=== PATIENT | female | born 1965 | race Caucasian/White ===

== ENCOUNTER 2021-05-13 23:07 | Emergency (ER) | payer OTHER, SELFPAY ==
--- NOTE | ~2021-05-13 | XR_ITS ---
XR tibia fibula LT 2V DATE: 05/13/2021 23:59 INDICATION: Fall. Left ankle injury, pain TECHNIQUE: AP and lateral views COMPARISON: None FINDINGS: There is a minimally displaced transverse fracture of the proximal neck of the fibula. There is a linear oblique fracture of the distal tibial shaft with 6.5 mm lateral and 1.6 mm posterio r displacement, no significant angulation. Normal alignment at the knee and ankle joints. Posterior prominent calcaneal enthesopathy. IMPRESSION: Proximal fibular neck and distal tibial shaft fractures Reviewed, dictated and finalized at location A.
--- NOTE | ~2021-05-13 | XR_ITS ---
XR ankle LT min 3V DATE: 05/13/2021 23:59 INDICATION: Fall. Left ankle injury TECHNIQUE: 3 views COMPARISON: None FINDINGS: There is up to 9 mm lateral displacement at a linear oblique fracture of the distal tibial shaft. Otherwise no fracture or dislocation of ankle or disruption of the ankle mortise. Prominent posterior and plantar calcaneal enthesopathy. Diffuse osteopenia. IMPRESSION: Distal tibial shaft fracture Reviewed, dictated and finalized at location A.
[2021-05-13 23:07] VITALS: BP 123/50; PULSE 77; RESP 12; TEMP 36.4; O2SAT 97
[2021-05-13 23:31] VITALS: BP 109/91; PULSE 76; RESP 13; O2SAT 97
--- NOTE | 2021-05-13 23:35 | ED.FALL ---
HPI - Fall General Chief Complaint: Fall Stated Complaint: fall Time Seen by Provider: 05/13/21 23:31 Source: RN notes reviewed History of Present Illness HPI Narrative: Patient presents emergency department from home via EMS for fall. Patient states she just waxed her floors today and was walking with socks on when she slipped and fell she states that when she fell she injured her left ankle and has been able to fully straighten it since that time she has been able to place any weight on the ankle patient states she was given pain medication by EMS she denies striking her head or any other injuries states she does have MS but does not walk with any assistance denies any pain of the knee or hip Related Data Home Medications Medication Instructions Recorded Confirmed Dialyvite Vitamin D 05/13/21 Novolog U-100 Insulin aspart 05/13/21 clonazepam 05/13/21 levothyroxine [Synthroid] 05/13/21 rosuvastatin mg 05/13/21 sertraline mg 05/13/21 tramadol 05/13/21 05/13/21 Allergies Allergy/AdvReac Type Severity Reaction Status Date / Time latex Allergy Unknown Unknown Verified 05/13/21 23:22 morphine Allergy Unknown Unknown Verified 05/13/21 23:22 Review of Systems Review of Systems: Gen.: Denies fevers or chills Eyes: Denies eye pain or visual change ENT: Denies facial pain Respiratory: Denies shortness of breath CV: Denies chest pain GI: Denies abdominal pain nausea, emesis Musculoskeletal see HPI Neuro: Denies numbness, tingling, weakness or focal weakness Skin: Denies rash Except as documented, all other systems reviewed and negative FOR[facility] Past Medical History Medical History (Updated 05/14/21 @ 03:25 by Nicholas Joyner DO) Diabetes mellitus Multiple sclerosis ROSENBERG (nonalcoholic steatohepatitis) Family History Family History (Updated 06/14/17 @ 10:14 by DOCTOR UNKNOWN) Other Cerebrovascular accident Depression Diabetes mellitus Family history of arthritis Family history of attention deficit hyperactivity disorder (ADHD) Family history of cardiovascular disease Family history of coronary artery disease Hypertension Social History Social History Smoking status: Never smoker Alcohol intake: never Exam Narrative: APPEARANCE: No acute distress, nontoxic, resting in bed EYES: EOMI HEENT: Normocephalic, atraumatic RESPIRATORY: No respiratory distress Clear to auscultation bilaterally with no rhonchi wheezing or rales. CARDIOVASCULAR: Regular rate and rhythm without murmurs rubs or gallops. ABDOMINAL: Soft, nontender, nondistended, MUSCULOSKELETAl: Moves all extremities. No clubbing, cyanosis or edema. 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 Following commands, speech normal, no focal deficits SKIN:: Warm, dry. No rashes lesions or abrasions PSYCHIATRIC: Normal affect/mood, Course Course Emergency Course: Called discussed with orthopedics Dr. Mccullough who reviewed imaging and request patient transferred to tertiary center for higher level of care Discussed with patient need for transfer request [facility] at this time We will discuss with Dr. Mulligan for orthopedics at [facility] at this time request patient be transferred to the ED Patient excepted to the ED by Dr. Murcia Vital Signs Vital signs: Vital Signs Temperature 97.6 F 05/13/21 23:07 Pulse Rate 77 05/13/21 23:07 Respiratory Rate 12 05/13/21 23:07 Blood Pressure 123/50 L 05/13/21 23:07 Pulse Oximetry 97 05/13/21 23:07 Temperature 97.6 F 05/13/21 23:07 Pulse Rate 73 05/14/21 03:04 Respiratory Rate 15 05/14/21 03:04 Bloo
[2021-05-14 00:54] VITALS: BP 120/50; PULSE 67; RESP 12; O2SAT 99
[2021-05-14] MEDS: fentaNYL CITRATE INJ (*CRX) 100 MCG/2 ML VIAL 50 MCG IV PUSH (01:35)
[2021-05-14 01:58] VITALS: BP 121/61; PULSE 65; RESP 11; O2SAT 96
[2021-05-14 03:04] VITALS: BP 94/43; PULSE 73; RESP 15; O2SAT 97
[2021-05-14 03:59] VITALS: BP 116/52; PULSE 82; RESP 15; O2SAT 97
== END 2021-05-14 04:00 | disposition short-term general hospital (02) ==
PROVIDERS: Emergency Provider Emergency Medicine; PCP Internal Medicine
DX: S82.832A Other fracture of upper and lower end of left fibula, initial encounter for closed fracture (principal); S82.232A Displaced oblique fracture of shaft of left tibia, initial encounter for closed fracture; E11.9 Type 2 diabetes mellitus without complications; G35 Multiple sclerosis; K75.81 Nonalcoholic steatohepatitis (NASH); Z79.4 Long term (current) use of insulin; W01.0XXA Fall on same level from slipping, tripping and stumbling without subsequent striking against object, initial encounter
CPT/HCPCS: 29515; 73590; 73610; 96374; 99285; J3010

== ENCOUNTER 2025-01-26 00:54 | Day surgery (SDC) | payer BC, MEDICARE, SELFPAY ==
[2025-01-19 15:05] VITALS: BMI 26.6
--- OUTSIDE RECORDS SUMMARY | 2025-01-26 00:57 | XMS_ITS | Encounter Summary ---
Author Organization [facility] Address [address] [place] [address] Care Team Providers Care Avionics Technician Name Role Phone Michael Rivas MD Primary Care Provider [phone] Encounter Details Date Type Department Care Team (Late Contact Info) Description 01/11/2005 Outpatient Historical Division of Neurology [address] 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 Gender Identity Not on file Sexual Orientation Not on file documented as of this encounter Plan of Treatment Upcoming Encounters Date Type Department Care Team (Late st Contact Info) Description 03/24/2025 1:30 PM CDT Office [facility] Oncology and Hematology - [place] [address] [facility] [address] [place] [address] Vinny Preciado MD [address] [facility] [address] [place] [address] documented as of this encounter Visit Diagnoses Not on filedocumented in this encounter Care Teams Avionics Technician Relationship Specialty Start Date End Date Michael Rivas MD PCP - General 09/03/15 documented as of this encounter
--- OUTSIDE RECORDS SUMMARY | 2025-01-26 00:58 | XMS_ITS | Encounter Summary ---
Author Organization [facility] Address [address] [place] [address] Care Team Providers Care Grocery Associate Name Role Phone Michael Rivas MD Primary Care Provider [phone] Encounter Details Date Type Department Care Team (Latest Contact Info) Description 04/12/2005 Outpatient Historical HIS [facility] Annel Michael MD [address] [facility] [address] [place] [address] MULTIPLE SCLEROSIS (CMS/HCC) (Primary Dx) Social History Tobacco Use Types Packs/Day Years Used Date Smoking Tobacco: Never Assessed Comments Unknown Sex and Gender Information Value Date Recorded Sex Assigned at Not on file 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 Gender Identity Not on file Sexual Orientation Not on file documented as of this encounter Plan of Treatment Upcoming Encounters Date Type Department Care Team (Late st Contact Info) Description 03/24/2025 1:30 PM CDT Office Visit [facility] Oncology and Hematology - [place] [address] [facility] [address] [place] [address] Vinny Preciado MD [address] [facility] [address] [place] [address] documented as of this encounter Procedures Procedure Name Priority Date/Time Associated Diagnosis Comments ANGIOTENSIN CONVERTING ENZYME Routine 04/12/2005 1:57 PM CDT BRANDT SCREEN W/REFLEX Routine 04/12/2005 1 :57 PM CDT PROTEIN ELECTROPHORESIS W/REFLEX,SERUM Routine 04/12/2005 1:57 PM CDT SPINAL FLUID CELL COUNT W/REFLEXIVE DIFF Routine 04/12/2005 1:44 PM CDT SPINAL FLUID CELL COUNT W/REFLEXIVE DIFF Routine 04/12/2005 1:44 PM CDT PROTEIN ELECTROPHORESIS, CSF Routine 04/12/2005 1:44 PM CDT TOTAL PROTEIN, CSF Routine 04/12/2005 1: 44 PM CDT GLUCOSE, CSF Routine 04/12/2005 1:44 PM CDT documented in this encounter Results * ANGIOTENSIN CONVERTING ENZYME (04/12/2005 1:57 PM CDT) ANGIOTENSIN CONVERTING ENZYME 28 9 - 67 U/L INTERFACE SYSTEM Comment: Lab test performed by: [facility] [address] ÁLVARO MCCRAY MD 04/12/2005 1:57 PM CDT Annel Butler MD CHEMISTRY ORDERABLES Final Result INTERFACE SYSTEM Refer to clinic/hospital department * (ABNORMAL) PROTEIN ELECTROPHORESIS, SERUM (04/12/2005 1:57 PM CDT) PROTEIN TOTAL, SPE 7.6 6.0 - 8.3 g/dL INTERFACE SYSTEM ALBUMIN SPE 4.67 3.60 - 5.00 g/dL INTERFACE SYSTEM ALPHA 1 GLOBULIN SPE 0.21 0.12 - 0.30 g/dL INTERFACE SYSTEM ALPHA 2 GLOBULIN SPE 1.06(H) 0.50 - 1.01 g/dL INTERFACE SYSTEM BETA GLOBULIN 0.75 0.60 - 1.05 g/dL INTERFACE SYSTEM GAMMA GLOBULIN 0.90 0.60 - 1.33 g/dL INTERFACE SYSTEM SPE INTERP INTERFACE SYSTEM Comment: One value is slightly outside the normal range; otherwise pattern is within normal limits. ELECTROPHORESIS INTERP BY: Frank Galvan MD INTERFACE SYSTEM 04/12/2005 1:57 PM CDT Annel Butler MD CHEMISTRY ORDERABLES Final Result Performing Organization Address [facility] Phone Number INTERFACE SYSTEM Refer to clinic/hospital department * BRANDT (04/12/2005 1:57 PM CDT) BRANDT SCREEN NEGATIVE NEGATIVE INTERFACE SYSTEM Comment: Lab test performed by: [facility] [address] ÁLVARO MCCRAY MD 04/12/2005 1:57 PM CDT Annel Butler MD CHEMISTRY ORDERABLES Final Result Performing Organization Address [facility] Phone [facility] INTERFACE SYSTEM Refer to clinic/hospital department * SPINAL FLUID CELL COUNT W/REFLEXIVE DIFF (04/12/2005 1:44 PM CDT) LYMPHOCYTES, CSF 67 40 - 80 % INTERFACE SYSTEM MONOCYTES/ HISTIOCYTES, CSF 33 15 - 45 % INTERFACE SYSTEM # CELLS COUNTED FOR DIFF, CSF <10 WBC Counted INTERFACE SYSTEM 04/12/2005 1:44 PM CDT Annel Butler MD BODY FLUIDS AND STOOLS Philomena l Result Performing Organization Address [facility] Phone Number INTERFACE SYSTEM Refer to clinic/hospital department * (ABNORMAL) TOTAL PROTEIN, CSF (04/12/2005 1:44 PM CDT) PROTEIN, CSF 78(H) 15 - 60 mg/dL INTERFACE SYSTEM 04/12/2005 1:44 PM CDT Annel Butler MD BODY FLUIDS AND STOOLS Phil[facility] l Result Performing Organization Address [facility] Phone Number INTERFACE SYSTEM Refer to clinic/hospital department * (ABNORMAL) GLUCOSE, CSF (04/12/2005 1:44 PM CDT) GLUCOSE, CSF 83(H) 41 - 75 mg/dL INTERFACE SYSTEM 04/12/2005 1:44 PM CDT Annel Butler MD BODY FLUIDS AND STOOLS [place] l Result Performing Organization Address [facility] Phone Number INTERFACE SYSTEM Refer to clinic/hospital department * (ABNORMAL) PROTEIN ELECTROPHORESIS, CSF (04/12/2005 1:44 PM CDT) PROTEIN, CSFE 78(H) 15 - 60 mg/dL INTERFACE SYSTEM IGG-ALBUMIN INDEX 0.67 <=0.70 Index INTERFACE SYSTEM ALBUMIN 4,384 3,500 - 5,200 mg/dL INTERFACE SYSTEM IGG SERUM CSFE 1030 674 - 1554 mg/dL INTERFACE SYSTEM ALBUMIN, CSF 37.3(H) 10.0 - 30.0 mg/dL INTERFACE SYSTEM IGG, CSF 5.87(H) 0.63 - 5.00 mg/dL INTERFACE SYSTEM CSF ELECT INTERP INTERFACE SYSTEM Comment: Negative for oligoclonal bands. The CSF IgG index is normal. CSF ELEC INTERP BY: Frank Galvan MD INTERFACE SYSTEM 04/12/2005 1:44 PM CDT Annel Butler MD BODY FLUIDS AND STOOLS Philomena l Result Performing Organization Address [facility] Phone Number INTERFACE SYSTEM Refer to clinic/hospital department * (ABNORMAL) SPINAL FLUID CELL COUNT W/REFLEXIVE DIFF (04/12/2005 1:44 PM CDT) APPEARANCE, CSF Clear Clear INTERFACE SYSTEM COLOR, CSF Colorless Colorless INTERFACE SYSTEM TUBE #, CSF 4 INTERFAC E SYSTEM VOLUME, CSF 6.5 mL INTERFAC E SYSTEM WBC, CSF 2 0 - 10 /uL INTERFACE SYSTEM RBC, CSF 1(H) <=0 /uL INTERFACE SYSTEM 04/12/2005 1:44 PM CDT Annel Butler MD BODY FLUIDS AND STOOLS Phil[place]a l Result Performing Organization Address [facility] Co de Phone Number INTERFACE SYSTEM Refer to clinic/hospital department documented in this encounter Visit Diagnoses Diagnosis Multiple sclerosis (CMS/HCC)- Primary Multiple sclerosis documented in this encounter Care Teams Grocery Associate Relationship Specialty Start Date End Date Michael Rivas MD PCP - General 09/03/15 documented as of this encounter
--- OUTSIDE RECORDS SUMMARY | 2025-01-26 00:58 | XMS_ITS | Encounter Summary ---
Author Organization [facility] Address [address] [place] [address] Phone Care Team Providers Care Base Remover Name Role Phone Mahad Corado MD Unavailable [phone] Xiomy Kiran MD Primary Care Provider Reason for Visit * Reason Comments Medication Refill Encounter Details Date Type Department Care Team (Late st Contact Info) Description [facility] [address] [place] [phone] Mahad Corado MD [address] [place] [address] Medication Refill Social History Tobacco Use Types Packs/Day Years Used Date Smoking Tobacco: Never Smokeless Tobacco: Never Alcohol Use Standard Drinks/Week Comments No 0 (1 standard drink = 0.6 oz pur e alcohol) Sexually Active Control Partners Comments Yes Post-menopausal Male Comments No Sex and Gender Information Value Date Recorded Sex Assigned at Not on file Legal Sex Female 12:03 AM CDT Gender Identity Not on file Sexual Orientation Not on file documented as of this encounter Plan of Treatment Upcoming Encounters Date Type Department Care Team (Late st Contact Info) Description 06/25/2025 11:00 AM CDT Office Visit [facility] - Neurology [facility] [address] [place] [address] Mahad Corado MD [address] [facility] [place] [address] documented as of this encounter Visit Diagnoses Diagnosis Anxiety Anxiety state, unspecified documented in this encounter Care Teams Base Remover Relationship Specialty Start Date End Date Xiomy Kiran MD [address] [place] [address] [facility] [place] [address] PCP - General Internal Medicine 12/05/17 Mahad Corado MD [address] [place] [address] Consulting Physician Neurology 08/02/15 documented as of this encounter
--- OUTSIDE RECORDS SUMMARY | 2025-01-26 00:58 | XMS_ITS | Encounter Summary ---
Author Organization [facility] Address 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 Gender Identity Not on file Sexual Orientation Not on file documented as of this encounter Plan of Treatment Upcoming Encounters Date Type Department Care Team (Late st Contact Info) Description 03/24/2025 1:30 PM CDT Office Visit [facility] Oncology and Hematology - [place] [address] [facility] [address] [place] [address] Vinny Preciado MD [address] [facility] [address] [place] [address] documented as of this encounter Visit Diagnoses Diagnosis Carpal tunnel syndrome- Primary documented in this encounter Care Teams Hydraulic Press Servicer Relationship Specialty Start Date End Date Michael Rivas MD PCP - General 09/03/15 documented as of this encounter
--- OUTSIDE RECORDS SUMMARY | 2025-01-26 00:58 | XMS_ITS | Encounter Summary ---
Author Organization [facility] Address [address] [place] [address] Care Team Providers Care Fire Alarm Dispatcher Name Role Phone Michael Rivas MD Primary Care Provider [phone] Encounter Details Date Type Department Care Team (Latest Contact Info) Description 08/05/2004 Outpatient Historical HIS [facility] Jean Dugan MD [address] [facility] [address] [place] [address] SCREENING MAMM-MAILG NEOPL-OTHER (Primary Dx) Social History Tobacco Use Types Packs/Day Years Used Date Smoking Tobacco: Never Assessed Comments Unknown Sex and Gender Information Value Date Recorded Sex Assigned at Not on file Legal Sex Female 2:39 AM [employer] Gender Identity Not on file Sexual Orientation Not on file documented as of this encounter Plan of Treatment Upcoming Encounters Date Type Department Care Team (Late st Contact Info) Description 03/24/2025 1:30 PM CDT Office Visit [facility] Oncology and Hematology - [place] [address] [facility] [address] [place] [address] Vinny Preciado MD [address] [facility] [address] [place] [address] documented as of this encounter Visit Diagnoses Diagnosis Other screening mammogram- Primary documented in this encounter Care Teams Fire Alarm Dispatcher Relationship Specialty Start Date End Date Michael Rivas MD PCP - General 09/03/15 documented as of this encounter
--- OUTSIDE RECORDS SUMMARY | 2025-01-26 00:58 | XMS_ITS | Encounter Summary ---
Author Organization [facility] Address [address] [place] [address] Care Team Providers Care Director Validation Name Role Phone Michael Rivas MD Primary Care Provider [phone] Encounter Details Date Type Department Care Team (Late st Contact Info) Description 03/13/2005 Outpatient Historical [facility] Support Serv. (Adt Cardiology-[facility]) [address] 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 Gender Identity Not on file Sexual Orientation Not on file documented as of this encounter Plan of Treatment Upcoming Encounters Date Type Department Care Team (Late st Contact Info) Description 03/24/2025 1:30 PM CDT Office Visit [facility] Oncology and Hematology - [place] [address] [facility] [address] [place] [address] Vinny Preciado MD [address] [facility] [address] [place] [address] documented as of this encounter Visit Diagnoses Not on filedocumented in this encounter Care Teams Director Validation Relationship Specialty Start Date End Date Michael Rivas MD PCP - General 09/03/15 documented as of this encounter
--- OUTSIDE RECORDS SUMMARY | 2025-01-26 00:58 | XMS_ITS | Encounter Summary ---
Author Organization [facility] Address [address] [place] [address] Care Team Providers Care Electron Gun Assembler Name Role Phone Michael Rivas MD Primary Care Provider [phone] Encounter Details Date Type Department Care Team (Late st Contact Info) Description 03/12/2005 Outpatient Historical [facility] Internal Medicine Medical [facility] [address] [facility] [address] [address] Ada Mojica MD Social History Tobacco Use Types Packs/Day Years Used Date Smoking Tobacco: Never Assessed Comments Unknown Sex and Gender Information Value Date Recorded Sex Assigned at Not on file 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 Gender Identity Not on file Sexual Orientation Not on file documented as of this encounter Plan of Treatment Upcoming Encounters Date Type Department Care Team (Late st Contact Info) Description 03/24/2025 1:30 PM CDT Office Visit [facility] Oncology and Hematology - [place] [address] [facility] [address] [place] [phone] Vinny Preciado MD [address] [facility] [address] [place] [address] documented as of this encounter Visit Diagnoses Not on filedocumented in this encounter Care Teams Electron Gun Assembler Relationship Specialty Start Date End Date Michael Rivas MD PCP - General 09/03/15 documented as of this encounter
--- OUTSIDE RECORDS SUMMARY | 2025-01-26 00:58 | XMS_ITS | Encounter Summary ---
Author Organization [facility] Address 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 Gender Identity Not on file Sexual Orientation Not on file documented as of this encounter Plan of Treatment Upcoming Encounters Date Type Department Care Team (Late st Contact Info) Description 03/24/2025 1:30 PM CDT Office Visit [facility] Oncology and Hematology - Raym[place] [address] [facility] [address] [place] [address] Vinny Preciado MD [address] [facility] [address] [place] [address] documented as of this encounter Visit Diagnoses Diagnosis Displacement of cervical intervertebral disc without myelopathy- Primary documented in this encounter Care Teams End User Support Specialist Relationship Specialty Start Date End Date Michael Rivas MD PCP - General 09/03/15 documented as of this encounter
--- OUTSIDE RECORDS SUMMARY | 2025-01-26 00:58 | XMS_ITS | Clinical Summary ---
Author Organization [facility] Facility Address [address] [place] [address] Care Team Providers Care Production Tool Engineer Name Role Phone Xiomy Kiarn MD Primary Care Provider [phone] Social History Tobacco Use Types Packs/Day Years Used Date Smoking Tobacco: Never Assessed Comments Unknown Sex and Gender Information Value Date Recorded Sex Assigned at Not on file Legal Sex Female 3:05 PM EST Gender Identity Not on file Sexual Orientation Not on file Plan of Treatment Upcoming Encounters Date Type Department Care Team (Late st Contact Info) Description 03/31/2025 1:30 PM CDT Office Visit [facility], [facility] [address] [facility] [address] [place] [address] Barney Capps DO [address] [facility] [address] [place] [address] Health Maintenance Due Date Last Done Comments Breast Cancer Screening 1965 Colorectal Cancer Screening: Annual FOBT 2012 Colorectal Cancer Screening: Colonoscopy 2012 Colorectal Cancer Screening: Sigmoidoscopy 2012 Pneumococcal Vaccine: 50+ Ye ars (2 of 2 - PCV) 03/22/2021 03/22/2020 Hepatitis B Vaccine (1 of 3 - Risk 3-dose series) 2023 Diabetes: Ophthalmology Exam 08/06/2024 Diabetes: Pedal Pulse Checked 08/06/2024 Diabetes: Sensory Foot Exam 08/06/2024 Diabetes: Visual Foot Exam 08/06/2024 Diabetes: Hemoglobin A1C 11/11/202408/11/2 024, 11/28/2023, 05/14/2021, Additional history exists Influenza Vaccine (Season Ended) 2025 06/18/2023, 06/28/2022, 06/21/2020, Additional history exists Pneumococcal Vaccine: Peds ( 0 to 5 Years) and At-Risk Patients (6 to 49 Years) Discontinued 03/22/2020 [place] [address] [facility] Medicare Care Teams Production Tool Engineer Relationship Specialty Start Date End Date Xiomy Kiran MD [address] [place] [address] PCP - General Internal Medicine 11/13/23
--- OUTSIDE RECORDS SUMMARY | 2025-01-26 00:58 | XMS_ITS | Encounter Summary ---
Author Organization [facility] Address [address] [place] [address] Care Team Providers Care Aviation Operations Specialist Name Role Phone Michael Rivas MD Primary Care Provider [phone] Encounter Details Date Type Department Care Team (Late Contact Info) Description 06/14/2005 Outpatient Historical Division of Neurology [address] , [address] [place] [address] Annel Butler MD [address] [facility] [address] [place] [address] Social History Tobacco Use Types Packs/Day Years Used Date Smoking Tobacco: Never Assessed Comments Unknown Sex and Gender Information Value Date Recorded Sex Assigned at Not on file 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 Gender Identity Not on file Sexual Orientation Not on file documented as of this encounter Plan of Treatment Upcoming Encounters Date Type Department Care Team (Late st Contact Info) Description 03/24/2025 1:30 PM CDT Office Visit [facility] Oncology and Hematology - Ray[place] [address] [facility] [address] [place] [address] Vinny Preciado MD [address] [facility] [address] [place] [address] documented as of this encounter Visit Diagnoses Not on filedocumented in this encounter Care Teams Aviation Operations Specialist Relationship Specialty Start Date End Date Michael Rivas MD PCP - General 09/03/15 documented as of this encounter
--- OUTSIDE RECORDS SUMMARY | 2025-01-26 00:58 | XMS_ITS | Encounter Summary ---
Author Organization [facility] Address 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 Gender Identity Not on file Sexual Orientation Not on file documented as of this encounter Plan of Treatment Upcoming Encounters Date Type Department Care Team (Late st Contact Info) Description 03/24/2025 1:30 PM CDT Office Visit [facility] Oncology and Hematology - Raymundo [address] [facility] 200 [place] [address] Vinny Preciado MD [address] [facility] [address] [place] [address] documented as of this encounter Visit Diagnoses Diagnosis Other follow-up examination(V67.59)- Primary Other follow-up examination documented in this encounter Care Teams Biology Department Chair Relationship Specialty Start Date End Date Michael Rivas MD PCP - General 09/03/15 documented as of this encounter
--- OUTSIDE RECORDS SUMMARY | 2025-01-26 00:58 | XMS_ITS | Encounter Summary ---
Author Organization [facility] Address 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) (Primary Dx) Social History Tobacco Use Types Packs/Day Years Used Date Smoking Tobacco: Never Assessed Comments Unknown Sex and Gender Information Value Date Recorded Sex Assigned at Not on file 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 Gender Identity Not on file Sexual Orientation Not on file documented as of this encounter Plan of Treatment Upcoming Encounters Date Type Department Care Team (Late st Contact Info) Description 03/24/2025 1:30 PM CDT Office Visit [facility] Oncology and Hematology - Raymundo [address] [facility] [address] [place] [address] Vinny Preciado MD [address] [facility] [address] [place] [address] documented as of this encounter Procedures Procedure Name Priority Date/Time Associated Diagnosis Comments HEMOGLOBIN A1C Routine 01/11/2005 2:10 PM CDT documented in this encounter Results * (ABNORMAL) HEMOGLOBIN A1C (01/11/2005 2:10 PM CDT) HEMOGLOBIN A1C 7.3(H) 3.9 - 6.1 % of Hgb INTERFACE SYSTEM Comment: Note: Analyzer upgraded from [employer] One Variant to Variant II. No change in methodology. GLUCOSE, MEAN BLOOD 157 mg/dL INTERFACE SYSTEM 01/11/2005 2:10 PM CDT us Annel Butler MD CHEMISTRY ORDERABLES Final Result INTERFACE SYSTEM Refer to clinic/hospital department documented in this encounter Visit Diagnoses Diagnosis Type II or unspecified type diabetes mellitus with neurological manifestations, not stated as uncontrolled(250.60) (CMS/HCC)- Primary Type II or unspecified type diabetes mellitus with neurological manifestations, not stated as uncontrolled documented in this encounter Care Teams Elementary Substitute Teacher Relationship Specialty Start Date End Date Michael Rivas MD PCP - General 09/03/15 documented as of this encounter
--- OUTSIDE RECORDS SUMMARY | 2025-01-26 00:58 | XMS_ITS | CONTINUITY OF CARE DOCUMENT ---
Author Name sofia black Address Unknown Organization [facility] Address [address] [facility] [address] [place] [address] Phone [phone] Care Team Providers Care Document Design Specialist Name Role Phone Philip TOLEDO, Silvana Unavailable [phone] [place] MD Unavailable [phone] [place] MD Unavailable [phone] PROBLEMS Condition Status Date Provider Notes Diabetes mellitus AIC 11.2 active Silvana hurtado MD FAMILY HISTORY OF HEART DISEASE active Kaley Farrar MD dad with cabg Obesity active Jarod Farrar MD Hypothyroidism active Jarod Farrar MD Osteomyelitis active Jarod Farrar MD Multiple sclerosis active Jarod Farrar MD Carpal tunnel syndrome active Jarod Farrar MD Hyperlipidemia active Jarod Farrar MD Chest pain stress nuc nl, Ca score 66 4 L main 61 LAD 03/2021 active Silvana Palacios MD SOB echo - nl lv function , diastolic dysfunctiom 03/2021 active Silvana Palacios MD PVD Mild atherosclerosis on MAT 03/2021 active Silvana Palacios MD ENCOUNTERS Date Type Provider Location Encounter Diag nosis 04/18 - 04/18 In-person encounter Office Visit Silvana Palacios MD [facility] Diabetes mellitus AIC 11.2SOB echo - nl lv function , diastolic dysfunctiom VD Mild atherosclerosis on MAT 03/2021 - 03/14 In-person encounter Office Visit Silvana Palacios MD [facility] Chest pain stress nuc nl, Ca score 66 4 L main 61 LAD OB echo - nl lv function , diastolic dysfunctiom 03/2021 - 05/20 In-person encounter Office Visit Jarod Farrar MD [facility] Diabetes mellitus AIC 11.2FAMILY HISTORY OF HEART DISEASEObesityHypothyroidismOsteomyelitisMultiple sclerosisCarpal tunnel syndromeHyperlipidemia VITAL SIGNS Date Observation Value Provider Body Mass Index (Ratio) 31.70 kg/m2 Jovon Palacios MD blood pressure, diastolic 75 mm[Hg] Fe Lima blood pressure, systolic 143 mm[Hg] Marly Moraes blood pressure, diastolic 75 mm[Hg] Rh onned Morales blood pressure, systolic 143 mm[Hg] Rho ndrocio Morales oxygen saturation, oximetry 98 % Xuan Morales respiratory rate E&M 18 /min Xuanrocio Morales pulse rate 77 /min Xuan Morales blood pressure, resting No Rhon ned Morales blood pressure, cuff size regular onned Morales weight E&M 179 [lb_av] Xuan Morales height E&M 63 [in_i] Xuan Morales Body Mass Index (Ratio) 31.70 kg/m2 Jovon Palacios MD blood pressure, diastolic 74 mm[Hg] [facility] Hospital[facility] blood pressure, systolic 158 mm[Hg] Marly Ospinaedwar blood pressure, diastolic 74 mm[Hg] Rh onda Carmen blood pressure, systolic 158 mm[Hg] Rho nda Carmen weight E&M 179 [lb_av] Xuan Morales pulse rate 84 /min Xuan Morales oxygen saturation, oximetry 98 % Xuan Morales respiratory rate E&M 18 /min Xuan Carmen blood pressure, resting No Rhon ned Morales blood pressure, cuff size regular Rh onned Morales height E&M 63 [in_i] Xuan Carmen Body Mass Index (Ratio) 30.82 kg/m2 Kaley Farrar MD blood pressure, cuff size regular Cr brunilda Wong blood pressure, diastolic 70 mm[Hg] Cr brunilda Wong blood pressure, systolic 120 mm[Hg] Cry stal Marvin oxygen saturation, oximetry 97 % Ernestina Wong respiratory rate E&M 17 /min Ernestina Wong pulse rate 79 /min Ernestina terry blood pressure, resting No Meghna jorge Wong weight E&M 174 [lb_av] Ernestina terry height E&M 63 [in_i] Ernestina terry ALLERGIES Allergy Name Onset Date Reaction Criticality Status LATEX High Criticality active MORPHINE High Criticality active HISTORY OF MEDICATION USE Medication Status Instructions Dates Provider Indications Com ments losartan 25 mg tablet active Take 1 tablet by mouth once a day 2 Sebastian Ahmedzaedel Crestor 40 mg tablet active 1 tablet by mouth once a day 8 Xuan Morales ZETIA 10 MG ORAL TABLET completed ONE TAB. DAILY with lovastain 0 - 8 Xuan Morales ADIPEX-P 37.5 MG ORAL TABLET completed one tab by mouth daily 3 - 8 Xuan Morales ALTACE 1.25 MG ORAL CAPSULE completed ONE TAB. DAILY 3 - 8 Xuan Morales LOVASTATIN TABLET completed - 8 Xuan Morales Zoloft 100 mg tablet active Take 1 tablet by mouth once a day Silvana Palacios MD levothyroxine 50 mcg tablet active Take 1 tablet by mouth once a day Silvana Palacios MD TRESIBA FLEXTOUCH 100 UNIT/ML SUBCUTANEOUS SOLUTION PEN-INJECTOR completed inject 15 units twice daily - 8 Xuan Morales GLIMEPIRIDE 2 MG ORAL TABLET completed take two tablet by mouth twice daily - 8 Xuan Morales clonazepam 0.5 mg tablet active Take 1 tablet by mouth once a week Silvana Palacios MD tramadol 50 mg tablet active Take 1 tablet by mouth as needed Silvana Palacios MD SOCIAL HISTORY Date Observation Value Provider social history E&M S moking History: Elda gregg has never smoked. Sebastian Kennedy smoking status Never smoker Xuan Morales social history reviewed E&M revi ewed - no changes required Silvana Palacios MD social history reviewed E&M revi ewed - no changes required Sebastian Kennedy social history E&M S moking History: Elda gregg has never smoked. Sebastian Kennedy smoking status Never smoker Xuan Morales social history E&M S moking History: Elda gregg has never smoked. Jarod Farrar MD social history reviewed E&M revi ewed - no changes required Jarod Farrar MD smoking status Never smoker Ernestina Lewis kareem FAMILY HISTORY Family Member Condition Father Family History of Hy perlipidemia: Father Family History of Di abetes: Mother Family History of Hy pertension: Mother Family History of Hy perlipidemia: INSURANCE PROVIDERS Payer name Policy type / Coverage type [place] red democrat ID [facility] [id number] MEDICARE SECONDARY [place] Medicare [id number] ADVANCE DIRECTIVES Name Date DISCUSSED - NO DECISION MADE TREATMENT PLAN Date Name Performer [id number],Silvana Terry MD [id number],WSilvana MD [id number],SSilvana MD [id number],BSilvana MD [id number],S, Silvana Palacios MD [id number],S, Sebastian Ahmedza i [id number],S, Sebastian Ahmedza i [id number],S, Sebastian Ahmedza i [id number],S, Sebastian Ahmedza i [id number],S, Sebastian Ahmedza i Cardiology Silvana Palacios MD Cardiology Silvana Palacios MD Cardiology Silvana Palacios MD Cardiology Silvana Palacios MD Cardiology Silvana Palacios MD Cardiology Sebastian Ahmedzai Cardiology Sebastian Ahmedzai Cardiology Sebastian Ahmedzai Cardiology Sebastian Ahmedzai Cardiology Sebastian Ahmedzai Cardiology Jarod Farrar MD Cardiology Jarod Farrar MD Cardiology Jarod Farrar MD Cardiology:9.1 Jarod Farrar MD Date Name Stress Regadenoson Arterial Duplex Bi-L ower EX CT, Coronary Calcium Score Complete Echo CT, Coronary Calcium Score HISTORY OF PROCEDURES Procedure Date Procedure Name Provider Procedure Notes S tatus EKG Silvana Palacios MD completed CT- Coronary CA score Silvana Palacios MD completed EKG Silvana Palacios MD completed EKG Jarod Farrar MD complete d
--- OUTSIDE RECORDS SUMMARY | 2025-01-26 00:58 | XMS_ITS | Encounter Summary ---
Author Organization [facility] Address 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 Gender Identity Not on file Sexual Orientation Not on file documented as of this encounter Plan of Treatment Upcoming Encounters Date Type Department Care Team (Late st Contact Info) Description 03/24/2025 1:30 PM CDT Office Visit [facility] Oncology and Hematology - Raymundo [address] [facility] [address] [place] [address] Vinny Preciado MD [address] [facility] [address] [place] [address] documented as of this encounter Procedures Procedure Name Priority Date/Time Associated Diagnosis Comments CBC WITH DIFFERENTIAL Routine 10/04/2005 1:43 PM HIGH SCHOOL PHYSICAL EDUCATION TEACHER CBC WITH DIFFERENTIAL Routine 10/04/2005 1:43 PM HIGH SCHOOL PHYSICAL EDUCATION TEACHER COMPREHENSIVE METABOLIC PANEL Routine 10/04/2005 1:43 PM HIGH SCHOOL PHYSICAL EDUCATION TEACHER documented in this encounter Results * (ABNORMAL) CBC WITH DIFFERENTIAL (10/04/2005 1:43 PM HIGH SCHOOL PHYSICAL EDUCATION TEACHER) NEUTROPHILS 69 45 - 70 % INTERFAC E SYSTEM LYMPHOCYTES 24 16 - 45 % INTERFAC E SYSTEM MONOCYTES 4 3 - 13 % INTERFACE SYSTEM EOSINOPHILS 2 0 - 7 % INTERFAC E SYSTEM BASOPHILS 1 0 - 2 % INTERFACE SYSTEM NEUTROPHIL ABSOLUTE 7.07(H) 1.90 - 7.00 K/uL INTERFACE SYSTEM LYMPHOCYTE ABSOLUTE 2.42 0.70 - 4.50 K/uL INTERFACE SYSTEM MONOCYTE ABSOLUTE 0.44 0.10 - 1.30 K/uL INTERFACE SYSTEM EOSINOPHIL ABSOLUTE 0.20 0.00 - 0.70 K/uL INTERFACE SYSTEM BASOPHILS ABSOLUTE 0.05 0.00 - 0.20 K/uL INTERFACE SYSTEM 10/04/2005 1:43 PM HIGH SCHOOL PHYSICAL EDUCATION TEACHER Annel Butler MD HEMATOLOGY ORDERABLES Final Result Performing Organization Address City/State/[facility] Co de Phone Number INTERFACE SYSTEM Refer to clinic/hospital department * (ABNORMAL) CBC WITH DIFFERENTIAL (10/04/2005 1:43 PM HIGH SCHOOL PHYSICAL EDUCATION TEACHER) Pathologist [facility] WBC 10.2(H) 4.0 - 9.8 K/uL INTERFACE SYSTEM RBC 4.33 3.90 - 4.90 M/uL INTERFACE SYSTEM HEMOGLOBIN 12.2 11.8 - 14.8 g/dL INTERFACE SYSTEM HEMATOCRIT 36.8 35.5 - 44.0 % INTERFACE SYSTEM MCV 85.0 82.0 - 99.0 fL INTERFACE SYSTEM MCH 28.2 27.2 - 32.6 pg INTERFACE SYSTEM MCHC 33.2 31.5 - 35.5 % INTERFACE SYSTEM RDW 12.8 11.5 - 14.5 % INTERFACE SYSTEM RDW-STDEV 39.6 37.1 - 48.7 fL INTERFACE SYSTEM PLATELETS 193 140 - 350 K/uL INTERFACE SYSTEM MPV 11.3 9.3 - 12.4 fL INTERFACE SYSTEM 10/04/2005 1:43 PM HIGH SCHOOL PHYSICAL EDUCATION TEACHER Annel Butler MD HEMATOLOGY ORDERABLES Final Result INTERFACE SYSTEM Refer to clinic/hospital department * (ABNORMAL) COMPREHENSIVE METABOLIC PANEL (10/04/2005 1:43 PM HIGH SCHOOL PHYSICAL EDUCATION TEACHER) GLUCOSE 183(H) 65 - 109 mg/dL INTERFACE SYSTEM CREATININE 0.8 0.4 - 1.2 mg/dL INTERFACE SYSTEM CALCIUM 9.5 8.6 - 10.2 mg/dL INTERFACE SYSTEM AST 18 12 - 32 U/L INTERFACE SYSTEM ALKALINE PHOSPHATASE 112(H) 35 - 104 U/L INTERFACE SYSTEM BILIRUBIN TOTAL 0.2 0.2 - 1.0 mg/dL INTERFACE SYSTEM ALBUMIN 4.1 3.4 - 4.8 g/dL INTERFACE SYSTEM TOTAL PROTEIN 7.3 6.3 - 8.6 g/dL INTERFACE SYSTEM ALT 20 0 - 31 U/L INTERFACE SYSTEM BUN 7 6 - 20 mg/dL INTERFACE SYSTEM SODIUM 140 135 - 145 mmol/L INTERFACE SYSTEM POTASSIUM 4.2 3.5 - 4.9 mmol/L INTERFACE SYSTEM CHLORIDE 102 96 - 108 mmol/L INTERFACE SYSTEM CO2 29 22 - 30 mmol/L INTERFACE SYSTEM 10/04/2005 1:4 3 PM HIGH SCHOOL PHYSICAL EDUCATION TEACHER us Annel Butler MD CHEMISTRY ORDERABLES Final Result Performing Organization Address City/State/[facility] Co de Phone Number INTERFACE SYSTEM Refer to clinic/hospital department documented in this encounter Visit Diagnoses Diagnosis Multiple sclerosis (CMS/HCC)- Primary Multiple sclerosis documented in this encounter Care Teams Operator Supply Relationship Specialty Start Date End Date Michael Rivas MD PCP - General 09/03/15 documented as of this encounter
--- OUTSIDE RECORDS SUMMARY | 2025-01-26 00:58 | XMS_ITS | Encounter Summary ---
Author Organization [facility] Address [address] [place] [address] Care Team Providers Care Donor Recruiter Name Role Phone Michael Rivas MD Primary Care Provider [phone] Encounter Details Date Type Department Care Team (Late Contact Info) Description 01/25/[address] 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 Gender Identity Not on file Sexual Orientation Not on file documented as of this encounter Plan of Treatment Upcoming Encounters Date Type Department Care Team (Late Contact Info) Description 03/24/2025 1:30 PM CDT Office Visit [facility] Oncology and Hematology - Raymundo [address] [facility] [address] [place] [address] Vinny Preciado MD [address] [facility] [address] [place] [address] documented as of this encounter Visit Diagnoses Not on filedocumented in this encounter Care Teams Donor Recruiter Relationship Specialty Start Date End Date Michael Rivas MD PCP - General 09/03/15 documented as of this encounter
--- OUTSIDE RECORDS SUMMARY | 2025-01-26 00:58 | XMS_ITS | Encounter Summary ---
Author Organization [facility] Address 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 Gender Identity Not on file Sexual Orientation Not on file documented as of this encounter Plan of Treatment Upcoming Encounters Date Type Department Care Team (Late st Contact Info) Description 03/24/2025 1:30 PM CDT Office Visit [facility] Oncology and Hematology - [place] [address] [facility] [address] [place] [address] Vinny Preciado MD [address] [facility] [address] [place] [address] documented as of this encounter Procedures Procedure Name Priority Date/Time Associated Diagnosis Comments CBC WITH DIFFERENTIAL Routine 03/13/2005 5:00 AM CDT CBC WITH DIFFERENTIAL Routine 03/13/2005 5:00 AM CDT PHOSPHORUS Routine 03/13/2005 5:00 AM CDT MAGNESIUM LEVEL Routine 03/13/2005 5:00 AM CDT COMPREHENSIVE METABOLIC PANEL Routine 03/13/2005 5:00 AM CDT TROPONIN (W/REFLEX CKMB/CK) Routine 03/12/2005 9:30 PM CDT TROPONIN (W/REFLEX CKMB/CK) Routine 03/12/2005 1:20 PM CDT D-DIMER Routine 03/12/2005 1:20 PM CDT TROPONIN (W/REFLEX CKMB/CK) Routine 03/12/2005 5:14 AM CDT CBC WITH DIFFERENTIAL Routine 03/12/2005 5:14 AM CDT CBC WITH DIFFERENTIAL Routine 03/12/2005 5:14 AM CDT documented in this encounter Results * (ABNORMAL) CBC WITH DIFFERENTIAL (03/13/2005 5:00 AM CDT) NEUTROPHILS 65 45 - 70 % INTERFAC E SYSTEM LYMPHOCYTES 29 16 - 45 % INTERFAC E SYSTEM MONOCYTES 5 3 - 13 % INTERFACE SYSTEM EOSINOPHILS 2 0 - 7 % INTERFAC E SYSTEM BASOPHILS 0 0 - 2 % INTERFACE SYSTEM NEUTROPHIL ABSOLUTE 7.49(H) 1.90 - 7.00 K/uL INTERFACE SYSTEM LYMPHOCYTE ABSOLUTE 3.32 0.70 - 4.50 K/uL INTERFACE SYSTEM MONOCYTE ABSOLUTE 0.52 0.10 - 1.30 K/uL INTERFACE SYSTEM EOSINOPHIL ABSOLUTE 0.20 0.00 - 0.70 K/uL INTERFACE SYSTEM BASOPHILS ABSOLUTE 0.05 0.00 - 0.20 K/uL INTERFACE SYSTEM 03/13/2005 5:00 AM CDT Harman Bone MD HEMATOLOGY ORDERABLES Final Result INTERFACE SYSTEM Refer to clinic/hospital department * (ABNORMAL) CBC WITH DIFFERENTIAL (03/13/2005 5:00 AM CDT) WBC 11.6(H) 4.0 - 9.8 K/uL INTERFACE SYSTEM RBC 4.22 3.90 - 4.90 M/uL INTERFACE SYSTEM HEMOGLOBIN 11.8 11.8 - 14.8 g/dL INTERFACE SYSTEM HEMATOCRIT 37.2 35.5 - 44.0 % INTERFACE SYSTEM MCV 88.2 82.0 - 99.0 fL INTERFACE SYSTEM MCH 28.0 27.2 - 32.6 pg INTERFACE SYSTEM MCHC 31.7 31.5 - 35.5 % INTERFACE SYSTEM RDW 13.7 11.5 - 14.5 % INTERFACE SYSTEM RDW-STDEV 44.2 37.1 - 48.7 fL INTERFACE SYSTEM PLATELETS 223 140 - 350 K/uL INTERFACE SYSTEM MPV 12.0 9.3 - 12.4 fL INTERFACE SYSTEM 03/13/2005 5:00 AM CDT Harman Bone MD HEMATOLOGY ORDERABLES Final Result Performing Organization Address [facility] Phone Number INTERFACE SYSTEM Refer to clinic/hospital department * PHOSPHORUS (03/13/2005 5:00 AM CDT) PHOSPHORUS 4.0 2.5 - 4.5 mg/dL INTERFACE SYSTEM 03/13/2005 5:00 AM CDT Harman Bone MD CHEMISTRY ORDERABLES Final R esult Performing Organization Address [facility] Phone Number INTERFACE SYSTEM Refer to clinic/hospital department * MAGNESIUM LEVEL (03/13/2005 5:00 AM CDT) MAGNESIUM 2.0 1.5 - 2.5 mg/dL INTERFACE SYSTEM 03/13/2005 5:00 AM CDT Harman Bone MD CHEMISTRY ORDERABLES Final R esult Performing Organization Address [facility] de Phone Number INTERFACE SYSTEM Refer to clinic/hospital department * (ABNORMAL) COMPREHENSIVE METABOLIC PANEL (03/13/2005 5:00 AM CDT) GLUCOSE 121(H) 65 - 109 mg/dL INTERFACE SYSTEM CREATININE 0.7 0.4 - 1.2 mg/dL INTERFACE SYSTEM CALCIUM 9.1 8.6 - 10.2 mg/dL INTERFACE SYSTEM AST 15 12 - 32 U/L INTERFACE SYSTEM ALKALINE PHOSPHATASE 93 35 - 104 U/L INTERFACE SYSTEM BUN 10 6 - 20 mg/dL INTERFACE SYSTEM BILIRUBIN TOTAL 0.3 0.2 - 1.0 mg/dL INTERFACE SYSTEM ALBUMIN 4.0 3.4 - 4.8 g/dL INTERFACE SYSTEM TOTAL PROTEIN 7.1 6.3 - 8.6 g/dL INTERFACE SYSTEM ALT 18 0 - 31 U/L INTERFACE SYSTEM SODIUM 141 135 - 145 mmol/L INTERFACE SYSTEM POTASSIUM 4.0 3.5 - 4.9 mmol/L INTERFACE SYSTEM CHLORIDE 106 96 - 108 mmol/L INTERFACE SYSTEM CO2 27 22 - 30 mmol/L INTERFACE SYSTEM 03/13/2005 5:00 AM CDT Harman Bone MD CHEMISTRY ORDERABLES Final R esult Performing Organization Address [facility] Co de Phone Number INTERFACE SYSTEM Refer to clinic/hospital department * TROPONIN (W/REFLEX CKMB/CK) (03/12/2005 9:30 PM CDT) TROPONIN T <0.01 <=0.03 ng/mL INTERFACE SYSTEM TROPONIN T INTERP Negative INTERFACE SYSTEM 03/12/2005 9:30 PM CDT Harman Bone MD CHEMISTRY ORDERABLES Final R esult Performing Organization Address [facility] Co de Phone Number INTERFACE SYSTEM Refer to clinic/hospital department * D-DIMER (03/12/2005 1:20 PM CDT) D-DIMER QUANT <0.22 <=0.42 ug/mL FEU INTERFACE SYSTEM Comment: DVT Screen reference range <0.45 ug/mL FEU D. Dimer Interpretation: The reference range is not clearly established in uncomplicated pregnanc ies. Values above the upper limit of the reference range are common from the 31st to 40th week of . High negative predictive values for DVT have been reported with the current methodology, as part of a comprehensive medical examination, including risk stratification. 03/12/2005 1:20 PM CDT Harman Bone MD HEMATOLOGY ORDERABLES Final Result Performing Organization Address [facility] Phone Number INTERFACE SYSTEM Refer to clinic/hospital department * TROPONIN (W/REFLEX CKMB/CK) (03/12/2005 1:20 PM CDT) TROPONIN T <0.01 <=0.03 ng/mL INTERFACE SYSTEM TROPONIN T INTERP Negative INTERFACE SYSTEM 03/12/2005 1:20 PM CDT Harman Bone MD CHEMISTRY ORDERABLES Final R esult Performing Organization Address [facility] Phone Number INTERFACE SYSTEM Refer to clinic/hospital department * CBC WITH DIFFERENTIAL (03/12/2005 5:14 AM CDT) NEUTROPHILS 59 45 - 70 % INTERFAC E SYSTEM LYMPHOCYTES 34 16 - 45 % INTERFAC E SYSTEM MONOCYTES 4 3 - 13 % INTERFACE SYSTEM EOSINOPHILS 2 0 - 7 % INTERFAC E SYSTEM BASOPHILS 1 0 - 2 % INTERFACE SYSTEM NEUTROPHIL ABSOLUTE 4.80 1.90 - 7.00 K/uL INTERFACE SYSTEM LYMPHOCYTE ABSOLUTE 2.80 0.70 - 4.50 K/uL INTERFACE SYSTEM MONOCYTE ABSOLUTE 0.31 0.10 - 1.30 K/uL INTERFACE SYSTEM EOSINOPHIL ABSOLUTE 0.20 0.00 - 0.70 K/uL INTERFACE SYSTEM BASOPHILS ABSOLUTE 0.06 0.00 - 0.20 K/uL INTERFACE SYSTEM 03/12/2005 5:14 AM CDT us Giulia Bernardo MD HEMATOLOGY ORDERABLES Final Result Performing Organization Address [facility] Phone Number INTERFACE SYSTEM Refer to clinic/hospital department * CBC WITH DIFFERENTIAL (03/12/2005 5:14 AM CDT) WBC 8.2 4.0 - 9.8 K/uL INTERFACE SYSTEM RBC 4.21 3.90 - 4.90 M/uL INTERFACE SYSTEM HEMOGLOBIN 11.9 11.8 - 14.8 g/dL INTERFACE SYSTEM HEMATOCRIT 36.9 35.5 - 44.0 % INTERFACE SYSTEM MCV 87.6 82.0 - 99.0 fL INTERFACE SYSTEM MCH 28.3 27.2 - 32.6 pg INTERFACE SYSTEM MCHC 32.2 31.5 - 35.5 % INTERFACE SYSTEM RDW 13.6 11.5 - 14.5 % INTERFACE SYSTEM RDW-STDEV 43.9 37.1 - 48.7 fL INTERFACE SYSTEM PLATELETS 199 140 - 350 K/uL INTERFACE SYSTEM MPV 11.7 9.3 - 12.4 fL INTERFACE SYSTEM 03/12/2005 5:14 AM CDT us Giulia Bernardo MD HEMATOLOGY ORDERABLES Final Result INTERFACE SYSTEM Refer to clinic/hospital department * TROPONIN (W/REFLEX CKMB/CK) (03/12/2005 5:14 AM CDT) TROPONIN T <0.01 <=0.03 ng/mL INTERFACE SYSTEM TROPONIN T INTERP Negative INTERFACE SYSTEM 03/12/2005 5:14 AM CDT us Giulia Bernardo MD CHEMISTRY ORDERABLES Final R esult INTERFACE SYSTEM Refer to clinic/hospital department documented in this encounter Visit Diagnoses Diagnosis Other chest pain- Primary documented in this encounter Care Teams Rn Integrity Relationship Specialty Start Date End Date Michael Rivas MD PCP - General 09/03/15 documented as of this encounter
--- OUTSIDE RECORDS SUMMARY | 2025-01-26 00:58 | XMS_ITS | Encounter Summary ---
Author Organization [facility] Address 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 Gender Identity Not on file Sexual Orientation Not on file documented as of this encounter Plan of Treatment Upcoming Encounters Date Type Department Care Team (Late st Contact Info) Description 03/24/2025 1:30 PM CDT Office Visit [facility] Oncology and Hematology - [place] [address] [facility] 200 [place] [address] Vinny Preciado MD [address] [facility] [address] [place] [address] documented as of this encounter Visit Diagnoses Diagnosis Neuralgia, neuritis, and radiculitis, unspecified- Primary documented in this encounter Care Teams Anvil Worker Relationship Specialty Start Date End Date Michael Rivas MD PCP - General 09/03/15 documented as of this encounter
--- OUTSIDE RECORDS SUMMARY | 2025-01-26 00:58 | XMS_ITS | Encounter Summary ---
Author Organization [facility] Address 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 Gender Identity Not on file Sexual Orientation Not on file documented as of this encounter Plan of Treatment Upcoming Encounters Date Type Department Care Team (Late st Contact Info) Description 03/24/2025 1:30 PM CDT Office Visit [facility] Oncology and Hematology - Raymundo [address] [facility] 200 [place] [address] Vinny Preciado MD [address] [facility] [address] [place] [address] documented as of this encounter Visit Diagnoses Diagnosis Displacement of thoracic intervertebral disc without myelopathy- Primary documented in this encounter Care Teams Legal Practice Manager Relationship Specialty Start Date End Date Michael Rivas MD PCP - General 09/03/15 documented as of this encounter
--- OUTSIDE RECORDS SUMMARY | 2025-01-26 00:58 | XMS_ITS | Encounter Summary ---
Author Organization [facility] Address 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 Gender Identity Not on file Sexual Orientation Not on file documented as of this encounter Plan of Treatment Upcoming Encounters Date Type Department Care Team (Late st Contact Info) Description 03/24/2025 1:30 PM CDT Office Visit [facility] Oncology and Hematology - Raym[place] 2[address] [facility] 200 [place] [address] Vinny Preciado MD [address] [facility] [address] [place] [address] documented as of this encounter Visit Diagnoses Diagnosis Disturbance of skin sensation- Primary documented in this encounter Care Teams President + Publisher Relationship Specialty Start Date End Date Michael Rivas MD PCP - General 09/03/15 documented as of this encounter
--- OUTSIDE RECORDS SUMMARY | 2025-01-26 00:58 | XMS_ITS | Encounter Summary ---
Author Organization [facility] Address 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 Gender Identity Not on file Sexual Orientation Not on file documented as of this encounter Plan of Treatment Upcoming Encounters Date Type Department Care Team (Late st Contact Info) Description 03/24/2025 1:30 PM CDT Office Visit [facility] Oncology and Hematology - Raymundo [address] [facility] 200 [place] [address] Vinny Preciado MD [address] [facility] [address] [place] [address] documented as of this encounter Visit Diagnoses Diagnosis Cervicalgia- Primary documented in this encounter Care Teams Dive Supervisor Relationship Specialty Start Date End Date Michael Rivas MD PCP - General 09/03/15 documented as of this encounter
--- OUTSIDE RECORDS SUMMARY | 2025-01-26 00:58 | XMS_ITS | Encounter Summary ---
Author Organization [facility] Address [address] [place] [address] Phone Care Team Providers Care Boat Master Name Role Phone Mahad Corado MD Unavailable [phone] Xiomy Kiran MD Primary Care Provider Reason for Visit * Reason Comments Medication Refill Encounter Details Date Type Department Care Team (Late st Contact Info) Description [facility]20[facility] [address] [place] [address] Mahad Corado MD [address] [place] [address] Medication Refill Social History Tobacco [...] Description 06/25/2025 11:00 AM CDT Office Visit [facility] - Neurology [facility] [place] [address] [place] [address] Mahad Corado MD [address] [facility] [place] [place] [address] documented as of this encounter Visit Diagnoses Diagnosis Anxiety Anxiety state, unspecified documented in this encounter Care Teams Boat Master Relationship Specialty Start Date End Date Xiomy Kiran MD [address] [place] [address] [facility] [place] [address] PCP - General Internal Medicine 12/05/17 Mahad Corado MD [address] [place] [address] Consulting Physician Neurology 08/02/15 documented as of this encounter
--- OUTSIDE RECORDS SUMMARY | 2025-01-26 00:58 | XMS_ITS | Encounter Summary ---
Author Organization [facility] Address [address] [place] [address] Care Team Providers Care Clinical Quality Rn Name Role Phone Michael Rivas MD Primary Care Provider [phone] Encounter Details Date Type Department Care Team (Late st Contact Info) Description 02/09/2005 Outpatient Historical [facility] Internal Medicine Medical [place] [facility] [address] [facility] [address] [address] Ada Mojica MD Social History Tobacco Use Types Packs/Day Years Used Date Smoking Tobacco: Never Assessed Comments Unknown Sex and Gender Information Value Date Recorded Sex Assigned at Not on file 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 Gender Identity Not on file Sexual Orientation Not on file documented as of this encounter Last Filed Vital Signs Vital Sign Reading Time Taken Comments Blood Pressure 130/86 02/09/2005 9:45 AM CDT Pulse 72 02/09/2005 9:45 AM CDT Temperature 36.5 C (97.7 F) 02/09/2005 9:45 AM CDT Respiratory Rate 16 02/09/2005 9:45 AM CDT Oxygen Saturation - - Inhaled Oxygen Concentration - - Weight 84.4 kg (186 lb) 02/09/2005 9:45 AM CDT Height 160.7 cm (5' 3.25 ) 02/09/2005 9:45 AM CD T Body Mass Index 32.69 02/09/2005 9:45 AM CDT documented in this encounter Plan of Treatment Upcoming Encounters Date Type Department Care Team (Late st Contact Info) Description 03/24/2025 1:30 PM CDT Office Visit [facility] Oncology and Hematology - [place] [facility] [address] [place] [address] Vinny Preciado MD [facility] 100 [place] [address] documented as of this encounter Visit Diagnoses Not on filedocumented in this encounter Care Teams Clinical Quality Rn Relationship Specialty Start Date End Date Michael Rivas MD PCP - General 09/03/15 documented as of this encounter
--- OUTSIDE RECORDS SUMMARY | 2025-01-26 00:58 | XMS_ITS | Encounter Summary ---
Author Organization [facility] Address [address] [place] [address] Care Team Providers Care Alarm Signaler Name Role Phone Michael Rivas MD Primary Care Provider [phone] Encounter Details Date Type Department Care Team (Late st Contact Info) Description 03/12/2005 Outpatient Historical [facility] [place] ([facility] Cardiology[facility]) [address] 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 Gender Identity Not on file Sexual Orientation Not on file documented as of this encounter Plan of Treatment Upcoming Encounters Date Type Department Care Team (Late st Contact Info) Description 03/24/2025 1:30 PM CDT Office Visit [facility] Oncology and Hematology - Raym[place] [address] [facility] 200 [place] [address] Vinny Preciado MD [address] [facility] [address] [place] [address] documented as of this encounter Visit Diagnoses Not on filedocumented in this encounter Care Teams Alarm Signaler Relationship Specialty Start Date End Date Michael Rivas MD PCP - General 09/03/15 documented as of this encounter
--- OUTSIDE RECORDS SUMMARY | 2025-01-26 00:58 | XMS_ITS | Encounter Summary ---
Author Organization [facility] Address [address] [place] [address] Care Team Providers Care Balance Recesser Name Role Phone Michael Rivas MD Primary Care Provider [phone] Encounter Details Date Type Department Care Team (Late st Contact Info) Description 05/29/2005 Outpatient Historical [facility] Internal Medicine Medical [facility] [address] [place] [address] Ivan Reed MD [address] [place] [address] [address] [place], [place] [id number] Social History Tobacco Use Types Packs/Day Years Used Date Smoking Tobacco: Never Assessed Comments Unknown Sex and Gender Information Value Date Recorded Sex Assigned at Not on file 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 Gender Identity Not on file Sexual Orientation Not on file documented as of this encounter Last Filed Vital Signs Vital Sign Reading Time Taken Comments Blood Pressure 114/80 05/29/2005 2:30 PM CDT Pulse 70 05/29/2005 2:30 PM CDT Temperature 36.8 C (98.3 F) 05/29/2005 2:30 PM CDT Respiratory Rate - - Oxygen Saturation - - Inhaled Oxygen Concentration - - Weight 83.5 kg (184 lb) 05/29/2005 2:30 PM CDT Height - - Body Mass Index 32.34 02/09/2005 9:45 AM CDT documented in this encounter Plan of Treatment Upcoming Encounters Date Type Department Care Team (Late st Contact Info) Description 03/24/2025 1:30 PM CDT Office Visit [facility] Oncology and Hematology - Raymundo [address] [place] [address] Vinny Preciado MD [address] [facility] [address] [place] [address] documented as of this encounter Visit Diagnoses Not on filedocumented in this encounter Care Teams Balance Recesser Relationship Specialty Start Date End Date Michael Rivas MD PCP - General 09/03/15 documented as of this encounter
--- OUTSIDE RECORDS SUMMARY | 2025-01-26 00:58 | XMS_ITS | Encounter Summary ---
Author Organization [facility] Address [address] [place] [address] Care Team Providers Care Balance Wheel Screw Hole Driller Name Role Phone Michael Rivas MD Primary Care Provider [phone] Encounter Details Date Type Department Care Team (Late Contact Info) Description 02/22/2005 Outpatient Historical Division of Neurology 1 [facility], [address] [place] [address] Annel Butler MD [address] [facility] [address] [place] [address] Social History Tobacco Use Types Packs/Day Years Used Date Smoking Tobacco: Never Assessed Comments Unknown Sex and Gender Information Value Date Recorded Sex Assigned at Not on file 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 Gender Identity Not on file Sexual Orientation Not on file documented as of this encounter Plan of Treatment Upcoming Encounters Date Type Department Care Team (Late st Contact Info) Description 03/24/2025 1:30 PM CDT Office Visit [facility] Oncology and Hematology - Raymundo [address] [facility] 200 [place] [address] Vinny Preciado MD [address] [facility] [address] [place] [address] documented as of this encounter Visit Diagnoses Not on filedocumented in this encounter Care Teams Balance Wheel Screw Hole Driller Relationship Specialty Start Date End Date Michael Rivas MD PCP - General 09/03/15 documented as of this encounter
--- OUTSIDE RECORDS SUMMARY | 2025-01-26 00:58 | XMS_ITS | Encounter Summary ---
Author Organization [facility] Address [address] [place] [address] Care Team Providers Care Racecar Driver Name Role Phone Michael Rivas MD Primary Care Provider [phone] Encounter Details Date Type Department Care Team (Late Contact Info) Description 10/13/2005 Outpatient Historical Division of Neurology 1 [facility], [address] [place] [address] Annel Butler MD [address] [facility] [address] [place] [id number] Social History Tobacco Use Types Packs/Day Years Used Date Smoking Tobacco: Never Assessed Comments Unknown Sex and Gender Information Value Date Recorded Sex Assigned at Not on file 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 Gender Identity Not on file Sexual Orientation Not on file documented as of this encounter Plan of Treatment Upcoming Encounters Date Type Department Care Team (Late st Contact Info) Description 03/24/2025 1:30 PM CDT Office Visit [facility] Oncology and Hematology - [place] 2[address] [facility] 200 [place] [address] Vinny Preciado MD 2227 [facility] [address] [place] [address] documented as of this encounter Visit Diagnoses Not on filedocumented in this encounter Care Teams Racecar Driver Relationship Specialty Start Date End Date Michael Rivas MD PCP - General 09/03/15 documented as of this encounter
--- OUTSIDE RECORDS SUMMARY | 2025-01-26 00:58 | XMS_ITS | Encounter Summary ---
Author Organization [facility] Address [address] [place] [address] Care Team Providers Care Necktie Centralizing Machine Operator Name Role Phone Michael Rivas MD Primary Care Provider [phone] Encounter Details Date Type Department Care Team (Late Contact Info) Description 04/12/2005 Outpatient Historical Division of Neurology 1 [facility], [address] [place] [address] Annel Butler MD 621 [facility] [address] [place] [id number] Social History Tobacco Use Types Packs/Day Years Used Date Smoking Tobacco: Never Assessed Comments Unknown Sex and Gender Information Value Date Recorded Sex Assigned at Not on file 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 Gender Identity Not on file Sexual Orientation Not on file documented as of this encounter Plan of Treatment Upcoming Encounters Date Type Department Care Team (Late st Contact Info) Description 03/24/2025 1:30 PM CDT Office Visit [facility] Oncology and Hematology - [place] 2227 [facility] 200 [place] [address] Vinny Preciado MD 2227 [facility] [address] [place] [address] documented as of this encounter Visit Diagnoses Not on filedocumented in this encounter Care Teams Necktie Centralizing Machine Operator Relationship Specialty Start Date End Date Michael Rivas MD PCP - General 09/03/15 documented as of this encounter
--- OUTSIDE RECORDS SUMMARY | 2025-01-26 00:58 | XMS_ITS | Encounter Summary ---
Author Organization [facility] Address [address] [place] [address] Care Team Providers Care Wardrobe Stylist Name Role Phone Michael Rivas MD Primary Care Provider [phone] Encounter Details Date Type Department Care Team (Late st Contact Info) Description 06/14/2005 Outpatient Historical [facility] Internal Medicine Medical [facility] [address] [facility] [address] [place] [address] Ivan Reed MD [address] [facility] [address] [place] [address] Social History Tobacco Use Types Packs/Day Years Used Date Smoking Tobacco: Never Assessed Comments Unknown Sex and Gender Information Value Date Recorded Sex Assigned at Not on file 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 Female 2:39 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 RN Gender Identity Not on file Sexual Orientation Not on file documented as of this encounter Plan of Treatment Upcoming Encounters Date Type Department Care Team (Late st Contact Info) Description 03/24/2025 1:30 PM CDT Office Visit [facility] Oncology and Hematology - [place] 2227 [facility] 200 [place] [address] Vinny Preciado MD 2227 [facility] [address] [place] [address] documented as of this encounter Visit Diagnoses Not on filedocumented in this encounter Care Teams Wardrobe Stylist Relationship Specialty Start Date End Date Michael Rivas MD PCP - General 09/03/15 documented as of this encounter
--- OUTSIDE RECORDS SUMMARY | 2025-01-26 00:58 | XMS_ITS | Encounter Summary ---
Author Organization [facility] Address 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 Gender Identity Not on file Sexual Orientation Not on file documented as of this encounter Plan of Treatment Upcoming Encounters Date Type Department Care Team (Late st Contact Info) Description 03/24/2025 1:30 PM CDT Office Visit [facility] Oncology and Hematology - [place] 2227 [facility] 200 [place] [address] Vinny Preciado MD [address] [facility] [address] [place] [address] documented as of this encounter Visit Diagnoses Diagnosis Chest pain, unspecified- Primary documented in this encounter Care Teams Air Defence Officer Relationship Specialty Start Date End Date Michael Rivas MD PCP - General 09/03/15 documented as of this encounter
--- OUTSIDE RECORDS SUMMARY | 2025-01-26 00:58 | XMS_ITS | Encounter Summary ---
Author Organization [facility] Address [address] [place] [address] Phone Care Team Providers Care Traffic Signal Supervisor Maintenance Name Role Phone Mahad Corado MD Unavailable [phone] Xiomy Kiran MD Primary Care Provider Reason for Visit * Reason Comments Medication Refill Encounter Details Date Type Department Care Team (Late st Contact Info) Description 05/23/2022 Refill [facility] - [facility] [address] [place] [id number] Mahad Corado MD [address] [place] [address] Medication Refill Social History Tobacco [...] on file Sexual Orientation Not on file COVID-19 Exposure Response Date Recorded In the last 10 days, have yo u been in contact with someone who was confirmed or suspected to have Coronavirus/COVID-19? No / Unsure 05/17/2022 9:27 PM CDT documented as of this encounter Miscellaneous Notes * Telephone Encounter - Shilpa Mckay RN - 05/23/2022 10:59 AM CDT . documented in this encounter Plan of Treatment Upcoming Encounters Date Type Department Care Team (Late st Contact Info) Description 06/25/2025 11:00 AM CDT Office Visit [facility] - Neurology - [place] [address] [place] [address] Mahad Corado MD [address] [place] [address] documented as of this encounter Visit Diagnoses Diagnosis Anxiety Anxiety state, unspecified documented in this encounter Care Teams Traffic Signal Supervisor Maintenance Relationship Specialty Start Date End Date Xiomy Kiran MD [address] [place] [address] PCP - General Internal Medicine 12/05/17 Mahad Corado MD [address] [place] [address] Consulting Physician Neurology 08/02/15 documented as of this encounter
--- OUTSIDE RECORDS SUMMARY | 2025-01-26 00:58 | XMS_ITS | Encounter Summary ---
Author Organization [facility] Address 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 Gender Identity Not on file Sexual Orientation Not on file documented as of this encounter Plan of Treatment Upcoming Encounters Date Type Department Care Team (Late st Contact Info) Description 03/24/2025 1:30 PM CDT Office Visit [facility] Oncology and Hematology - [place] 2[address] [facility] 200 [place] [address] Vinny Preciado MD [address] [facility] [address] [place] [address] documented as of this encounter Visit Diagnoses Not on filedocumented in this encounter Care Teams Pnp Relationship Specialty Start Date End Date Michael Rivas MD PCP - General 09/03/15 documented as of this encounter
--- OUTSIDE RECORDS SUMMARY | 2025-01-26 00:58 | XMS_ITS | Encounter Summary ---
Author Organization [facility] Address [address] [place] [address] Care Team Providers Care Photo Mask Processor Name Role Phone Michael Rivas MD Primary Care Provider [phone] Encounter Details Date Type Department Care Team (Latest Contact Info) Description 01/07/2004 Outpatient Historical [facility] [place] [address] [place] [address] CARPAL TUNNEL SYNDROME (Primary Dx) Social History Tobacco Use Types Packs/Day Years Used Date Smoking Tobacco: Never Assessed Comments Unknown Sex and Gender Information Value Date Recorded Sex Assigned at Not on file Legal Sex Female 2:39 AM BUSINESS DATABASE ANALYST Gender Identity Not on file Sexual Orientation Not on file documented as of this encounter Plan of Treatment Upcoming Encounters Date Type Department Care Team (Late st Contact Info) Description 03/24/2025 1:30 PM CDT Office Visit [facility] Oncology and Hematology - [place] 2227 [facility] 200 [place] [address] Vinny Preciado MD 2[address] [facility] [address] [place] [address] documented as of this encounter Visit Diagnoses Diagnosis Carpal tunnel syndrome- Primary documented in this encounter Care Teams Photo Mask Processor Relationship Specialty Start Date End Date Michael Rivas MD PCP - General 09/03/15 documented as of this encounter
--- OUTSIDE RECORDS SUMMARY | 2025-01-26 00:59 | XMS_ITS | Encounter Summary ---
Author Organization [facility] Address 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 Sex Female 2:39 AM ACCOUNTANT BUDGET Gender Identity Not on file Sexual Orientation Not on file documented as of this encounter Plan of Treatment Upcoming Encounters Date Type Department Care Team (Late st Contact Info) Description 03/24/2025 1:30 PM CDT Office Visit [facility] Oncology and Hematology - [place] 2227 [facility] 200 [place] [address] Vinny Preciado MD [address] [facility] [address] [place] [address] documented as of this encounter Visit Diagnoses Diagnosis Pain in joint, upper arm- Primary documented in this encounter Care Teams Manager Software Development Relationship Specialty Start Date End Date Michael Rivas MD PCP - General 09/03/15 documented as of this encounter
--- OUTSIDE RECORDS SUMMARY | 2025-01-26 00:59 | XMS_ITS | Continuity of Care Document ---
Author Organization [facility] Address [address] [place] [address] [address]ive [address] [place] [address] Phone Care Team Providers Care Accounting Technician Name Role Phone Davis OD, Thee Unavailable Unavailable Advance Directives Directive Yes / No Effective Date File Name No Information Encounters Encounter Description Practice Location Reason(s) For Visit Diagnoses Date Provider Providers Copied on Encounter [facility], [address], [place], [place], [id number], [place] tel:[phone] SEC [facility] [address] No Information 0-200 6 Davis OD Thee. [address] [facility] [address] , [address], [place], [address], [place]. tel:[phone] Family History Family Member Type Diagnosis Age At Onset No Information Payers Payer name Insurance type Covered alliance party ID Authoriza tion(s) No Information Social History [...]
--- OUTSIDE RECORDS SUMMARY | 2025-01-26 00:59 | XMS_ITS | Encounter Summary ---
Author Organization [facility] Address [address] [place] [address] Care Team Providers Care Trauma Nurse Name Role Phone Michael Rivas MD Primary Care Provider [phone] Encounter Details Date Type Department Care Team (Late Contact Info) Description 12/20/2005 Outpatient Historical [facility] Internal Medicine Medical [place] [facility] [address] [facility] [address] [address] Ada Mojica MD Social History Tobacco Use Types Packs/Day Years Used Date Smoking Tobacco: Never Assessed Comments Unknown Sex and Gender Information Value Date Recorded Sex Assigned at Not on file 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 Gender Identity Not on file Sexual Orientation Not on file documented as of this encounter Last Filed Vital Signs Vital Sign Reading Time Taken Comments Blood Pressure 116/80 12/20/2005 10:00 AM CDT Pulse 84 12/20/2005 10:00 AM CDT Temperature 36.6 C (97.8 F) 12/20/2005 10:00 AM CDT Respiratory Rate 16 12/20/2005 10:00 AM CDT Oxygen Saturation - - Inhaled Oxygen Concentration - - Weight 83 kg (183 lb) 12/20/2005 10:00 AM CDT Height - - Body Mass Index 32.16 02/09/2005 9:45 AM CDT documented in this encounter Plan of Treatment Upcoming Encounters Date Type Department Care Team (Late st Contact Info) Description 03/24/2025 1:30 PM CDT Office Visit [facility] Oncology and Hematology - [place] [address] [place] [address] Vinny Preciado MD [address] [address] documented as of this encounter Visit Diagnoses Not on filedocumented in this encounter Care Teams Trauma Nurse Relationship Specialty Start Date End Date Michael Rivas MD PCP - General 09/03/15 documented as of this encounter
--- OUTSIDE RECORDS SUMMARY | 2025-01-26 00:59 | XMS_ITS | Encounter Summary ---
Author Organization [facility] Address [address] [facility] Attn: Epic Prelude ADT ASHA KAM [address] Care Team Providers Care Lower School Music Teacher Name Role Phone Michale Rivas MD Primary Care Provider [phone] Encounter Details Date Type Department Care Team (Latest Contact Info) Description 06/04/2006 Orders Only Ada Mojica MD Social History Tobacco Use Types Packs/Day Years Used Date Smoking Tobacco: Never Assessed Comments Unknown Sex and Gender Information Value Date Recorded Sex Assigned at Not on file Legal Sex Female 2:39 AM BUSINESS TEACHER Gender Identity Not on file Sexual Orientation Not on file documented as of this encounter Plan of Treatment Upcoming Encounters Date Type Department Care Team (Late st Contact Info) Description 03/24/2025 1:30 PM CDT Office Visit [facility] Oncology and Hematology - [place] 2227 [facility] 200 [place] [address] Vinny Preciado MD 2[address] [facility] [address] [place] [address] documented as of this encounter Visit Diagnoses Not on filedocumented in this encounter Care Teams Lower School Music Teacher Relationship Specialty Start Date End Date Michael Rivas MD PCP - General 09/03/15 documented as of this encounter
--- OUTSIDE RECORDS SUMMARY | 2025-01-26 00:59 | XMS_ITS | Encounter Summary ---
Author Organization [facility] Address [address] [place] [address] Care Team Providers Care Gas Station Cashier Name Role Phone Michael Rivas MD Primary Care Provider [phone] Encounter Details Date Type Department Care Team (Late Contact Info) Description 04/27/2006 Outpatient Historical Division of Neurology 1 [facility], [address] [place] [address] Annel Butler MD 6[address] [facility] [address] [place] [address] Social History Tobacco Use Types Packs/Day Years Used Date Smoking Tobacco: Never Assessed Comments Unknown Sex and Gender Information Value Date Recorded Sex Assigned at Not on file Legal Sex Female 2:39 AM WEIGHER PACKING Gender Identity Not on file Sexual Orientation Not on file documented as of this encounter Plan of Treatment Upcoming Encounters Date Type Department Care Team (Late st Contact Info) Description 03/24/2025 1:30 PM CDT Office Visit [facility] Oncology and Hematology - [place] 2227 [facility] 200 [place] [address] Vinny Preciado MD 2227 [facility] [address] [place] [address] documented as of this encounter Visit Diagnoses Not on filedocumented in this encounter Care Teams Gas Station Cashier Relationship Specialty Start Date End Date Michael Rivas MD PCP - General 09/03/15 documented as of this encounter
--- OUTSIDE RECORDS SUMMARY | 2025-01-26 00:59 | XMS_ITS | Clinical Summary ---
Author Organization [facility] Address [address] [address] Care Team Providers Care Six Sigma Black Trainer Name Role Phone Mahad Corado MD Unavailable [phone] Shell Paulino RN Unavailable Unavailable Sherry Tejada MD Unavailable [phone] Xiomy Kiran MD Primary Care Provider Source Comments [facility],non-owned Affiliates and Associated Physician Practices is amultiple site organization consisting of ambulatory clinics and hospital sitesin [place], [place], [place] and [place]. This disclosure is being madepursuant to the Care Everywhere program and may not contain all information available regarding this patient. 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 Medications * Be aware that medications may not be up to date on this document. Alwaysverify current medications with the patient. aspirin 81 MG tablet Take 1 (one) tablet by mouth once daily Active clonazePAM (KLONOPIN) 0.5 MG tabletIndicati ons:MS (multiple sclerosis) (HCC) Take 0.5 Tabs by mouth at bedtime. Per Neuro 0 Active Additional Information Patient taking differently:0.25 mg OralAT BEDTIME PRN, Anxiety, MS tremors, Reported on 11/25/2024 levothyroxine (Synthroid) 75 MCG tablet Take 1 (one) tablet by mouth daily before breakfast Active Rosuvastatin Calcium 40 MG CPSP Take 1 (one) capsule by mouth at bedtime Active Insulin Aspart (NOVOLOG SC) Insulin pump, omnipod DASH Active Continuous Blood Gluc Transmit (Dexcom G6 Transmitter) MIS 2 Active tirzepatide (Mounjaro) 5 MG/0.5ML injection Inject 10 (ten) mg subcutaneously every 7 days 2 mL 5 3 Active Cholecalcifero l (vitamin D3) 1.25 MG (40417 UT) capsule Take 1 (one) capsule by mouth every 7 days Active sertraline (Zoloft) 25 MG tablet Take 1 (one) tablet by mouth once daily Active Potassium 99 MG tablet Take 1 (one) tablet by mouth at bedtime OTC Active glatiramer (Copaxone) 20 MG/ML prefilled syringe Inject 1 mL subcutaneously as directed 3x per week Active Active Problems Problem Noted Date Diagnosed Date Metabolic syndrome 12/03/2024 Jaw pain 10/19/2024 Candidiasis of vagina 07/29/2024 Proteinuria 06/16/2024 Insulin pump status 11/30/2023 Class 1 obesity due to exces s calories with serious comorbidity and body mass index (BMI) of 32.0 to 32.9 in adult 08/26/2023 Closed displaced spiral fracture of shaft of lef t tibia 05/14/2021 NAFLD (nonalcoholic fatty liver disease) 020 Overview (11/27/2024): 12/01/22 Fibroscan CAP 299, LSM 6.1 kPa 11/27/24 Fibroscan CAP 248, LSM 6.3 kPa Type 2 diabetes mellitus with hyperglycemia 01/16 Elevated liver enzymes 10/31/2019 Vitamin D deficiency 11/22/2010 Hypertriglyceridemia 11/22/2010 Herniated disc 02/07/2010 Overview (02/07/2010): Controlled with Lidoderm patch and Tramadol. 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; LV 03/09/2009 Screening for breast cancer 02/07/2010 Overview (06/17/2017): 07/12/09 mammo IMO Update 06/17/2017 Screening for cervical cancer 02/07/2010 Routine general medical exam ination at a health care facility 02/07/2010 Type II or unspecified type diabetes mellitus without mention of complication, not stated as uncontrolled Overview (02/07/2010): Controlled by Actoplus Hyperlipidemia with target LDL less than 100 Overview (07/25/2015): Conrolled with Simvastatin Depression Overview (02/07/2010): Controlled with Zoloft MS (multiple sclerosis) Overview (02/07/2010): Controlled with Copaxone 20 ml injections Followed by Emilee Chen/Neurology; LV 05/10/2009 Resolved Problems Problem Noted Date Diagnosed Date Resolved Date Acute urinary tract infection 06/16/2024 12/09/2024 Fever 03/13/2024 12/09/2024 Fall 05/14/2021 05/17/2021 Closed fracture of neck of left fibula 05/14/2021 05/17/2021 Encounters Date Type Department Care Team Description 11/25/2024 3:30 PM CDT Office Visit [facility] - [address], [place] [id number] None, Physician Maximliian Lorenzo MD NAFLD (nonalcoholic fatty liver disease) (Primary Dx); Metabolic syndrome 11/25/2024 3:00 PM CDT Procedure visit [facility] - [address], [place] [id number] None, Physician Metabolic dysfunction-associa rubina steatotic liver disease (MASLD) 11/25/2024 Travel from Last 3 Months Immunizations Immunization Administration Dates Next Due DTaP VACCINE IM (6wk-6yrs) 01/15/2010 INFLUENZA VACCINE 07/31/2019 Family History Medical History Relation Name Comments Diabetes Brother 3 juvenile Arthritis - Rheumatoid Brother 4 Asthma Brother 5 CAD (Coronary Artery Disease) Father CABG Diabetes Father type 2 Heart Failure Father Stroke Father during CABG Arthritis - Osteo Mother Arthritis - Rheumatoid Mother Hypertension Mother Migraine Mother Coronary Artery Disease,premature <65 female Paternal Aunt 1 Coronary Artery Disease,premature <65 female Paternal Aunt 2 CAD (Coronary Artery Disease) Paternal Aunt 3 Stroke Paternal Grandfather Coronary Artery Disease,premature <65 female Paternal Grandmother Arthritis - Osteo Sister Relation Name Status Comments Brother 1 Alive Brother 2 Alive Brother 3 Brother 4 Brother 5 Father Mother Alive Paternal Aunt 1 Paternal Aunt 2 Paternal Aunt 3 Paternal Grandfather Paternal Grandmother Sister Alive Social History Tobacco Use Types Packs/Day Years Used Date Smoking Tobacco: Never Smokeless Tobacco: Never Tobacco Cessation:Counseling Given: Not Answered Comments:Smokes when nervous Alcohol Use Standard Drinks/Week Comments No 0 (1 standard drink = 0.6 oz pur e alcohol) Comments No Sex and Gender Information Value Date Recorded Sex Assigned at Not on file Legal Sex 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 Gender Identity Not on file Sexual Orientation Not on file Occupation Industry Job Start Date Job End Date RETIRED Not on file Not on file Not on file Last Filed Vital Signs Vital Sign Reading Time Taken Comments Blood Pressure 110/50 11/25/2024 3:06 PM CDT Pulse 67 11/25/2024 3:06 PM CDT Temperature 36.7 C (98 F) 11/25/2024 3:06 PM CDT Respiratory Rate 18 12/06/2023 10:1 8 AM CDT Oxygen Saturation 100% 11/25/2024 3:06 PM CDT Inhaled Oxygen Concentration - - Weight 75.2 kg (165 lb 12.8 oz) 11/25/2024 3:06 PM CDT Height 160 cm (5' 3 ) 11/25/2024 3:06 PM CDT Body Mass Index 29.37 11/25/2024 3:06 PM CDT Plan of Treatment Health Maintenance Due Date Last Done Comments COLOGUARD (AGES 45-75) - COLON CA SCREENING 1963 COLON MONITORING 1963 COLONOSCOPY - COLON CA SCREENING 1963 CT COLONOGRAPHY - COLON CA SCREENING 1963 Colorectal Cancer Screening 1963 FIT - COLON CA SCREENING 1963 FLEX SIG - COLON CA SCREENING 1963 MEDICARE AWV 12 MONTHS 1963 HIV SCREENING 1978 PNEUMOCOCCAL VACCINE 50+ (1 of 2 - PCV) 1982 MAMMOGRAM 07/12/2011 07/12/2009 ZOSTER VACCINE (1 of 2) 2013 DIABETES RETINOPATHY SCREENING 10/31/2019 DIABETES-FOOT EXAM WITH MONOFILAMENT 10/31/2019 DTAP/TDAP/TD VACCINES (2 - Tdap) 01/16/2020 01/15/2010 Respiratory Syncytial Virus (RSV) Vaccine Pt: or over 60 yrs (1 - Risk 60-74 years 1-dose series) 2023 COVID-19 VACCINE ( - season) 2024 06/21/2022, 08/23/2021, 12/12/2020, Additional history exists DEPRESSION SCREENING 09/17/2024 DIABETES - URINE PROTEIN SCREENING 09/17/2024 11/16/2010 DIABETES-HGB A1C 11/11/2024 08/11/2024, , 08/21/2023, Additional history exists DIABETES-SERUM CREATININE 12/05/20242023, 08/22/2021, 05/17/2021, Additional history exists INFLUENZA VACCINE (Season Ended) 2025 06/18/2023, 06/28/2022, 06/21/2020, Additional history exists HEPATITIS C SCREENING Completed 02/20/2022 HEPATITIS B VACCINE Aged Out No longe r eligible based on patient's age to complete this topic HIB VACCINE Aged Out No longer eligi ble based on patient's age to complete this topic HPV VACCINE Aged Out No longer eligi ble based on patient's age to complete this topic MENINGOCOCCAL (Group B) VACCINE SHARED DECISION-MAKING Aged Out No longer eligible based on patient's age to complete this topic MENINGOCOCCAL GROUPS A/C/Y/W VACCINE Aged Out No longer eligible based on patient's age to complete this topic Goals Goal Patient Goal Type Associated Problems Recent Progress Patient-Stated? Author Medication Management General On track( 025 3:20 PM CDT) Shell George, RN Note: Expected end date: ongoing Interventions: Take all medications as prescribed Let your doctor know right away about any changes in your medications Make sure to request a refill of your medication at least one week prior to your last dose Medical Devices Implanted Type Area Research Development Director Device Identifier Shelf Expiration Date Model / Serial / Lot Nail Im 10mm 30cm Versanail Tib Tmx Strl Implanted:Qty: 1 on 05/15/2021 by Selwyn Galicia MD at [facility] Nail Left: Leg [employer] 04/17/2023 [id number] / / [id number] Cap End Unv Tib Im Nail Ti Strl Implanted:Qty: 1 on 05/15/2021 by Selwyn Galicia MD at [facility] Other (Type not listed) Left: Leg [employer] 05/26/2030 [id number] / / [id number] D Screw 4.5mm 34mm Oblq Ft Slf-Tap Sld 2 Implanted:Qty: 1 on 05/15/2021 by Selwyn Galicia MD at [facility] Screw Left: Leg [employer] [id number] / / Procedures Procedure Name Priority Date/Time Associated Diagnosis Comments NC LIVER ELASTOGRAPHY Routine 11/25/2024 3:47 PM CDT Metabolic dysfunction-associat ed steatotic liver disease (MASLD) COMPREHENSIVE METABOLIC PANEL STAT 12/06/2023 11:15 AM CDT HEMOGLOBIN A1C ROLANDO 05/14/2021 5:18 PM CDT MICROALB/CREAT RATIO URINE RANDOM PANEL Routine 11/16/2010 9:47 AM WOMEN'S STUDIES LECTURER DM w/o complication type II Hyperlipidemia LDL goal < 100 MAMMO BILAT DIAGNOSTIC Routine 07/12/2009 11:10 AM CDT Lump or Mass in Breast from Last 3 Months or Most Recently Relevant to Health Maintenance Results * NC LIVER ELASTOGRAPHY (11/25/2024 3:47 PM CDT) Narrative Shaw Orellana MD - 11/25/2024 3:47 PM CDT Shaw Orellana MD 11/27/2024 10:51 PM Diagnosis: Metabolic dysfunction-associated steatotic liver disease (MASLD) RN verified patient NPO for prior 3 hours. Procedure explained. Date of Exam: 11/25/2024 Liver Stiffness: (LSM, kPa) median: 6.3 IQR/Median% (ideally < 30%): 10% CAP (controlled attenuation parameter): 248 Technical Difficulty: None Ordering Provider: Maximilian Lorenzo MD Phone Fax Fibroscan interpretation: I have personally reviewed the Fibroscan report and associated tracings. The calculated Liver Stiffness Measurement (LSM, kPa) indicates that: The probability of advanced liver fibrosis is: low. The loss of ultrasound signal, (controlled attenuation parameter, CAP [dB/m]), indicates that the probability of hepatic steatosis is: low. Shaw Vega MD The following criteria are used to indicate the probability of advanced (stage 3-4) fibrosis: < 7.0 kPa: low 7.0-8.9 kPa: low to moderate 9.0-14.9 kPa: moderate 15-20 kPa: high > 20 kPa: very high Liver stiffness > 12 kPa is associated with an increased risk of cirrhosis-related complications over the next 3-5 years (Boadrielier, 2022). Liver stiffness > 20 kPa is also associated with a high probability of complications of portal hypertension including varices and ascites. Liver stiffness > 50 kPa is associated with a high risk of variceal bleeding. These interpretations are based on the following published data: Joan J, Hagstr m H, Ekstedt M, Iveth C, Bonacci M, Cure S, Ampuero J, Nasr P, Tallab L, Canivet CM, Kechagias S, S nchez Y, Dincuff E, Sunny A, Cindy M, Cordell J, Jenniffer A and Bar-Nava M. Non-invasive tests accurately stratify patients with NAFLD based on their risk of liver-related events. J Hepatol (2021) 76: 0156-2902. Raul RICH, Olinda M, Jen M, et al. Accuracy of FibroScan controlled attenuation parameter and liver stiffness measurement in assessing steatosis and fibrosis in patients with nonalcoholic fatty liver disease. Gastroenterology 2019;156:1737-4493. Johny MS, Ben R, Van Jj ML, et al. Vibration-controlled transient elastography to assess fibrosis and steatosis in patients with nonalcoholic fatty liver disease. Clin Gastroenterol Hepatol 2019;17:156-163. Note that scores have been developed that incorporate the Fibroscan liver stiffness measurement from large cohorts of patients with liver biopsies to further refine the ability of Fibroscan to identify patients with MASH and advanced fibrosis. These include the FAST (Fibroscan-AST) score (Christine, 2021) and the Agile3+ and Agile4 scores (Cornelius, 202; Marly, 202). Christine TA, Leo Gardner ML, Javier M, Jose A, et al. Validation of the accuracy of the FAST score for detecting patients with at-risk nonalcoholic steatohepatitis (ROSENBERG) in a [place] cohort and comparison to other non-invasive algorithms. PLoS ONE (2021) 17: a2626427. Cornelius SALAZAR, Chad J, Karie ZM, et al. Enhanced diagnosis of advanced fibrosis and cirrhosis in individuals with NAFLD using FibroScan-based Agile scores. J Hepatol (2022) 78: 247-259. Marly et al. Vibration-controlled transient elastography scores to predict liver-related events in steatotic liver disease. SAMUEL (2023) 331: 6480-7296 Fibroscan LSM can also be used with laboratory parameters without formulas to assess prognosis. According to the Baveno-VII criteria (Flood, 2021), Fibroscan LSM <=15 kPa plus a platelet count of >=281m305/L rules out clinically significant portal hypertension (sensitivity and negative predictive value >90%) in patients with compensated advanced chronic liver disease. Flood R, Angeles J, Ricardo-Elijah G, Ed T, Kervin Marie on behalf of the Baveno VII Faculty. Baveno VII--Renewing consensus in portal hypertension. J Hepatol (2021) 76: 959-974 Assessing the likelihood of advanced fibrosis in patients with intermediate liver stiffness measurement (LSM) by Fibroscan (e.g., 8-15 kPa) can be improved by also calculating the FIB-4 score (Kyara et al. Hepatology Communications 2019;3:3176-8978) or NAFLD Fibrosis score (Booker et al. Clinical Gastroenterology and Hepatology 2019;17:4214-3032 using routine clinical data. Notes: 1. Fibroscan cannot reliably identify earlier stages of fibrosis (ie distinguish F0 from F1 and F2) and thus a histologic stage cannot be predicted from the Fibroscan reading. 2. Liver stiffness can be increased by factors other than fibrosis including passive congestion, infiltrative processes, active alcoholism, recent moderate alcohol consumption in the 2 weeks before the exam, biliary obstruction and marked inflammation. The interpretation of the Fibroscan result provided above may not have taken such clinical factors into account. 3. Identifying steatosis by an elevated CAP score (> 250 db/m) is useful for establishing a diagnosis of steatotic liver disease. However the severity of steatosis does not correlate with liver related outcomes. Disease etiology also influences Fibroscan cutoff values for fibrosis stages and the following cutoffs have been proposed (Jayesh et al, Clin Gastro Hepatol 2015; 13:27-36): Cutoffs for Stage 3 and Stage 4 fibrosis respectively: Hepatitis B: >9 and >11.7 kPa Hepatitis C: >9.5 and >12.5 kPa HCV-HIV: >11 and >14 kPa Cholestatic liver diseases: >10 and >17.9 kPa MASLD/MASH: >10 and >14 kPa CAP estimates of steatosis: normal <200 dB/m mild 200 to 250 dB/m moderate 250-290 dB/m substantial > 290 dB/m (Note that Fibroscan is not a quantitative measure of liver fat.) These criteria are estimates and may change as additional supporting data becomes available. (This additional interpretive data was last updated 09/19/24.) [email or web address] Physician None PROCEDURE/MINOR SURGICAL ORDERAB LES Final Result * (ABNORMAL) COMPREHENSIVE METABOLIC PANEL (12/06/2023 11:15 AM CDT) BUN 17 7 - 26 mg/dL 12/06/2023 11:51 AM CDT [facility] Creatinine 0.77 0.56 - 0.96 mg/dL 12/06/2023 11:51 AM CDT [facility] Sodium 141 136 - 145 mmol/L 12/06/2023 11:51 AM CDT [facility] Potassium 4.0 3.5 - 4.5 mmol/L 12/06/2023 11:51 AM [facility] Chloride 105 98 - 107 mmol/L 12/06/2023 11:51 AM [facility] CO2 25 22 - 29 mmol/L 12/06/2023 11:51 AM [facility] Glucose 156(H) 70 - 115 mg/dL 12/06/2023 11:51 AM [facility] Calcium 9.6 8.4 - 10.2 mg/dL 12/06/2023 11:51 AM [facility] Protein Total 7.4 6.0 - 8.3 g/dL 12/06/2023 11:51 AM [facility] Albumin 3.6 3.4 - 5.0 g/dL 12/06/2023 11:51 AM [facility] Bilirubin Total 0.3 0.2 - 1.2 mg/dL 12/06/2023 11:51 AM [facility] Alkaline Phosphatase 136 40 - 150 U/L 12/06/2023 11:51 AM [facility] ALT 9 5 - 55 U/L 12/06/2023 11:51 AM [facility] AST 14 5 - 34 U/L 12/06/2023 11:51 AM [facility] Anion Gap 11 6 - 16 12/06/2023 11:51 AM [facility] BUN/Creatinine Ratio 22 7 - 23 12/06/2023 11:51 AM [facility] Osmolality Calculated 297(H) 275 - 295 mOsm/kg 12/06/2023 11:51 AM [facility] Albumin/Globulin Ratio 0.9(L) 1.1 - 2.3 12/06/2023 11:51 AM [facility] eGFR by CKD-EPI 88(L) >=90 mL/min/1.7 3 m2 12/06/2023 11:51 AM [facility] Blood BLOOD SPECIMEN / Unknown Venipuncture / Unknown 12/06/2023 11:15 AM CDT 12/06/2023 11:23 AM T us Kirill Brady MD LAB - CHEMISTRY ORDERABLES Fi nal Result [facility] [address] [place] [address], [facility] [phone] * (ABNORMAL) HEMOGLOBIN A1C (05/14/2021 5:18 PM CDT) Hemoglobin A1c 10.8(H) 4.4 - 6.3 % 05/15/2021 11:09 AM CDT [facility] Estimated Average Glucose 263 mg/dL 05/15/2021 11:09 AM CDT [facility] Comment: HbA1c Interpretation: Treatment target values recommended by ADA and other clinical organizations should be used to evaluate metabolic control in patients. Treatment Target Values: Normal : < 5.7% Pre-diabetes: 5.7-6.4% Diabetes: Equal to or greater than 6.5% Reference: [place] Diabetes Association Standards of Care in Diabetes -2014 In patients 70 years and older consider HbA1c target range of 7.0-7.5% Reference: Diabetes Mellitus in Older People: Position Statement on behalf of the International Association of Gerontology and Geriatrics (IAGG), the Diabetes Working Alliance Party for Older People (EDWPOP), and the International Task Force of Experts in Diabetes. Harsha Nam, et al. J [place] Medical Directors Association. 2012 Test results diagnostic of diabetes should be repeated for confirmation. The Sebia Capillary 2 assay for the measurement of HbA1c is a National Glycohemoglobin Standardization Program (NGSP)certified method. Blood BLOOD SPECIMEN / Unknown Venipuncture / Unknown 05/14/2021 5:18 PM CDT 05/14/2021 5:24 PM CDT Jameel Capps DO LAB - CHEMISTRY ORDERABLES Fin al Result [facility] [address] [place] [address], [facility] [phone] * (ABNORMAL) MICROALB/CREAT RATIO URINE RANDOM PANEL (11/16/2010 9:47 AM WOMEN'S STUDIES LECTURER) Creatinine 24 Hour Urine 211.4 15.0 - 278.0 mg/dL [facility] ACCOUNT BILL Microalbumin Urine 26.4(H) 0.0 - 17.0 ug/mL [facility] ACCOUNT BILL Microalbumin/Crea tinine Ratio 12.5 0.0 - 30.0 mg/g creat [facility] ACCOUNT BILL URINE / Unknown 11/16/2010 9 :47 AM WOMEN'S STUDIES LECTURER 11/16/2010 6:24 PM WOMEN'S STUDIES LECTURER Narrative Resulting Agency Comment [facility] [address] [facility] [id number] Ligia Hawkins DO LAB - URINE TIRE SHOP MANAGER RY ORDERABLES Final Result [facility] ACCOUNT BILL [address] [place] [address] * MAMMO DIAG DIRECT DIGITAL IMAGE BILA (07/12/2009 11:10 AM CDT) Anatomical Region Laterality Modality Bilateral Mammography 07/12/2009 11:4 4 AM CDT Narrative 07/15/2009 4:50 PM CDT EXAM: MAMMOGRAPHY BILATERAL DIAGNOSTIC WITH CAD CORRELATION INDICATION: Palpable lump in the left breast. TECHNIQUE: CC and MLO films of the breasts were performed. The films were viewed with the aid of CAD. TECHNOLOGIST: Sandrine Boyce RT (R)(M). FINDINGS: A small marker was placed on the skin surface at the site of the patient's palpable lump. This is located just anterior to a densely calcified structure which was present on prior films of 01/15/08 and was thought to be a fibroadenoma. No new mass or nodule can be identified at this specific location. The overall parenchymal pattern of the right breast is stable. ASSESSMENT: Incomplete. CATEGORY: BI-RADS (0) Incomplete: Needs additional imaging evaluation. RECOMMENDATIONS: Ultrasound of the palpable nodule in the left breast. Please refer to the separate ultrasound report. The above findings should be correlated with physical examination. A relatively nonspecific study should not preclude additional evaluation if suspicious findings are present clinically. Procedure Note Chiki Acevedo MD / Debbie Ghotra (Clerical Edt), RT(R)(M) - 07/12/2009 EXAM: MAMMOGRAPHY BILATERAL DIAGNOSTIC WITH CAD CORRELATION INDICATION: Palpable lump in the left breast. TECHNIQUE: CC and MLO films of the breasts were performed. The films were viewed with the aid of CAD. TECHNOLOGIST: RT Eleuterio (R)(M). FINDINGS: A small marker was placed on the skin surface at the site of the patient's palpable lump. This is located just anterior to a densely calcified structure which was present on prior films of 01/15/08 and was thought to be a fibroadenoma. No new mass or nodule can be identified at this specific location. The overall parenchymal pattern of the right breast is stable. ASSESSMENT: Incomplete. CATEGORY: BI-RADS (0) Incomplete: Needs additional imaging evaluation. RECOMMENDATIONS: Ultrasound of the palpable nodule in the left breast. Please refer to the separate ultrasound report. The above findings should be correlated with physical examination. A relatively nonspecific study should not preclude additional evaluation if suspicious findings are present clinically. Alfredito Rodriguez DO MAMMO ORDERABLES Edited Result - Final from Last 3 Months or Most Recently Relevant [place] [address] MEDICARE [facility] MEDICARE Member Subscriber Plan / Payer (Ef fective 2015-Present) Name:Horacio Cortez Member ID:[id number] Relation to Subscriber:Self Name:HORACIO CORTEZ Subscriber ID:[id number] Payer ID:Not on file Group ID:Not on file Type:Medicare Address: [address] [place] [phone] [facility] Advance Directives * Full Code (Latest Code Status on File) Date Activated Date Inactivated Comments 05/14/2021 11:28 AM 05/17/2021 2:59 PM Care Teams Six Sigma Black Trainer Relationship Specialty Start Date End Date Xiomy Kiran MD [address] [address] PCP - General Internal Medicine 05/14/21 Mahad Corado MD Neurology 10/31/19 Shell Paulino, LOU Registered Nurse 10/31/19 Sherry Tejada MD [address] [place] [address] Endocrinology 10/31/19
--- OUTSIDE RECORDS SUMMARY | 2025-01-26 00:59 | XMS_ITS | Encounter Summary ---
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 [address] [place] [address] Vinny Preciado MD [address] [facility] [address] [place] [address] documented as of this encounter Visit Diagnoses Not on filedocumented in this encounter Care Teams Product Delivery Specialist Relationship Specialty Start Date End Date Michael Rivas MD PCP - General 09/03/15 documented as of this encounter
--- OUTSIDE RECORDS SUMMARY | 2025-01-26 00:59 | XMS_ITS | Encounter Summary ---
Author Organization [facility] Address [address] [place] [address] Care Team Providers Care Rigger Third Name Role Phone Michael Rivas MD Primary Care Provider [phone] Encounter Details Date Type Department Care Team (Late Contact Info) Description 03/23/2006 Outpatient Historical [facility] Internal Medicine Medical [facility] [address] [facility] [address] [address] Jia Fuentes MD [address] [place] [address] [address] [place] [id number] Social History Tobacco Use Types Packs/Day Years Used Date Smoking Tobacco: Never Assessed Comments Unknown Sex and Gender Information Value Date Recorded Sex Assigned at Not on file 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 Gender Identity Not on file Sexual Orientation Not on file documented as of this encounter Last Filed Vital Signs Vital Sign Reading Time Taken Comments Blood Pressure 120/80 03/23/2006 10:15 AM CDT Pulse 74 03/23/2006 10:15 AM CDT Temperature 36.4 C (97.5 F) 03/23/2006 10:15 AM CDT Respiratory Rate - - Oxygen Saturation - - Inhaled Oxygen Concentration - - Weight 81.2 kg (179 lb) 03/23/2006 10:15 AM CDT Height - - Body Mass Index 31.46 02/09/2005 9:45 AM CDT documented in this encounter Plan of Treatment Upcoming Encounters Date Type Department Care Team (Late st Contact Info) Description 03/24/2025 1:30 PM CDT Office Visit [facility] Oncology and Hematology - [place] [address] [place] [address] Vinny Preciado MD [address] [facility] [address] [place] [address] documented as of this encounter Visit Diagnoses Not on filedocumented in this encounter Care Teams Rigger Third Relationship Specialty Start Date End Date Michael Rivas MD PCP - General 09/03/15 documented as of this encounter
--- OUTSIDE RECORDS SUMMARY | 2025-01-26 00:59 | XMS_ITS | Encounter Summary ---
Author Organization [facility] Address 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 [address] [place] [address] Vinny Preciado MD [address] [facility] [address] [place] [address] documented as of this encounter Visit Diagnoses Diagnosis Multiple sclerosis (CMS/HCC)- Primary Multiple sclerosis documented in this encounter Care Teams Education Adviser Relationship Specialty Start Date End Date Michael Rivas MD PCP - General 09/03/15 documented as of this encounter
--- OUTSIDE RECORDS SUMMARY | 2025-01-26 00:59 | XMS_ITS | Encounter Summary ---
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 Gender Identity Not on file Sexual Orientation Not on file documented as of this encounter Plan of Treatment Upcoming Encounters Date Type Department Care Team (Late st Contact Info) Description 03/24/2025 1:30 PM CDT Office Visit [facility] Oncology and Hematology - [place] [address] [facility] [address] [place] [address] Vinny Preciado MD [address] [facility] [address] [place] [address] documented as of this encounter Visit Diagnoses Not on filedocumented in this encounter Care Teams Picking Machine Operator Relationship Specialty Start Date End Date Michael Rivas MD PCP - General 09/03/15 documented as of this encounter
--- OUTSIDE RECORDS SUMMARY | 2025-01-26 00:59 | XMS_ITS | Encounter Summary ---
Author Organization [facility] Address [address] [place] [address] Care Team Providers Care Mobile Phone Salesperson Name Role Phone Michael Rivas MD Primary Care Provider [phone] Encounter Details Date Type Department Care Team (Latest Contact Info) Description 12/20/2005 Outpatient Historical [facility] Internal Medicine Medical [place] [facility] [address] [facility] [address] [place] [address] Ivan Reed MD [address] [facility] [address] [place], [place] [id number] DM w/o Complication Type II, Uncontrolled (Primary Dx) Social History Tobacco Use Types Packs/Day Years Used Date Smoking Tobacco: Never Assessed Comments Unknown Sex and Gender Information Value Date Recorded Sex Assigned at Not on file 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 [address] [place] [address] documented as of this encounter Procedures Procedure Name Priority Date/Time Associated Diagnosis Comments ALT Routine 12/20/2005 9:42 AM CDT HEMOGLOBIN A1C Routine 12/20/2005 9:42 AM CDT LIPID PANEL Routine 12/20/2005 9:42 AM CDT documented in this encounter Results * ALT (12/20/2005 9:42 AM CDT) ALT 26 0 - 31 U/L INTERFACE SYSTEM 12/20/2005 9:42 AM CDT us Ivan Reed MD CHEMISTRY ORDERABLES Final Result INTERFACE SYSTEM Refer to clinic/hospital department * (ABNORMAL) LIPID PANEL (12/20/2005 9:42 AM CDT) LIPID PANEL COMMENT See below INTERFACE SYSTEM Comment: Adult ATP III Classifications: Cholesterol (mg/dL) Triglyceride (mg/dL) Desirable <200 Normal <150 Borderline 200 - 239 Borderline High 150 - 199 High >=240 High 200 - 499 Very High >=500 HDL Cholesterol (mg/dL) LDL (mg/dL) Low (increased risk) <40 Optimal <100 High (reduced risk) >=60 Near or above optimal 100 - 129 Borderline 130 - 159 High 160 - 189 Very High >=190 LDL calculation is not accurate if Triglycerides are greater than 400 mg /dL Pediatric NCEP Classifications: Cholesterol(<20 years),(mg/dL) Triglyceride Desirable <170 Pediatric classification Borderline 170 - 199 not defined. High >=200 HDL (<5 years) LDL (mg/dL) No Reference Range Established Desirable <110 Borderline 110 - 129 High >=130 CHOLESTEROL 265(H) 100 - 199 mg/dL INTERFACE SYSTEM TRIGLYCERIDE 180(H) 10 - 149 mg/dL INTERFACE SYSTEM HDL 46 40 - 59 mg/dL INTERFACE SYSTEM LDL CALCULATED 183(H) <=99 mg/dL INTERFACE SYSTEM CHOL/HDL RATIO 5.8(H) 2.0 - 5.0 INTER FACE SYSTEM Comment:See interpretive tiera a section for risk classifications. 12/20/2005 9:42 AM CDT us Ivan Reed MD CHEMISTRY ORDERABLES Final Result Performing Organization Address [facility] Phone Number INTERFACE SYSTEM Refer to clinic/hospital department * (ABNORMAL) HEMOGLOBIN A1C (12/20/2005 9:42 AM CDT) HEMOGLOBIN A1C 8.3(H) 3.9 - 6.1 % of Hgb INTERFACE SYSTEM GLUCOSE, MEAN BLOOD 190 mg/dL INTERFACE SYSTEM 12/20/2005 9:42 AM CDT Ivan Reed MD CHEMISTRY ORDERABLES Final Result Performing Organization Address [facility] Phone Number INTERFACE SYSTEM Refer to clinic/hospital department documented in this encounter Visit Diagnoses Diagnosis Type II or unspecified type diabetes mellitus without mention of complication, uncontrolled- Primary documented in this encounter Care Teams Mobile Phone Salesperson Relationship Specialty Start Date End Date Michael Rivas MD PCP - General 09/03/15 documented as of this encounter
--- OUTSIDE RECORDS SUMMARY | 2025-01-26 00:59 | XMS_ITS | Encounter Summary ---
Author Organization [facility] Address 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 Gender Identity Not on file Sexual Orientation Not on file documented as of this encounter Plan of Treatment Upcoming Encounters Date Type Department Care Team (Late st Contact Info) Description 03/24/2025 1:30 PM CDT Office Visit [facility] Oncology and Hematology - [place] [address] [facility] [address] [place] [address] Vinny Preciado MD [address] [facility] [address] [place] [address] documented as of this encounter Visit Diagnoses Diagnosis Multiple sclerosis (CMS/HCC)- Primary Multiple sclerosis documented in this encounter Care Teams Wastewater Treatment Engineer Relationship Specialty Start Date End Date Michael Rivas MD PCP - General 09/03/15 documented as of this encounter
--- OUTSIDE RECORDS SUMMARY | 2025-01-26 00:59 | XMS_ITS | Encounter Summary ---
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 Gender Identity Not on file Sexual Orientation Not on file documented as of this encounter Plan of Treatment Upcoming Encounters Date Type Department Care Team (Late st Contact Info) Description 03/24/2025 1:30 PM CDT Office Visit [facility] Oncology and Hematology - [place] [address] [facility] [address] [place] [address] Vinny Preciado MD [address] [facility] [address] [place] [address] documented as of this encounter Visit Diagnoses Not on filedocumented in this encounter Care Teams Fuel System Maintenance Supervisor Relationship Specialty Start Date End Date Michael Rivas MD PCP - General 09/03/15 documented as of this encounter
--- OUTSIDE RECORDS SUMMARY | 2025-01-26 01:00 | XMS_ITS | Encounter Summary ---
Author Organization [facility] Address [address] [facility] Attn: Epic Prelude ADT ASHA KAM [address] Care Team Providers Care Merchandise Planning Manager Name Role Phone Michael Rivas MD Primary Care Provider [phone] Encounter Details Date Type Department Care Team (Latest Contact Info) Description 06/19/2006 Orders Only Ada Mojica MD Social History Tobacco Use Types Packs/Day Years Used Date Smoking Tobacco: Never Assessed Comments Unknown Sex and Gender Information Value Date Recorded Sex Assigned at Not on file Legal Sex Female 2:39 AM SCALEMAKER Gender Identity Not on file Sexual Orientation Not on file documented as of this encounter Plan of Treatment Upcoming Encounters Date Type Department Care Team (Late st Contact Info) Description 03/24/2025 1:30 PM CDT Office Visit [facility] Oncology and Hematology - [place] [address] [facility] [address] [place] [address] Vinny Preciado MD [address] [facility] [address] [place] [address] documented as of this encounter Visit Diagnoses Not on filedocumented in this encounter Care Teams Merchandise Planning Manager Relationship Specialty Start Date End Date Michael Rivas MD PCP - General 09/03/15 documented as of this encounter
--- OUTSIDE RECORDS SUMMARY | 2025-01-26 01:00 | XMS_ITS | Clinical Summary ---
Author Organization [facility] Address [address] [place] [address] Phone Care Team Providers Care Manager Psychology Name Role Phone Michael Rivas MD Primary Care Provider [phone] Allergies Active Allergy Reactions Criticality Noted Date Comments Latex Itching,Swelling Low 01/06/2015 Morphine 02/09/2005 Medications ZITHROMAX Z-JAMAL 250 MG TAB TAKE ONE DIRECTED 1.00 0 6 Active KEFLEX 500 MG CAP 1 Four Times A Day 40.00 0 6 Active COPAXONE 20 MG SUB-Q KIT 1 inj. a day 90.00 3 6 Active SYNTHROID 50 MCG TAB 1 Every Day 90.00 3 6 Active LIPITOR 20 MG TAB 1 Every Day 90.00 3 6 Active GLUCOPHAGE XR 500 MG 24 HR TAB 3 Every Day At Bedtime 270.00 3 6 Active clonazePAM (KLONOPIN) 0.5 mg Tablet Take 0.5 mg by mouth 2 times daily as needed for Anxiety. Active insulin detemir (LEVEMIR) 100 unit/mL Insulin Pen Inject by subcutaneous injection 2 times daily. Active oxyCODONE-aceta minophen (PERCOCET) 5-325 mg tablet Take 1-2 Tabs by mouth every 6 hours as needed for Pain, Moderate (For Pain Scale 4 - 6). Max Daily Amount: 8 Tabs 60 Tab 0 5 Active diazepam (VALIUM) 5 mg tablet Take 1 Tab (5 mg) by mouth every 6 hours as needed for Spasm (not relieved by flexeril). 60 Tab 2 5 Active Active Problems Problem Noted Date Diagnosed Date Spondylolisthesis of lumbar region 01/26/2015 Pain in joint, upper arm 03/23/2006 Breast screening, unspecified 12/20/2005 Multiple sclerosis 06/14/2005 Acute bronchitis 06/14/2005 Cellulitis and abscess of trunk 05/29/2005 Encounter for long-term (current) use of other m edications 02/15/2005 Pure hypercholesterolemia 02/15/2005 Type II or unspecified type diabetes mellitus without mention of complication, not stated as uncontrolled 02/09/2005 Unspecified hypothyroidism 02/09/2005 Type II or unspecified type diabetes mellitus without mention of complication, uncontrolled 02/09/2005 Social History Tobacco Use Types Packs/Day Years Used Date Smoking Tobacco: Never Alcohol Use Standard Drinks/Week Comments No 0 (1 standard drink = 0.6 oz pur e alcohol) Comments No Sex and Gender Information Value Date Recorded Sex Assigned at Not on file 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 Gender Identity Not on file Sexual Orientation Not on file Last Filed Vital Signs Vital Sign Reading Time Taken Comments Blood Pressure 107/40 01/29/2015 5:16 AM CDT Pulse 92 01/29/2015 5:16 AM CDT Temperature 37.2 C (98.9 F) 01/29/2015 5:16 AM CDT Respiratory Rate 16 01/29/2015 5:16 AM CDT Oxygen Saturation 95% 01/29/2015 5:16 AM CDT Inhaled Oxygen Concentration - - Weight 66.9 kg (147 lb 6.4 oz) 01/26/2015 10:05 AM CDT Height 160 cm (5' 3 ) 01/06/2015 9:47 AM CDT Body Mass Index 26.11 01/06/2015 9:47 AM CDT Plan of Treatment Upcoming Encounters Date Type Department Care Team (Late st Contact Info) Description 03/24/2025 1:30 PM CDT Office Visit [facility] Oncology and Hematology - [place] [address] [place] [address] Vinny Preciado MD [address] [facility] [address] [place] [address] Health Maintenance Due Date Last Done Comments DIABETES ANNUAL FOOT EXAM 1981 DIABETES ANNUAL RETINAL EXAM 1981 DIABETES MICROALBUMIN ANNUAL SCREEN 1981 BREAST CANCER SCREENING 2003 LDL CHOLESTEROL ANNUAL 12/20/2006 12/20/2005 COLORECTAL SCREENING 2008 Colorectal Cancer Screening 2008 FIT-DNA Q 3 years 2008 FIT/FOBT Q 1 year 2008 Flex Sig/CT Colonography Q 5 years 2008 ZOSTER VACCINE (1 of 2) 2013 DTAP/TDAP/TD VACCINES (2 - Tdap) 01/16/2020 01/16/20 10 DIABETES HBA1C Q 6 MONTHS 11/14/20212020, 12/20/2005, 01/11/2005 RSV VACCINE (60+ or ) (1 - Risk 60-74 years 1-dose series) 2023 INFLUENZA VACCINE (#1) 2024 Medical Devices Implanted Type Area Data Processing Manager Device Identifier Shelf Expiration Date Model / Serial / Lot Paste Bone Dbm Plus 5ml [id number] - [id number] Implanted:Qty: 1 on 01/26/2015 by Angel Luis Carrillo MD at [facility] Putty N/A: Spine Lumbar [employer] 07/20/2016 [id number] / [id number] / Ramos Solera Ccm Crv [id number] - Ssterilized Implanted:Qty: 2 on 01/26/2015 by Angel Luis Carrillo MD at [facility] Ramos N/A: Spine Lumbar [employer]- SOFAMOR DANEK 01/22/2015 [id number] / STERILIZED / [id number] Screw Solera Ma 6.5x45mm [id number] - Ssterilized Implanted:Qty: 4 on 01/26/2015 by Angel Luis Carrillo MD at [facility] Screw N/A: Spine Lumbar [employer]- SOFAMOR DANEK [id number] / STERILIZED / [id number] Set Screw Solera Breakoff [id number] - Ssterilized Implanted:Qty: 4 on 01/26/2015 by Angel Luis Carrillo MD at [facility] Screw N/A: Spine Lumbar [employer]- SOFAMOR DANEK [id number] / STERILIZED / [id number] Sealant Floseal W/ Adptr 10ml [id number] - [id number] Implanted:Qty: 1 on 01/26/2015 by Angel Luis Carrillo MD at [facility] Sealant N/A: Spine Lumbar [employer]- [employer] 04/16/2016 [id number] / / [id number] Spacer Capstn Peek [id number] - [id number] Implanted:Qty: 1 on 01/26/2015 by Angel Luis Carrillo MD at [facility] Spacer N/A: Spine Lumbar [employer]- SOFAMOR DANEK 03/31/2022 [id number] / / [id number] Procedures Procedure Name Priority Date/Time Associated Diagnosis Comments LIPID PANEL Routine 12/20/2005 9:42 AM CDT HEMOGLOBIN A1C Routine 12/20/2005 9:42 AM CDT from Last 3 Months or Most Recently Relevant to Health Maintenance Results * (ABNORMAL) HEMOGLOBIN A1C (12/20/2005 9:42 AM CDT) Pathologist [facility] HEMOGLOBIN A1C 8.3(H) 3.9 - 6.1 % of Hgb INTERFACE SYSTEM GLUCOSE, MEAN BLOOD 190 mg/dL INTERFACE SYSTEM 12/20/2005 9:42 AM CDT Ivan Reed MD CHEMISTRY ORDERABLES Final Result INTERFACE SYSTEM Refer to clinic/hospital department * (ABNORMAL) LIPID PANEL (12/20/2005 9:42 AM CDT) Pathologist [facility] LIPID PANEL COMMENT See below INTERFACE SYSTEM [...] CHEMISTRY ORDERABLES Final Result Performing Organization Address City/State/[facility] Co de Phone Number INTERFACE SYSTEM Refer to clinic/hospital department from Last 3 Months or Most Recently Relevant to Health Maintenance Insurance BLUE ACCESS/TRUE BLUE PPO BS BLUE ACCESS/TRUE BLUE PPO Advance Directives For more information, please contact: [phone] * Full Code (Latest Code Status on File) Date Activated Date Inactivated Comments 01/26/2015 3:50 PM 01/29/2015 4:24 PM * Full Code Date Activated Date Inactivated Comments 01/26/2015 3:50 PM 01/26/2015 3:50 PM * Full Code Date Activated Date Inactivated Comments 01/26/2015 10:36 AM 01/26/2015 3:50 PM Care Teams Manager Psychology Relationship Specialty Start Date End Date Michael Rivas MD PCP - General 09/03/15
--- OUTSIDE RECORDS SUMMARY | 2025-01-26 01:00 | XMS_ITS | Clinical Summary ---
Author Organization [facility] Address [address] [facility], [place] [address] Phone Care Team Providers Care Donkey Doctor Name Role Phone Mahad Corado MD Unavailable [phone] Xiomy Kiran MD Primary Care Provider Allergies Active Allergy Reactions Criticality Noted Date Comments Latex Swelling 08/02/2015 Morphine Sulfate Unknown High BOTTOMS OUT B/P Medications Blood Glucose Monitoring Suppl (ACCU-CHEK NINA PLUS) w/Device Kit 7 Active NOVOLOG FLEXPEN 100 UNIT/ML Solution Pen-injector 7 Active levothyroxine (SYNTHROID) 50 MCG Tablet Take 50 mcg by mouth daily. 7 Active atorvastatin (LIPITOR) 20 MG Tablet Take 20 mg by mouth daily. Active Insulin Infusion Pump Device by Does not apply route. Settings as per order in the patient record Active aspirin EC 81 MG Tablet Delayed Response Take 81 mg by mouth daily. Active Vitamin D, Ergocalciferol , 51135 units Capsule Take by mouth. Activ e rosuvastatin (CRESTOR) 20 MG Tablet Take 20 mg by mouth daily. Active sertraline (ZOLOFT) 50 MG Tablet Take 1 Tablet by mouth daily. 90 Tablet 1 3 Active Additional Information Patient taking differently: 25 mgOral DAILY, Reported on 01/15/2025 glatiramer (COPAXONE) 40 MG/ML Solution Prefilled SyringeIndicat ions:Multiple sclerosis (HCC) INJECT 1 SYRINGE (40MG) UNDER THE SKIN 3 TIMES A WEEK 12 mL 3 4 Active clonazePAM (KlonoPIN) 0.5 MG TabletIndicati ons:Anxiety TAKE 1 TABLET BY MOUTH ONCE DAILY AT NIGHT AT BEDTIME NEEDED FOR ANXIETY 30 Tablet 5 Active rosuvastatin (CRESTOR) 40 MG Tablet Take 40 mg by mouth daily. 025 Discontin ued(Med List Clean Up) Exenatide (BYDUREON SC) by Subcutaneous route. 025 Discontin ued(Med List Clean Up) traMADol (ULTRAM) 50 MG TabletIndicati ons:Multiple sclerosis (HCC) Take 1 Tablet by mouth every 6 hours as needed for Severe pain. 20 Tablet 3 025 Discontin ued(Med List Clean Up) ALPRAZolam (XANAX) 0.25 MG TabletIndicati ons:Multiple sclerosis (HCC) Take 1 Tablet by mouth once as needed (prior to mri) for up to 2 doses. May repeat in one hour if anxiety persists 2 Tablet 4 025 Discontin ued(Med List Clean Up) Active Problems Problem Noted Date Diagnosed Date Carpal tunnel syndrome, left 10/14/2020 Carpal tunnel syndrome, right 07/09/2019 Seizure 03/01/2017 Spinal arachnoid cyst 11/30/2015 Lumbago Relapsing remitting multiple sclerosis Lumbar radiculopathy Encounters Date Type Department Care Team Description 01/22/2025 Refill [facility] [address] [place] [address] Jayde Corona APRN, BLACK ASH WORKER Medication Refill 01/15/2025 11:00 AM CDT Office Visit [facility] [address] [place] [address] Mahad Corado MD Multiple sclerosis (HCC) (Primary Dx); Muscle spasms of both lower extremities; Type 2 diabetes mellitus without complication, without long-term current use of insulin Discharge Disposition: Discharged to home or Selfcare 01/15/2025 Travel 12/04/[facility] [address] [place] [address] Mahad Corado MD Medication Refill from Last 3 Months Immunizations Immunization Administration Dates Next Due Covid-19, Mrna, Lnp-s, PF, 1 00 mcg/0.5 mL Dose (Moderna) 11/18/2020 Family History Medical History Relation Name Comments Diabetes Father Heart Disease Father No Known Problems Mother Relation Name Status Comments Father Mother Alive Social History Tobacco Use Types Packs/Day Years Used Date Smoking Tobacco: Never Smokeless Tobacco: Never Tobacco Cessation:Counseling Given: Not Answered Alcohol Use Standard Drinks/Week Comments No 0 [...] Sign Reading Time Taken Comments Blood Pressure 130/64 01/15/2025 10:59 AM CDT Pulse 80 01/15/2025 10:59 AM CDT Temperature 36.3 C (97.3 F) 01/15/2025 10:59 AM CDT Respiratory Rate 17 01/15/2025 10:5 9 AM CDT Oxygen Saturation 100% 01/15/2025 10: 59 AM CDT Inhaled Oxygen Concentration - - Weight 71.6 kg (157 lb 12.8 oz) 025 10:59 AM CDT Height 160 cm (5' 3 ) 01/15/2025 10:59 AM CDT Body Mass Index 27.95 01/15/2025 10:59 AM CDT Plan of Treatment Upcoming Encounters Date Type Department Care Team (Late st Contact Info) Description 06/25/2025 11:00 AM CDT Office Visit [facility] [address] [place] [address] Mahad Corado MD [address] [place] [phone] Health Maintenance Due Date Last Done Comments Mammogram 1963 TdaP Immunization 1963 Cologuard 2013 Immunochemical Fecal Occult Blood 2013 Zoster Immunization (1 of 2) 2013 Pneumococcal Immunization (50+ years) (2 of 2 - PCV) 03/22/2021 03/22/2020 Hepatitis B Immunization (1 of 3 - Risk 3-dose series) 2023 SARS-COV-2 Immunization ( season) 2024 06/21/2022, 08/23/2021, 12/12/2020, Additional history exists Colonoscopy 08/17/2025 08/17/2015 Colorectal Cancer Screening 08/17/2025 Respiratory Syncytial Virus (RSV) Immunization (Adult) (1 - 1-dose 75+ series) 2038 08/17/2015 DTaP/Tdap/Td Immunization Discontinued 01/15/2010 Pneumococcal Immunization Combined Discontinued 03/22/2020 Hepatitis C Virus (HCV) Screening Completed 02/20/2022 Influenza Immunization Completed 4, 06/18/2023, 06/28/2022, Additional history exists Human Papillomavirus (HPV) Immunization Aged Out No longer eligible based on patient's age to complete this topic Meningococcal Immunization (ACWY) Aged Out No longer eligible based on patient's age to complete this topic Rotavirus Immunization Aged Out No lo nger eligible based on patient's age to complete this topic Procedures Procedure Name Priority Date/Time Associated Diagnosis Comments HEPATITIS C ANTIBODY Routine 02/20/2022 8:21 AM CDT Relapsing remitting multiple sclerosis (HCC) from Last 3 Months or Most Recently Relevant to Health Maintenance Results * HEPATITIS C ANTIBODY (02/20/2022 8:21 AM CDT) hepatitis C antibody 0.18 <1 S/CO [facility] ARCH [id number] B 02/20/2022 2:39 PM CDT [facility] Comment: Signal/Cutoff ratio < 0.79 is Nondetected Signal/Cutoff ratio 0.80-0.99 is Grayzone Signal/Cutoff ratio > 0.99 is Detected Supplemental assays are recommended if signal/cutoff ratio is >/=1.00. Signal/cutoff ratio result >/= 5.00 is 97% predictive of positivity for recombinant immunoblot assay (RIBA) and will be reported to the [place] Department of Public Health as required. Blood Venipuncture / Unknown 02/20/2022 8:21 AM CDT 02/20/2022 9:13 AM CDT us Mahad Corado MD CHEMISTRY ORDERABLES Final R esult [facility] [address] [place] [address], from Last 3 Months or Most Recently Relevant to Health Maintenance [place] [address] MEDICARE [facility] [employer] Care Teams Donkey Doctor Relationship Specialty Start Date End Date Xiomy Kiran MD [address] [place] [address] PCP - General Internal Medicine 12/05/17 Mahad Corado MD [address] [place] [address] Consulting Physician Neurology 08/02/15
--- OUTSIDE RECORDS SUMMARY | 2025-01-26 01:00 | XMS_ITS | Encounter Summary ---
Author Organization [facility] Address [address] [place] [address] Phone Care Team Providers Care Oyster Picker Name Role Phone Mahad Corado MD Unavailable [phone] Xiomy Kiran MD Primary Care Provider Reason for Visit * Reason Comments Medication Refill Encounter Details Date Type Department Care Team (Late st Contact Info) Description 01/22/2025 Refill [facility] [address] [place] [phone] Jayde Corona, TELEPHONE MAINTENANCE MECHANIC, OPERATIONS OFFICER [facility] [address] [place] [address] Medication Refill Social History Tobacco Use Types [...] on file documented as of this encounter Miscellaneous Notes * Telephone Encounter - Anabel Julien RN - 01/23/2025 9:11 AM CDT Medication failed the protocol, provider to review and approve the medication order if appropriate. Requested Prescriptions Pending Prescriptions Disp Refills clonazePAM (KlonoPIN) 0.5 MG Tablet [Pharmacy Med Name: clonazePAM 0.5 MG Oral Tablet] 30 Tablet 0 Sig: TAKE 1 TABLET BY MOUTH ONCE DAILY AT NIGHT AT BEDTIME NEEDED FOR ANXIETY Not Delegated - Benzodiazepines Protocol Failed - 01/23/2025 9:11 AM Failed - This refill cannot be delegated Passed - Visit with relevant provider in past 12 months or upcoming 90 days Recent Visits Date Type Provider Dept 01/15/25 Office Visit Mahad Corado MD [facility]24 Office Visit Mahad Corado MD [facility]rology [facility] [place] Showing recent visits within past 365 days and meeting all other requirements Future Appointments No visits were found meeting these conditions. Showing future appointments within next 90 days and meeting all other requirements Not Delegated - Clonazepam Protocol Failed - 01/23/2025 9:11 AM Failed - This refill cannot be delegated Passed - Visit with relevant provider in past 12 months or upcoming 90 days Recent Visits Date Type Provider Dept 01/15/25 Office Visit Mahad Corado MD [facility] [place] 07/17/24 Office Visit Mahad Corado MD [facility] Neurology [facility] [place] Showing recent visits within past 365 days and meeting all other requirements Future Appointments No visits were found meeting these conditions. Showing future appointments within next 90 days and meeting all other requirements documented in this encounter Plan of Treatment Upcoming Encounters Date Type Department Care Team (Late st Contact Info) Description 06/25/2025 11:00 AM CDT Office Visit [facility] - [place] [address] [place] [phone] Mahad Corado MD [address] [place] [address] documented as of this encounter Visit Diagnoses Diagnosis Anxiety Anxiety state, unspecified documented in this encounter Care Teams Oyster Picker Relationship Specialty Start Date End Date Xiomy Kiran MD [address] [place] [address] PCP - General Internal Medicine 12/05/17 Mahad Corado MD [address] [place] [phone] Consulting Physician Neurology 08/02/15 documented as of this encounter
--- OUTSIDE RECORDS SUMMARY | 2025-01-26 01:00 | XMS_ITS | Encounter Summary ---
Author Organization [facility] Address [address] [place] [address] Phone Care Team Providers Care Cardiology Physician Assistant Name Role Phone Mahad Corado MD Unavailable [phone] Xiomy Kiran MD Primary Care Provider Reason for Visit * Reason Comments Medication Refill Encounter Details Date Type Department Care Team (Late st Contact Info) Description 10/26/2021 Refill [facility] [address] [place] [phone] Mahad Corado MD [address] [place] [address] Medication Refill Social History Tobacco [...] Telephone Encounter - Shilpa Mckay RN - 10/27/2021 3:43 PM CST . SALES CLERK documented in this encounter Plan of Treatment Upcoming Encounters Date Type Department Care Team (Late st Contact Info) Description 06/25/2025 11:00 AM CDT [facility] [address] [place] [address] Mahad Corado MD [address] [place] [address] documented as of this encounter Visit Diagnoses Diagnosis Anxiety Anxiety state, unspecified documented in this encounter Care Teams Cardiology Physician Assistant Relationship Specialty Start Date End Date Xiomy Kiran MD [address] [place], [place] [address] PCP - General Internal Medicine 12/05/17 Mahad Corado MD [address] [place] [phone] Consulting Physician Neurology 08/02/15 documented as of this encounter
--- OUTSIDE RECORDS SUMMARY | 2025-01-26 01:00 | XMS_ITS | Encounter Summary ---
Author Organization [facility] Address [address] [place] [address] Phone Care Team Providers Care E Merchant Name Role Phone Mahad Corado MD Unavailable Xiomy Kiran MD Primary Care Provider Reason for Visit * Reason Comments Medication Refill Encounter Details Date Type Department Care Team (Late st Contact Info) Description 03/15/2022 Refill [facility] [address] [place] [phone] Mahad Corado MD [address] [place] [address] Medication Refill Social History Tobacco [...] suspected to have Coronavirus/COVID-19? No / Unsure 02/20/2022 8:12 AM CDT documented as of this encounter Miscellaneous Notes * Telephone Encounter - Sandra Wilson RN - 03/16/2022 2:40 PM CDT Medication failed the protocol, provider to review and approve the medication order if appropriate. Requested Prescriptions Pending Prescriptions Disp Refills clonazePAM (KlonoPIN) 0.5 MG Tablet [Pharmacy Med Name: CLONAZEPAM 0.5MG] 30 Tablet 0 Sig: TAKE ONE TABLET BY MOUTH AT BEDTIME NEEDED FOR ANXIETY. Not Delegated - Clonazepam Protocol Failed - 03/15/2022 4:29 PM Failed - This refill cannot be delegated Passed - Visit with relevant provider in past 12 months or upcoming 90 days Recent Visits Date Type Provider Dept 01/31/22 Office Visit Mahad Corado MD [facility] 11/10/21 Telemedicine Mahad Corado MD [facility] Neu[facility] 06/23/21 Telemedicine Mahad Corado MD [facility] Neurology [facility] 03/18/21 Office Visit Mahad Corado MD [facility] Neu[facility] Showing recent visits within past 365 days and meeting all other requirements Future Appointments Date Type Provider Dept 05/04/22 Appointment Mahad Corado MD [facility] Showing future appointments within next 90 days and meeting all other requirements documented in this encounter Plan of Treatment Upcoming Encounters Date Type Department Care Team (Late st Contact Info) Description 06/25/2025 11:00 AM CDT Office Visit [facility] - [place] [address] [place] [phone] Mahad Corado MD [address] [place] [address] documented as of this encounter Visit Diagnoses Diagnosis Anxiety Anxiety state, unspecified documented in this encounter Care Teams E Merchant Relationship Specialty Start Date End Date Xiomy Kiran MD [address] [place] [address] PCP - General Internal Medicine 12/05/17 Mahad Corado MD [address] [place] [address] Consulting Physician Neurology 08/02/15 documented as of this encounter
[2025-01-26 08:51] VITALS: BP 145/52; PULSE 64; RESP 18; TEMP 35.9; O2SAT 100
[2025-01-26] MEDS: LACTATED RINGERS 1,000 ML 150 ML IV CONT (09:08)
[2025-01-26 09:09] LABS: Glucose Point of Care 186 mg/dl (65-105)
--- NOTE | 2025-01-26 09:09 | P.PNAN_ITS ---
Anes - Initial Pre Proc Eval Procedure: Operation Date: 01/26/25 10:00 Proposed Procedures p Screening Colonoscopy - Yadiel Parra MD Date/Time: 01/26/25 09:09 Surgeon: Yadiel Parra MD Pre Op Diagnosis: Screening Patient Data Age: 59 Gender: F Height: 1.6 m Weight: 73.4 kg Last Vital Signs Temp 35.9 C L 01/26/25 08:51 Pulse 64 01/26/25 08:51 Resp 18 01/26/25 08:51 BP 145/52 H 01/26/25 08:51 Pulse Ox 100 01/26/25 08:51 O2 Del Method Room Air 01/26/25 08:51 Allergies Allergy/AdvReac Type Severity Reaction Status Date / Time latex Allergy Severe Swelling Verified 01/26/25 08:48 of Lip/Tongue/Throat morphine Allergy Severe Anaphylaxis Verified 01/26/25 08:48 Home Medications ?Medication ?Instructions ?Recorded ?Confirmed ?Type Dialyvite Vitamin D 500,000 mg PO WEEKLY 05/13/21 01/26/25 History Novolog U-100 Insulin aspart 05/13/21 01/07/24 History clonazepam 0.5 mg PO PRN PRN Anxiety 05/13/21 01/19/25 History levothyroxine 75 mcg tablet 75 mcg PO DAILY 05/13/21 01/26/25 History (Synthroid) rosuvastatin 40 mg tablet (Crestor) 40 mg PO DAILY 05/13/21 01/26/25 History aspirin 81 mg tablet,delayed 81 mg PO DAILY 01/01/23 01/26/25 History release (Adult Low Dose Aspirin) blood-glucose,arboriculture instructor,cont 01/01/23 01/07/24 History (Dexcom G6 Filter Press Operator) tirzepatide 10 mg/0.5 mL 10 mg subcut WEEKLY 01/19/25 01/26/25 History subcutaneous pen injector (Mounjaro) Laboratory Tests 01/26/25 09:05 POC Capillary Glucose Pending Patient hx anesthesia problems: none Family hx anesthesia problems: none Results Review: All pre-operative results and documents have been reviewed as part of the pre- operative evaluation. [facility] Past Medical History Medical History Screening mammogram, encounter for Cataract of right eye CTS (carpal tunnel syndrome) (~10/18/18) High cholesterol Cataract Arthritis ROSENBERG (nonalcoholic steatohepatitis) Diabetes mellitus Multiple sclerosis Surgical History Surgical History History of orthopedic surgery left double buckle fracture angelique and screws inserted History of back surgery (02/08/15) back surgery--spine stabilization History of orthopedic surgery Left big toe and 2nd toe 2019 History of gynecological procedure torn grace area during H/O: hysterectomy History of tonsillectomy Hx of cholecystectomy (05/13/18) Family History Family History Other Breast cancer paternal side Daughter Multiple sclerosis Father Heart disease Diabetes mellitus Mother Diabetes mellitus Other Cerebrovascular accident Depression Family history of arthritis Family history of attention deficit hyperactivity disorder (ADHD) Family history of cardiovascular disease Family history of coronary artery disease Hypertension Social History Social History Smoking status: Never smoker Second hand tobacco smoke exposure: No Alcohol intake: never Substance use: never Substance use type: does not use Do You Feel Safe in your Home?: Yes Lack of Transportation: No Lack of Food: Never True Current Housing: I Have Housing Concerned About Future Housing: No Difficulty Paying Gas/Electric Bills: No Difficulty Paying for Meds: No Currently Unemployed: No Education: Associate Degree Difficulty w/ Childcare or Family Care: No Living arrangements: with family Additional living arrangements comments: Occupation/Education: retired Gender identity (if verbalized by the patient): Female Sexual Orientation (if Verbalized by the Patient): Straight or Heterosexual Anes - Eval Final PreProcedure Day of Procedure 01/26/25 09:09 Patient weight: overweight Heart: regular rate and rhythm Lungs: clear to auscultation Airway: Mallampati scale class II Neurological: alert and oriented Last oral intake: >/= 8 hours ASA classification: III Emergent: no Anesthetic plan: proceed Anesthesia type and monitoring: general GIVS and standard monitoring Results Review: All pre-operative results and documents have been reviewed as part of the pre- operative evaluation. Informed Consent: The patient's anesthetic plan and its attendant risks and benefits were discussed with the patient/family/POA. Questions were solicited and answers provided to the satisfaction of the patient/family/POA.
--- NOTE | 2025-01-26 09:54 | P.HP_ITS ---
H&P: HPI History of Present Illness Date/Time: 01/26/25 09:54 Chief Complaint: Family history of colon cancer Narrative: This patient has family history of colorectal cancer. her grandfather from maternal side, an aunt and 2 cousins had colorectal cancer. Review of Systems Review of Systems: All systems reviewed & are unremarkable except as noted in HPI and below PMFSH Past Medical History Medical History Screening mammogram, encounter for Cataract of right eye CTS (carpal tunnel syndrome) (~10/18/18) High cholesterol Cataract Arthritis ROSENBERG (nonalcoholic steatohepatitis) Diabetes mellitus Multiple sclerosis Surgical History Surgical History History of orthopedic surgery left double buckle fracture angelique and screws inserted History of back surgery (02/08/15) back surgery--spine stabilization History of orthopedic surgery Left big toe and 2nd toe 2019 History of gynecological procedure torn grace area during H/O: hysterectomy History of tonsillectomy Hx of cholecystectomy (05/13/18) Family History Family History Other Breast cancer paternal side Daughter Multiple sclerosis Father Heart disease Diabetes mellitus Mother Diabetes mellitus Other Cerebrovascular accident Depression Family history of arthritis Family history of attention deficit hyperactivity disorder (ADHD) Family history of cardiovascular disease Family history of coronary artery disease Hypertension Social History Social History Smoking status: Never smoker Second hand tobacco smoke exposure: No Alcohol intake: never Substance use: never Substance use type: does not use Do You Feel Safe in your Home?: Yes Lack of Transportation: No Lack of Food: Never True Current Housing: I Have Housing Concerned About Future Housing: No Difficulty Paying Gas/Electric Bills: No Difficulty Paying for Meds: No Currently Unemployed: No Education: Associate Degree Difficulty w/ Childcare or Family Care: No Living arrangements: with family Additional living arrangements comments: Occupation/Education: retired Gender identity (if verbalized by the patient): Female Sexual Orientation (if Verbalized by the Patient): Straight or Heterosexual Meds Home Medications and Allergies Home Medications ?Medication ?Instructions ?Recorded ?Confirmed ?Type Dialyvite Vitamin D 500,000 mg PO WEEKLY 05/13/21 01/26/25 History Novolog U-100 Insulin aspart 05/13/21 01/07/24 History clonazepam 0.5 mg PO PRN PRN Anxiety 05/13/21 01/19/25 History levothyroxine 75 mcg tablet 75 mcg PO DAILY 05/13/21 01/26/25 History (Synthroid) rosuvastatin 40 mg tablet (Crestor) 40 mg PO DAILY 05/13/21 01/26/25 History aspirin 81 mg tablet,delayed 81 mg PO DAILY 01/01/23 01/26/25 History release (Adult Low Dose Aspirin) blood-glucose,sales representative facility services,cont 01/01/23 01/07/24 History (Dexcom G6 Facilities Management Executive) tirzepatide 10 mg/0.5 mL 10 mg subcut WEEKLY 01/19/25 01/26/25 History subcutaneous pen injector (Mounjaro) Allergies Allergy/AdvReac Type Severity Reaction Status Date / Time latex Allergy Severe Swelling Verified 01/26/25 08:48 of Lip/Tongue/Throat morphine Allergy Severe Anaphylaxis Verified 01/26/25 08:48 Vital Signs Vital Signs - 24 hr 01/26/25 08:51 Temperature 96.7 F L Pulse Rate 64 Respiratory Rate 18 Blood Pressure 145/52 H Pulse Oximetry 100 Oxygen Delivery Room Air Exam Const: General: cooperative and healthy appearing Resp: Effort & Inspection: normal respiratory effort and able to speak in complete sentences Auscultation: clear to auscultation bilaterally Cardio: Rate: regular rate Rhythm: regular rhythm GI: Inspection: normal to inspection GI Palp: No No hepatosplenomegaly present Auscultation: normal bowel sounds Rectal Exam: deferred Skin: General skin exam: normal color Psych: Appearance: grossly normal Mental Status: mental status grossly normal Assessment and Plan Assessment and plan (1) Colon cancer screening: Code(s): Z12.11 - Encounter for screening for malignant neoplasm of colon Status: Acute Assessment and Plan: The patient is deemed a good candidate for the procedure. Consent signed. Will proceed.
[2025-01-26 10:24] VITALS: BP 88/47; PULSE 60; RESP 19; O2SAT 100
[2025-01-26 10:34] VITALS: BP 118/54; PULSE 66; RESP 17; O2SAT 100
[2025-01-26 10:44] VITALS: BP 112/53; PULSE 59; RESP 17; O2SAT 100
== END 2025-01-26 11:01 | disposition home or self-care (01) ==
PROVIDERS: PCP Internal Medicine; Referring Provider Internal Medicine; Visit Provider Internal Medicine Gastroenterology
PROC: 0DJD8ZZ Inspection of Lower Intestinal Tract, Via Natural or Artificial Opening Endoscopic (ICD-10-PCS; CPT 45378; principal; 2025-01-26 10:00)
DX: Z12.11 Encounter for screening for malignant neoplasm of colon (principal); D12.5 Benign neoplasm of sigmoid colon; K57.30 Diverticulosis of large intestine without perforation or abscess without bleeding; Z80.0 Family history of malignant neoplasm of digestive organs; E11.9 Type 2 diabetes mellitus without complications
CPT/HCPCS: 45385; 82948; 88305; J2003; J2704; J7120

== ENCOUNTER 2025-07-28 14:54 | Emergency (ER) | payer BC, MEDICARE, SELFPAY ==
--- OUTSIDE RECORDS SUMMARY | 2006-01-24 03:00 | XMS_ITS | Continuity of Care Document ---
Author Organization [facility] Address [address] [place] [address] [address] [place] [address] Phone Care Team Providers Care Personal Consultant Name Role Phone Davis OD, Thee Unavailable Unavailable Advance Directives Directive Yes / No Effective Date File Name No Information Encounters Encounter Description Practice Location Reason(s) For Visit Diagnoses Date Provider Providers Copied on Encounter [facility], [address], [place], [place], [id number], [place] tel:[phone] [facility] [place] No Information May- 0-200 6 Davis OD Thee. [address] [facility] , [address], [place], [address], [place]. tel:[phone] Family History Family Member Type Diagnosis Age At Onset No Information Payers Payer name Insurance type Covered libertarian ID Authoriza tion(s) No Information Social History Type Description Quantity Date Captured Comments Sex Female Smoking Status No Information Chief Complaint And Reason For Visit No Information Reason For Referral Reason For Referral No Information History Of Present Illness Encounter Date Complaint History Of Prese nt Illness No Information Functional Status Date Functional Assessmen t No Information Instructions Date Instruction Additional Infor mation No Information Assessments Type Assessment Date No Information Patient Care Teams Name Effective Dates (start - stop) Status Members No Information
--- NOTE | ~2025-07-28 | XR_ITS ---
EXAMINATION: XR humerus RT, 07/28/2025 15:16 MORTGAGE FIELD INSPECTOR HISTORY: pain COMPARISON: No comparisons available. Findings: No acute fracture or malalignment. No significant degenerative changes. Soft tissues unremarkable. Impression: No acute fracture or malalignment. Reviewed, dictated and finalized at location P. GAGE FIELD INSPECTOR Impression: No acute fracture or malalignment.
[2025-07-28 14:55] VITALS: BP 148/63; PULSE 89; RESP 20; TEMP 36.3; O2SAT 99
--- OUTSIDE RECORDS SUMMARY | 2025-07-28 14:58 | XMS_ITS | Encounter Summary ---
Author Organization [facility] Address [address] [place] [address] Care Team Providers Care Rn Paralegal Name Role Phone Michael Rivas MD Primary Care Provider [phone] Encounter Details Date Type Department Care Team (Latest Contact Info) Description 08/30/2004 Outpatient Historical [facility] Jean Dugan MD [address] [facility] [address] [place] [address] FOLLOW-UP EXAM NEC (Primary Dx) Social History Tobacco Use Types Packs/Day Years Used Date Smoking Tobacco: Never Assessed Comments Unknown Sex and Gender Information Value Date Recorded Sex Assigned at Not on file Legal Sex Female 2:39 AM 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
--- OUTSIDE RECORDS SUMMARY | 2025-07-28 14:58 | XMS_ITS | Encounter Summary ---
Author Organization [facility] Address [address] [place] [address] Care Team Providers Care Automatic Dispenser Mechanic Name Role Phone Michael Rivas MD Primary Care Provider [phone] Encounter Details Date Type Department Care Team (Late st Contact Info) Description 03/13/2005 Outpatient Historical [facility] Annel Butler MD [address] [facility] [address] [address] CHEST PAIN NOS (Primary Dx) Social History Tobacco Use Types Packs/Day Years Used Date Smoking Tobacco: Never Assessed Comments Unknown Sex and Gender Information Value Date Recorded Sex Assigned at Not on file Legal Sex Female 2:[address] ENGINEER Gender Identity Not on file Sexual Orientation Not on file documented as of this encounter Plan of Treatment Not on file documented as of this encounter Visit Diagnoses Diagnosis Chest pain, unspecified- Primary documented in this encounter Care Teams Automatic Dispenser Mechanic Relationship Specialty Start Date End Date Michael Rivas MD PCP - General 09/03/15 documented as of this encounter
--- OUTSIDE RECORDS SUMMARY | 2025-07-28 14:58 | XMS_ITS | Encounter Summary ---
Author Organization [facility] Address [address] [place] [address] Phone Care Team Providers Care Welder First Class Name Role Phone Mahad Corado MD Unavailable [phone] Xiomy Kiran MD Primary Care Provider Kaylyn Ellison MD Unavailable [phone] Zayda Hanson APRN, QUALITY CONTROL LAB TECHNICIAN Unavailable [phone] Reason for Visit * Reason Comments Medication Refill Encounter Details Date Type Department Care Team (Late st Contact Info) Description 10/26/2021 Refill [facility] - Neurology [facility] [address] [place] [address] Mahad Corado MD [address] [place] [address] Medication Refill Social History Tobacco Use Types [...] RN - 10/27/2021 3:43 PM CST . ANT PUFF MAKER documented in this encounter Plan of Treatment Upcoming Encounters Date Type Department Care Team (Late st Contact Info) Description 08/20/2025 4:00 PM FONDANT PUFF MAKER [facility] [address] [place] [address] Zayda Hanson, CORE DRILLER HELPER, QUALITY CONTROL LAB TECHNICIAN [address] [address] Discharge Disposition: Discharged to home or Selfcare 11/26/2025 11:15 AM CDT Office Visit [facility] - Neurology - [place] [address] [place] [address] Mahad Corado MD [address] [place] [address] 05/06/2026 11:00 AM CDT Office Visit [facility] - Cardiology - [place] [address] [place] [address] Zayda Hanson, CORE DRILLER HELPER, QUALITY CONTROL LAB TECHNICIAN [address] [address] documented as of this encounter Visit Diagnoses Diagnosis Anxiety Anxiety state, unspecified documented in this encounter Care Teams Welder First Class Relationship Specialty Start Date End Date Xiomy Kiran MD [address] [facility] [place] [address] PCP - General Internal Medicine 12/05/17 Mahad Corado MD [address] [place] [address] Consulting Physician Neurology 08/02/15 Kaylyn Ellison MD [address] [address] [address] Consulting Physician Otolaryngology 03/19/25 Zayda Hanson APRN, QUALITY CONTROL LAB TECHNICIAN [address] [address] Nurse Practitioner Cardiology 05/04/25 documented as of this encounter
--- OUTSIDE RECORDS SUMMARY | 2025-07-28 14:58 | XMS_ITS | Encounter Summary ---
Author Organization [facility] Address 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) Social History Tobacco Use Types Packs/Day Years Used Date Smoking Tobacco: Never Assessed Comments Unknown Sex and Gender Information Value Date Recorded Sex Assigned at Not on file 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 No change in methodology. GLUCOSE, MEAN BLOOD 157 mg/dL INTERFACE SYSTEM 01/11/2005 2:10 PM CDT Annel Butler MD CHEMISTRY ORDERABLES Final Result INTERFACE SYSTEM Refer to clinic/hospital department documented in this encounter Visit Diagnoses Diagnosis Type II or unspecified type diabetes mellitus with neurological manifestations, not stated as uncontrolled(250.60) (CMS/[facility])- Primary Type II or unspecified type diabetes mellitus with neurological manifestations, not stated as uncontrolled documented in this encounter Care Teams Access Database Developer Relationship Specialty Start Date End Date Michael Rivas MD PCP - General 09/03/15 documented as of this encounter
--- OUTSIDE RECORDS SUMMARY | 2025-07-28 14:58 | XMS_ITS | Encounter Summary ---
Author Organization [facility] Address [address] [place] [address] Care Team Providers Care Strategy Planning Consultant Name Role Phone Michael Rivas MD Primary Care Provider [phone] Encounter Details Date Type Department Care Team (Late st Contact Info) Description 02/09/2005 Outpatient Historical [facility] Internal Medicine Medical [facility] [address] 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
--- OUTSIDE RECORDS SUMMARY | 2025-07-28 14:58 | XMS_ITS | Encounter Summary ---
Author Organization [facility] Address [address] [place] [address] Care Team Providers Care Metal Moulder Name Role Phone Michael Rivas MD Primary Care Provider [phone] Encounter Details Date Type Department Care Team (Late st Contact Info) Description 03/12/2005 Outpatient Historical [facility] Support [facility] ([facility] Cardiology[facility]) [address] 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
--- OUTSIDE RECORDS SUMMARY | 2025-07-28 14:58 | XMS_ITS | Encounter Summary ---
Author Organization [facility] Address 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
--- OUTSIDE RECORDS SUMMARY | 2025-07-28 14:58 | XMS_ITS | Encounter Summary ---
Author Organization [facility] Address [address] [place] [address] Care Team Providers Care Multiple Effect Evaporator Operator Name Role Phone Michael Rivas MD Primary Care Provider [phone] Encounter Details Date Type Department Care Team (Late st Contact Info) Description 03/12/2005 Outpatient Historical [facility] Internal Medicine Medical [facility] [address] [facility] [address] [address] Ada Mojica MD Social History Tobacco Use Types Packs/Day Years Used Date Smoking Tobacco: Never Assessed Comments Unknown Sex and Gender Information Value Date Recorded Sex Assigned at Not on file 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
--- OUTSIDE RECORDS SUMMARY | 2025-07-28 14:58 | XMS_ITS | Encounter Summary ---
Author Organization [facility] Address [address] [place] [address] Phone Care Team Providers Care Freight Unloader Name Role Phone Mahad Corado MD Unavailable [phone] Ximoy Kiran MD Primary Care Provider Kaylyn Ellison MD Unavailable [phone] Zayda Hanson APRN, JOINT RUNNER Unavailable [phone] Reason for Visit * Reason Comments Medication Refill Encounter Details Date Type Department Care Team (Late st Contact Info) Description 07/24/2022 Refill [facility] - Neurology [facility] [address] [place] [address] Mahad Corado MD [address] [place] [address] Medication Refill Social History Tobacco Use Types [...] st Contact Info) Description 08/20/2025 4:00 PM BASE PLY HAND [facility] [address] [place] [address] Zayda Hanson, CHIEF TECHNOLOGIST, JOINT RUNNER [address] [address] Discharge Disposition: Discharged to home or Selfcare 11/26/2025 11:15 AM CDT Office Visit [facility] - Neurology - [place] [address] [place] [address] Mahad Corado MD [address] [place] [address] 05/06/2026 11:00 AM CDT Office Visit [facility] Cardiology - [place] [address] [place] [address] Zayda Hanson, CHIEF TECHNOLOGIST, JOINT RUNNER [address] [address] documented as of this encounter Visit Diagnoses Diagnosis Anxiety Anxiety state, unspecified documented in this encounter Care Teams Freight Unloader Relationship Specialty Start Date End Date Xiomy Kiran MD [address] [place] [address] PCP - General Internal Medicine 12/05/17 Mahad Corado MD [address] [place] [address] Consulting Physician Neurology 08/02/15 Kaylyn Ellison MD [address] [phone] Consulting Physician Otolaryngology 03/19/25 Zayda Hanson APRN, JOINT RUNNER [address] [address] Nurse Practitioner Cardiology 05/04/25 documented as of this encounter
--- OUTSIDE RECORDS SUMMARY | 2025-07-28 14:58 | XMS_ITS | Clinical Summary ---
Author Organization [facility] Address [address] [place] [address] Care Team Providers Care Mixologist Name Role Phone Maude Kiran MD Primary Care Provide r Allergies Active Allergy Reactions Criticality Noted Date Comments Latex Hives,Itching,Swelling Medium 01/06/2015 Morphine Palpitations,Other ( See comments),Unknown High 02/09/2005 BOTTOMS OUT B/P Pt reports hypotension 2/2 to morphine GAS FITTER. Medications aspirin 81 mg enteric coated tablet Take 1 tablet every day by oral route. 03/13/20 22 Active clonazePAM (KlonoPIN) 0.5 mg tablet Take 1 tablet (0.5 mg total) by mouth 2 (two) times a day Active insulin syringe-needle U-100 0.5 mL 31 gauge x 5/16 syringeIndications :Type 2 diabetes mellitus with hyperglycemia, with long-term current use of insulin (HCC) Use to inject insulin 4 times daily as directed if insulin pump failure 100 each 11 12/04/19 24 Active glatiramer (COPAXONE) 40 mg/mL syringe Inject 1 mL (40 mg total) under the skin 3 (three) times a week 04/30/20 24 Active Dexcom G6 Sensor deviceIndications: Type 2 diabetes mellitus with hyperglycemia, with long-term current use of insulin (HCC) Change sensor every 10 days 9 each 3 08/11/20 24 Active Dexcom G6 Transmitter deviceIndications: Type 2 diabetes mellitus with hyperglycemia, with long-term current use of insulin (HCC) Change every 90 days 1 each 3 08/11/20 24 Active levothyroxine (SYNTHROID) 75 mcg tabletIndications: Acquired hypothyroidism Take 1 tablet (75 mcg total) by mouth launderette attendant before breakfast 90 tablet 3 08/11/20 24 025 Active NovoLOG 100 unit/mL vial for injectionIndicatio ns:Type 2 diabetes mellitus with hyperglycemia, with long-term current use of insulin (HCC) Inject 70 units SQ daily via insulin pump 70 mL 3 08/11/20 24 Active insulin pump cart,auto,BT,G6/7 (Omnipod 5 G6-G7 Pods, Gen 5,) cartridgeIndicatio ns:Type 2 diabetes mellitus with hyperglycemia, with long-term current use of insulin (HCC) USE 1 EVERY 3 DAYS 30 each 3 11/13/19 25 Active insulin parts interpreter cart,aut,G6/7,cntr (Omnipod 5 G6-G7 Intro Kt,Gen5,) cartridgeIndicatio ns:Type 2 diabetes mellitus with hyperglycemia, with long-term current use of insulin (HCC) Change every 3 days , dx : E11.65 90 each 3 02/27/20 25 Active amoxicillin-clavul anate (AUGMENTIN) 875-125 mg per tablet Take 1 tablet by mouth 2 (two) times a day 03/03/20 25 Active sertraline (ZOLOFT) 25 mg tablet Take 1 tablet (25 mg total) by mouth daily Active cholecalciferol (VITAMIN D-3) 50,000 unit capsule Take 1 capsule (50,000 Units total) by mouth once a week 02/06/20 25 Active rosuvastatin (CRESTOR) 40 mg tablet Take 1 tablet (40 mg total) by mouth nightly 02/15/20 25 Active Mounjaro 10 mg/0.5 mL pen injector injection INJECT 1 SYRINGE SUBCUTANEOUSLY ONCE A WEEK 02/10/20 25 Active gentamicin (GARAMYCIN) 0.1 % cream APPLY A SMALL AMOUNT OF CREAM TOPICALLY TO AFFECTED AREA THREE TIMES DAILY Active Active Problems Problem Noted Date Diagnosed Date Overweight with body mass in dex (BMI) of 28 to 28.9 in adult 03/09/2025 Insulin pump status 11/30/2023 Assessment & Plan (08/11/2024 11:31 AM CELL BIOLOGIST): No changes today Have long acting , basal insulin ( e.g. Lantus, Levemir, NPH, ) and insulin syringes as back up in case of pump failure If you have to take your insulin pump off for more than 12 h, start taking basal insulin, every 24 h ( take 80 % of the 24 h insulin delivered to you via insulin pump as calculated based on your basal rates ) and inject meal time insulin by injections, calculating the same way you do with your pump bolus ( according with carb intake and blood sugar readings ) Assessment & Plan (12/04/2023 10:52 AM CDT): Changed target/correction levels. Target to remain at 110. Correction was set above 180. Changed to 6a-6p correct above 110, otherwise will correct above 150. Current medications: Mounjaro 7.5mg weekly Novolog via Omnipod 5 insulin pump BR 12a 0.65, 6a 1.2, 6p 0.65 CR 10 CF 45 AIT 4 hours Target 110, correct above 110 6a-6p, otherwise above 150 Type 2 diabetes mellitus wit h hyperglycemia, with long-term current use of insulin 08/26/2023 Assessment & Plan (08/11/2024 11:32 AM CELL BIOLOGIST): Chronic, improving control Hemoglobin A1c 7.1%, at goal Reviewed Dexcom G6 download Average glucose 152 Target blood sugar range 79% High 21% Very high 0% Low 0 Patient is not comfortable to try auto mode on the pump No changes in her pump settings today Continue Mounjaro 7.5 mg subQ weekly Counseled on diet and exercise We will obtain patient's recent lab results from PCP office and also last eye exam copy Follow-up in 6 months Assessment & Plan (12/04/2023 10:53 AM CDT): Chronic problem. A1c drawn at PCP 11/28/23=7.2%. Increased Mounjaro from 5mg to 7.5mg weekly. Changed target/correction levels. Target to remain at 110. Correction was set above 180. Changed to 6a-6p correct above 110, otherwise will correct above 150. Current medications: Mounjaro 7.5mg weekly Novolog via Omnipod 5 insulin pump BR 12a 0.65, 6a 1.2, 6p 0.65 CR 10 CF 45 AIT 4 hours Target 110, correct above 110 6a-6p, otherwise above 150 DM eye exam [facility] [employer]; last appt 08/2023. Letter sent to get copy of report. Discussed with Horacio Cortez: Difficulty at times w/activity d/t weakness from MS. Strive for regular exercise (30min most days) and diet (get at least 4-5 servings of fruit and veggies daily, avoid processed foods, increase lean protein intake and decrease carb portions as well as fruit juices, regular soda & desserts). Watch carbs and simple sugars. Check the blood sugar: Dexcom G6. Check the feet daily for skin breakdown and infection. Assessment & Plan (08/26/2023 10:02 AM CELL BIOLOGIST): Chronic , uncontrolled, worsening A1c 7.5 % Reviewed dexcom download - noted post prandial hyperglycemia Plan to stop bydureon, Start Mounjaro 5 mg SQ weekly Continue current Omnipod insulin pump settings , plan to upgrade omnipod dash to omnipod 5 Counseled on diet and exercise Hyperlipidemia associated with type 2 diabetes anthony felder 08/26/2023 Assessment & Plan (08/11/2024 11:31 AM CELL BIOLOGIST): Continue Rosuvastatin 40mg & vascepa 2gm bid. Try to obtain patient recent lab results from PCP office Assessment & Plan (12/04/2023 10:53 AM CDT): Chronic problem. Currently taking Rosuvastatin 40mg & vascepa 2gm bid. Last lipid panel: 11/09/23 LDL=67, DL=172. Assessment & Plan (08/26/2023 10:01 AM CELL BIOLOGIST): Continue Statin therapy Acquired hypothyroidism 08/26/2023 Assessment & Plan (08/11/2024 11:30 AM CELL BIOLOGIST): Chronic, unknown status No recent thyroid labs available to review We will obtain patient's last thyroid lab results from PCP office Continue current dose of levothyroxine Assessment & Plan (12/04/2023 10:54 AM CDT): Chronic problem. Clinically euthyroid. Last TFTs on record 04/2021. Currently taking levothyroxine 75 mcg daily. Rec'd copy of labs during time of appt. Assessment & Plan (08/26/2023 10:01 AM CELL BIOLOGIST): Chronic, stable Continue current Levothyroxine dose Resolved Problems Problem Noted Date Diagnosed Date Resolved Date Class 1 obesity due to exces s calories with serious comorbidity and body mass index (BMI) of 32.0 to 32.9 in adult 08/26/2023 03/09/2025 Assessment & Plan (08/11/2024 11:30 AM CELL BIOLOGIST): Chronic, slowly improving but still above goal Counseled on diet and exercise advised to stay consistent with her eating habits and exercise regimen Assessment & Plan (08/26/2023 10:02 AM CELL BIOLOGIST): Counseled on diet and exercise Encounters Date Type Department Care Team Description 06/12/2025 Orders Only [facility] Diabetes and Endocrinology [address] [place] [phone] Provider, MD Alexa from Last 3 Months Surgical History Surgery Date Site/Laterality Comments TONSILLECTOMY GALLBLADDER SURGERY BACK SURGERY LEG SURGERY Medical History Medical History Date Comments Type 2 diabetes mellitus Hypothyroidism Hyperlipidemia due to type 2 diabetes mellitus ( HCC) Family History Medical History Relation Name Comments Diabetes Father Stroke Father Hypertension Mother Thyroid disease Neg Hx Relation Name Status Comments Father Mother Social History Tobacco Use Types Packs/Day Years Used Date Smoking Tobacco: Never Tobacco Cessation:Counseling Given: Not Answered Comments Unknown Sex and Gender Information Value Date Recorded Sex Assigned at Not on file Legal Sex Female 2:54 AM CELL BIOLOGIST Gender Identity Not on file Sexual Orientation Not on file Last Filed Vital Signs Vital Sign Reading Time Taken Comments Blood Pressure 124/60 03/09/2025 1:04 PM CDT Pulse 84 03/09/2025 1:04 PM CDT Temperature - - Respiratory Rate 18 03/09/2025 1:04 PM CDT Oxygen Saturation - - Inhaled Oxygen Concentration - - Weight 71.7 kg (158 lb) 03/09/2025 1:04 PM CDT Height 157.5 cm (5' 2.01) 03/09/2025 1:04 PM CD T Body Mass Index 28.89 03/09/2025 1:04 PM CDT Plan of Treatment Health Maintenance Due Date Last Done Comments Breast Cancer Screening-Mammogram 1965 Cervical Cancer Screening 1963 Colon Cancer Screening-Colonoscopy 1965 Depression Screening 1963 Hepatitis C Screening 1963 Hepatitis B Screening 1981 Regular Well Visit/Exam 18-64 1981 Zoster Vaccine (1 of 2) 2013 DTaP/Tdap/Td Vaccine (2 - Tdap) 01/16/2020 0 Pneumococcal vaccine <65 (2 of 2 - PCV) 03/22/2021 03/22/2020 Covid-19 Vaccine (5 - 2024-2 6 season) 2025 06/21/2022, 08/23/2021, 12/12/2020, Additional history exists Influenza Vaccine (#1) 2025 , 06/28/2022, 06/28/2022, Additional history exists Foot Exam 08/11/2025 08/11/2024, 08/21/2023 Hemoglobin A1C 09/08/2025 03/09/2025, 02/16, 08/11/2024, Additional history exists Albumin Creatinine Ratio, Urine 03/09/2026 Lipid Panel 03/09/2026 03/09/2025, 10/19, 12/20/2005 eGFR 03/09/2026 03/09/2025, 11/09/2023 Dilated Eye Exam 06/08/2026 06/08/2025, 10/06/2024 Procedures Procedure Name Priority Date/Time Associated Diagnosis Comments HM DIABETES EYE EXAM Routine 06/08/2025 7:32 AM CDT EGFR Routine 03/09/2025 1:45 PM CDT Type 2 diabetes mellitus with hyperglycemia, with long-term current use of insulin (HCC) Hyperlipidemia associated with type 2 diabetes mellitus (HCC) LIPID PANEL Routine 03/09/2025 1:45 PM CDT Type 2 diabetes mellitus with hyperglycemia, with long-term current use of insulin (HCC) Hyperlipidemia associated with type 2 diabetes mellitus (HCC) ALBUMIN CREATININE RATIO, URINE Routine 03/09/2025 1:45 PM CDT Type 2 diabetes mellitus with hyperglycemia, with long-term current use of insulin (HCC) POCT HEMOGLOBIN A1C Routine 03/09/2025 1 :08 PM CDT Type 2 diabetes mellitus with hyperglycemia, with long-term current use of insulin (HCC) from Last 3 Months or Most Recently Relevant to Health Maintenance Results * (ABNORMAL) DIABETES EYE EXAM (06/08/2025 7:32 AM CDT) [facility] Provider HEALTH MAINTENANCE Final Result * eGFR (03/09/2025 1:45 PM CDT) eGFR 64 >=60 mL/min/1. 73 m2 Comment: Interpretive Data Reference Interval Normal >/= 90 mL/min/1.73m2 Mildly decreased* 60 - 89 mL/min/1.73m2 Mildly to moderately decreased 45 - 59 mL/min/1.73m2 Moderately to severely decreased 30 - 44 mL/min/1.73m2 Severely decreased 15 - 29 mL/min/1.73m2 Kidney Failure < 15 mL/min/1.73m2 *Relative to young adult level Estimated glomerular filtration rate is determined by the 2020 CKD-EPI equation recommended by the National Kidney Foundation (A Unifying Approach to GFR Estimation: Recommendations of the NKF-ASK Task Force on Reassessing the Inclusion of Race in Diagnosing Kidney Disease, JASN 202). The CKD-EPI equation should not be used for patients with unstable renal function and has not been validated in children and those over 70. Current interpretive data was last reviewed 2021. Blood 03/09/2025 1:45 PM CDT 03/09/2025 8:20 PM CDT Neri Esteban MD LAB BLOOD ORDERABLE S Final Result Performing Organization Address [facility] Co de Phone Number [facility] [address] [place] [address] * (ABNORMAL) Albumin Creatinine Ratio, Urine (03/09/2025 1:45 PM CDT) Albumin Ur 303.7 mg/L Comment: Interpretive Data No reference range established. Current interpretive data was last revised 2019. Creatinine Ur 282.4 mg/dL BILLIE Comment: Interpretive Data No reference range established. Current interpretive data was last revised 2019. Albumin Creatinine Ratio, Ur 108(H) 1 - 29 mg/g BILLIE Urine 03/09/2025 1:45 PM CDT 03/09/2025 8:08 PM CDT [facility] LAB URINE ORDERABLE S Final Result Performing Organization Address [facility] de Phone Number [facility] [address] Department [place] [address] * (ABNORMAL) Lipid panel (03/09/2025 1:45 PM CDT) Cholesterol 116 30 - 199 mg/dL Comment: Interpretive Data Ages < or = 19 years Acceptable: <170 mg/dL Borderline high: 170-199 mg/dL High: >or= 200 mg/dL Ages > or = 20 years Desirable: <200 mg/dL Borderline high: 200-239 mg/dL High: >or= 240 mg/dL Literature References: 1. Expert Panel on Integrated Guidelines for Cardiovascular Health and Risk Reduction in Children and Adolescents. Pediatrics 2011;128:S213 2. NCEP Expert Panel. Circulation 2004;110:227 Current Interpretive Data was last revised on 2018. Triglycerides 146 <=149 mg/dL BILLIE Comment: Interpretive Data Ages < or = 9 years Acceptable: <75 mg/dL Borderline high: 75-99 mg/dL High: >or= 100 mg/dL Ages 10 to 20 years Acceptable: <90 mg/dL Borderline high: 90-129 mg/dL High: >or= 130 mg/dL Ages > or = 20 years Desirable: <150 mg/dL Borderline high: 150-199 mg/dL High: 200-499 mg/dL Very high: >or= 499 mg/dL Literature References: 1. Expert Panel on Integrated Guidelines for Cardiovascular Health and Risk Reduction in Children and Adolescents. Pediatrics 2011;128:S213 2. NCEP Expert Panel. Circulation 2004;110:227 Current Interpretive Data was last revised on 2018. HDL 38(L) >=40 mg/dL BILLIE QUIROS Comment: Interpretive Data Ages < or = 19 years Acceptable: >45 mg/dL Borderline low: 40-45 mg/dL Low: <40 mg/dL Ages > or = 20 years Desirable: >or= 60 mg/dL Low: <40 mg/dL Literature References: 1. Expert Panel on Integrated Guidelines for Cardiovascular Health and Risk Reduction in Children and Adolescents. Pediatrics 2011;128:S213 2. NCEP Expert Panel. Circulation 2004;110:227 Current Interpretive Data was last revised on 2018. LDL, calculated 53 <=129 mg/dL BILLIE Comment: Interpretive Data Ages < or = 19 years Acceptable: <110 mg/dL Borderline high: 110-129 mg/dL High: >or= 130 mg/dL Ages > or = 20 years Optimal: <100 mg/dL Near optimal: 100-129 mg/dL Borderline high: 130-159 mg/dL High: >160 mg/dL Calculated using the Dl LDL-C estimating equation. This equation was implemented on 2024. Prior to this date LDL-C was estimated using the Friedewald equation. Literature References: 1. Expert Panel on Integrated Guidelines for Cardiovascular Health and Risk Reduction in Children and Adolescents. Pediatrics 2011;128:S213 2. NCEP Expert Panel. Circulation 2004;110:227 3. Dl Christianson et al. SAMUEL Cardiol. 2020 January 15;5(5):540-548. doi: 10.1001/jamacardio.2020.0013 Current Interpretive Data was last revised on 2024. Non-HDL Cholesterol 78 mg/dL BILLIE QUIROS Comment: Interpretive Data Ages < or = 19 years Acceptable: <120 mg/dL Borderline high: 120-144 mg/dL High: >145 mg/dL Ages > or = 20 years When triglycerides are >200 mg/dL, Non-HDL cholesterol is a secondary target of therapy with treatment goals that are 30 mg/dL greater than the LDL cholesterol target. Literature References: 1. Expert Panel on Integrated Guidelines for Cardiovascular Health and Risk Reduction in Children and Adolescents. Pediatrics 2011;128:S213 2. NCEP Expert Panel. Circulation 2004;110:227 Current Interpretive Data was last revised on 2018. Chol/HDL ratio 3 BILLIE QUIROS Blood 03/09/2025 1:45 PM CDT 03/09/2025 8:08 PM CDT us Neri Esteban MD LAB BLOOD ORDERABLE S Final Result [facility] [address] [place] [address] * (ABNORMAL) POCT hemoglobin A1c (03/09/2025 1:08 PM CDT) Hemoglobin A1C, POC 6.7(A) 4.0 - 5.6 % Blood 03/09/2025 1:08 PM CDT us Neri Esteban MD POINT OF CARE TEST ORDERABLES Final Result from Last 3 Months or Most Recently Relevant to Health [place] [address] [facility] MED[facility] Care Teams Mixologist Relationship Specialty Start Date End Date Maude Kiran MD [address] [place] [address] PCP - General Internal Medicine 07/05/23
--- OUTSIDE RECORDS SUMMARY | 2025-07-28 14:58 | XMS_ITS | Encounter Summary ---
Author Organization [facility] [place] [facility] Address [address] [place] [address] Care Team Providers Care Magneto Specialist Name Role Phone Michael Rivas MD Primary Care Provider [phone] Encounter Details Date Type Department Care Team (Late st Contact Info) Description 01/07/2004 Outpatient Historical [facility] [place] [address] [place] [address] [place] [address] [place] [address] Social History Tobacco Use Types Packs/Day Years Used Date Smoking Tobacco: Never Assessed Comments Unknown Sex and Gender Information Value Date Recorded Sex Assigned at Not on file Legal Sex Female 2:39 AM AIRCRAFT RIVETER Gender Identity Not on file Sexual Orientation Not on file documented as of this encounter Plan of Treatment Not on file documented as of this encounter Visit Diagnoses Not on filedocumented in this encounter Care Teams Magneto Specialist Relationship Specialty Start Date End Date Michael Rivas MD PCP - General 09/03/15 documented as of this encounter
--- OUTSIDE RECORDS SUMMARY | 2025-07-28 14:58 | XMS_ITS | Encounter Summary ---
Author Organization [facility] Address [address] [place] [address] Care Team Providers Care Race Starter Name Role Phone Michael Rivas MD Primary Care Provider [phone] Encounter Details Date Type Department Care Team (Late st Contact Info) Description 02/09/2005 Outpatient Historical [facility] DEPT Annel [place] MD [address] [facility] [address] [phone] NEURALGIA/NEURITIS NOS (Primary Dx) Social History Tobacco Use Types Packs/Day Years Used Date Smoking Tobacco: Never Assessed Comments Unknown Sex and Gender Information Value Date Recorded Sex Assigned at Not on file Legal Sex Female 2:39 AM NECKTIE TURNER Gender Identity Not on file Sexual Orientation Not on file documented as of this encounter Plan of Treatment Not on file documented as of this encounter Visit Diagnoses Diagnosis Neuralgia, neuritis, and radiculitis, unspecified- Primary documented in this encounter Care Teams Race Starter Relationship Specialty Start Date End Date Michael Rivas MD PCP - General 09/03/15 documented as of this encounter
--- OUTSIDE RECORDS SUMMARY | 2025-07-28 14:58 | XMS_ITS | Encounter Summary ---
Author Organization [facility] Address [address] [place] [address] Phone Care Team Providers Care Pet Ambassador Name Role Phone Mahad Corado MD Unavailable [phone] Xiomy Kiran MD Primary Care Provider Kaylyn Ellison MD Unavailable [phone] Zayda Hanson APRN, MINE EXPERT Unavailable [phone] Reason for Visit * Reason Comments Medication Refill Encounter Details Date Type Department Care Team (Late st Contact Info) Description 09/28/2022 Refill [facility] - Neurology [facility] [address] [place] [address] Mahad Corado MD [address] [place] [phone] Medication Refill Social History Tobacco Use Types [...] st Contact Info) Description 08/20/2025 4:00 PM [facility]HER [facility] GR[facility] MICA Appointment [facility] [address] [place] [phone] Zayda Hanson, ANDROID ARCHITECT, MINE EXPERT [address] [address] Discharge Disposition: Discharged to home or Selfcare 11/26/2025 11:15 AM CDT Office Visit [facility] - Neurology - [place] [address] [place] [phone] Mahad Corado MD [address] [place] [phone] 05/06/2026 11:00 AM CDT Office Visit [facility] Cardiology - [place] [address] [place] [phone] Zayda Hanson, ANDROID ARCHITECT, MINE EXPERT [address] [address] documented as of this encounter Visit Diagnoses Diagnosis Anxiety Anxiety state, unspecified documented in this encounter Care Teams Pet Ambassador Relationship Specialty Start Date End Date Xiomy Kiran MD [address] [place] [address] PCP - General Internal Medicine 12/05/17 Mahad Corado MD [address] [place] [phone] Consulting Physician Neurology 08/02/15 Kaylyn Ellison MD [address] [phone] Consulting Physician Otolaryngology 03/19/25 Zayda Hanson APRN, MINE EXPERT [address] [address] Nurse Practitioner Cardiology 05/04/25 documented as of this encounter
--- OUTSIDE RECORDS SUMMARY | 2025-07-28 14:58 | XMS_ITS | Encounter Summary ---
Author Organization [facility] Address 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
--- OUTSIDE RECORDS SUMMARY | 2025-07-28 14:58 | XMS_ITS | Encounter Summary ---
Author Organization [facility] Address [address] [place] [address] Care Team Providers Care Feed Mill Lab Technician Name Role Phone Michael Rivas MD Primary Care Provider Encounter Details Date Type Department Care Team (Late st Contact Info) Description 02/22/2005 Outpatient Historical Division of Neurology [address] [place] [address]., [address] [place] [address] Annel [place] MD [address] [facility] [address] [place] [phone] Social History Tobacco Use Types Packs/Day Years Used Date Smoking Tobacco: Never Assessed Comments Unknown Sex and Gender Information Value Date Recorded Sex Assigned at Not on file Legal Sex Female 2:39 AM SUPERVISOR GLYCERIN Gender Identity Not on file Sexual Orientation Not on file documented as of this encounter Plan of Treatment Not on file documented as of this encounter Visit Diagnoses Not on filedocumented in this encounter Care Teams Feed Mill Lab Technician Relationship Specialty Start Date End Date Michael Rivas MD PCP - General 09/03/15 documented as of this encounter
--- OUTSIDE RECORDS SUMMARY | 2025-07-28 14:58 | XMS_ITS | Encounter Summary ---
Author Organization [facility] Address [address] [place] [address] Care Team Providers Care Reimbursement Liaison Name Role Phone Michael Rivas MD Primary Care Provider [phone] Encounter Details Date Type Department Care Team (Late st Contact Info) Description 04/12/2005 Outpatient Historical Division of Neurology [address] [place] [address]., [address] [place] [address] Annel Butler MD [address] [facility] [address] [place] [address] Social History Tobacco Use Types Packs/Day Years Used Date Smoking Tobacco: Never Assessed Comments Unknown Sex and Gender Information Value Date Recorded Sex Assigned at Not on file Legal Sex Female 2:39 AM WEDGER MACHINE Gender Identity Not on file Sexual Orientation Not on file documented as of this encounter Plan of Treatment Not on file documented as of this encounter Visit Diagnoses Not on filedocumented in this encounter Care Teams Reimbursement Liaison Relationship Specialty Start Date End Date Michael Rivas MD PCP - General 09/03/15 documented as of this encounter
--- OUTSIDE RECORDS SUMMARY | 2025-07-28 14:58 | XMS_ITS | Clinical Summary ---
Author Organization [facility] [employer] [facility] Address [address] [address] Phone Care Team Providers Care Educational Program Director Name Role Phone Xiomy Kiran MD Primary Care Provider [phone] Medications Dapagliflozin Propanediol (Farxiga) 5 MG tablet Take 5 mg by mouth 1 (one) time each day in the morning 30 tablet 5 07/07/20 25 Discontinu ed(Alterna te therapy) Encounters Date Type Department Care Team Description 07/07/2025 2:00 PM CDT Office Visit [facility] [address] [place] [address] Barney Capps DO Chronic kidney disease, stage 2 (mild) (Primary Dx); Persistent proteinuria; Type 2 diabetes mellitus with diabetic chronic kidney disease, with long-term use of insulin (HCC); Pure hypercholesterolemia, not otherwise specified; Other specified hypothyroidism 07/07/2025 Refill [place] [facility] [address] [address] Meenakshi Gilliland CMA 07/03/2025 Documentation Only [address] [address] Barney Capps DO 07/02/2025 Documentation Only [facility] [address] [address] Barney Capps DO 07/02/2025 Documentation Only [facility], [address] [phone] Barney Capps, 07/01/[address] [facility], [address] [phone] Barney Capps, 07/01/[address] [facility], [address] [address] Barney Capps, 07/01/[address] [facility], [address] [address] Barney Capps DO 07/01/[address] [facility], [address] [address] Barney Capps, from Last 3 Months Social History Tobacco Use Types Packs/Day Years Used Date Smoking Tobacco: Never Assessed Comments Unknown Sex and Gender Information Value Date Recorded Sex Assigned at Not on file Legal Sex Female 3:05 PM EST Gender Identity Not on file Sexual Orientation Not on file Last Filed Vital Signs Vital Sign Reading Time Taken Comments Blood Pressure 108/60 07/07/2025 2:10 PM CDT Pulse 76 07/07/2025 2:10 PM CDT Temperature 36.7 C (98 F) 07/07/2025 2:10 PM CDT Respiratory Rate 18 07/07/2025 2:10 PM CDT Oxygen Saturation 98% 07/07/2025 2:10 PM CDT Inhaled Oxygen Concentration - - Weight 71.2 kg (156 lb 14.4 oz) 07/07/2025 2:10 PM CDT Height - - Body Mass Index - - Plan of Treatment Upcoming Encounters Date Type Department Care Team (Late st Contact Info) Description 01/05/2026 12:30 PM CDT Office Visit [facility], [facility] [address] [facility] [address] [place] [address] Barney Capps DO [address] [address] [place] [address] Health Maintenance Due Date Last Done Comments [...] Exam 08/06/2024 Diabetes: Visual Foot Exam 08/06/2024 Influenza Vaccine (#1) 2025 3, 06/28/2022, 06/21/2020, Additional history exists Diabetes: Hemoglobin A1C 06/09/2025 025, 08/11/2024, 11/28/2023, Additional history exists Pneumococcal Vaccine: Peds ( 0 to 5 Years) and At-Risk Patients (6 to 49 Years) Discontinued 03/22/2020 [place] [address] [facility] Medicare Advance Directives Documents on File Type Date Recorded Patient Access Analyst Expl anation Advance Care Planning 04/24/2025 12:13 PM Care Teams Educational Program Director Relationship Specialty Start Date End Date Xiomy Kiran MD [address] [facility], [address] [place] [address] PCP - General Internal Medicine 11/13/23
--- OUTSIDE RECORDS SUMMARY | 2025-07-28 14:58 | XMS_ITS | Encounter Summary ---
Author Organization [facility] Address [address] [place] [address] Care Team Providers Care Plate Worker Name Role Phone Michael Rivas MD Primary Care Provider [phone] Encounter Details Date Type Department Care Team (Late st Contact Info) Description 10/09/2003 Outpatient Historical [facility] MRI DEPT Sebastian Mccrary MD [address] [place] [address] CERVICAL DISC DISPLACMNT (Primary Dx) Social History Tobacco Use Types Packs/Day Years Used Date Smoking Tobacco: Never Assessed Comments Unknown Sex and Gender Information Value Date Recorded Sex Assigned at Not on file Legal Sex Female 2:39 AM SUPERVISOR DUMPING Gender Identity Not on file Sexual Orientation Not on file documented as of this encounter Plan of Treatment Not on file documented as of this encounter Visit Diagnoses Diagnosis Displacement of cervical intervertebral disc without myelopathy- Primary documented in this encounter Care Teams Plate Worker Relationship Specialty Start Date End Date Michael Rivas MD PCP - General 09/03/15 documented as of this encounter
--- OUTSIDE RECORDS SUMMARY | 2025-07-28 14:58 | XMS_ITS | Encounter Summary ---
Author Organization [facility] Address [address] [place] [address] Care Team Providers Care Patron Attendant Name Role Phone Michael Rivas MD Primary Care Provider [phone] Encounter Details Date Type Department Care Team (Latest Contact Info) Description 08/05/2004 Outpatient Historical [facility] Jean Dugan MD [address] [facility] [address] [place] [address] SCREENING MAMM-MAILG NEOPL-OTHER (Primary Dx) Social History Tobacco Use Types Packs/Day Years Used Date Smoking Tobacco: Never Assessed Comments Unknown Sex and Gender Information Value Date Recorded Sex Assigned at Not on file Legal Sex Female 2:39 AM FLUX MIXER Gender Identity Not on file Sexual Orientation Not on file documented as of this encounter Plan of Treatment Not on file documented as of this encounter Visit Diagnoses Diagnosis Other screening mammogram- Primary documented in this encounter Care Teams Patron Attendant Relationship Specialty Start Date End Date Michael Rivas MD PCP - General 09/03/15 documented as of this encounter
--- OUTSIDE RECORDS SUMMARY | 2025-07-28 14:58 | XMS_ITS | Encounter Summary ---
Author Organization [facility] Address [address] [place] [address] Care Team Providers Care Psychotherapist Name Role Phone Michael Rivas MD Primary Care Provider [phone] Encounter Details Date Type Department Care Team (Late st Contact Info) Description 10/13/2005 Outpatient Historical Division of Neurology [address] [place] [address]., [address] [place] [address] Annel Butler MD [address] [facility] [address] [place] [address] Social History Tobacco Use Types Packs/Day Years Used Date Smoking Tobacco: Never Assessed Comments Unknown Sex and Gender Information Value Date Recorded Sex Assigned at Not on file Legal Sex Female 2:39 AM SUPERVISOR SAWING AND ASSEMBLY Gender Identity Not on file Sexual Orientation Not on file documented as of this encounter Plan of Treatment Not on file documented as of this encounter Visit Diagnoses Not on filedocumented in this encounter Care Teams Psychotherapist Relationship Specialty Start Date End Date Michael Rivas MD PCP - General 09/03/15 documented as of this encounter
--- OUTSIDE RECORDS SUMMARY | 2025-07-28 14:58 | XMS_ITS | Encounter Summary ---
Author Organization [facility] Address [address] [place] [address] Care Team Providers Care Sales And Marketing Assistant Name Role Phone Michael Rivas MD Primary Care Provider [phone] Encounter Details Date Type Department Care Team (Late st Contact Info) Description 03/13/2005 Outpatient Historical [facility] Cardiology-[facility] [address] [place] [address] Bennett Bethea MD NO ADDRESS ON FILE Social History Tobacco Use Types Packs/Day Years Used Date Smoking Tobacco: Never Assessed Comments Unknown Sex and Gender Information Value Date Recorded Sex Assigned at Not on file Legal Sex Female 2:39 AM PLATING TECHNICIAN Gender Identity Not on file Sexual Orientation Not on file documented as of this encounter Plan of Treatment Not on file documented as of this encounter Visit Diagnoses Not on filedocumented in this encounter Care Teams Sales And Marketing Assistant Relationship Specialty Start Date End Date Michael Rivas MD PCP - General 09/03/15 documented as of this encounter
--- OUTSIDE RECORDS SUMMARY | 2025-07-28 14:58 | XMS_ITS | Encounter Summary ---
Author Organization [facility] Address [address] [place] [address] Care Team Providers Care Cutting Department Supervisor Name Role Phone Michael Rivas MD Primary Care Provider [phone] Encounter Details Date Type Department Care Team (Latest Contact Info) Description 01/25/2005 Outpatient Historical [facility] NEURO DIAGNOSTICS Annel Butler MD [address] [facility] [address] [address] CARPAL TUNNEL SYNDROME (Primary Dx) Social History Tobacco Use Types Packs/Day Years Used Date Smoking Tobacco: Never Assessed Comments Unknown Sex and Gender Information Value Date Recorded Sex Assigned at Not on file Legal Sex Female 2:39 AM 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
--- OUTSIDE RECORDS SUMMARY | 2025-07-28 14:58 | XMS_ITS | Encounter Summary ---
Author Organization [facility] Address [address] [place] [address] Care Team Providers Care Conservation Of Resources Commissioner Name Role Phone Michael Rivas MD Primary Care Provider [phone] Encounter Details Date Type Department Care Team (Late st Contact Info) Description 01/11/2005 Outpatient Historical Division of Neurology [address] [place] [address]., [address] [place] [address] Annel Butler MD [address] [facility] [address] [place] [address] Social History Tobacco Use Types Packs/Day Years Used Date Smoking Tobacco: Never Assessed Comments Unknown Sex and Gender Information Value Date Recorded Sex Assigned at Not on file Legal Sex Female 2:39 AM LOGISTICS TECHNICIAN Gender Identity Not on file Sexual Orientation Not on file documented as of this encounter Plan of Treatment Not on file documented as of this encounter Visit Diagnoses Not on filedocumented in this encounter Care Teams Conservation Of Resources Commissioner Relationship Specialty Start Date End Date Michael Rivas MD PCP - General 09/03/15 documented as of this encounter
--- OUTSIDE RECORDS SUMMARY | 2025-07-28 14:58 | XMS_ITS | Encounter Summary ---
Author Organization [facility] Address [address] [place] [address] Care Team Providers Care Tray Filler Name Role Phone Michael Rivas MD Primary Care Provider [phone] Encounter Details Date Type Department Care Team (Late st Contact Info) Description 04/05/2001 Outpatient Historical [facility] AUDIOLOGY Ernesto Savage MD [address] [place] [address] Disturbance of skin sensation (Primary Dx) Social History Tobacco Use Types Packs/Day Years Used Date Smoking Tobacco: Never Assessed Comments Unknown Sex and Gender Information Value Date Recorded Sex Assigned at Not on file Legal Sex Female 2:39 AM LOGISTICS PROJECT MANAGER Gender Identity Not on file Sexual Orientation Not on file documented as of this encounter Plan of Treatment Not on file documented as of this encounter Visit Diagnoses Diagnosis Disturbance of skin sensation- Primary documented in this encounter Care Teams Tray Filler Relationship Specialty Start Date End Date Michael Rivas MD PCP - General 09/03/15 documented as of this encounter
--- OUTSIDE RECORDS SUMMARY | 2025-07-28 14:58 | XMS_ITS | Encounter Summary ---
Author Organization [facility] Address [address] [place] [address] Care Team Providers Care Waste Water Worker Name Role Phone Michael Rivas MD Primary Care Provider [phone] Encounter Details Date Type Department Care Team (Late st Contact Info) Description 01/25/2005 Outpatient Historical [facility] [place] [address] [place] [address] Annel Butler MD [address] [address] Social History Tobacco Use Types Packs/Day Years Used Date Smoking Tobacco: Never Assessed Comments Unknown Sex and Gender Information Value Date Recorded Sex Assigned at Not on file Legal Sex Female 2:39 AM DIRECTOR OF PATIENT FINANCIAL SERVICES Gender Identity Not on file Sexual Orientation Not on file documented as of this encounter Plan of Treatment Not on file documented as of this encounter Visit Diagnoses Not on filedocumented in this encounter Care Teams Waste Water Worker Relationship Specialty Start Date End Date Michael Rivas MD PCP - General 09/03/15 documented as of this encounter
--- OUTSIDE RECORDS SUMMARY | 2025-07-28 14:58 | XMS_ITS | Encounter Summary ---
Author Organization [facility] Address [address] [place] [address] Phone Care Team Providers Care It Communications Specialist Name Role Phone Mahad Corado MD Unavailable [phone] Xiomy Kiran MD Primary Care Provider Kaylyn Ellison MD Unavailable [phone] Zayda Hanson APRN, DIRECTOR TRANSITION Unavailable [phone] Reason for Visit * Reason Comments Medication Refill Encounter Details Date Type Department Care Team (Late st Contact Info) Description 05/23/2022 Refill [facility] - [facility] [address] [place] [address] Mahad Corado MD [address] [place] [address] Medication Refill Social History Tobacco Use Types [...] st Contact Info) Description 08/20/2025 4:00 PM DESIGN ENGINEERING MANAGER Appointment [facility] Cardiology Services [address] [place] [address] Zayda Hanson, COST MANAGER, DIRECTOR TRANSITION [address] [address] Discharge Disposition: Discharged to home or Selfcare 11/26/2025 11:15 AM CDT Office Visit [facility] - Neurology - [place] [address] [place] [address] Mahad Corado MD [address] [place] [address] 05/06/2026 11:00 AM CDT Office Visit [facility] - Cardiology - [place] [address] [place] [address] Zayda Hanson, COST MANAGER, DIRECTOR TRANSITION [address] [address] documented as of this encounter Visit Diagnoses Diagnosis Anxiety Anxiety state, unspecified documented in this encounter Care Teams It Communications Specialist Relationship Specialty Start Date End Date Xiomy Kiran MD [address] [place] [address] PCP - General Internal Medicine 12/05/17 Mahad Corado MD [address] [place] [address] Consulting Physician Neurology 08/02/15 Kaylyn Ellison MD [address] [facility] [address] [address] Consulting Physician Otolaryngology 03/19/25 Zayda Hanson APRN, DIRECTOR TRANSITION [address] [place] [address] [address] Nurse Practitioner Cardiology 05/04/25 documented as of this encounter
--- OUTSIDE RECORDS SUMMARY | 2025-07-28 14:58 | XMS_ITS | Encounter Summary ---
Author Organization [facility] Address [address] [place] [address] Phone Care Team Providers Care Managed Care Provider Name Role Phone Mahad Corado MD Unavailable [phone] Xiomy Kiran MD Primary Care Provider Kaylyn Ellison MD Unavailable [phone] Zayda Hanson APRN, FELT CARBONIZER Unavailable [phone] Reason for Visit * Reason Comments Medication Refill Encounter Details Date Type Department Care Team (Late st Contact Info) Description 03/15/2022 Refill [facility] - Neurology [facility] [address] [place] [address] Mahad Corado MD [address] [place] [address] Medication Refill Social History Tobacco Use Types [...] Recorded In the last 10 days, have yayo u been in contact with someone who [...] Dept 01/31/22 Office Visit Mahad Corado MD [facility] Neurology [facility] 11/10/21 Telemedicine Mahad Corado MD [facility] Neurology [facility] 06/23/21 Telemedicine Mahad Corado MD [facility] Neurology [facility] 03/18/21 Office Visit Mahad Corado MD [facility] Showing recent visits within past 365 days and meeting all other requirements Future Appointments Date Type Provider Dept 05/04/22 Appointment Mahad Corado MD [facility] Showing future appointments within next 90 days and meeting all other requirements documented in this encounter Plan of Treatment Upcoming Encounters Date Type Department Care Team (Late st Contact Info) Description 08/20/2025 4:00 PM PARACHUTE ACCESSORIES ATTACHER Appointment [facility] Cardiology Services [address] [place] [address] Zayda Hanson, PHOTOGRAPHER STILL, FELT CARBONIZER [address] [address] Discharge Disposition: Discharged to home or Selfcare 11/26/2025 11:15 AM CDT [facility] [place] [address] [place] [address] Mahad Corado MD [address] [place] [address] 05/06/2026 11:00 AM CDT Office Visit [facility] Cardiology - [place] [address] [place] [address] Zayda Hanson APRN, FELT CARBONIZER [address] [address] documented as of this encounter Visit Diagnoses Diagnosis Anxiety Anxiety state, unspecified documented in this encounter Care Teams Managed Care Provider Relationship Specialty Start Date End Date Xiomy Kiran MD 5 [facility] 2 [place] [address] PCP - General Internal Medicine 12/05/17 Mahad Corado MD [address] [place] [address] Consulting Physician Neurology 08/02/15 Kaylyn [place] MD [address] [address] Consulting Physician Otolaryngology 03/19/25 Zayda Hanson APRN, FELT CARBONIZER [address] [id number] Nurse Practitioner Cardiology 05/04/25 documented as of this encounter
--- OUTSIDE RECORDS SUMMARY | 2025-07-28 14:58 | XMS_ITS | Encounter Summary ---
Author Organization [facility] Address [address] [place] [address] Care Team Providers Care Operations And Maintenance Specialist Name Role Phone Michael Rivas MD Primary Care Provider [phone] Encounter Details Date Type Department Care Team (Latest Contact Info) Description 03/12/2005 Outpatient Historical HIS PATIENT IN A BED Ada Mojica MD CHEST PAIN NEC (Primary Dx) Social History Tobacco Use Types Packs/Day Years Used Date Smoking Tobacco: Never Assessed Comments Unknown Sex and Gender Information Value Date Recorded Sex Assigned at Not on file Legal Sex Female 2:39 AM FERRY CAPTAIN Gender Identity Not on file Sexual Orientation [...] HEMATOLOGY ORDERABLES Final Result Performing Organization Address [facility] Phone Number INTERFACE SYSTEM Refer to clinic/hospital department * PHOSPHORUS (03/13/2005 5:00 AM CDT) PHOSPHORUS 4.0 2.5 - 4.5 mg/dL INTERFACE SYSTEM 03/13/2005 5:00 AM CDT Harman Bone MD CHEMISTRY ORDERABLES Final R esult Performing Organization Address [facility] Phone Number INTERFACE SYSTEM Refer to clinic/hospital department * MAGNESIUM LEVEL (03/13/2005 5:00 AM CDT) MAGNESIUM 2.0 1.5 - 2.5 mg/dL INTERFACE SYSTEM 03/13/2005 5:00 AM CDT Harman Bone MD CHEMISTRY ORDERABLES Final R esult Performing Organization Address [facility] de Phone Number INTERFACE SYSTEM Refer [...] ORDERABLES Final R esult Performing Organization Address [facility] Phone Number INTERFACE SYSTEM Refer to clinic/hospital department * TROPONIN (W/REFLEX CKMB/CK) (03/12/2005 9:30 PM CDT) TROPONIN T <0.01 <=0.03 ng/mL INTERFACE SYSTEM TROPONIN T INTERP Negative INTERFACE SYSTEM 03/12/2005 9:30 PM CDT Harman Bone MD CHEMISTRY ORDERABLES Final R esult Performing Organization Address [facility] Phone Number INTERFACE SYSTEM Refer to [...] HEMATOLOGY ORDERABLES Final Result Performing Organization Address [facility] Phone Number INTERFACE SYSTEM Refer to clinic/hospital department * TROPONIN (W/REFLEX CKMB/CK) (03/12/2005 1:20 PM CDT) TROPONIN T <0.01 <=0.03 ng/mL INTERFACE SYSTEM TROPONIN T INTERP Negative INTERFACE SYSTEM 03/12/2005 1:20 PM CDT us Harman Bone MD CHEMISTRY ORDERABLES Final R esult Performing Organization Address [facility] de Phone Number INTERFACE SYSTEM Refer [...] HEMATOLOGY ORDERABLES Final Result Performing Organization Address [facility] Phone Number INTERFACE SYSTEM Refer to [...] HEMATOLOGY ORDERABLES Final Result Performing Organization Address City/[facility] Phone Number INTERFACE SYSTEM Refer to clinic/hospital department * TROPONIN (W/REFLEX CKMB/CK) (03/12/2005 5:14 AM CDT) TROPONIN T <0.01 <=0.03 ng/mL INTERFACE SYSTEM TROPONIN T INTERP Negative INTERFACE SYSTEM 03/12/2005 5:14 AM CDT us Giulia Bernardo MD CHEMISTRY ORDERABLES Final R esult Performing Organization Address [facility] Phone Number INTERFACE SYSTEM Refer to clinic/hospital department documented in this encounter Visit Diagnoses Diagnosis Other chest pain- Primary documented in this encounter Care Teams Operations And Maintenance Specialist Relationship Specialty Start Date End Date Michael Rivas MD PCP - General 09/03/15 documented as of this encounter
--- OUTSIDE RECORDS SUMMARY | 2025-07-28 14:58 | XMS_ITS | Encounter Summary ---
Author Organization [facility] Address [address] [place] [address] Care Team Providers Care Cardiothoracic Surgeon Name Role Phone Michael Rivas MD Primary Care Provider [phone] Encounter Details Date Type Department Care Team (Late st Contact Info) Description 03/22/2005 Outpatient Historical [facility] MRI DEPT Annel Butler MD [address] [facility] [address] [address] THORACIC DISC DISPLACMNT (Primary Dx) Social History Tobacco Use Types Packs/Day Years Used Date Smoking Tobacco: Never Assessed Comments Unknown Sex and Gender Information Value Date Recorded Sex Assigned at Not on file Legal Sex Female 2:39 AM HEALTH INFORMATION INTERNSHIP Gender Identity Not on file Sexual Orientation Not on file documented as of this encounter Plan of Treatment Not on file documented as of this encounter Visit Diagnoses Diagnosis Displacement of thoracic intervertebral disc without myelopathy- Primary documented in this encounter Care Teams Cardiothoracic Surgeon Relationship Specialty Start Date End Date Michael Rivas MD PCP - General 09/03/15 documented as of this encounter
--- OUTSIDE RECORDS SUMMARY | 2025-07-28 14:59 | XMS_ITS | Encounter Summary ---
Author Organization [facility] Address [address] [place] [address] Care Team Providers Care Bilingual Teacher Name Role Phone Michael Rivas MD Primary Care Provider [phone] Encounter Details Date Type Department Care Team (Late st Contact Info) Description 05/29/2005 Outpatient Historical [facility] Internal Medicine Medical [address] [place] [address] Ivan Reed MD [address] [place] [address] [address] [place], [place] [id number] Social History Tobacco Use Types Packs/Day Years Used Date Smoking Tobacco: Never Assessed Comments Unknown Sex and Gender Information Value Date Recorded Sex Assigned at Not on file Legal Sex Female 2:39 AM WELL CONTROL INSTRUCTOR Gender Identity Not on file Sexual [...] on filedocumented in this encounter Care Teams Bilingual Teacher Relationship Specialty Start Date End Date Michael Rivas MD PCP - General 09/03/15 documented as of this encounter
--- OUTSIDE RECORDS SUMMARY | 2025-07-28 14:59 | XMS_ITS | Encounter Summary ---
Author Organization [facility] Address [address] [place] [address] Care Team Providers Care Gypsum Block Setter Name Role Phone Michael Rivas MD Primary Care Provider [phone] Encounter Details Date Type Department Care Team (Late st Contact Info) Description 03/23/2006 Outpatient Historical [facility] Internal Medicine Medical [place] [facility] [address] [facility] [address] [address] Jia Fuentes MD [address] [place] [address] [address] [place] [phone] Social History Tobacco Use Types Packs/Day Years Used Date Smoking Tobacco: Never Assessed Comments Unknown Sex and Gender Information Value Date Recorded Sex Assigned at Not on file Legal Sex Female 2:39 AM MEDICAL SALES CONSULTANT Gender Identity Not on file Sexual Orientation [...] on filedocumented in this encounter Care Teams Gypsum Block Setter Relationship Specialty Start Date End Date Michael Rivas MD PCP - General 09/03/15 documented as of this encounter
--- OUTSIDE RECORDS SUMMARY | 2025-07-28 14:59 | XMS_ITS | Encounter Summary ---
Author Organization [facility] Address [address] [place] [address] Care Team Providers Care Paste Thinner Name Role Phone Michael Rivas MD Primary Care Provider [phone] Encounter Details Date Type Department Care Team (Late st Contact Info) Description 04/27/2006 Outpatient Historical Division of Neurology [address] [place] [address]., [address] [place] [address] Annel Butler MD [address] [facility] [address] [place] [address] Social History Tobacco Use Types Packs/Day Years Used Date Smoking Tobacco: Never Assessed Comments Unknown Sex and Gender Information Value Date Recorded Sex Assigned at Not on file Legal Sex Female 2:39 AM FORENSIC PSYCHOLOGIST Gender Identity Not on file Sexual Orientation Not on file documented as of this encounter Plan of Treatment Not on file documented as of this encounter Visit Diagnoses Not on filedocumented in this encounter Care Teams Paste Thinner Relationship Specialty Start Date End Date Michael Rivas MD PCP - General 09/03/15 documented as of this encounter
--- OUTSIDE RECORDS SUMMARY | 2025-07-28 14:59 | XMS_ITS | Clinical Summary ---
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 Gender Identity Not on file Sexual [...] 10:05 AM CDT Height 160 cm (5' 3) 01/06/2015 9:47 AM CDT Body Mass Index 26.11 01/06/2015 9:47 AM CDT Plan of Treatment Health Maintenance Due Date Last Done Comments DIABETES ANNUAL FOOT EXAM 1981 DIABETES ANNUAL RETINAL EXAM 1981 DIABETES MICROALBUMIN ANNUAL SCREEN 1981 BREAST CANCER SCREENING 2003 LDL CHOLESTEROL ANNUAL 12/20/2006 12/20/2005 COLORECTAL SCREENING 2008 Colorectal Cancer Screening 2008 FIT-DNA Q 3 years 2008 FIT/FOBT Q 1 year 2008 Flex Sig/CT Colonography Q 5 years 2008 RSV VACCINE (60+ or ) (1 - Risk 50-74 years 1-dose series) 2013 ZOSTER VACCINE (1 of 2) 2013 DTAP/TDAP/TD VACCINES (2 - Tdap) 01/16/2020 01/16/20 10 DIABETES HBA1C Q 6 MONTHS 11/14/20212020, 12/20/2005, 01/11/2005 INFLUENZA VACCINE (#1) 2025 Medical Devices Implanted Type Area Keg Filler Device Identifier Shelf Expiration Date Model / Serial / Lot Paste Bone Dbm Plus 5ml [id number] - [id number] Implanted:Qty: 1 on 01/26/2015 by Angel Luis Carrillo MD at [facility] Putty N/A: Spine Lumbar [employer] 07/20/2016 [id number] / [id number] / Ramos Solera Ccm Crv [id number] - Ssterilized Implanted:Qty: 2 on 01/26/2015 by Angel Luis Carrillo MD at [facility] Ramos N/A: Spine Lumbar [employer]- SOFAMOR DANEK 01/22/2015 [id number] / STERILIZED / [id number] Screw Solera Ma 6.5x45mm [id number] - Ssterilized Implanted:Qty: 4 on 01/26/2015 by Angel Luis Carrillo MD at [facility] Screw N/A: Spine Lumbar [employer]- SOFAMOR DANEK [id number] / STERILIZED / [id number] Set Screw Solera Breakoff [id number] - Ssterilized Implanted:Qty: 4 on 01/26/2015 by Angel Luis Carrillo MD at [facility] Screw N/A: Spine Lumbar [employer]- SOFAMOR DANEK [id number] / STERILIZED / [id number] Sealant Floseal W/ Adptr 10ml [id number] - [id number] Implanted:Qty: 1 on 01/26/2015 by Angel Luis Carrillo MD at [facility] Sealant N/A: Spine Lumbar [employer]- [employer] 04/16/2016 [id number] / / [id number] Spacer Capstn Peek [id number] - [id number] Implanted:Qty: 1 on 01/26/2015 by Angel Luis Carrillo MD at [facility] Spacer N/A: Spine Lumbar [employer]- SOFAMOR DANEK 03/31/2022 [id number] / / [id number] Procedures Procedure Name Priority Date/Time Associated Diagnosis [...] for risk classifications. 12/20/2005 9:42 AM CDT Ivan Reed MD CHEMISTRY ORDERABLES Final Result Performing Organization Address City/State/[facility] Co de Phone Number INTERFACE SYSTEM Refer to clinic/hospital department from Last 3 Months or Most Recently Relevant to Health Maintenance Insurance Xercise4less/TRUE BLUE PPO Xercise4less/TRUE BLUE PPO Advance Directives For more information, please contact: [phone] * Full Code (Latest Code Status on File) Date Activated Date Inactivated Comments 01/26/2015 3:50 PM 01/29/2015 4:24 PM * Full Code Date Activated Date Inactivated Comments 01/26/2015 3:50 PM 01/26/2015 3:50 PM * Full Code Date Activated Date Inactivated Comments 01/26/2015 10:36 AM 01/26/2015 3:50 PM Care Teams Plastics Technician Relationship Specialty Start Date End Date Michael Rivas MD PCP - General 09/03/15
--- OUTSIDE RECORDS SUMMARY | 2025-07-28 14:59 | XMS_ITS | Encounter Summary ---
Author Organization [facility] Address [address] [place] [address] Care Team Providers Care Economics Analyst Name Role Phone Michael Rivas MD Primary Care Provider [phone] Encounter Details Date Type Department Care Team (Latest Contact Info) Description 03/23/2006 Outpatient Historical HIS [facility] Jia Jorge MD [facility] [address] Pain in Joint, Upper Arm (Primary Dx) Social History Tobacco Use Types Packs/Day Years Used Date Smoking Tobacco: Never Assessed Comments Unknown Sex and Gender Information Value Date Recorded Sex Assigned at Not on file 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
--- OUTSIDE RECORDS SUMMARY | 2025-07-28 14:59 | XMS_ITS | Encounter Summary ---
Author Organization [facility] Address [address] [place] [address] Care Team Providers Care Registered Occupational Therapist Name Role Phone Michael Rivas MD Primary Care Provider [phone] Encounter Details Date Type Department Care Team (Late st Contact Info) Description 06/14/2005 Outpatient Historical [facility] Internal Medicine Medical [facility] [address] [facility] [address] [place] [address] Ivan Reed MD [facility] [address] [place] [address] Social History Tobacco Use Types Packs/Day Years Used Date Smoking Tobacco: Never Assessed Comments Unknown Sex and Gender Information Value Date Recorded Sex Assigned at Not on file 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
--- OUTSIDE RECORDS SUMMARY | 2025-07-28 14:59 | XMS_ITS | Encounter Summary ---
Author Organization [facility] Address [address] [place] [address] Care Team Providers Care Career Development Specialist Name Role Phone Michael Rivas MD Primary Care Provider [phone] Encounter Details Date Type Department Care Team (Latest Contact Info) Description 12/20/2005 Outpatient Historical [facility] Internal Medicine Medical [facility] [address] [facility] [address] [place] [address] Ivan Reed MD [address] 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 Gender Identity Not on file Sexual Orientation [...] U/L INTERFACE SYSTEM 12/20/2005 9:42 AM CDT Ivan [...] CHEMISTRY ORDERABLES Final Result Performing Organization Address City/State/[facility] Co de Phone Number INTERFACE SYSTEM Refer to clinic/hospital department * (ABNORMAL) HEMOGLOBIN A1C (12/20/2005 9:42 AM CDT) HEMOGLOBIN A1C 8.3(H) 3.9 - 6.1 % of Hgb INTERFACE SYSTEM GLUCOSE, MEAN BLOOD 190 mg/dL INTERFACE SYSTEM 12/20/2005 9:42 AM CDT us Ivan Reed MD CHEMISTRY ORDERABLES Final Result INTERFACE SYSTEM Refer to clinic/hospital department documented in this encounter Visit Diagnoses Diagnosis Type II or unspecified type diabetes mellitus without mention of complication, uncontrolled- Primary documented in this encounter Care Teams Career Development Specialist Relationship Specialty Start Date End Date Michael Rivas MD PCP - General 09/03/15 documented as of this encounter
--- OUTSIDE RECORDS SUMMARY | 2025-07-28 14:59 | XMS_ITS | Encounter Summary ---
Author Organization [facility] Address [address] 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
--- OUTSIDE RECORDS SUMMARY | 2025-07-28 14:59 | XMS_ITS | Encounter Summary ---
Author Organization [facility] Address [address] 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
--- OUTSIDE RECORDS SUMMARY | 2025-07-28 14:59 | XMS_ITS | Encounter Summary ---
Author Organization [facility] Address 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
--- OUTSIDE RECORDS SUMMARY | 2025-07-28 14:59 | XMS_ITS | Encounter Summary ---
Author Organization [facility] Address [address] [place] [address] Care Team Providers Care Casino Slot Supervisor Name Role Phone Michael Rivas MD Primary Care Provider [phone] Encounter Details Date Type Department Care Team (Late st Contact Info) Description 12/20/2005 Outpatient Historical [facility] Internal Medicine Medical [facility] [address] [facility] [address] [address] Ada Mojica MD Social History Tobacco Use Types Packs/Day Years Used Date Smoking Tobacco: Never Assessed Comments Unknown Sex and Gender Information Value Date Recorded Sex Assigned at Not on file 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
--- OUTSIDE RECORDS SUMMARY | 2025-07-28 14:59 | XMS_ITS | Encounter Summary ---
Author Organization [facility] Address [address] 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
--- OUTSIDE RECORDS SUMMARY | 2025-07-28 14:59 | XMS_ITS | Clinical Summary ---
Author Organization [facility] Address [address] [facility] [place] [address] Phone Care Team Providers Care Knuckle Bender Name Role Phone Mahad Corado MD Unavailable Xiomy Kiran MD Primary Care Provider Kaylyn Ellison MD Unavailable [phone] Zayda Hanson APRN, BUILDING EQUIPMENT INSPECTOR Unavailable [phone] Allergies Active Allergy Reactions Criticality Noted Date [...] mg by mouth daily. Active Vitamin D, Ergocalciferol, 90501 units Capsule Take by mouth. Activ e sertraline (ZOLOFT) 50 MG Tablet Take 1 Tablet by mouth daily. 90 Tablet 1 11/15/202 3 Active Additional Information Patient taking differently: 25 mgOral DAILY, Reported on 06/25/2025 glatiramer (COPAXONE) 40 MG/ML Solution Prefilled SyringeIndicati ons:Multiple sclerosis INJECT 1 SYRINGE (40MG) UNDER THE SKIN 3 TIMES A WEEK 12 mL 11 5 Active Continuous Glucose Parking Lot Supervisor (Dexcom G6 Parking Lot Supervisor) Device USE TO CHECK GLUCOSE DAILY Active Tirzepatide (Mounjaro) 10 MG/0.5ML Solution Auto-injector by Subcutaneous route. Active sertraline (Zoloft) 25 MG Tablet Take 25 mg by mouth daily. Active rosuvastatin (Crestor) 40 MG Tablet Take 40 mg by mouth daily. Active clonazePAM (KlonoPIN) 0.5 MG TabletIndicatio ns:Anxiety TAKE 1 TABLET BY MOUTH ONCE DAILY AT NIGHT AT BEDTIME NEEDED FOR ANXIETY 30 Tablet 5 Active Active Problems Problem Noted Date Diagnosed Date Mixed hyperlipidemia 05/01/2025 Primary hypertension 05/01/2025 Type 2 diabetes mellitus wit hout complication, with long-term current use of insulin 05/01/2025 Carpal tunnel syndrome, left 10/14/2020 Carpal tunnel syndrome, right 07/09/2019 Seizure 03/01/2017 Spinal arachnoid cyst 11/30/2015 Lumbago Relapsing remitting multiple sclerosis Lumbar radiculopathy Encounters Date Type Department Care Team Description 07/21/2025 Telephone [facility] Ear, Nose & [facility] [address] [place] [phone] Kaylyn Ellison MD 06/25/2025 11:00 AM CDT Office Visit [facility] Neurology [facility] [address] [place] [phone] Mahad Corado MD Seizure Discharge Disposition: Discharged to home or Selfcare 06/25/2025 Travel 06/04/2025 Refill [facility] Neurology [facility] [address] [place] [phone] Mahad Corado MD Medication Refill 05/26/2025 2:45 PM CDT Office Visit [facility] - Ear, Nose & Throat - [place] [address] [facility] [place] [address] Kaylyn Ellison MD Eustachian tube dysfunction, right (Primary Dx); Right temporomandibular joint disorder, unspecified; Allergic rhinitis, unspecified seasonality, unspecified trigger; Sensorineural hearing loss of both ears Discharge Disposition: Discharged to home or Selfcare 05/26/2025 Travel 05/01/2025 11:00 AM CDT Office Visit [facility] - Cardiology - [place] [address] [place] [address] Zayda Hanson APRN, BUILDING EQUIPMENT INSPECTOR Encounter for screening for cardiovascular disorders (Primary Dx); Murmur, cardiac; Primary hypertension; Mixed hyperlipidemia; Type 2 diabetes mellitus without complication, with long-term current use of insulin Discharge Disposition: Discharged to home or Selfcare 05/01/2025 Travel from Last 3 Months Immunizations Immunization [...] Sign Reading Time Taken Comments Blood Pressure 110/72 06/25/2025 10:59 AM CDT Pulse 71 06/25/2025 10:59 AM CDT Temperature 36.5 C (97.7 F) 06/25/2025 10:59 AM CDT Respiratory Rate 16 06/25/2025 10:5 9 AM CDT Oxygen Saturation 97% 06/25/2025 10: 59 AM CDT Inhaled Oxygen Concentration - - Weight 70.7 kg (155 lb 12.8 oz) 025 10:59 AM CDT Height 160 cm (5' 3) 06/25/2025 10:59 AM CDT Body Mass Index 27.6 06/25/2025 10:59 AM CDT Plan of Treatment Upcoming Encounters Date Type Department Care Team (Late st Contact Info) Description 08/20/2025 4:00 PM SUBSTITUTE CROSSING GUARD Appointment [facility] [address] [place] [address] Zayda Hanson, TRI, BUILDING EQUIPMENT INSPECTOR [address] [address] Discharge Disposition: Discharged to home or Selfcare 11/26/2025 11:15 AM CDT [facility] [address] [place] [address] Mahad Corado MD [address] [place] [address] 05/06/2026 11:00 AM CDT Office Visit [facility] - Cardiology - [place] [address] [place] [address] Zayda Hanson, ORACLE MANAGER, BUILDING EQUIPMENT INSPECTOR [address] [address] Health Maintenance Due Date Last Done Comments Diabetes: Foot Exam 1963 Mammogram 1963 TdaP Immunization 1963 Cologuard 2008 Immunochemical Fecal Occult Blood 2008 Respiratory Syncytial Virus (RSV) Immunization (Adult) (1 - Risk 50-74 years 1-dose series) 2013 Zoster Immunization (1 of 2) 2013 Medicare Initial AWV [id number] 08/17/2016 Diabetes: Eye Exam 07/10/2019 07/10/2018 Pneumococcal Immunization (50+ years) (2 of 2 - PCV) 03/22/2021 03/22/2020 Diabetes: Nephropathy Screening 06/20/2023 06/20/2022, 06/20/2022, 10/11/2020, Additional history exists Hepatitis B Immunization (1 of 3 - Risk 3-dose series) 2023 Influenza Immunization (#1) 05/18/202508/17, 06/18/2023, 06/28/2022, Additional history exists SARS-COV-2 Immunization ( season) 2025 06/21/2022, 08/23/2021, 12/12/2020, Additional history exists Colonoscopy 08/17/2025 08/17/2015 Colorectal Cancer Screening 08/17/2025 Diabetes: Hemoglobin A1c 09/08/2025 025, 08/11/2024, 11/28/2023, Additional history exists DTaP/Tdap/Td Immunization Discontinued 01/15/2010 Pneumococcal Immunization Combined Discontinued 03/22/2020 Hepatitis C Virus (HCV) Screening Completed 02/20/2022 Human Papillomavirus (HPV) Immunization Aged Out No longer eligible based on patient's age to complete this topic Meningococcal Immunization (ACWY) Aged Out No longer eligible based on patient's age to complete this topic Rotavirus Immunization Aged Out No lo nger eligible based on patient's age to complete this topic Procedures Procedure Name Priority Date/Time Associated Diagnosis Comments LARYNGOSCOPY FLEX DIAGNOSTIC Today 05/26/2025 2:45 PM CDT Eustachian tube dysfunction, right EKG 12 LEAD Routine 05/01/2025 10:45 AM CDT Encounter for screening for cardiovascular disorders CMP (COMPREHENSIVE METABOLIC PANEL) Routine 06/20/2022 4:20 PM CDT Multiple sclerosis (HCC) HEPATITIS C ANTIBODY Routine 02/20/2022 8:21 AM CDT Relapsing remitting multiple sclerosis (HCC) HEMOGLOBIN A1C W/ ESTIMATED GLUCOSE Routine 10/11/2020 11:03 AM SUBSTITUTE CROSSING GUARD Preoperative examination HM DILATED EYE EXAM Routine 07/10/2018 from Last 3 Months or Most Recently Relevant to Health Maintenance Results * LARYNGOSCOPY FLEX DIAGNOSTIC (05/26/2025 2:45 PM CDT) Narrative Kaylyn Ellison MD - 05/26/2025 2:45 PM CDT Kaylyn Ellison MD 05/26/2025 3:45 PM FIBEROPTIC NASOLARYNGOSCOPY Anesthesia: Lidocaine and oxymetasoline Findings: The flexible fiberoptic laryngoscope was passed through the nasal cavity and advanced to examine the nasopharynx, oropharynx, hypopharynx and larynx. The nasopharynx was without masses, lesions or mucosal irregularities. The pharyngeal sauer were symmetric without masses, lesions or mucosal irregularities. The vallecula and base of tongue was symmetric without masses, lesions or mucosal irregularities. The epiglottis and aryepiglottic folds were without masses, lesions or mucosal irregularities. The pyriform sinuses were symmetric without pooled secretions or suspicious lesions. The arytenoids and inter-arytenoid area was without erythema or edema. The glottis showed the false and true vocal folds to be without lesion. True vocal cords had normal mobility with abduction and and midline approximation with adduction. Other abnormal findings:clear nasopharynx EBL none No complications were noted. us Kaylyn Ellison MD PROCEDURE/MINOR SURGICAL ORDERA BLES Final Result * EKG 12 LEAD (05/01/2025 10:45 AM CDT) Ventricular Rate 71 BPM EXTERNAL EKG Atrial Rate 71 BPM EXTERNAL EKG P-R Interval 170 ms EXTERNAL EKG QRS Duration 76 ms EXTERNAL EKG Q-T Duration 392 ms EXTERNAL EKG QTC CALCULATION 425 ms EXTERNAL EKG P [place] 17 degrees EXTERNAL EKG R [place] 16 degrees EXTERNAL EKG T [place] 47 degrees EXTERNAL EKG 05/01/2025 10:4 5 AM CDT Impressions EXTERNAL EKG - 06/19/2025 10:03 AM CDT Normal sinus rhythm Normal ECG ~ Confirmed by Luke Gordon ([id number]) on 06/19/2025 10:03:14 AM Narrative Procedure Note Luke Gordon MD - 06/19/2025 IMPRESSION: Normal sinus rhythm Normal ECG ~ Confirmed by Luke Gordon ([id number]) on 06/19/2025 10:03:14 AM us Zayda Hanson APRN, CNP IMG ECG ORDERABLES F inal Result EXTERNAL EKG * (ABNORMAL) CMP (COMPREHENSIVE METABOLIC PANEL) (06/20/2022 4:20 PM CDT) Pathologist [facility] SODIUM 138 136 - 144 mmol/L 06/20/2022 6:14 PM CDT [facility] POTASSIUM 4.0 3.5 - 5.1 mmol/L 06/20/2022 6:14 PM CDT [facility] CHLORIDE 99(L) 100 - 110 mmol/L 06/20/2022 6:14 PM CDT [facility] CO2, VENOUS 26 22 - 32 mmol/L 06/20/2022 6:14 PM CDT [facility] ANION GAP 17.0 8.0 - 20.0 mmol/L 06/20/2022 6:14 PM CDT [facility] GLUCOSE 225(H) 70 - 99 mg/dL 06/20/2022 6:14 PM CDT [facility] BUN 10 6 - 20 mg/dL 06/20/2022 6:14 PM CDT [facility] CREATININE, BLOOD 0.85 0.60 - 1.10 mg/dL 06/20/2022 6:14 PM CDT [facility] BUN/CREATININE RATIO 12 12 - 20 ratio 06/20/2022 6:14 PM CDT [facility] TOTAL PROTEIN 7.1 6.0 - 8.3 g/dL 06/20/2022 6:14 PM CDT [facility] ALBUMIN 4.0 3.5 - 5.2 g/dL 06/20/2022 6:14 PM CDT [facility] Comment: The colormetric methods used for the determination of Albumin may lead to falsely elevated test results in patients suffering from renal failure or insufficiency due to interference with other proteins. A/G RATIO 1.3 1.0 - 2.0 06/20/2022 6:14 PM CDT [facility] CALCIUM 9.6 8.9 - 10.3 mg/dL 06/20/2022 6:14 PM CDT [facility] T BILI <0.3 <=1.2 mg/dL 06/20/2022 6:14 PM CDT [facility] SGOT (AST) 12 <=32 U/L 06/20/2022 6:14 PM CDT [facility] SGPT (ALT) 10 <=41 U/L 06/20/2022 6:14 PM CDT [facility] ALKALINE PHOSPHATASE 152(H) 35 - 105 U/L 06/20/2022 6:14 PM CDT [facility] IS THE PATIENT REQUIRED TO BE FASTING? No 06/20/2022 6:14 PM CDT [facility] GFR, ESTIMATED >60 >=60 06/20/2022 6:14 PM CDT [facility] Comment: Creatinine Clearance is the preferred criteria for selecting drug dose adjustments in renally impaired patients. The GFR is provided as additional pertinent clinical information. GFR is reported in mL/min/1.73 sq m. Calculation based on the Chronic Kidney Disease Epidemiology Collaboration (CKD- EPI) equation refit without adjustment for race. GFR, EST. >60 >=60 022 6:14 PM CDT [facility] GFR, EST. NONAFRICAN >60 >=60 06/20/2022 6:14 PM CDT [facility] Blood Venipuncture / Unknown 06/20/2022 4:20 PM CDT 06/20/2022 5:28 PM CDT us Mahad Corado MD CHEMISTRY ORDERABLES Final R esult [facility] [address] [place] [address] * HEPATITIS C ANTIBODY (02/20/2022 8:21 AM CDT) Pathologist [facility] hepatitis C antibody 0.18 <1 S/CO [facility] ARCH [id number] B 02/20/2022 2:39 PM CDT [facility] Comment: Signal/Cutoff ratio < 0.79 is Nondetected Signal/Cutoff ratio 0.80-0.99 is Grayzone Signal/Cutoff ratio > 0.99 is Detected Supplemental assays are recommended if signal/cutoff ratio is >/=1.00. Signal/cutoff ratio result >/= 5.00 is 97% predictive of positivity for recombinant immunoblot assay (RIBA) and will be reported to the [place] Department of Public Health as required. Blood Venipuncture / Unknown 02/20/2022 8:21 AM CDT 02/20/2022 9:13 AM CDT us Mahad Corado MD CHEMISTRY ORDERABLES Final R esult Performing Organization Address City/[facility] Co de Phone Number [facility] [address] [place] [address], * (ABNORMAL) HEMOGLOBIN A1C W/ ESTIMATED GLUCOSE (10/11/2020 11:03 AM SUBSTITUTE CROSSING GUARD) [facility] HGB-A1C 10.5(H) 4.0 - 6.0 % 10/11/2020 12:48 PM SUBSTITUTE CROSSING GUARD [facility] Est Average Glucose 254.7 mg/dL 10/11/2020 12:48 PM SUBSTITUTE CROSSING GUARD [facility] Blood Venipuncture / Unknown 10/11/2020 11:03 AM SUBSTITUTE CROSSING GUARD 10/11/2020 12:17 PM SUBSTITUTE CROSSING GUARD Narrative [facility] - 10/11/2020 12:48 PM SUBSTITUTE CROSSING GUARD HEMOGLOBIN A1C: DIABETIC PATIENTS: WELL-CONTROLLED: 6.2 - 7.0 INTERMEDIATE WELL-CONTROLLED: 7.0 - 9.0 POORLY-CONTROLLED: >9.0 us Wolf Hall MD CHEMISTRY ORDERABLES Final Resul t Performing Organization Address City/[facility]/ZIP Co de Phone Number [facility] [address] [place] [address] * DILATED EYE EXAM (07/10/2018) Ernesto Santiago MD PROCEDURE/MINOR SURGICAL JAMIE MITCHELL Final Result from Last 3 Months or Most Recently Relevant to Health Maintenance [place] [address] [place] [address] MEDICARE [facility] [employer] Care Teams Knuckle Bender Relationship Specialty Start Date End Date Xiomy Kiran MD [address] [place] [address] PCP - General Internal Medicine 12/05/17 Mahad Corado MD [address] [place] [phone] Consulting Physician Neurology 08/02/15 Kaylyn Ellison MD [address] [facility] [address] [address] Consulting Physician Otolaryngology 03/19/25 Zayda Hanson APRN, BUILDING EQUIPMENT INSPECTOR [address] [facility] [address] [address] Nurse Practitioner Cardiology 05/04/25
--- OUTSIDE RECORDS SUMMARY | 2025-07-28 14:59 | XMS_ITS | Clinical Summary ---
Author Organization [facility] Address [address] [facility] [place] [address] Care Team Providers Care Senior Db2 Systems Programmer Name Role Phone Mahad Corado MD Unavailable [phone] Shell Paulino RN Unavailable Unavailable Sherry Tejada MD Unavailable [phone] Xiomy Kiran MD Primary Care Provider Source Comments [facility],non-owned Affiliates and Associated Physician Practices is amultiple site organization consisting of ambulatory clinics and hospital sitesin [place], [place], [place] and [place]. This disclosure is being madepursuant to the Care Everywhere program and may not contain all information available regarding this patient. Last updated 18.[facility] Allergies Active Allergy Reactions Criticality Noted Date Comments Latex Swelling 05/15/2021 Morphine Other Low 04/27/2009 Pt reports hypotension 2/2 to morphine GUEST SERVICE AGENT. Medications * Be aware that medications may not be up to date on this document. Alwaysverify current medications with the patient. aspirin 81 MG tablet Take 1 (one) tablet by mouth once daily Active clonazePAM (KLONOPIN) 0.5 MG tabletIndicati ons:MS (multiple sclerosis) Take 0.5 Tabs by mouth at bedtime. Per Neuro 0 Active Additional Information Patient taking differently:0.25 mg OralAT BEDTIME PRN, anxiety, MS tremors, Reported on 11/25/2024 levothyroxine (Synthroid) [...] Active Cholecalcifero l (vitamin D3) 1.25 MG (31435 UT) capsule Take 1 (one) capsule by [...] Nondisplaced lateral malleolar fracture Followed by Dr Agustin/Vacuum Applicator Operator; [place] 03/09/2009 Screening for breast cancer 02/07/2010 [...] of neck of left fibula 05/14/2021 05/17/2021 Immunizations Immunization Administration Dates Next Due DTaP [...] on file Legal Sex Female 4:25 AM CRYSTAL FINISHER Gender Identity Not on file Sexual [...] 3:06 PM CDT Height 160 cm (5' 3) 11/25/2024 3:06 PM CDT Body Mass Index [...] AWV 12 MONTHS 1963 HIV SCREENING 1978 HEPATITIS C SCREENING 10/19/1981 PNEUMOCOCCAL VACCINE 50+ (1 of 2 - PCV) 1982 MAMMOGRAM 07/12/2011 07/12/2009 ZOSTER VACCINE (1 of 2) 2013 DIABETES RETINOPATHY SCREENING 10/31/2019 DIABETES-FOOT EXAM WITH MONOFILAMENT 10/31/2019 DTAP/TDAP/TD VACCINES (2 - Tdap) 01/16/2020 01/15/2010 DIABETES-HGB A1C 08/14/2021 05/14/2021, 11/16/2010 Respiratory Syncytial Virus (RSV) Vaccine Pt: or over 60 yrs (1 - Risk 60-74 years 1-dose series) 2023 DEPRESSION SCREENING 09/17/2024 DIABETES - URINE PROTEIN SCREENING 09/17/2024 11/16/2010 DIABETES-SERUM CREATININE 12/05/20242023, 05/17/2021, 05/16/2021, Additional history exists COVID-19 VACCINE ( season) 2025 06/21/2022, 08/23/2021, 12/12/2020, Additional history exists INFLUENZA VACCINE (#1) 2025 3, 06/28/2022, 06/21/2020, Additional history exists HEPATITIS B VACCINE Aged Out No longe [...] General On track( 025 3:20 PM CDT) No Shell Paulino, RN Note: Expected end date: ongoing Interventions: Take all medications as prescribed Let your doctor know right away about any changes in your medications Make sure to request a refill of your medication at least one week prior to your last dose Medical Devices Implanted Type Area Manager Skilled Device Identifier Shelf Expiration Date Model / Serial / Lot Nail Im 10mm 30cm Versanail Tib Tmx Strl Implanted:Qty: 1 on 05/15/2021 by Selwyn Galicia MD at [facility] Nail Left: Leg [employer] 04/17/2023 [id number] / / [id number] Cap End Unv Tib Im Nail Ti Strl Implanted:Qty: 1 on 05/15/2021 by Selwyn Galicia MD at [facility] Other (Type not listed) Left: Leg [employer] 05/26/2030 [id number] / / [id number] D Screw 4.5mm 34mm Oblq Ft Slf-Tap Sld 2 Implanted:Qty: 1 on 05/15/2021 by Selwyn Galicia MD at [facility] Screw Left: Leg [employer] [id number] / / Procedures Procedure Name Priority Date/Time Associated Diagnosis Comments COMPREHENSIVE METABOLIC PANEL STAT 12/06/2023 11:15 AM CDT HEMOGLOBIN A1C ROLANDO 05/14/2021 5:18 PM CDT MICROALB/CREAT RATIO URINE RANDOM PANEL Routine 11/16/2010 9:47 AM CRYSTAL FINISHER DM w/o complication type II Hyperlipidemia LDL goal < 100 MAMMO BILAT DIAGNOSTIC Routine 07/12/2009 11:10 AM CDT Lump or Mass in Breast from Last 3 Months or Most Recently Relevant to Health Maintenance Results * (ABNORMAL) COMPREHENSIVE METABOLIC PANEL (12/06/2023 11:15 AM CDT) BUN 17 7 - 26 mg/dL 12/06/2023 11:51 AM [facility] Creatinine 0.77 0.56 - 0.96 mg/dL 12/06/2023 11:51 AM [facility] Sodium 141 136 - 145 mmol/L 12/06/2023 11:51 AM [facility] Potassium 4.0 3.5 - 4.5 mmol/L 12/06/2023 11:51 AM [facility] Chloride 105 98 - 107 mmol/L 12/06/2023 11:51 AM [facility] CO2 25 22 - 29 mmol/L 12/06/2023 11:51 AM [facility] Glucose 156(H) 70 - 115 mg/dL 12/06/2023 11:51 AM [facility] Calcium 9.6 8.4 - 10.2 mg/dL 12/06/2023 11:51 AM [facility] Protein Total 7.4 6.0 - 8.3 g/dL 12/06/2023 11:51 AM [facility] Albumin 3.6 3.4 - 5.0 g/dL 12/06/2023 11:51 AM [facility] Bilirubin Total 0.3 0.2 - 1.2 mg/dL 12/06/2023 11:51 AM [facility] Alkaline Phosphatase 136 40 - 150 U/L 12/06/2023 11:51 AM [facility] ALT 9 5 - 55 U/L 12/06/2023 11:51 AM [facility] AST 14 5 - 34 U/L 12/06/2023 11:51 AM [facility] Anion Gap 11 6 - 16 12/06/2023 11:51 AM [facility] BUN/Creatinine Ratio 22 7 - 23 12/06/2023 11:51 AM [facility] Osmolality Calculated 297(H) 275 - 295 mOsm/kg 12/06/2023 11:51 AM [facility] Albumin/Globulin Ratio 0.9(L) 1.1 - 2.3 12/06/2023 11:51 AM [facility] eGFR by CKD-EPI 88(L) >=90 mL/min/1.7 3 m2 12/06/2023 11:51 AM [facility] Blood BLOOD SPECIMEN / Unknown Venipuncture / Unknown 12/06/2023 11:15 AM CDT 12/06/2023 11:23 AM [facility] us Kirill Brady MD LAB - CHEMISTRY ORDERABLES Fi nal Result [facility] [address] [place] [address], [facility] [phone] * (ABNORMAL) HEMOGLOBIN A1C (05/14/2021 5:18 PM [facility]) Hemoglobin A1c 10.8(H) 4.4 - 6.3 % 05/15/2021 11:09 AM [facility] Estimated Average Glucose 263 mg/dL 05/15/2021 11:09 AM [facility] Comment: HbA1c Interpretation: Treatment target values recommended by ADA and other clinical organizations should be used to evaluate metabolic control in patients. Treatment Target Values: Normal : < 5.7% Pre-diabetes: 5.7-6.4% Diabetes: Equal to or greater than 6.5% Reference: [place] Diabetes Association Standards of Care in Diabetes -2014 In patients 70 years and older consider HbA1c target range of 7.0-7.5% Reference: Diabetes Mellitus in Older People: Position Statement on behalf of the International Association of Gerontology and Geriatrics (IAGG), the Diabetes Working Green Party for Older People (EDWPOP), and the International Task Force of Experts in Diabetes. Harsha Nam et al. J [employer] Medical Directors Association. 2012 Test results diagnostic of diabetes should be repeated for confirmation. The Sebia Capillary 2 assay for the measurement of HbA1c is a National Glycohemoglobin Standardization Program (NGSP)certified method. Blood BLOOD SPECIMEN / Unknown Venipuncture / Unknown 05/14/2021 5:18 PM CDT 05/14/2021 5:24 PM CDT us Jameel Capps DO LAB - CHEMISTRY ORDERABLES Fin al Result [address] [address], [facility] [phone] * (ABNORMAL) MICROALB/CREAT RATIO URINE RANDOM PANEL (11/16/2010 9:47 AM CRYSTAL FINISHER) Creatinine 24 Hour Urine 211.4 15.0 - 278.0 mg/dL [facility] ACCOUNT BILL Microalbumin Urine 26.4(H) 0.0 - 17.0 ug/mL [facility] ACCOUNT BILL Microalbumin/Crea tinine Ratio 12.5 0.0 - 30.0 mg/g creat [facility] ACCOUNT BILL URINE / Unknown 11/16/2010 9 :47 AM CRYSTAL FINISHER 11/16/2010 6:24 PM CRYSTAL FINISHER Narrative Resulting Agency Comment [facility] [address] [facility] [id number] us Ligia Hawkins DO LAB - URINE SERVICE DELIVERY MANAGER RY ORDERABLES Final Result [facility] ACCOUNT BILL [address] [place] [address] * MAMMO DIAG DIRECT DIGITAL IMAGE BILA [...] evaluation if suspicious findings are present clinically. us Alfredito Rodriguez DO MAMMO ORDERABLES Edited Result - Final from Last 3 Months or Most Recently Relevant to Health Maintenance Insurance MEDICARE [facility] MEDICARE ANTHEM Advance Directives * Full Code (Latest Code Status on File) Date Activated Date Inactivated Comments 05/14/2021 11:28 AM 05/17/2021 2:59 PM Care Teams Senior Db2 Systems Programmer Relationship Specialty Start Date End Date Xiomy Kiran MD [address] [facility] [address] [place] [address] PCP - General Internal Medicine 05/14/21 Mahad Corado MD Neurology 10/31/19 Shell Paulino, LOU Registered Nurse 10/31/19 Sherry Tejada MD [address] [place] [address] Endocrinology 10/31/19
--- OUTSIDE RECORDS SUMMARY | 2025-07-28 14:59 | XMS_ITS | Encounter Summary ---
Author Organization [facility] Address [address] [place] [address] Care Team Providers Care Vice President Business & Corporate Development Name Role Phone Michael Rivas MD Primary Care Provider [phone] Encounter Details Date Type Department Care Team (Late st Contact Info) Description 05/07/2006 Outpatient Historical [facility] MRI DEPT Annel Butler MD [address] [id number] Multiple Sclerosis (CMS/HCC) (Primary Dx) Social History Tobacco Use Types Packs/Day Years Used Date Smoking Tobacco: Never Assessed Comments Unknown Sex and Gender Information Value Date Recorded Sex Assigned at Not on file Legal Sex Female 2:39 AM HOME APPLIANCE TECHNICIAN Gender Identity Not on file Sexual Orientation Not on file documented as of this encounter Plan of Treatment Not on file documented as of this encounter Visit Diagnoses Diagnosis Multiple sclerosis- Primary documented in this encounter Care Teams Vice President Business & Corporate Development Relationship Specialty Start Date End Date Michael Rivas MD PCP - General 09/03/15 documented as of this encounter
--- OUTSIDE RECORDS SUMMARY | 2025-07-28 14:59 | XMS_ITS | Encounter Summary ---
Author Organization [facility] Address [address] [place]: Epic Prelude ADT [place] [address] Care Team Providers Care Consulting Project Director Name Role Phone Michael Rivas MD Primary Care Provider [phone] Encounter Details Date Type Department Care Team (Latest Contact Info) Description 06/04/2006 Orders Only Ada Mojica MD Social History Tobacco Use Types Packs/Day Years Used Date Smoking Tobacco: Never Assessed Comments Unknown Sex and Gender Information Value Date Recorded Sex Assigned at Not on file Legal Sex Female 2:39 AM FINANCIAL SERVICES EDUCATION CONSULTANT Gender Identity Not on file Sexual Orientation Not on file documented as of this encounter Plan of Treatment Not on file documented as of this encounter Visit Diagnoses Not on filedocumented in this encounter Care Teams Consulting Project Director Relationship Specialty Start Date End Date Michael Rivas MD PCP - General 09/03/15 documented as of this encounter
--- OUTSIDE RECORDS SUMMARY | 2025-07-28 14:59 | XMS_ITS | Encounter Summary ---
Author Organization [facility] Address [address] 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
--- OUTSIDE RECORDS SUMMARY | 2025-07-28 14:59 | XMS_ITS | Encounter Summary ---
Author Organization [facility] Address [address] [place] [address] Care Team Providers Care [employer] Name Role Phone Michael Rivas MD Primary Care Provider [phone] Encounter Details Date Type Department Care Team (Late st Contact Info) Description 06/14/2005 Outpatient Historical Division of Neurology [address] [place] [address]., [address] [place] [address] Annel Butler MD [address] [place] [id number] Social History Tobacco Use Types Packs/Day Years Used Date Smoking Tobacco: Never Assessed Comments Unknown Sex and Gender Information Value Date Recorded Sex Assigned at Not on file 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
--- OUTSIDE RECORDS SUMMARY | 2025-07-28 14:59 | XMS_ITS | Data Portability ---
Author Organization [facility] [employer], Main Office Address [address] [place] [address] Care Team Providers Care Psychometrist Name Role Phone GENO KIRAN Primary Care Provider [phone] GENO KIRAN Referring Provider [phone] STACEY AVERY Calender Machine Operator MARYLIN LORENZO Nps [employer] Commercial Energy Rater ROBERT GOLD Weight Engineer Assessment Encounter Date Assessment Date Assessment LastModified by Organization Details LastModified Time 06/16/2024 06/16/2024 09/29/2022: Dr Tejada CMP: Gluc 153, ALP 136 TSH 3.070 Chol 209, TG 266, HDL 54, LDL 102 A1C 7.3 Urine micro alb 92.3 02/14/2023: A1C 7.0 Urine micro alb 26.0 VIT D 17.6 05/02/2023: H/H 10.7/34.0 Dr Tejada A1C 7.0 Gluc 140, ALP 151 VIT D 28.7 11/28/2023: A1C 7.2 Urine micro alb 17.4 TG 205 Gluc 195H, ALP 151 Addendum: 06/16/2024: 06/16/2024:Ca lled and discussed with her A1C 6.4 VIT D 23.3 Gluc 167, ALP 163 TG 211 45 minutes spent with the patient, discussed her obesity and use of Mounjaro, referral provided to Dr Tejada endocrine [email or web address] Not available 06/16/2024 17:49:16 08/27/2024 08/27/2024 09/29/2022: Dr Tejada CMP: Gluc 153, ALP 136 TSH 3.070 Chol 209, TG 266, HDL 54, LDL 102 A1C 7.3 Urine micro alb 92.3 02/14/2023: A1C 7.0 Urine micro alb 26.0 VIT D 17.6 05/02/2023: H/H 10.7/34.0 Dr Tejada A1C 7.0 Gluc 140, ALP 151 VIT D 28.7 11/28/2023: A1C 7.2 Urine micro alb 17.4 TG 205 Gluc 195H, ALP 151 06/16/2024:Ca lled and discussed with her A1C 6.4 VIT D 23.3 Gluc 167, ALP 163 TG 211 45 minutes spent with the patient, discussed her obesity and use of Mounjaro, referral provided to Dr Tejada endocrine MD [email or web address] Not available 08/27/2024 12:19:23 11/26/2024 11/26/2024 09/29/2022: Dr Tejada CMP: Gluc 153, ALP 136 TSH 3.070 Chol 209, TG 266, HDL 54, LDL 102 A1C 7.3 Urine micro alb 92.3 02/14/2023: A1C 7.0 Urine micro alb 26.0 VIT D 17.6 05/02/2023: H/H 10.7/34.0 Dr Tejada A1C 7.0 Gluc 140, ALP 151 VIT D 28.7 11/28/2023: A1C 7.2 Urine micro alb 17.4 TG 205 Gluc 195H, ALP 151 06/16/2024:Ca lled and discussed with her A1C 6.4 VIT D 23.3 Gluc 167, ALP 163 TG 211 11/20/2024: A1C 6.8 Urine micro alb 72.0 Gluc 111, ALP 172 TG 173 45 minutes spent with the patient, discussed her obesity and use of Mounjaro, reviewed her labs and referral provided [email or web address] Not available 11/26/2024 12:44:27 04/01/2025 04/01/2025 09/29/2022: Dr Tejada CMP: Gluc 153, ALP 136 TSH 3.070 Chol 209, TG 266, HDL 54, LDL 102 A1C 7.3 Urine micro alb 92.3 02/14/2023: A1C 7.0 Urine micro alb 26.0 VIT D 17.6 05/02/2023: H/H 10.7/34.0 Dr Tejada A1C 7.0 Gluc 140, ALP 151 VIT D 28.7 11/28/2023: A1C 7.2 Urine micro alb 17.4 TG 205 Gluc 195H, ALP 151 06/16/2024:Ca lled and discussed with her A1C 6.4 VIT D 23.3 Gluc 167, ALP 163 TG 211 11/20/2024: A1C 6.8 Urine micro alb 72.0 Gluc 111, ALP 172 TG 173 Addendum: 04/09/2025: Case sent 04/01/2024: TSH 0.402L, FT4 0.94 TG 245 H/H: 12.3/38.9 [email or web address] Not available 04/09/2025 20:06:57 Plan of Treatment Reminders Order Date Submit Date Provider Last Modified By Organization Details Last Modified Time Details Appointments Any 15 2024 02:15P Meghan valerio MD Not available Not available Not available Lab lipid panel, serum 2024 025 [facility] (Lab), [address] [place], [address], 04/01/2025 19:37:39 CMP, serum or plasma 2024 025 [facility] (Lab), [address] [place], [address], 04/01/2025 12:40:24 CBC w/ auto diff 2024 025 [facility] (Lab), [address] [place], [address], 04/01/2025 19:33:43 TSH + free T4, serum 2024 025 [facility], [address] [place], [address], 04/01/2025 12:41:52 vitamin B12 + folate, serum or blood 2024 025 [facility] (Lab), [address] [place], [address], 04/01/2025 12:42:20 vitamin D, 25-hydrox y, total, serum 2024 025 [facility] (Lab), [address] [place], [address], 04/01/2025 12:42:08 microalbu min, urine 2024 025 [facility] (Lab), [address] [place], [address], 04/01/2025 12:39:58 HbA1c (hemoglob in A1c), blood 2024 025 [facility] (Lab), [address] [place], [address], 04/01/2025 12:40:11 vitamin D, 25-hydrox y, total, serum [address] (Lab), [address] [place], [address], 05/26/2025 14:36:52 microalbu min, urine [address] (Lab), [address] [place], [address], 05/26/2025 14:36:54 HbA1c (hemoglob in A1c), blood [address] (Lab), [address] [place], [address], 05/26/2025 14:36:54 vitamin B12 + folate, serum or blood [address] (Lab), [address] [place], [address], 05/26/2025 14:36:54 lipid panel, serum [address] (Lab), [address] [place], [address], 05/26/2025 14:36:53 CMP, serum or plasma [address] (Lab), [address] [place], [address], 05/26/2025 14:36:53 CBC w/ auto diff [address] (Lab), [address] [place], [address], 05/26/2025 14:36:53 TSH + free T4, serum [address], [address] [place], [address], 05/26/2025 14:36:53 lipid panel, serum 2023 024 [facility] Not available 11/20/2024 14:43:35 CMP, serum or plasma 2023 024 [facility] Not available 11/20/2024 14:43:41 CBC w/ auto diff 2023 024 [facility] Not available 11/20/2024 14:22:56 TSH + free T4, serum 2023 024 [email or web address] Not available 05/19/2025 10:26:58 vitamin B12 + folate, serum or blood 2023 024 [email or web address] Not available 05/19/2025 10:26:58 vitamin D, 25-hydrox y, total, serum 2023 024 Not available 05/19/2025 10:26:58 microalbu min, urine 2023 024 [facility] Not available 11/20/2024 16:09:33 HbA1c (hemoglob in A1c), blood 2023 024 [email or web address] Not available 05/19/2025 10:26:58 lipid panel, serum 2023 024 [facility] Not available 06/16/2024 13:40:09 CMP, serum or plasma 2023 024 [facility] Not available 06/16/2024 13:40:13 CBC w/ auto diff 2023 024 [facility] Not available 06/16/2024 13:02:05 TSH + free T4, serum 2023 024 [email or web address] Not available 12/15/2024 17:36:13 vitamin B12 + folate, serum or blood 2023 024 [email or web address] Not available 12/15/2024 17:36:13 vitamin D, 25-hydrox y, total, serum 2023 024 [email or web address] Not available 12/15/2024 17:36:12 microalbu min, urine 2023 024 [facility] Not available 06/16/2024 16:57:06 HbA1c (hemoglob in A1c), blood 2023 024 [email or web address] Not available 12/15/2024 17:36:13 Referral nephrolog ist referral - Please call patient to schedule an appointme nt. Thank you 2024 025 [email or web address] Jose Palacios MD (Nephrology, [address], [address], [place], [address], 07/01/2025 09:09:27 hematolog ist referral - Please call patient to schedule an appointme nt. Thank you. 2024 025 [email or web address] Vinny Preciado MD, [address], [place], [address], 07/07/2025 08:49:55 cardiolog ist referral - Please call patient to schedule an appointme nt. Thank you. 2024 025 [email or web address] Tonio Bates MD, [address] [facility], [address], [address], 07/01/2025 09:11:44 diabetic ophthalmo logy referral - Please call patient to schedule an appointme nt. Thank you. 2024 025 [email or web address] Otero, [address] [facility], [place], [address], 07/01/2025 09:12:34 podiatris t referral - Please call patient to schedule an appointme nt. Thank you. 2024 025 hrushingGeorgie Gold DPM, [address] [facility], [address], [place], [address], 07/01/2025 09:10:00 nephrolog ist referral - Please call patient to schedule an appointme nt. Thank you 2024 025 richard Palacios MD (Nephrology, [address], [address], [place], [address], 05/25/2025 16:16:40 diabetic ophthalmo logy referral - Please call patient to schedule an appointme nt. Thank you. 2024 025 richard Otero, [address] [facility], [place], [address], 05/25/2025 16:16:37 podiatris t referral - Please call patient to schedule an appointme nt. Thank you. 2024 025 richard Gold DPM, [address], [address], [place], [address], 05/25/2025 16:16:38 hematolog ist referral - Please call patient to schedule an appointme nt. Thank you. 2024 025 richard Preciado MD, [address], [place], [address], 05/25/2025 16:16:39 nephrolog ist referral 2023 024 [email or web address] Jose Palacios MD (Nephrology, [address], [address], [place], [address], 08/27/2024 15:07:30 gastroent erologist referral 2023 024 [email or web address] Marylin Lorenzo MD, [address] [facility] [address], [place], [address], 08/27/2024 15:07:21 hematolog ist referral 2023 024 [email or web address] Vinny Preciado MD, [address], [place], [address], 08/27/2024 15:06:56 diabetic ophthalmo logy referral 2023 024 [email or web address] Adelso Otero, [address], [place], [address], 08/27/2024 15:05:57 podiatris t referral 2023 024 [email or web address] Robert Gold DPM, [address] [facility], [address], [place], [address], 08/27/2024 15:05:58 endocrino logy referral 2023 024 [email or web address] [place], [address], [place], [address], 08/27/2024 15:06:57 nephrolog ist referral 2023 024 [email or web address] Trever Palacios MD (Nephrology, [address], [address], [place], [address], 12/15/2024 09:08:17 gastroent erologist referral 2023 024 Marylin Lorenzo MD, [address] [facility] [address], [place], [address], 03/17/2025 08:15:45 hematolog ist referral 2023 024 [email or web address] 2 Vinny Preciado MD, [address], [place], [address], 12/15/2024 09:08:16 diabetic ophthalmo logy referral 2023 024 [email or web address] 2 Adelso Otero, [address], [place], [address], 12/15/2024 09:08:15 podiatris t referral 2023 024 [email or web address] Robert Gold DPM, [address] [facility], [address], [place], [address], 07/15/2024 16:58:43 endocrino logy referral 2023 024 [email or web address] 2 [place], [address] [address], [place], [address], 01/12/2025 08:11:24 Procedures colonosco py screening (PROC) - Please call patient to schedule an appointme nt. Thank you. 2024 025 [email or web address] Chiki Castellanos MD, [address], [facility] [address], [place], [address], 07/01/2025 09:05:15 colonosco py screening (PROC) - Please call patient to schedule an appointme nt. Thank you. 2024 025 [email or web address] Chiki Castellanos MD, [address], [facility] [address], [place], [address], 02/24/2025 09:30:39 colonosco py screening (PROC) 2023 024 [email or web address] Chiki Castellanos MD, [address], [address], [place], [address], 08/27/2024 15:04:27 colonosco py screening (PROC) 2023 024 [email or web address] Chiki Castellanos MD, [address], [address], [place], [address], 12/15/2024 09:15:09 Surgeries None recorded. Imaging MAMMO, screening , bilateral [address] ([facility]), [address] [place], [address], 04/01/2025 14:02:23 DEXA, axial skeleton - Please call patient to schedule. [address] ([facility]), [address] [place], [address], 05/05/2025 17:10:07 MAMMO, screening , digital, bilateral 2023 024 Not available 08/27/2024 16:58:22 US, liver [address] ([facility]), [address] [place], [address], 08/27/2024 16:58:34 home sleep study - Please call patient to schedule. 2023 024 [email or web address] [facility], [address] [place], [address], 10/14/2024 10:04:12 US, thyroid 2023 024 Not available 08/27/2024 16:58:28 MAMMO, screening , digital, bilateral 2023 024 [facility] Not available 07/31/2024 12:31:48 US, liver [address] ([facility]), [address] [facility], [place], [address], 08/26/2024 08:55:12 US, thyroid 2023 024 [email or web address] Not available 12/16/2024 11:43:49 Medication Orders Mounjaro 10 mg/0.5 mL subcutane ous pen injector 2024 025 [facility], [facility] [place], [address], 11/26/2024 12:25:15 Mounjaro 10 mg/0.5 mL subcutane ous pen injector [address] [facility], [facility] [place], [address], 08/27/2024 12:45:56 ciproflox acin 500 mg tablet [email or web address] [facility] [address] [facility], [address] [place] [address], [address], 08/27/2024 12:00:14 cholecalc iferol (vitamin D3) 1,250 mcg (50,000 unit) capsule 2023 024 [facility], [facility] [place], [address], 06/16/2024 17:48:51 Mounjaro 10 mg/0.5 mL subcutane ous pen injector [address] [facility], [address] [place] [address], [address], 06/16/2024 17:42:39 Patient TargetsNo targets recorded. Patient InstructionsNo instructions recorded. 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 Referring Physician: Ashley Sorto, Encounter Date: 06/16/2024 Student Services Counselor Referral for Pr oteinuria Referring Physician: Ashley Sorto, Encounter Date: 06/16/2024 Diabetic Ophthalmology Refer ral for Type 2 diabetes mellitus without complication Referring Physician: Ashley Sorto, Encounter Date: 08/27/2024 Weight Engineer Referral for Type 2 diabetes mellitus without complication Referring Physician: Ashley Sorto, Encounter Date: 08/27/2024 Referring Physician: Ashley Sorto, Encounter Date: 08/27/2024 Endocrinology Referral for T ype 2 diabetes mellitus without complication Referring Physician: Ashley Sorto, Encounter Date: 08/27/2024 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 Thank you. Referring Physician: Ashley Sorto, Encounter Date: 11/26/2024 Weight Engineer Referral for Type 2 diabetes mellitus without complication Please call patient to schedule an appointment. Thank you. Referring Physician: Geno Kiran Internal Medicine, Encounter Date: 11/26/2024 Please call patient to sched ule an appointment. Thank you. Referring Physician: Geno Kiran Internal Medicine, Encounter Date: 11/26/2024 Student Services Counselor Referral for Pr oteinuria Please call patient to schedule an appointment. Thank you Referring Physician: Geno Kiran Internal Medicine, Encounter Date: 11/26/2024 Diabetic Ophthalmology Refer ral for Type 2 diabetes mellitus without complication Please call patient to schedule an appointment. Thank you. Referring Physician: Geno Kiran Internal Medicine, Encounter Date: 04/01/2025 Weight Engineer Referral for Type 2 diabetes mellitus without complication Please call patient to schedule an appointment. Thank you. Referring Physician: Geno Kiran Internal Medicine, Encounter Date: 04/01/2025 Please call patient to sched ule an appointment. Thank you. Referring Physician: Geno Kiran Internal Medicine, Encounter Date: 04/01/2025 Student Services Counselor Referral for Pr oteinuria Please call patient to schedule an appointment. Thank you Referring Physician: Geno Kiran Internal Medicine, Encounter Date: 04/01/2025 Brick Mason Referral for Wy reening for cardiovascular system disease Please call patient to schedule an appointment. Thank you. Referring Physician: Geno Kiran Internal Medicine, Encounter Date: 04/01/2025 Results Created Date Observation Date Name Description Value Unit Range Abnormal Flag Note LastModifiedBy Organization Detail LastModifiedTime 06/16/20 24 06/16/2024 URINA LYSIS COMPL ETE/I RIS W/RFX color YELLOW Not Available [facility] (Lab) [address] [place], [address], 06/16/2024 12:58:47 06/16/20 24 06/16/2024 URINA LYSIS COMPL ETE/I RIS W/RFX appear TURBID abnormal Not Available [facility] (Lab) [address] [place], [address], 06/16/2024 12:58:47 06/16/20 24 06/16/2024 URINA LYSIS COMPL ETE/I RIS W/RFX specific gravity 1.022 1.001- 1.030 Not Available [facility] (Lab) [address] [place], [address], 06/16/2024 12:58:47 06/16/20 24 06/16/2024 URINA LYSIS COMPL ETE/I RIS W/RFX pH 6.0 pH_un its 5.0-9. 0 Not Available [facility] (Lab) [address] [place], [address], 06/16/2024 12:58:47 06/16/20 24 06/16/2024 URINA LYSIS COMPL ETE/I RIS W/RFX leukocytes NEGATI VE suyapa/u L negati ve- Not Available [facility] (Lab) [address] [place], [address], 06/16/2024 12:58:47 06/16/20 24 06/16/2024 URINA LYSIS COMPL ETE/I RIS W/RFX nitrite NEGATI VE negati ve- Not Available [facility] (Lab) [address] [place], [address], 06/16/2024 12:58:47 06/16/20 24 06/16/2024 URINA LYSIS COMPL ETE/I RIS W/RFX protein 10 mg/dL negati ve- abnormal Not Available [facility] (Lab) [address] [place], [address], 06/16/2024 12:58:47 06/16/20 24 06/16/2024 URINA LYSIS COMPL ETE/I RIS W/RFX glucose NORMAL mg/dL normal - Not Available [facility] (Lab) [address] [place], [address], 06/16/2024 12:58:47 06/16/20 24 06/16/2024 URINA LYSIS COMPL ETE/I RIS W/RFX ketones NEGATI VE mg/dL negati ve- Not Available [facility] (Lab) [address] [place], [address], 06/16/2024 12:58:47 06/16/20 24 06/16/2024 URINA LYSIS COMPL ETE/I RIS W/RFX urobilinogen NORMAL mg/dL normal - Not Available [facility] (Lab) [address] [place], [address], 06/16/2024 12:58:47 06/16/20 24 06/16/2024 URINA LYSIS COMPL ETE/I RIS W/RFX bilirubin NEGATI VE mg/dL negati ve- Not Available [facility] (Lab) [address] [place], [address], 06/16/2024 12:58:47 06/16/20 24 06/16/2024 URINA LYSIS COMPL ETE/I RIS W/RFX blood NEGATI VE mg/dL negati ve- Not Available [facility] (Lab) [address] [place], [address], 06/16/2024 12:58:47 06/16/20 24 06/16/2024 URINA LYSIS COMPL ETE/I RIS W/RFX white blood cells 0-8 /i??h pfi?? 0-8 Not Available [facility] (Lab) [address] [place], [address], 06/16/2024 12:58:47 06/16/20 24 06/16/2024 URINA LYSIS COMPL ETE/I RIS W/RFX red blood cells 0-4 /i??h pfi?? 0-4 Not Available [facility] (Lab) [address] [place], [address], 06/16/2024 12:58:47 06/16/20 24 06/16/2024 URINA LYSIS COMPL ETE/I RIS W/RFX bacteria OCCASI ONAL abnormal Not Available [facility] (Lab) [address] [place], [address], 06/16/2024 12:58:47 06/16/20 24 06/16/2024 URINA LYSIS COMPL ETE/I RIS W/RFX mucous OCCASI ONAL /i??l pfi?? abnormal Not Available [facility] (Lab) [address] [place], [address], 06/16/2024 12:58:47 06/16/20 24 06/16/2024 URINA LYSIS COMPL ETE/I RIS W/RFX squamous epithelial PACKED FIELD /i??l pfi?? abnormal Not Available [facility] (Lab) [address] [place], [address], 06/16/2024 12:58:47 06/16/20 24 06/16/2024 CBC/C OMPLE TE BLD COUNT W/DIF F white blood cells 8.7 x10'3 /uL 4.2-10 .8 Not Available [facility] (Lab) [address] [place], [address], 06/16/2024 13:02:05 06/16/20 24 06/16/2024 CBC/C OMPLE TE BLD COUNT W/DIF F red blood cells 4.72 x10'6 /uL 3.80-5 .20 Not Available [facility] (Lab) [address] [place], [address], 06/16/2024 13:02:05 06/16/20 24 06/16/2024 CBC/C OMPLE TE BLD COUNT W/DIF F hemoglobin 12.0 g/dL 12.0-[address] [facility] (Lab) [address] [place], [address], 06/16/2024 13:02:05 06/16/20 24 06/16/2024 CBC/C OMPLE TE BLD COUNT W/DIF F hematocrit 38.6 % 35.7-[address] [facility] (Lab) [address] [place], [address], 06/16/2024 13:02:05 06/16/20 24 06/16/2024 CBC/C OMPLE TE BLD COUNT W/DIF F mean red cell volume 81.8 fL 82.0-9 9.0 low Not Available [facility] (Lab) [address] [place], [address], 06/16/2024 13:02:05 06/16/20 24 06/16/2024 CBC/C OMPLE TE BLD COUNT W/DIF F mean red cell hemoglobin 25.4 pg 27.0-3 3.0 low Not Available [facility] (Lab) [address] [place], [address], 06/16/2024 13:02:05 06/16/20 24 06/16/2024 CBC/C OMPLE TE BLD COUNT W/DIF F mean RBC HGB concentratio n 31.1 g/dL 31.0-3 6.0 Not Available [facility] (Lab) [address] [place], [address], 06/16/2024 13:02:05 06/16/20 24 06/16/2024 CBC/C OMPLE TE BLD COUNT W/DIF F red cell distribution width 13.6 % 11.8-1 5.5 Not Available [facility] (Lab) [address] [place], [address], 06/16/2024 13:02:05 06/16/20 24 06/16/2024 CBC/C OMPLE TE BLD COUNT W/DIF F platelets 210 x10'3 /uL 150-[address] [facility] (Lab) [address] [place], [address], 06/16/2024 13:02:05 06/16/20 24 06/16/2024 CBC/C OMPLE TE BLD COUNT W/DIF F mean platelet volume 12.5 fL 9.0-12 .4 high Not Available [facility] (Lab) [address] [place], [address], 06/16/2024 13:02:05 06/16/20 24 06/16/2024 CBC/C OMPLE TE BLD COUNT W/DIF F neutrophils 61.3 % 39.0-[address] [facility] (Lab) [address] [place], [address], 06/16/2024 13:02:05 06/16/20 24 06/16/2024 CBC/C OMPLE TE BLD COUNT W/DIF F lymphocytes 29.5 % 16.0-4 7.0 Not Available [facility] (Lab) [address] [place], [address], 06/16/2024 13:02:05 06/16/20 24 06/16/2024 CBC/C OMPLE TE BLD COUNT W/DIF F monocytes 5.4 % 5.0-12 .0 Not Available [facility] (Lab) [address] [place], [address], 06/16/2024 13:02:05 06/16/20 24 06/16/2024 CBC/C OMPLE TE BLD COUNT W/DIF F eosinophils 2.5 % 1.0-7. 0 Not Available [facility] (Lab) [address] [place], [address], 06/16/2024 13:02:05 06/16/20 24 06/16/2024 CBC/C OMPLE TE BLD COUNT W/DIF F basophils 1.0 % 0.0-2. 0 Not Available [facility] (Lab) [address] [place], [address], 06/16/2024 13:02:05 06/16/20 24 06/16/2024 CBC/C OMPLE TE BLD COUNT W/DIF F immature granulocytes 0.3 % 0.00-0 .50 Not Available [facility] (Lab) [address] [place], [address], 06/16/2024 13:02:05 06/16/20 24 06/16/2024 CBC/C OMPLE TE BLD COUNT W/DIF F neutrophils, absolute count 5.29 x10'3 /uL 1.5-8. 0 Not Available [facility] (Lab) [address] [place], [address], 06/16/2024 13:02:05 06/16/20 24 06/16/2024 CBC/C OMPLE TE BLD COUNT W/DIF F lymphocytes, absolute count 2.55 x10'3 /uL 1.07-3 .43 Not Available [facility] (Lab) [address] [place], [address], 06/16/2024 13:02:05 06/16/20 24 06/16/2024 CBC/C OMPLE TE BLD COUNT W/DIF F monocytes, absolute count 0.47 x10'3 /uL 0.29-0 .99 Not Available [facility] (Lab) [address] [place], [address], 06/16/2024 13:02:05 06/16/20 24 06/16/2024 CBC/C OMPLE TE BLD COUNT W/DIF F eosinophils, absolute count 0.22 x10'3 /uL 0.02-0 .53 Not Available [facility] (Lab) [address] [place], [address], 06/16/2024 13:02:05 06/16/20 24 06/16/2024 CBC/C OMPLE TE BLD COUNT W/DIF F basophils, absolute count 0.09 x10'3 /uL 0.01-0 .08 high Not Available [facility] (Lab) [address] [place], [address], 06/16/2024 13:02:05 06/16/20 24 06/16/2024 CBC/C OMPLE TE BLD COUNT W/DIF F immature granulocytes ,absolute 0.03 x10'3 /uL 0.00-0 .05 Not Available [facility] (Lab) [address] [place], [address], 06/16/2024 13:02:05 06/16/20 24 06/16/2024 CBC/C OMPLE TE BLD COUNT W/DIF F nucleated red blood cells 0.0 % -0 Not Available [facility] (Lab) [address] [place], [address], 06/16/2024 13:02:05 06/16/20 24 06/16/2024 CBC/C OMPLE TE BLD COUNT W/DIF F NRBC# 0.00 x10'3 /uL Not Available [facility] (Lab) [address] [place], [address], 06/16/2024 13:02:05 06/16/20 24 06/16/2024 LIPID PANEL cholesterol 129 mg/dL 140-19 9 low NIH JHONY NSUS RECOM MENDA TION FOR BOBBY STERO L: ADULT CHILD LOW RISK: <200 <170 BORDE RLINE : <200- 239 ----- HIGH RISK: >240 >200 Not Available [facility] (Lab) [address] [place], [address], 06/16/2024 13:40:06/16/2006/16/2024 LIPID PANEL triglyceride s 211 mg/dL 0-150 high NIH JHONY NSUS REPOR T RECOM MENDA TION FOR TRIGL YCERI MICHAEL: ADULT CHILD LOW RISK: <150 ----- BODER LINE: 150-1 99 ----- HIGH RISK: >200 ----- Not Available [facility] (Lab) [address] [place], [address], 06/16/2024 13:40:09 06/16/2006/16/2024 LIPID PANEL HDL cholesterol 47 mg/dL 40- Not Available [facility] (Lab) [address] [place], [address], 06/16/2024 13:40:09 06/16/2006/16/2024 LIPID PANEL LDL cholesterol, calculated 40 mg/dL 0-130 NIH JHONY NSUS REPOR T RECOM MENDA TIONS FOR LDL: ADULT CHILD LOW RISK <130 <110 (OPTI MAL LDL) <100 ----- JUAN DIEGO RLINE : 130-1 59 ----- HIGH RISK: >160 >130 A TRIGL YCERI DE RESUL T >400 INVAL IDATE S THE CALCU LATIO N FOR LDL FRACT IONAT ION - THE LDL RESUL T WILL NOT BE REPOR AMY. Not Available [facility] (Lab) [address] [place], [address], 06/16/2024 13:40:09 06/16/2006/16/2024 COMPR EHENS VIKA METAB OLIC PANEL sodium 136 mmol/ L 137-[address] [facility] (Lab) [address] [place], [address], 06/16/2024 13:40:13 06/16/2006/16/2024 COMPR EHENS VIKA METAB OLIC PANEL potassium 4.3 mmol/ L 3.5-5. 1 Not Available [facility] (Lab) [address] [place], [address], 06/16/2024 13:40:13 06/16/20 24 06/16/2024 COMPR EHENS VIKA METAB OLIC PANEL chloride 102 mmol/ L 98-[address] [facility] (Lab) [address] [place], [address], 06/16/2024 13:40:13 06/16/20 24 06/16/2024 COMPR EHENS VIKA METAB OLIC PANEL carbon dioxide 28 mmol/ L 22-30 Not Available [facility] (Lab) [address] [place], [address], 06/16/2024 13:40:13 06/16/20 24 06/16/2024 COMPR EHENS VIKA METAB OLIC PANEL anion gap 10.3 mmol/ L 14-22 low Not Available [facility] (Lab) [address] [place], [address], 06/16/2024 13:40:13 06/16/20 24 06/16/2024 COMPR EHENS VIKA METAB OLIC PANEL glucose 167 mg/dL 70-99 high Not Available [facility] (Lab) [address] [place], [address], 06/16/2024 13:40:13 06/16/20 24 06/16/2024 COMPR EHENS VIKA METAB OLIC PANEL BUN 12 mg/dL 8-19 Not Available [facility] (Lab) [address] [place], [address], 06/16/2024 13:40:13 06/16/20 24 06/16/2024 COMPR EHENS VIKA METAB OLIC PANEL creatinine 0.78 mg/dL 0.66-1 .25 Not Available [facility] (Lab) [address] [place], [address], 06/16/2024 13:40:13 06/16/20 24 06/16/2024 COMPR EHENS VIKA METAB OLIC PANEL GFR >60 Refer ence Range : Mission ge GFR Healt hy Adult : >60 mL/mi n/1.7 3 m2 Chron ic Kidne y Disea se: 15-60 mL/mi n/1.7 3 m2 Kidne y Failu re: <15/m L/min /1.73 m2 www.n iddk. nih.g ov The MDRD study equat ion has not been valid ated in child cortes <18 years of age; pregn ant women ; the elder ly >85 years of age; or in some racia l or ethni c subgr oups, such as Hispa nics. Outsi de the valid ated christy eters , estim ated GFR is less accur ate, requi ring clini primo judgm ent on a case- by-ca se basis . Clini primo inter preta tion for other races and ages must be made by the clini ashley. The MDRD study equat ion has not been valid ated for the evalu ation of serum creat inine relat ed to nutri karis l statu s or medic ation usage . For perso ns <18 years of age, a pedia tric GFR calcu lator is avail able on the [facility] websi te: https ://edita w.kid jen.o rg/pr ofess ional s/kdo qi/gf r_cal culat or Not Available [facility] (Lab) [address] [place], [address], 06/16/2024 13:40:13 06/16/20 24 06/16/2024 COMPR EHENS VIKA METAB OLIC PANEL alkaline phosphatase 163 U/L 38-126 high Not Available [facility] (Lab) [address] [place], [address], 06/16/2024 13:40:13 06/16/20 24 06/16/2024 COMPR EHENS VIKA METAB OLIC PANEL alanine aminotransfe rase 15 U/L 0-35 Not Available [facility] (Lab) [address] [place], [address], 06/16/2024 13:40:13 06/16/20 24 06/16/2024 COMPR EHENS VIKA METAB OLIC PANEL aspartate aminotransfe rase 22 U/L 15-37 Not Available [facility] (Lab) [address] [place], [address], 06/16/2024 13:40:13 06/16/20 24 06/16/2024 COMPR EHENS VIKA METAB OLIC PANEL bilirubin, total 0.40 mg/dL 0.20-1 .30 Not Available [facility] (Lab) [address] [place], [address], 06/16/2024 13:40:13 06/16/20 24 06/16/2024 COMPR EHENS VIKA METAB OLIC PANEL calcium 9.0 mg/dL 8.4-10 .2 Not Available [facility] (Lab) [address] [place], [address], 06/16/2024 13:40:13 06/16/20 24 06/16/2024 COMPR EHENS VIKA METAB OLIC PANEL total protein 7.0 g/dL 6.3-8. 2 Not Available [facility] (Lab) [address] [place], [address], 06/16/2024 13:40:13 06/16/20 24 06/16/2024 COMPR EHENS VIKA METAB OLIC PANEL albumin 4.0 g/dL 3.4-5. 0 Not Available [facility] (Lab) [address] [place], [address], 06/16/2024 13:40:13 06/16/20 24 06/16/2024 COMPR EHENS VIKA METAB OLIC PANEL globulin 3.0 g/dL 2.6-4. 2 Not Available [facility] (Lab) [address] [place], [address], 06/16/2024 13:40:13 06/16/20 24 06/16/2024 COMPR EHENS VIKA METAB OLIC PANEL A/G ratio 1.3 ratio 1.0-2. 0 Not Available [facility] (Lab) [address] [place], [address], 06/16/2024 13:40:13 06/16/20 24 06/16/2024 T4 FREE free T4 0.81 NG/dL 0.78-2 .19 Not Available [facility] (Lab) [address] [place], [address], 06/16/2024 13:40:38 06/16/20 24 06/16/2024 TSH thyroid-stim ulating hormone 1.010 uIU/m L 0.465- 4.680 Not Available [facility] (Lab) [address] [place], [address], 06/16/2024 13:40:45 06/16/20 24 06/16/2024 VITAM IN D 25-HY DROXY vd25oh 23.3 NG/mL 30-100 low Vitam in D Statu s: Defic ient: <20 ng/mL Insuf ficie nt: 20-29 ng/mL Suffi cient : 30-10 0 ng/mL Not Available [facility] (Lab) [address] [place], [address], 06/16/2024 14:53:26 06/16/20 24 06/16/2024 HEMOG LOBIN A1C HA1C 6.4 % 4.0-6. 0 high Diabe taty Scree deja Crite dion: <5.7% Consi stent with absen ce of diabe taty 5.7-6 .4% Consi stent with incre ased risk for diabe taty (pred iabet es) >OR=6 .5% Consi stent with diabe taty REFER ENCE: Diabe taty Care 2016, 39(Catalan ppl.1 ):s13 -s22 Not Available [facility] (Lab) [address] [place], [address], 06/16/2024 15:47:25 06/16/20 24 06/16/2024 MICRO ALBUM IN RANDO M URINE microalbumin , urine 13.8 mg/L 0.0-16 .6 Not Available [facility] (Lab) [address] [place], [address], 06/16/2024 16:57:06 07/31/20 24 07/31/2024 scree deja breas t carlos, bilat [facility] [address] [facility] [place] [address] Patien t Name: NATHALY CORTEZ Access ion #: [id number] Sex: F : 1965 3 Dictat ed By: Lexus Card Attend ing Physic rosangela: DARRON VASQUEZ Orderi ng Physic rosangela: DARRON VASQUEZ Exam Date: 2023 10:58 AM Exam Name: MG SCRN BREAST CARLOS BILAT Admitt ing Diagno sis(es ): PROCED URE: SCREEN ING MAMMOG DEAN WITH TOMOSY NTHESI S REASON FOR EXAM: screen ing mammog dean COMPAR ЮЛИЯ: MG SCRN BREAST CARLOS BILAT on DOS: , MG SCRN BREAST CARLOS BILAT 3D on DOS: , MG DIAG BREAST CARLOS RT 3D on DOS: 03/25/21 , SCREEN ING BREAST CARLOS, BILAT 3D on DOS: 0, SCREEN ING BREAST CARLOS, BILAT 3D on DOS: 02/21/19 TECHNI QUE: Bilate ral CC and MLO views obtain ed. Images were obtain ed using a Digita l Tomosy nthesi s Unit. Standa rd 2D and 3D Tomosy nthesi s images were review ed. This examin ation was analyz ed using Lunit Insigh t DBT/MM G, an AI softwa re develo ped to enhanc e the effect ivenes s of breast cancer screen ing with mammog antonia. FINDIN GS: BREAST COMPOS ITION: C - The breast s are hetero geneou sly dense, which may obscur e small masses . In the right breast , no asymme trical parenc hymal patter n, galen ectura l distor tion, pleomo rphic microc alcifi cation s or masses . In the left breast , no asymme trical parenc hymal patter n, galen ectura l distor tion, pleomo rphic microc alcifi cation s or masses . IMPRES TONY: No findin gs of malign jonathan. Page 1 [facility] [address] [place] [address] Patien t Name: NATHALY CORTEZ Access ion #: [id number] Sex: F : 1965 3 Dictat ed By: Lexus Card Attend ing Physic rosangela: HOWARD DUNAWAY Physic rosangela: DARRON VASQUEZ Exam Date: 2023 10:58 AM Exam Name: MG VILLALPANDO BREAST CARLOS BILAT Admitt ing Diagno sis(es ): RECOMM ENDATI ON: Recomm end annual mammog dean. ASSESS MENT: BIRADS : 1 - Negati ve Electr onical ly Signed by: Lexus Card at 2023 11:28: 28 AM Page 2 INTERFACE [facility] (Imaging) [address] [place], [address], 07/31/2024 12:29:29 07/31/20 24 07/31/2024 MAMMO , scree deja, digit al, bilat eral No observ ation record ed. [facility] [address] [place], [address], 07/31/2024 12:31:48 07/31/20 24 07/31/2024 US, head + neck, soft tissu e [facility] [address] [place] [address] Patien t Name: NATHALY CORTEZ Access ion #: [id number] Sex: F : 1965 3 Dictat ed By: Lexus Card Attend ing Physic rosangela: DARRON VASQUEZ ng Physic rosangela: DARRON VASQUEZ Exam Date: 2023 11:46 AM Exam Name: US NECK HEAD SOFT TISSUE Admitt ing Diagno sis(es ): ULTRAS OUND SOFT TISSUE [facility] INDICA TION: Hypoth yroidi sm TECHNI QUE: Multip le real time sonogr aphic images of the thyroi d were obtain ed. COMPAR ЮЛИЯ: Prior exam dated none FINDIN GS: The right thyroi d gland measur es 4.6 x 1.4 x 1.2 cm. The left thyroi d gland measur es approx imatel y 4.7 x 1.3 x 1.4 cm. The isthmu s measur es 0.3 cm. No suspic ious thyroi d nodule s. IMPRES TONY: Mildly hetero geneou s thyroi d with no suspic ious thyroi d nodule s. [employer] TI-RAD S Catego mike and Recomm endati ons (2017) : TR1: 0 points , Benign , No FNA TR2: 2 points , Not suspic ious, No FNA TR3: 3 points , Mildly suspic ious, FNA if > or = 2.5 cm, Follow if > or = 1.5 cm Page 1 [facility] [address] [address] [phone] Patien t Name: NATHALY CORTEZ [facility] ion #: [id number] Sex: F : 1965 3 Dictat ed By: Lexus Card Attend ing Physic rosangela: HOWARD DUNAWAY ng Physic rosangela: MANDIDARRON ROJAS Exam Date: 2023 11:46 AM Exam Name: US NECK HEAD SOFT TISSUE Admitt ing Diagno sis(es ): TR4: 4-6 points , Modera tely Suspic ious, FNA if > or = 1.5 cm, Follow if > or = 1.0 cm TR5: 7+ points , Highly Suspic ious, FNA if > or = 1.0 cm, Follow if > or = 0.5 cm Follow -up ultras ound guidel fede: TR5: yearly for 5 years, if no growth or change in TI-RAD S level TR4: at 1, 2, 3 and 5 years, if no growth or change in TI-RAD S level TR3: at 1, 3 and 5 years, if no growth or change in TI-RAD S level If increa sed but below thresh old for FNA, repeat in one year. Source : ACR Thyroi d Ciroin g, Report ing and Data System (TI-RA DS): White Paper of the ACR TI-RAD S Commit aldo. Tatyler et al., J Am Yamilka Radiol 2017;1 4:587- 595. Electr onical ly Signed by: Lexus Card at 2023 15:09: 16 PM Page 2 [facility] (Imaging) [address] [place], [address], 07/31/2024 16:10:16 07/31/20 24 07/31/2024 US, thyro id No observ ation record ed. [facility] [address] [place], [address], 07/31/2024 16:14:35 Result Notes None recorded. Problems Name Problem SNOMED Code Status Onset Date Resolution Date Notes Provider Name and Address Organization Details Recorded Time Backache 813004700 Completed Not Available [facility] 3 04:53:28 Clostridi oides difficile infection 384589986 Completed Not Available [facility] 3 04:53:28 Abdominal pain 02544773 Completed Geno chan MD [address] [facility], [facility] [address], [place], [address] , [place] - [place] [employer] 3 12:34:54 Multiple sclerosis 47898709 Active Not Available [facility] 4 02:29:16 Menopausa l and postmenop ausal disorders 918261108 Active Not Available [facility] 4 02:29:16 Low back pain 521485877 Active Not Available [facility] 4 02:29:16 Otitis externa 0658954 Completed Not Available [facility] 3 04:53:29 Diabetes mellitus 79463479 Active Not Available [facility] 4 02:29:16 Spinal stenosis 84653456 Active Not Available [facility] 4 02:29:16 Hyperchol esterolem ia 46630721 Active 2016 Not Available [facility] 4 02:29:16 Anemia 097110242 Active 2016 Not Available [facility] 4 02:29:16 Arthritis 6296533 Active 2016 Not Available [facility] 4 02:29:16 History of back pain 91665966287 4102 Active 2016 Not Available [facility] 4 02:29:16 Neck pain 17662641 Active 2016 Not Available [facility] 4 02:29:16 Kidney disease 69525429 Active 2016 Not Available [facility] 4 02:29:17 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 59831656825 07 Active 2018 Not Available [facility] 4 02:29:16 Foot ulcer due to type 2 diabetes mellitus 20117108093 00 Active 2020 Not Available [facility] 4 02:29:16 History of diabetic foot ulcer 21473549346 257435 Active 2020 Not Available [facility] 4 02:29:16 Dry skin 70488934 Active 2020 Not Available [facility] 4 02:29:16 Vitamin D deficienc y 12366110 Active 2021 CLOVIS Robledo, [facility] 5 10:20:51 Hyperlipi demia 69459415 Active 2021 CLOVIS Robledo, [facility] 5 10:20:20 Hyperglyc emia 95330602 Active 2021 Not Available [facility] 4 02:29:16 Thyroid nodule 257128376 Active 2021 Not Available [employer] 4 02:29:16 Well controlle d type 2 diabetes mellitus 110034662 Active 2022 Not Available [employer] 4 02:29:16 Hypothyro idism 52495300 Active 2022 CLOVIS Robledo null, [place] - [facility] 5 10:20:44 Thoracic back pain 576132270 Active 2022 Not Available [employer] 4 02:29:16 Type 2 diabetes mellitus without complicat ion 657716009 Active 2022 CLOVIS Robledo null, [place] - [facility] 5 10:20:36 Dyspnea on exertion 47021232 Active 2022 Not Available [facility] 4 02:29:16 Obstructi ve sleep apnea syndrome 75901948 Active 2022 Not Available [facility] 4 02:29:16 Essential hypertens ion 62143005 Active 2022 CLOVIS Robledo null, [facility] 5 10:20:13 Chronic recurrent major depressiv e disorder 1759618 Active 2022 Not Available [facility] 4 02:29:16 Sleep apnea 93893399 Active 2022 Not Available [facility] 4 02:29:16 Fracture of tibia 20462524 Active 2022 Not Available [employer] 4 02:29:16 Steatotic liver disease 687651441 Active 2022 Not Available [employer] 4 02:29:16 Carpal tunnel syndrome 82019189 Active 2022 Not Available [employer] 4 02:29:16 Abdominal pain 49172104 Active 2022 Not Available [employer] 4 02:29:16 Skin ulcer of toe due to diabetes mellitus type 2 81297340558 365980 Active 2022 Not Available [employer] 4 02:29:16 Foot callus 581199118 Active 2022 Not Available [facility] 4 02:29:16 Dyslipide carmita 588331587 Active 2022 Not Available [facility] 4 02:29:16 Skin lesion 22699017 Active 2022 Not Available [facility] 4 02:29:17 Ulcer of right foot due to type 2 diabetes mellitus 22089453325 718041 Active 2023 Not Available [facility] 4 02:29:16 Ulcer of left foot due to type 2 diabetes mellitus 42549103561 559734 Active 2023 Not Available [facility] 4 02:29:16 Dystrophi a unguium 02995374 Active 2023 Not Available [facility] 4 02:29:17 History of amputatio n of lesser toe 506272940 Active 2023 Not Available [facility] 4 02:29:16 Fever 323129887 Active 2023 Padma Nam MA null, [place] [facility] 4 15:56:21 Proteinur ia 59736466 Active 2023 Geno chan MD [address] [facility], [place], [address] , [facility] 4 12:52:37 Acute urinary tract infection 204898703 Active 2023 Geno chan MD [address] [address], [place], [address] , [facility] 4 17:44:15 Candidias is of vagina 80183552 Active 2023 Sami Perkins CMA null, [place] [facility] 4 14:11:43 Jaw pain 265289284 Active 2024 CLOVIS Robledo null, [place] [facility] 16:44:23 Recurrent major depressio n 34405646 Active 2024 Anita Dixon, RMA null, [facility] [employer] 12:51:35 Problem Notes None recorded. Procedures Surgical History Date Name Laterality Status Provider Name and Address Organization Details Recorded Time 01/24/20 25 Date of Last Colonoscopy completed Brigitte Castellanos MA [facility] [employer] 04/01/2025 11:13:12 01/14/20 24 Wound Care-Podiatry completed Robert Gold DPM [address], [address], [place], [address], [facility] [employer] 01/14/2024 14:17:44 10/15/19 24 Nail Debridement completed Robert Gold DPM [address], [address], [place], [address], [employer] 10/15/2023 15:46:53 10/03/19 24 Nail Debridement completed Robert Gold DPM [address], [address], [place], [address], [employer] 10/03/2023 14:22:33 10/03/19 24 Wound Care-Podiatry completed Robert Gold DPM [address], [address], [place], [address], [employer] 10/03/2023 14:09:02 09/26/19 24 Wound Care-Podiatry completed Robert Gold DPM [address], [address], [place], [address], [employer] 10/03/2023 14:19:20 04/09/20 23 Wound Care-Podiatry completed Robert Gold DPM [address], [address], [place], [address], [facility] [employer] 04/09/2023 15:02:36 05/16/20 21 Unlisted px femur/knee completed Not Available [facility] 11/15/2022 04:44:20 12/09/19 21 Most Recent Bone Density completed Not Available [facility] 11/15/2022 04:44:18 10/26/19 12 Back Surgery completed Not Available [facility] 023 04:44:20 Tonsillectomy completed Not Available [facility] 11/15/2022 04:44:20 partial hysterectomy completed JAVON Bond - [facility] [employer] 04/01/2025 11:12:07 Imaging Results None recorded. Procedure Notes None recorded. Medical Equipment None Reported. Allergies Allergen ID Allergen Name Allergen Category Reaction Reaction Severity Criticality Documentation Date Start Date Code Code System Note Provider Name and Address Organization Details Recorded Time 8224 morphine medicatio n irregular heart rate severe Not available 11/15/2022 7052 RxNorm Not Available [facility] 3 05:04:20 8226 latex environme nt,medica tion hives Not available Not available 11/15/2022 64752 91 RxNorm swell ing Not Available [facility] 3 05:04:20 Medications Name Sig Start Date Stop Date Status Note LastModified by Organization Details LastModified Time comfort ez insulin syringe 31g x 5/ comfort ez insulin syringe 31g x 5/ 16 1 ml misc 02/12 completed Not Available Not Available Not Available relion insulin syringe 31g x 5/16 relion insulin syringe 31g x 5/16 0.5 ml misc active Not Available Not Available Not Available binaxnow cov kit home taty 02/19 completed Not Available Not Available Not Available amoxicill in 500 mg capsule Take 1 capsule three times daily for 7 days active Not Available Not Available No t Available metformin 500 mg tablet 11/21 completed Not Available Not Available Not Available prednison e 10 mg tablet TAKE 3 TABLETS BY MOUTH ONCE DAILY FOR 5 DAYS 04/01 completed Not Available Not Available Not Available clindamyc in HCl 300 mg capsule 06/05 completed Prescrib ed by ER doctor Not Available Not Available Not Available pravastat in 40 mg tablet Take 1 tablet every day by oral route. active Not Available Not Available No t Available ibuprofen 800 mg tablet 05/07 completed Not Available Not Available Not Available fluconazo le 150 mg tablet TAKE 1 TABLET BY MOUTH ONCE DAILY FOR 2 DAYS 04/01 completed Not Available Not Available Not Available hydrocodo ne 5 mg-acetam inophen 325 mg tablet TAKE 1 TABLET EVERY 8 HOURS NEEDED FOR MODERATE TO SEVERE PAIN 02/19 completed Not Available Not Available Not Available Claritin 10 mg tablet Take 1 tablet every day by oral route as needed for 30 days. 03/22 completed Not Available Not Available Not Available Medrol (Jacoby) 4 mg tablets in a dose pack Take 1 dose pk by oral route. 03/22 completed Not Available Not Available Not Available Synthroid 100 mcg tablet Take 1 tablet every day by oral route in the morning for 30 days. 05/07 completed Not Available Not Available Not Available clonazepa m 0.5 mg tablet TAKE 1 TABLET BY MOUTH ONCE DAILY AT NIGHT AT BEDTIME NEEDED FOR ANXIETY active Not Available Not Available No t Available sertralin e 100 mg tablet TAKE ONE TABLET BY MOUTH EVERY DAY 02/19 completed Not Available Not Available Not Available clindamyc in HCl 150 mg capsule 06/10 completed Not Available Not Available Not Available penicilli n V potassium 500 mg tablet 04/04 completed Not Available Not Available Not Available metronida zole 500 mg tablet 03/14 completed Not Available Not Available Not Available ciproflox acin 500 mg tablet TAKE 1 TABLET BY MOUTH EVERY 12 HOURS 08/27 completed Not Available Not Available Not Available Tamiflu 75 mg capsule Take 1 capsule twice a day by oral route for 5 days. active Not Available Not Available No t Available aspirin 81 mg tablet,de layed release Take 1 tablet every day by oral route. 2021 active Not Available Not Available Not Avai lable tramadol 50 mg tablet prn 06/06 completed Not Available Not Available Not Available amantadin e HCl 100 mg capsule Take 1 capsule twice a day by oral route. 03/[address] Corado , not sure she wants to take it. Not Available Not Available Not Available ketorolac 30 mg/mL (1 mL) injection solution Inject 1 mL every 6 hours by intramus cular route. active Not Available Not Available No t Available glimepiri de 2 mg tablet TAKE TWO TABLETS TWICE DAILY BEFORE MEALS 04/23 completed Not Available Not Available Not Available levothyro xine 25 mcg tablet Take 1 tablet every day by oral route for 90 days. 12/09 completed Not Available Not Available Not Available glimepiri de 1 mg tablet active Not Available Not Available Not Available levothyro xine 75 mcg tablet TAKE 1 TABLET BY MOUTH IN THE MORNING BEFORE BREAKFAS T active Not Available Not Available No t Available Kenalog 40 mg/mL suspensio n for injection Take 1 mL every day by injectio n route. active Not Available Not Available No t Available Bactroban 2 % topical cream APPLY A SMALL AMOUNT TO THE AFFECTED AREA BY TOPICAL ROUTE DAILY 06/06 completed Not Available Not Available Not Available oxycodone -acetamin ophen 5 mg-325 mg tablet 06/05 completed She is not using this was given by the surgeon Not Available Not Available Not Available amoxicill in 875 mg tablet TAKE 1 TABLET BY MOUTH TWICE DAILY FOR 10 DAYS 08/27 completed Not Available Not Available Not Available alprazola m 0.25 mg tablet 01/13 completed Not Available Not Available Not Available famotidin e 20 mg tablet active Not Available Not Available Not Available gentamici n 0.3 % eye drops active Not Available Not Available No t Available dicyclomi ne 20 mg tablet 03/14 completed Not Available Not Available Not Available ciproflox acin 0.3 % eye drops 03/14 completed Not Available Not Available Not Available dexametha sone 1 mg tablet Take 1 tablet as needed by oral route at bedtime for 1 day. active Not Available Not Available No t Available baclofen 10 mg tablet 04/04 completed Not Available Not Available Not Available benzonata te 100 mg capsule Take 1 capsule 3 times a day by oral route as needed for 7 days. 03/22 completed Not Available Not Available Not Available doxycycli ne monohydra te 100 mg capsule TAKE ONE CAPSULE TWICE DAILY UNTIL ALL TAKEN 08/25 completed Not Available Not Available Not Available ferrous sulfate 325 mg (65 mg iron) tablet Take 1 tablet every day by oral route. 04/26 completed Not Available Not Available Not Available neomycin- polymyxin -dexameth 3.5 mg/mL-10, 000 unit/mL-0 .1% eye drops 10/18 completed Not Available Not Available Not Available vancomyci n 250 mg capsule 04/04 completed Not Available Not Available Not Available losartan 25 mg tablet 06/06 completed Not Available Not Available Not Available Synthroid 50 mcg tablet TAKE ONE TABLET BY MOUTH EVERY MORNING 03/13 completed Not Available Not Available Not Available sertralin e 25 mg tablet TAKE 1 TABLET BY MOUTH ONCE DAILY 04/16 completed increase d to 50mg Not Available Not Available Not Available gentamici n 0.1 % topical cream APPLY A SMALL AMOUNT OF CREAM TOPICALL Y TO AFFECTED AREA THREE TIMES DAILY 04/01 completed Not Available Not Available Not Available folic acid 1 mg tablet 03/13 completed states isn't taking any more Not Available Not Available Not Available hydrocodo ne 5 mg-acetam inophen 500 mg tablet active Not Available Not Available Not Available pravastat in 20 mg tablet Take 1 tablet every day by oral route. 08/15 completed Not Available Not Available Not Available mupirocin 2 % topical ointment APPLY A SMALL AMOUNT TO THE left big toe daily active Not Available Not Available No t Available Synthroid 112 mcg tablet Take 1 tablet every day by oral route in the morning for 90 days. active Not Available Not Available No t Available ergocalci ferol (vitamin D2) 1,250 mcg (50,000 unit) capsule TAKE 1 CAPSULE BY MOUTH EVERY WEEK IN THE MORNING 11/26 completed Not Available Not Available Not Available Novolog U-100 Insulin aspart 100 unit/mL subcutane ous solution INJECT 70 UNITS SUBCUTAN EOUSLY DAILY VIA INSULIN PUMP active Not Available Not Available No t Available polyethyl lory glycol 3350 17 gram/dose oral powder 10/26 completed Not Available Not Available Not Available Copaxone 20 mg/mL subcutane ous syringe kit active Not Available Not Available Not Available fluticaso ne propionat e 50 mcg/actua tion nasal spray,nohemy pension [place] 1 spray every day by intranas al route for 30 days. 03/22 completed Not Available Not Available Not Available metformin ER 500 mg tablet,ex tended release 24 hr Take 1 tablet twice a day by oral route for 30 days. 11/21 completed Not Available Not Available Not Available sertralin e 50 mg tablet Take 1 tablet every day by oral route for 90 days. 2024 active Not Available Not Available Not Avai lable insulin syringe U-100 with needle 0.5 mL 31 gauge x 5/16 USE 1 SYRINGE 4 TIMES DAILY DIRECTED IF PUMP FAILS active Not Available Not Available No t Available ramipril 1.25 mg capsule 06/25 completed Not Available Not Available Not Available phentermi ne 37.5 mg capsule Take 1 capsule every day by oral route. 06/[address] Farrar started 05/19/19 Not Available Not Available Not Available gentamici n 0.1 % topical ointment APPLY A SMALL AMOUNT TO THE AFFECTED AREA BY TOPICAL ROUTE 3 TIMES PER DAY 01/13 completed Not Available Not Available Not Available diazepam 5 mg tablet active Not Available Not Available Not Available amoxicill in 875 mg-potass ium clavulana te 125 mg tablet TAKE 1 TABLET BY MOUTH TWICE DAILY FOR 10 DAYS 04/01 completed Not Available Not Available Not Available oxycodone 5 mg tablet 10/26 completed Not Available Not Available Not Available Novolog FlexPen U-100 Insulin aspart 100 unit/mL (3 mL) subcutane ous INJECT 10 UNITS 3 TIMES A DAY BY SUBCUTAN EOUS ROUTE WITH MEALS active Not Available Not Available No t Available cyclobenz aprine 5 mg tablet 03/14 completed Not Available Not Available Not Available Restasis 0.05 % eye drops in a dropperet te active Not Available Not Available Not Available moxifloxa danelle 0.5 % eye drops 08/14 completed Not Available Not Available Not Available rosuvasta tin 40 mg tablet TAKE 1 TABLET BY MOUTH ONCE DAILY IN THE EVENING active Not Available Not Available No t Available OneTouch UltraSoft Lancets active Not Available Not Available Not Available Nevanac 0.1 % eye drops,nohemy pension active Not Available Not Available Not Available Copaxone 03/14 completed followed by Neuro Not Available Not Available Not Available losartan 25mg daily 03/[address] Palacios [facility] 04/18/20 21, f/u 07/19/20 21, states isn't taking any more Not Available Not Available Not Available potassium 99mg daily active Not Available Not Available No t Available Vitamin D3 1,000 units once daily 06/21 completed states not taking any more Not Available Not Available Not Available rosuvasta tin 07/19 completed Not Available Not Available Not Available OneTouch UltraMini kit active Not Available Not Available Not Available Levemir FlexPen 15 units 2 times daily 06/25 completed Not Available Not Available Not Available fenofibra te nanocryst allized 145 mg tablet Take 1 tablet every day by oral route. 04/23 completed Not Available Not Available Not Available cholecalc iferol (vitamin D3) 1,250 mcg (50,000 unit) capsule Take 1 capsule by mouth once a week active Not Available Not Available No t Available ramipril 1.25 mg tablet Take 1 tablet by oral route. 06/[address] Farrar started 05/19/19 Not Available Not Available Not Available Humalog KwikPen (U-100) Insulin 100 unit/mL subcutane ous Inject 5 units 3 times a day by subcutan eous route with meals for 90 days. 05/01 completed Not Available Not Available Not Available Durezol 0.05 % eye drops 08/14 completed Not Available Not Available Not Available Suprep Bowel Prep Kit 17.5 gram-3.13 gram-1.6 gram oral solution 04/04 completed Not Available Not Available Not Available Vitamin D3 50 mcg (2,000 unit) capsule Take 1 capsule every day by oral route in the morning for 90 days. 04/01 completed Not Available Not Available Not Available Comfort EZ Pen [place] 31 gauge x /16 USE DAILY 02/12 completed Not Available Not Available Not Available Comfort EZ Insulin Syringe 1 mL 31 gauge x 16 02/12 completed Not Available Not Available Not Available Comfort EZ Insulin Syringe 0.3 mL 31 gauge x 16 02/12 completed Not Available Not Available Not Available Vicodin 5 mg-300 mg tablet Take 1 tablet every 4 hours by oral route as needed. active Not Available Not Available No t Available TRUEplus Lancets 33 gauge active Not Available Not Available Not Available Vascepa 1 gram capsule Take 2 capsules twice a day by oral route before meals for 90 days. 04/01 completed Not Available Not Available Not Available Ilevro 0.3 % eye drops,nohemy pension 08/14 completed Not Available Not Available Not Available Eliquis 2.5 mg tablet 03/13 completed states isn't taking any more Not Available Not Available Not Available Farxiga 5 mg tablet TAKE 1 TABLET BY MOUTH ONCE DAILY IN THE MORNING active Not Available Not Available No t Available glatirame r 40 mg/mL subcutane ous syringe every 3 days active Not Available Not Available No t Available Levemir FlexTouch U-100 Insulin 100 unit/mL (3 mL) subcutane ous pen INJECT 30 UNITS EVERY MORNING AND 10 UNITS EACH NIGHT 12/09 completed Not Available Not Available Not Available Jardiance 25 mg tablet Take 1 tablet every day by oral route in the morning for 30 days. 04/23 completed Not Available Not Available Not Available True Metrix Glucose Test Strip One Touch Verio strips/ To test sugars tid,ok to subsitut e with meter strips or lancets insuranc e will cover active Not Available Not Available No t Available Toutoñoo SoloStar U-300 Insulin 300 unit/mL (1.5 mL) subcutane ous pen Inject 15 units in the morning and 15 units in the evening by subcutan eous route active Not Available Not Available No t Available True Metrix Air Glucose Meter active Not Available Not Available Not Available Glatopa 20 mg/mL subcutane ous syringe 05/03 completed Not Available Not Available Not Available Tresiba FlexTouch U-200 insulin 200 unit/mL (3 mL) subcutane ous pen Inject 30 units every night by subcutan eous route active Not Available Not Available No t Available Tresiba FlexTouch U-100 insulin 100 unit/mL (3 mL) subcutane ous pen Inject 30 units every day by subcutan eous route. 2015 active Not Available Not Available Not Avai lable Bydureon BCise 2 mg/0.85 mL subcutane ous auto-inje ctor INJECT 2 MG UNDER THE SKIN EVERY WEEK AT DINNER 01/13 completed Not Available Not Available Not Available Dexcom G6 Sensor device CHANGE SENSOR EVERY 10 DAYS active Not Available Not Available No t Available Dexcom G6 Hitch Technician USE TO CHECK GLUCOSE DAILY active Not Available Not Available No t Available Dexcom G6 Transmitt er device CHANGE EVERY 90 DAYS active Not Available Not Available No t Available Omnipod Dash Pods (Gen 4) subcutane ous cartridge CHANGE POD EVERY 2 TO 3 DAYS active Not Available Not Available No t Available FreeStyle Aminta 14 Day [place] 12/09 completed Not Available Not Available Not Available FreeStyle Aminta 14 Day Sensor kit 12/09 completed Not Available Not Available Not Available Kesimpta Pen 20 mg/0.4 mL subcutane ous pen injector 01/13 completed Not Available Not Available Not Available Omnipod 5 G6 Pods (Gen 5) subcutane ous cartridge USE 1 EVERY 3 DAYS active Not Available Not Available No t Available Mounjaro 7.5 mg/0.5 mL subcutane ous pen injector INJECT 1 SYRINGE SUBCUTAN EOUSLY ONCE A WEEK 08/27 completed Not Available Not Available Not Available Mounjaro 5 mg/0.5 mL subcutane ous pen injector 02/12 completed Not Available Not Available Not Available Mounjaro 10 mg/0.5 mL subcutane ous pen injector INJECT 1 PEN SUBCUTAN EOUSLY ONCE A WEEK active Not Available Not Available No t Available Omnipod 5 G6-G7 Pods (Gen 5) subcutane ous cartridge USE 1 EVERY 3 DAYS active Not Available Not Available No t Available Vitals Date Recorded Body height Body mass index (BMI) Body weight Body temperature Heart rate Systolic And Diastolic Provider Name and Address Organization Details Last Updated DateTime 5 154.94 cm 31.6 kg/m2 55064.9 3 g 97.6 [degF] 84 /min 118/64 mm[Hg] CLOVIS Robledo [facility] [employer] 5 11:39:25 Date Recorded Body height Body mass index (BMI) Body weight Body temperature Heart rate Oxygen saturation Oxygen saturation in Arterial blood by Pulse oximetry Pain severity - 0-10 verbal numeric rating [Score] - Reported Systolic And Diastolic Provider Name and Address Organization Details Last Updated DateTime 5 154.94 cm 30.1 kg/m2 45724.9 8 g 98.2 [degF] 76 /min 98 % 98 % 0 130/66 mm[Hg] Brigitte Castellanos MA [employer] 5 11:07:23 Date Recorded Body height Body mass index (BMI) Body weight Body temperature Heart rate Systolic And Diastolic Provider Name and Address Organization Details Last Updated DateTime 4 154.94 cm 33.3 kg/m2 18844.2 6 g 97.6 [degF] 84 /min 110/70 mm[Hg] CLOVIS Robledo [facility] 4 12:06:37 Date Recorded Body height Body mass index (BMI) Body weight Body temperature Heart rate Systolic And Diastolic Provider Name and Address Organization Details Last Updated DateTime 4 154.94 cm 32.5 kg/m2 06494.8 9 g 97.4 [degF] 84 /min 122/80 mm[Hg] CLOVIS Robledo [facility] 4 12:09:20 Social History Question Answer Notes LastModified by Organizat ion Details LastModified Time Tobacco Smoking Status Never Smoker Not Available [facility] 11/15/2022 04:43:49 Do You Have An Advance Directive? No [id number] Information not available 11/15/2022 What Is Your Level Of Caffeine Consumption? None [id number] Information not available 11/15/2022 In The 14 Days Before Symptom Onset, Have You Had Close Contact With A Laboratory-confir med COVID-19 While That Case Was Ill? No [id number].[id number] Information not available 11/15/2022 In The 14 Days Before Symptom Onset, Have You Had Close Contact With A Person Who Is Under Investigation For COVID-19 While That Person Was Ill? No [id number].[id number] Information not available 11/15/2022 What Type Of Diet Are You Following? CARBOHYDRATE MIGRATION.[id number] Information not available 11/15/2022 What Is The Highest Grade Or Level Of School You Have Completed Or The Highest Degree You Have Received? [id number] MIGRATION.49565 [id number] Information not available 11/15/2022 Have There Been Any Changes To Your Family Or Social Situation? No MIGRATION.38490 [id number] Information not available 11/15/2022 What Is The Fluoride Status Of Your Home? Unknown MIGRATION.[id number] Information not available 11/15/2022 Are There Any Guns Present In Your Home? No MIGRATION.03114 [id number] Information not available 11/15/2022 Do You Use Insect Repellent Routinely? No MIGRATION.33660 [id number] Information not available 11/15/2022 Where Do You Live? [place] MIGRATION.[id number] Information not available 11/15/2022 Are You Following A Low Salt Diet? No MIGRATION.58835 [id number] Information not available 11/15/2022 Do You Have A Medical Power Of Profile Shaper Operator? No MIGRATION.[id number] Information not available 11/15/2022 What Was The Date Of Your Most Recent Tobacco Screening? 04/01/2025 Information not available 04/01/2025 How Many Children Do You Have? 3 Information not available 04/01/2025 Do You Have Any Pets? Yes MIGRATION.37871 [id number] Information not available 11/15/2022 What Is Your Relationship Status? MIGRATION.76930 [id number] Information not available 11/15/2022 Do You Use Your Seat Belt Or Car Seat Routinely? Yes MIGRATION.41550 [id number] Information not available 11/15/2022 Do You Have Smoke And Carbon Monoxide Detectors In Your Home? Yes MIGRATION.67423 89001 Information not available 11/15/2022 Are You Passively Exposed To Smoke? No MIGRATION.35291 [id number] Information not available 11/15/2022 Are There Any Smokers In Your House? No MIGRATION.98252 20011 Information not available 11/15/2022 What Types Of Sporting Activities Do You Participate In? None MIGRATION.17476 43912 Information not available 11/15/2022 Do You Use Sunscreen Routinely? Yes MIGRATION.32951 46638 Information not available 11/15/2022 Has Tobacco Cessation Counseling Been Provided? No N/a MIGRATION.01459 12140 Information not available 11/15/2022 Have You Recently Traveled Abroad? No MIGRATION.65926 45001 Information not available 11/15/2022 Do You Have Any Dietary Restrictions? Yes MIGRATION.10582 97283 Information not available 11/15/2022 Sex: Female Functional Status Question Answer Note LastModified by Organizat ion Details LastModified Time Do you use any illicit or recreational drugs? No MIGRATION.[id number] Information not available 11/15/2022 Do you or have you ever used any other forms of tobacco or nicotine? No MIGRATION.[id number] 026 Information not available 11/15/2022 What is your level of alcohol consumption? None MIGRATION.[id number] 026 Information not available 11/15/2022 Are you currently employed? No [email or web address] Information not available 08/27/2024 What is your occupation? unemployed MIGRATION.[id number] 026 Information not available 11/15/2022 What is your exercise level? Occasional MIGRATION.[id number] [id number] Information not available 11/15/2022 Mental Status Question Answer Note LastModified by Organizat ion Details LastModified Time Do you feel stressed (tense, restless, nervous, or anxious, or unable to sleep at night)? [id number] Information not available 11/15/2022 Family History Relationship Description Onset Age of this Age Resolved Age Notes LastModified by Organization Details LastModified Time Unspecified Relation Family history of breast cancer patern al side [id number] Not available 11/15/2022 04:44:30 Father Diabetes mellitus [id number] Not available 11/15/2022 04:44:30 Father Steatotic liver disease MIGRATION.621 [id number] Not available 11/15/2022 04:44:30 Paternal Grandfather Diabetes mellitus MIGRATION.[id number] Not available 11/15/2022 04:44:30 Paternal Grandmother Diabetes mellitus MIGRATION.[id number] Not available 11/15/2022 04:44:30 Paternal Aunt Disorder of thyroid gland MIGRATION.[id number] Not available 11/15/2022 04:44:30 Mother Hypertensive disorder MIGRATION.080 [id number] Not available 11/15/2022 04:44:30 Medical History Condition Response ARTHRITIS Y DIABETES, TYPE Y USE OF BLOOD THINNERS Y HIGH CHOLESTEROL / HYPERLIPIDEMIA Y HYPOTHYROIDISM Y Gynecological History Statement/Question Response How many live births 3 Date of Last Mammogram 07/04/2022 Date of Last Colonoscopy 01/23/2025 Date of Last Mammogram Most Recent Bone Density 12/08/2020 Date of LMP Date of Last Pap Current Control Method Hysterectom y Obstetrics History GPAL:G 3 P 3 0 0 3 Type Value Multiple Births 0 Full Term 3 Induced 0 Spontaneous 0 Premature 0 Living 3 Ectopics 0 Total 3 Immunizations Vaccine Type Date Status Note Provider Nam e and Address Organization Details Recorded Time Influenza, adjuvanted, quadrivalent, PF 2 completed Anita Dixon RMA null, [facility] 08/27/2024 12:03:26 COVID-19, mRNA, LNP-S, PF, 30 mcg/0.3 mL dose 1 completed Anita Dixon RMA null, [facility] 08/27/2024 12:03:26 COVID-19, mRNA, LNP-S, PF, 30 mcg/0.3 mL dose 1 completed Anita Dixon RMA null, [facility] 08/27/2024 12:03:26 COVID-19, mRNA, LNP-S, bivalent, PF, 50 mcg/0.5 mL or 25mcg/0.25 mL dose 2 completed Anita Dixon RMA null, [facility] 08/27/2024 12:03:26 Influenza, split virus, quadrivalent, PF 3 completed Geno Kiran MD [address] [place] [address], [id number], [facility] 06/18/2023 16:22:00 Influenza, split virus, quadrivalent, preservative 2 completed CLOVIS Robledo, [facility] 08/27/2024 12:03:26 COVID-19, mRNA, LNP-S, PF, 100 mcg/0.5mL dose or 50 mcg/0.25mL dose 1 completed Anita Dixon RMA null, [facility] 08/27/2024 12:03:26 COVID-19, mRNA, LNP-S, PF, 100 mcg/0.5mL dose or 50 mcg/0.25mL dose 1 completed CLOVIS Robledo null, [facility] 08/27/2024 12:03:26 COVID-19, mRNA, LNP-S, PF, 100 mcg/0.5mL dose or 50 mcg/0.25mL dose 1 completed Anita CLOVIS Dixon [facility] 08/27/2024 12:03:26 pneumococcal polysaccharide PPV23 0 completed Not Available [facility] 10/26/2023 02:29:17 Influenza, split virus, quadrivalent, PF 0 completed Not Available [facility] 10/26/2023 02:29:17 Influenza, split virus, quadrivalent, PF 8 completed Not Available [facility] 10/26/2023 02:29:17 Past Encounters Encounter ID Performer Location Encounter Start Date Encounter Closed Date Diagnosis/Indication Diagnosis SNOMED-CT Code Diagnosis ICD10 Code Diagnosis IMO Codes Diagnosis Note [id number] [facility]_M IGRATION_ DEFAULT_1 _1 , 12/31/2020 00:00:00 01/03/2021 14:00:17 [id number] Geno chan MD [facility] [address] , [place] [address] 03/07/2021 00:00:00 05/17/2021 18:08:11 [id number] Geno chan MD [facility] [address] [place] [address], [facility] [address] [place] [address] 03/14/2021 00:00:00 03/14/2021 11:30:43 [id number] Sherry Tejada MD [facility] [address] [place] [address] 04/26/2021 00:00:00 04/26/2021 17:28:35 [id number] Geno chan MD [facility] [address] [place] [address] 06/06/2021 00:00:00 07/11/2021 18:11:43 [id number] [facility] [address] [place] [address] 06/22/2021 00:00:00 06/26/2021 14:01:46 [id number] Geno chan MD [facility] [place] [address] [facility] [address] , [place] [address] 10/26/2021 00:00:00 12/28/2021 17:28:36 [id number] Sherry Tejada MD [facility] [address] [place] [address] 11/08/2021 00:00:00 11/08/2021 13:36:58 [id number] Geno chan MD [facility] [place] [address] [facility] [address] , [place] [address] 03/13/2022 00:00:00 03/13/2022 18:45:47 [id number] Sherry Tejada MD [facility] [address] [place] [address] 03/13/2022 00:00:00 03/13/2022 22:21:37 [id number] [facility] _ATHENA_M IGRATION_ DEFAULT_1 _1 , 06/16/2022 00:00:00 06/16/2022 11:09:11 [id number] Dean Watt MD [facility] [address] [address] [place] [address] 06/22/2022 00:00:00 06/22/2022 12:29:40 [id number] Geno chan MD [facility] [place] [address] [facility] [address] , [place] [address] 07/12/2022 00:00:00 07/18/2022 10:05:25 [id number] Sherry Tejada MD [facility] [address] [place] [address] 07/18/2022 00:00:00 07/18/2022 13:32:46 [id number] Geno chan MD [facility] [place] [address] [place] [address] 10/18/2022 00:00:00 10/18/2022 12:45:49 [id number] Sherry Tejada MD [facility] [address] [place] [address] 12/08/2022 15:07:08 12/08/2022 16:21:05 Well controlled type 2 diabetes mellitus [id number] E11.9 a1c of 7.3% up from 6.5% Continue on settings:1 2 am to 6 am 0.65 u/hr6 am to 730 pm at 1.2 u/hr730 pm to 12 am at 0.65 u/hr Sugars are no longer low in morning and more consistent ly over 90 mg/dL up to 140 mg/dL. continue with dexcom for glucose sensor. Vitamin D deficiency 347 37831 E55.9 Will transition to vitamin D replacemen t 43335 IU once weekly. Repeat levels in 2 months to assess need to add additional therapy - goal vit D of 50 ng/mL to optimize bone and immune health. Hypothyroidism [id number] E03.9 FT4 low normal from recent labs- we increased her synthroid to 100 mcg daily. She was reminded to take her synthroid on empty stomach with glass of water and wait one hour to eat or have her coffee in morning and up to 4 hours if ever taking any heartburn or reflux medication s to help optimize absorption . Spent up to 25 minutes preparing to see the patient (eg, review of tests), obtaining and/or reviewing separately obtained history, performing a medically appropriat e examinatio n and evaluation , counseling and educating the patient, ordering medication s, tests, along with documentin g clinical informatio n in the electronic health record, independen tly interpreti ng results and communicat ing results to the patient. RTC in 4-6 months. Patient was provided a handwritte n lab order which contains our fax number. If she chooses to go outside of the [facility] system to obtain labwork she was advised to provide our fax number and my informatio n to the lab she will be obtaining labwork from in order to have her labs properly forwarded over for me to review so there is no loss of follow up due to use of outside network. She was also advised to contact our clinic informing us that she has completed her labwork so we are aware we will need to reach out to the appropriat e laboratory to request her results be forwarded to us so I might have the ability to review and make further medical decision making in her case. She voiced understand ing. [id number] Geno chan MD [facility] [address] [facility] [place] [address] 02/19/2023 11:45:46 02/19/2023 12:39:44 Screening - NAD [id number] Z13.9 C-scope: 08/18/15, Dr Tara shaw next in 5 years, needs this done, nextg on 03/30/2023 PAP: Sees OB Dr. Collins last PAP was last year in 06/02Did see Dr Sanches Mammogram: 02/21/19: Neg 020: Neg 021: US compete R, did see Nancy Blackwell NP07/04/20 22: Neg DEXA: 12/08/2020 : Osteopenia should be on calcium and vit dOrdered 10/18/2022 Next on 3 UTD flu shotUTD tdap 03/22/2020 UTD #23 03/22/2020 UTD in COVID 19 vaccine RTC in 3 monthswith labsER if any symptoms worsenShe verbalized her understand ing of the above Type 2 sammy betes mellitus without complication 522031224 E11.9 Dr Ochoa 06/22/2021 On novolog U100 via insulinOn bydureon Sees Dr Tejada 05/07/2023 Dr Ochoa 06/16/2022 Dr Jack che MD as per patient Hypothyroidism 31239260 E03.9 US thyroid 05/09/2022 , next in one yearOn synthroid 75mcgs daily Get labs Hyperlipidemia 39433335 E78.5 On rosuvastat in 40mg dailyOn icosapent Get labs Vitamin D deficiency 347 05833 E55.9 Get vit d level Dyspnea on exertion 6084 5006 R06.09 Has noted some SOB, none today, eager to get a Xray chest XR chest 05/09/2022 : Neg Obstructiv e sleep apnea syndrome 26968923 G47.33 As per her history, her has noted some snoringGet sleep study ordered Fracture of tibia 350793 Admitted/D /c: 05/14/04/19 1: SSMs/p fall and s/p spiral fracture of the L tibia, s/p L intamedull javier nailing Dr Garay get PT/OT at home, but not getting PT yet till she sees Dr Dede Floyd 06/01/2021 at 8.15amRx with miralax and oxycodone, on eliquis for 35 daysCBC 05/17/2021 : HGB 9.2/HCT 30.4Next apt is in 3 weeks, on 07/01/2021 has a walkerTake s oxycodone as needed Does well nowTessa is d/c from the ortho as per her history Anemia 315893839 D64.9 On ironGet labs Essential hypertension 05903603 I10 On losartan 25mg dailySees [facility] Dr Palacios Low back pain 152578095 M54.50 S/p surgery by Dr. 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 S/p US liver 03/30/17, fatty infiltrate d Sees Dr Lorenzo Carpal zain lawanda syndrome 07232186 G56.01 07/09/19: Dr Hall: R CTR Does wellIs to get the L CTR but is not wanting it done yet Screening mammography 24 403486 Z12.31 Screening for osteoporosis 848655408 Z13.820 Abdominal pain 46710204 R10.[address] A/P with contrast stat [id number] Robert Gold DPM [facility] [address] [place] [address] 04/09/2023 14:22:41 04/09/2023 15:04:38 Peripheral neuropathy due to type 2 diabetes mellitus 6352584067 107 E11.42 Rx diabetic shoes and insertsfol low-up 2-3 months Skin ulcer of toe due to diabetes mellitus type 2 0474518383 4664310 E11.621 right great toedebride ment per notedaily wound care to prevent infectionF ollow-up in 2 weeks Foot callus 412901955 L8 4 debrided without incidented ucated on diabetic shoe gear [id number] Robert Gold DPM [facility] [address] [place] [address] 04/23/2023 15:44:34 04/23/2023 16:35:09 Skin ulcer of toe due to diabetes mellitus type 2 9414280339 3356686 E11.621 right great toeHealedS hoes and insolesFol low-up in 2 months for diabetic check up [id number] Sherry Tejada MD [facility] [address] [place] [address] 05/07/2023 13:47:11 05/07/2023 14:58:38 Well controlled type 2 diabetes mellitus 287911305 E11.9 a1c of 7% in range- stable- no hypoglycem ia and sugars typically under 150 mg/dL consistent ly. Continue settings as follows: 12 am to 6 am 0.65 u/hr6 am to 730 pm at 1.2 u/hr730 pm to 12 am at 0.65 u/hr Patient will call if she needs refills- she was reminded to test for quantity on sensors/tr ansmitter/ and pods. She is compliant with use of dexcom and this has been the greatest success in her management of her DM control. Hypothyroidism 32420230 E03.9 She is not taking her synthroid- FT4 low and patient having swelling of joints and swelling in thyroid region- she was reminded of importance to stay compliant with taking synthroid as this will help with focus, energy and inflammati on and underlying thyroid function. She voiced understand ing. She has 100 mcg of synthroid at home. Dyslipidemia 044862764 E 78.5 Continue statin therapy. Vitamin D deficiency 347 31773 E55.9 Continue on vitamin D replacemen t 47870 IU once weekly in addition to vitamin D 3 2000 IU daily. Goal vit D of 50 ng/mL to optimize bone and immune health. Spent up to 25 minutes preparing to see the patient (eg, review of tests), obtaining and/or reviewing separately obtained history, performing a medically appropriat e examinatio n and evaluation , counseling and educating the patient, ordering medication s, tests, along with documentin g clinical informatio n in the electronic health record, independen tly interpreti ng results and communicat ing results to the patient. Patient can be followed by PCP - she/he is aware of my resignatio n and last day of June 29. If needed his/her PCP can refer patient to another endocrinol ogist in the area. All questions /concerns answered and refills necessary at visit today. [id number] Geno chan MD [facility] Toshia crawford [address] [facility] y , [facility] [place] [address] 06/18/2023 11:23:09 06/18/2023 13:00:22 Screening - NAD 494128835 Z13.9 C-scope: 08/18/15, Dr Tara shaw next in 5 years, needs this done, next on 03/30/2023 PAP: Sees OB Dr. Collins last PAP was last year in 06/02Di see Dr Sanches Mammogram: 02/21/19: Neg 020: Neg 021: US compete R, did see Nancy Blackwell NP07/04/20 22: Neg DEXA: 12/08/2020 : Osteopenia should be on calcium and vit dDEXA: 04/19/2023 : Osteopenia UTD flu shotUTD tdap 03/22/2020 UTD #23 03/22/2020 UTD in COVID 19 vaccine RTC in 3 monthswith labsER if any symptoms worsenShe verbalized her understand ing of the above Type 2 sammy betes mellitus without complication 692208394 E11.9 Dr Ochoa 06/22/2021 On novolog U100 via insulinOn bydureon Sees Dr Tejada 05/07/2023 Dr Ochoa 06/16/2022 Dr Jack che MD as per patient Hypothyroidism 69570417 E03.9 US thyroid 05/09/2022 , next in one yearOn synthroid 75mcgs daily Get labs Hyperlipidemia 05076437 E78.5 On rosuvastat in 40mg dailyOn icosapent Get labs Vitamin D deficiency 347 39264 E55.9 Get vit d level Dyspnea on exertion 6084 5006 R06.09 Has noted some SOB, none today, eager to get a Xray chest XR chest 05/09/2022 : Neg Obstructiv e sleep apnea syndrome 81484556 G47.33 As per her history, her has noted some snoringGet sleep study ordered Fracture of tibia 257631 Admitted/D /c: 05/14/04/19 1: SSMs/p fall and s/p spiral fracture of the L tibia, s/p L intamedull javier nailing Dr Garay get PT/OT at home, but not getting PT yet till she sees Dr Dede Floyd 06/01/2021 at 8.15amRx with miralax and oxycodone, on eliquis for 35 daysCBC 05/17/2021 : HGB 9.2/HCT 30.4Next apt is in 3 weeks, on 07/01/2021 has a walkerTake s oxycodone as needed Does well nowTessa is d/c from the ortho as per her history Anemia 360913971 D64.[address] Preciado Essential hypertension 61985462 I10 On losartan 25mg dailySees [facility] Dr Palacios Low back pain 565496318 M54.50 S/p surgery by Dr. Carrillo Sees Dr Linnea johnson on amantadine as per Dr Linnea johnson on tramadol daily PRN Chronic re current major depressive disorder 1040884 F33.9 On sertraline 100mg dailyOn clonazepam Denies any suicidal or homicidal ideation or attemptsDo es not want to see psychiatry Multiple sclerosis 20342 007 G35 Addendum: 12/28/2021 :S/p MRI pain Sees Dr Corado neurologyO n Kesimpta Steatotic liver disease 713528869 K76.0 S/p US liver 03/30/17, fatty infiltrate d Sees Dr Lorenzo Carpal zain lawanda syndrome 64871853 G56.01 07/09/19: Dr Hall: R CTR Does wellIs to get the L CTR but is not wanting it done yet Screening mammography 24 930802 Z12.31 Screening for malignant neoplasm of colon 109374943 Z12.11 Administra tion of influenza vaccine 93330934 Z23 [id number] Geno chan MD [facility] [address] [facility] [address] [place] [address] 07/26/2023 15:01:53 07/27/2023 09:06:45 Skin lesion 00132684 L98.9 Small, raised red lesion, tender noted on the bra line of the left breast, no surroundin g redness, will get on keflex, keep area clean and dry, notify if not better [id number] Robert Gold DPM [facility] [address] [place] [address] 09/26/2023 16:47:53 09/26/2023 18:09:10 Ulcer of left foot due to type 2 diabetes mellitus 1412971051 1940670 E11.621 Wound debrided [facility] local wound care Monitor for signs of infection Recommend no weight to the forefoot with pressure to the heel only when weight-beatriz ringFollow -up 1 week [id number] Robert Gold DPM [facility] [address] [place] [address] 10/03/2023 11:41:50 10/03/2023 12:45:25 Ulcer of left foot due to type 2 diabetes mellitus 6122044209 1194016 E11.621 [facility]ound [facility] Monitor for signs of infection Recommend no weight to the forefoot with pressure to the heel only when weight-beatriz ringFollow -up 1 week Dystrophia unguium 08573 009 L60.3 Nails were debrided Without incident History of amputation of lesser toe 318223070 Z89.429 Left foot great toe and 2nd Peripheral neuropathy due to type 2 diabetes mellitus 4062385310 107 E11.42 Rx diabetic shoes and insertsfol low-up 2-3 months [id number] Robert Gold DPM [facility] [address] [place] [address] 10/15/2023 15:16:23 10/15/2023 16:01:49 Ulcer of left foot due to type 2 diabetes mellitus 3056527244 8906190 E11.621 ResolvedCo ntinue pressure offloading with insertsCon tinue supportive shoe gearFollow -up in 3 months History of amputation of lesser toe 670907974 Z89.429 Left foot great toe and 2nd Peripheral neuropathy due to type 2 diabetes mellitus 8636710987 107 E11.42 Rx diabetic shoes and insertsfol low-up 2-3 months Foot callus 399238330 L8 4 debrided without incidentCo ntinue offloading Monitor foot daily for new wounds infection, if present seek medical attention immediatel y [id number] Robert Gold DPM [facility] [address] [place] [address] 01/14/2024 11:46:14 01/15/2024 11:32:28 Ulcer of left foot due to type 2 diabetes mellitus 7146525804 3097246 E11.621 sub 1st metatarsal headRx forefoot offloading Darco shoeContin ue pressure offloading with insertsCon tinue supportive shoe gearwound care reviewed with the patientFol low-up in 1 week Peripheral neuropathy due to type 2 diabetes mellitus 8773898698 107 E11.42 Rx diabetic shoes and inserts- not wearingrec ommend wearing diabetic shoesfollo w-up 2-3 months [id number] Robert Gold DPM [facility] [address] [place] [address] 01/21/2024 14:16:01 01/23/2024 14:53:11 Ulcer of left foot due to type 2 diabetes mellitus 6840187496 5660875 E11.621 sub 1st metatarsal headRx forefoot offloading Darco shoeContin ue pressure offloading with insertsCon tinue supportive shoe gearwound care reviewed with the patientFol low-up in 1 week [id number] Geno chan MD [facility] Toshia crawford [address] [facility] [place] [address] 02/13/2024 11:10:17 02/13/2024 11:57:47 Screening - NAD 028435134 Z13.9 C-scope: 08/18/15, Dr Tara shaw next in 5 years, needs this done, next on 03/30/2023 PAP: Sees OB Dr. Collins last PAP was last year in 06/02Did see Dr Sanches Mammogram: 02/21/19: Neg 020: Neg 021: US compete R, did see Nancy Blackwell NP07/04/20 22: Neg 023: Neg DEXA: 12/08/2020 : Osteopenia should be on calcium and vit dDEXA: 04/19/2023 : Osteopenia UTD flu shotUTD tdap 03/22/2020 UTD #23 03/22/2020 UTD in COVID 19 vaccineCan do shingrix vaccine RTC in 3 monthswith labsER if any symptoms worsenShe verbalized her understand ing of the above Type 2 sammy betes mellitus without complication 154409772 E11.9 Dr Ochoa 06/22/2021 On novolog U70 via insulinNot on bydureonOn Mounjaro 7.5mg weekly Seen Dr Tejada 05/07/2023 Dr Ochoa 06/16/2022 Dr Jack che MD as per patientDr Gold 01/21/2024 , seen for ulcer of left foot d/t type 2 DM, f/u one week Hypothyroidism 00291739 E03.9 US thyroid 05/09/2022 , next in one yearOn synthroid 75mcgs daily Get labs Hyperlipidemia 01381187 E78.5 On rosuvastat in 40mg dailyOn icosapent Get labs Vitamin D deficiency 347 76322 E55.9 Get vit d level Dyspnea on exertion 6084 5006 R06.09 Has noted some SOB, none today, eager to get a Xray chest XR chest 05/09/2022 : Neg Obstructiv e sleep apnea syndrome 38546944 G47.33 As per her history, her has noted some snoringGet sleep study ordered Fracture of tibia 857613 Admitted/D /c: 05/14/04/19 1: SSMs/p fall and s/p spiral fracture of the L tibia, s/p L intamedull javier nailing Dr Garay get PT/OT at home, but not getting PT yet till she sees Dr Dede Floyd 06/01/2021 at 8.15amRx with miralax and oxycodone, on eliquis for 35 daysCBC 05/17/2021 : HGB 9.2/HCT 30.4Next apt is in 3 weeks, on 07/01/2021 has a walkerTake s oxycodone as needed Does well nowShe is d/c from the ortho as per her history Anemia 169871494 D64.[address] Preciado Essential hypertension 21582943 I10 Not on losartan 25mg dailySees [facility] Dr Palacios Low back pain 957791055 M54.50 S/p surgery by Dr. Carrillo Sees Dr Yarbrough t on amantadine as per Dr Linnea johnson on tramadol daily PRN Chronic re current major depressive disorder 9431389 F33.9 On sertraline 100mg dailyOn clonazepam Denies any suicidal or homicidal ideation or attemptsDo es not want to see psychiatry Multiple sclerosis 16906 007 G35 Addendum: 12/28/2021 :S/p MRI pain Sees Dr Corado neurologyO n Kesimpta Steatotic liver disease 255662688 K76.0 S/p US liver 03/30/17, fatty infiltrate d Sees Dr Lorenzo Carpal zain lawanda syndrome 71213923 G56.01 07/09/19: Dr Hlal: R CTR Does wellIs to get the L CTR but is not wanting it done yet Screening for malignant neoplasm of colon 652768249 Z12.11 [id number] Geno chan MD [facility] Toshia crawford [address] [facility] [place] [address] 06/16/2024 11:44:17 06/16/2024 12:56:41 Screening - NAD 533803455 Z13.9 C-scope: 08/18/15, Dr Tara shaw next in 5 years, needs this done, next on 03/30/2023 PAP: Sees OB Dr. Collins last PAP was last year in 06/02Did see Dr Sanches Mammogram: 02/21/19: Neg 020: Neg 021: US compete R, did see Nancy Blackwell NP07/04/20 22: Neg 023: Neg DEXA: 12/08/2020 : Osteopenia should be on calcium and vit dDEXA: 04/19/2023 : Osteopenia UTD flu shotUTD tdap 03/22/2020 UTD #23 03/22/2020 UTD in COVID 19 vaccineCan do shingrix vaccine RTC in 3 monthswith labsER if any symptoms worsenShe verbalized her understand ing of the above Type 2 sammy betes mellitus without complication 285983849 E11.9 Dr Ochoa 06/22/2021 On novolog U70 via insulinNot on bydureonOn Mounjaro 7.5mg weekly, will increase to 10mg weekly 06/16/2024 , sees Dr Xavier in [place], will refer now to Dr Tejada, she states that she did have 'pancreati tis' about a year ago, but her endocrine allows her to take GLP-[address] Tejada 05/07/2023 Dr Ochoa 06/16/2022 Dr Jack che MD as per patientDr Gold 01/21/2024 , seen for ulcer of left foot d/t type 2 DM, f/u one week Hypothyroidism 43529170 E03.9 US thyroid 05/09/2022 , next in one yearOn synthroid 75mcgs daily Get labs Hyperlipidemia 10281974 E78.5 On rosuvastat in 40mg dailyOn icosapent Get labs Vitamin D deficiency 347 09726 E55.9 Get vit d level Dyspnea on exertion 6084 5006 R06.09 Has noted some SOB, none today, eager to get a Xray chest XR chest 05/09/2022 : Neg Obstructiv e sleep apnea syndrome 29789813 G47.33 As per her history, her has noted some snoringGet sleep study ordered Fracture of tibia 522360 02 Admitted/D /c: 05/14/08 1: SSMs/p fall and s/p spiral fracture of the L tibia, s/p L intamedull javier nailing Dr Garay get PT/OT at home, but not getting PT yet till she sees Dr Dede Floyd 06/01/2021 at 8.15amRx with miralax and oxycodone, on eliquis for 35 daysCBC 05/17/2021 : HGB 9.2/HCT 30.4Next apt is in 3 weeks, on 07/01/2021 has a walkerTake s oxycodone as needed Does well nowTessa is d/c from the ortho as per her history Anemia 514603707 D64.[address] Preciado Essential hypertension 02903605 I10 Not on losartan 25mg dailySees [facility] Dr Palacios Low back pain 521546958 M54.50 S/p surgery by Dr. Carrillo Sees Dr Yarbrough t on amantadine as per Dr Linnea johnson on tramadol daily PRN Chronic re current major depressive disorder 3883759 F33.9 On sertraline 100mg dailyOn clonazepam Denies any suicidal or homicidal ideation or attemptsDo es not want to see psychiatry Multiple sclerosis 45528 007 G35 Addendum: 12/28/2021 :S/p MRI pain Sees Dr Corado neurologyO n Kesimpta Steatotic liver disease 512858434 K76.0 S/p US liver 03/30/17, fatty infiltrate d Sees Dr Lorenzo Carpal zain lawanda syndrome 31625874 G56.01 07/09/19: Dr Hall: R CTR Does wellIs to get the L CTR but is not wanting it done yet Screening for malignant neoplasm of colon 359578481 Z12.11 Screening mammography 24 314877 Z12.31 Proteinuria 10121523 R80 .9 Get a referral to nephrologi st Acute urin javier tract infection 029685720 N39.0 She did do the UAAddendum : 06/16/2024 : Get cipro 500mg po bid for 7 days [id number] Geno chan MD [facility] Kayleigh crawford [address] [facility] [address] [place] [address] 08/27/2024 11:12:47 08/27/2024 12:43:42 Type 2 diabetes mellitus without complication 136767203 E11.9 Dr Ochoa 06/22/2021 On novolog U70 via insulinNot on bydureonOn Mounjaro 7.5mg weekly, will increase to 10mg weekly 06/16/2024 , sees Dr Xavier in [place], will refer now to Dr Tejada, she states that she did have 'pancreati tis' about a year ago, but her endocrine allows her to take GLP-[address] Tejada 05/07/2023 Dr Ochoa 06/16/2022 Dr Jack che MD as per patientDr Franco 01/21/2024 , seen for ulcer of left foot d/t type 2 DM, f/u one week Screening - NAD 08832329 3 Z13.9 C-scope: 08/18/15, Dr Tara shaw next in 5 years, needs this done, next on 03/30/2023 PAP: Sees OB Dr. Collins last PAP was last year in 06/02Did see Dr Sanches Mammogram: 02/21/19: Neg06/01/ 020: Neg 021: US compete R, did see Nancy Blackwell NP07/04/20 22: Neg 023: Neg DEXA: 12/08/2020 : Osteopenia should be on calcium and vit dDEXA: 04/19/2023 : Osteopenia UTD flu shotUTD tdap 03/22/2020 UTD #23 03/22/2020 UTD in COVID 19 vaccineCan do shingrix vaccine RTC in 3 monthswith labsER if any symptoms worsenShe verbalized her understand ing of the above Hypothyroidism 25244920 E03.9 US thyroid 05/09/2022 , next in one yearOn synthroid 75mcgs daily Get labs Hyperlipidemia 85965909 E78.5 On rosuvastat in 40mg dailyOn icosapent Get labs Vitamin D deficiency 347 88175 E55.9 Get vit d level Dyspnea on exertion 6084 5006 R06.09 Has noted some SOB, none today, eager to get a Xray chest XR chest 05/09/2022 : Neg Obstructiv e sleep apnea syndrome 66654939 G47.33 As per her history, her has noted some snoringGet sleep study ordered Fracture of tibia 919454 02 S8 Admitted/D /c: 05/14/08 1: SSMs/p fall and s/p spiral fracture of the L tibia, s/p L intamedull javier nailing Dr Garay get PT/OT at home, but not getting PT yet till she sees Dr Dede Floyd 06/01/2021 at 8.15amRx with miralax and oxycodone, on eliquis for 35 daysCBC 05/17/2021 : HGB 9.2/HCT 30.4Next apt is in 3 weeks, on 07/01/2021 has a walkerTake s oxycodone as needed Does well nowAdryane is d/c from the ortho as per her history Anemia 553619802 D64.[address] Preciado Essential hypertension 39650301 I10 Not on losartan 25mg dailySees [facility] Dr Palacios Low back pain 029005953 M54.50 S/p surgery by Dr. Carrillo Sees Dr Yarbrough t on amantadine as per Dr Linnea johnson on tramadol daily PRN Chronic re current major depressive disorder 0746660 F33.9 Not taking sertraline 100mg dailyOn clonazepam Denies any suicidal or homicidal ideation or attemptsDo es not want to see psychiatry Multiple sclerosis 16647 007 G35 Addendum: 12/28/2021 :S/p MRI pain Sees Dr Corado neurologyO n Kesimpta Steatotic liver disease 166425095 K76.0 S/p US liver 03/30/17, fatty infiltrate d Sees Dr Lorenzo Carpal zain lawanda syndrome 20500900 G56.01 07/09/19: Dr Hall: R CTR Does wellIs to get the L CTR but is not wanting it done yet Screening for malignant neoplasm of colon 671721377 Z12.11 Screening mammography 24 164287 Z12.31 Proteinuria 19612888 R80 .9 Get a referral to nephrologi st [id number] Geno chan MD [facility] Primary Care Mariannaimani crawford [address] [facility] [address] [place] [address] 11/20/2024 10:45:03 11/20/2024 11:12:36 [id number] Geno chan MD [facility] Kayleigh crawford [address] [facility] [address] [place] [address] 11/26/2024 11:23:51 11/26/2024 12:30:01 Type 2 diabetes mellitus without complication 202529529 E11.9 Dr Ochoa 06/22/2021 On novolog U70 via insulin given by Dr Lema on bydureonOn Mounjaro 10mg weekly 06/16/2024 , she states that she did have 'pancreati tis' about a year ago, but her endocrine allows her to take GLP-1Sees Dr Avery, as Dr Tejada does not take her insurance Seen Dr Tejada 05/07/2023 Dr Ochoa 06/16/2022 Dr Jack che MD as per Mono Gold 01/21/2024 , seen for ulcer of left foot d/t type 2 DM, f/u one week Screening - NAD 54471145 3 Z13.9 C-scope: 08/18/15, Dr Tara shaw next in 5 years, needs this done, next on 03/30/2023 PAP: Sees OB Dr. Collins last PAP was last year in 06/02Did see Dr Sanches Mammogram: 02/21/19: Neg 020: Neg 021: US compete R, did see Nancy Blackwell NP07/04/20 22: Neg 023: Neg 024: Neg DEXA: 12/08/2020 : Osteopenia should be on calcium and vit dDEXA: 04/19/2023 : Osteopenia UTD flu shotUTD tdap 03/22/2020 UTD #23 03/22/2020 UTD in COVID 19 vaccineCan do shingrix vaccine RTC in 3 monthswith labsER if any symptoms worsenShe verbalized her understand ing of the above Hypothyroidism 91382758 E03.9 US thyroid 05/09/2022 , next in one yearUS thyroid 07/31/2024 : No nodulesOn synthroid 75mcgs daily Get labs Hyperlipidemia 56510296 E78.5 On rosuvastat in 40mg dailyOn icosapent Get labs Vitamin D deficiency 347 87220 E55.9 Get vit d level Dyspnea on exertion 6084 5006 R06.09 Has noted some SOB, none today, eager to get a Xray chest XR chest 05/09/2022 : Neg Obstructiv e sleep apnea syndrome 86567481 G47.33 As per her history, her has noted some snoringGet sleep study ordered, she has not wanting the sleep study Fracture of tibia 985111 S8 Admitted/D /c: 05/14/08 1: SSMs/p fall and s/p spiral fracture of the L tibia, s/p L intamedull javier nailing Dr Garay get PT/OT at home, but not getting PT yet till she sees Dr Dede Floyd 06/01/2021 at 8.15amRx with miralax and oxycodone, on eliquis for 35 daysCBC 05/17/2021 : HGB 9.2/HCT 30.4Next apt is in 3 weeks, on 07/01/2021 has a walkerTake s oxycodone as needed Does well nowShe is d/c from the ortho as per her history Anemia 040380297 D64.[address] Preciado referred again 11/26/2024 Essential hypertension 40046870 I10 Not on losartan 25mg dailySees HV Dr Palacios Low back pain 986903601 M54.50 S/p surgery by Dr. Carrillo Sees Dr Linnea johnson on amantadine as per Dr Linnea johnson on tramadol daily PRN Chronic re current major depressive disorder 7683216 F33.9 On sertraline 25mg dailyOn clonazepam Denies any suicidal or homicidal ideation or attemptsDo es not want to see psychiatry Multiple sclerosis 14962 007 G35 Addendum: 12/28/2021 :S/p MRI pain Sees Dr Mak Pierson Steatotic liver disease 459606310 K76.0 S/p US liver 03/30/17, fatty infiltrate dShe did do the US liver at [facility] 11/25/[address] Lorenzo yesterday 11/25/2024 , and as per history 11/26/2024 no more apts with him for 2 years Carpal zain lawanda syndrome 40320773 G56.01 07/09/19: Dr Hall: R CTR Does wellIs to get the L CTR but is not wanting it done yet Screening for malignant neoplasm of colon 931956647 Z12.11 Proteinuria 28048314 R80 .[address] Palacios IJ on 12/27/2024 [id number] Geno chan MD [facility] [address] [place] [address] 04/01/2025 10:59:22 04/01/2025 12:19:13 Type 2 diabetes mellitus without complication [id number] E11.9 Dr Ochoa 06/22/2021 On novolog U70 via insulin given by Dr Lema on bydureonOn Mounjaro 10mg weekly 06/16/2024 , she states that she did have 'pancreati tis' about a year ago, but her endocrine allows her to take GLP-1Sees Dr Avery, as Dr Tejada does not take her insurance Seen Dr Tejada 05/07/2023 Dr Ochoa 06/16/2022 Dr Jack che MD as per patientDr Gold 01/21/2024 , seen for ulcer of left foot d/t type 2 DM, f/u one week Screening - NAD [id number] 3 Z13.9 C-scope: 08/18/15, Dr Tara shaw next in 5 years, needs this done, next on 03/30/2023 C-scope: 01/26/2025 : Dr silvestre PAP: Sees OB Dr. Collins last PAP was last year in 06/02Did see Dr Sanches Mammogram: 02/21/19: Neg 020: Neg 021: US compete R, did see Nancy Blackwell NP07/04/20 22: Neg 023: Neg 024: Neg DEXA: 12/08/2020 : Osteopenia should be on calcium and vit dDEXA: 04/19/2023 : Osteopenia UTD flu shotUTD tdap 03/22/2020 UTD #23 03/22/2020 UTD in COVID 19 vaccineCan do shingrix vaccine RTC in 3 monthswith labsER if any symptoms worsenShe verbalized her understand ing of the above Hypothyroidism [id number] E03.9 US thyroid 05/09/2022 , next in one yearUS thyroid 07/31/2024 : No nodulesOn synthroid 75mcgs daily Get labs Hyperlipidemia 04968017 E78.5 On rosuvastat in 40mg dailyOn icosapent Get labs Vitamin D deficiency 347 71754 E55.9 Get vit d level Dyspnea on exertion 6084 5006 R06.09 Has noted some SOB, none today, eager to get a Xray chest XR chest 05/09/2022 : Neg Obstructiv e sleep apnea syndrome [id number] G47.33 As per her history, her has noted some snoringGet sleep study ordered, she has not wanting the sleep study Fracture of tibia 059934 S8 Admitted/D /c: 05/14// 1: SSMs/p fall and s/p spiral fracture of the L tibia, s/p L intamedull javier nailing Dr Garay get PT/OT at home, but not getting PT yet till she sees Dr Dede Floyd 06/01/2021 at 8.15amRx with miralax and oxycodone, on eliquis for 35 daysCBC 05/17/2021 : HGB 9.2/HCT 30.4Next apt is in 3 weeks, on 07/01/2021 has a walkerTake s oxycodone as needed Does well nowShe is d/c from the ortho as per her history Anemia 585755626 D64.[address] Preciado referred again 11/26/2024 Essential hypertension 01709056 I10 Not on losartan 25mg dailySees HV Dr Palacios Low back pain 341260698 M54.50 S/p surgery by Dr. Carrillo Sees Dr Linnea johnson on amantadine as per Dr Linnea johnson on tramadol daily PRN Chronic re current major depressive disorder 0691396 F33.9 On sertraline 25mg dailyOn clonazepam Denies any suicidal or homicidal ideation or attemptsDo es not want to see psychiatry Multiple sclerosis 77992 007 G35 Addendum: 12/28/2021 :S/p MRI pain Sees Dr Corado neurologyN ot on KesimptaOn glatiramer Steatotic liver disease [id number] K76.0 S/p US liver 03/30/17, fatty infiltrate dShe did do the US liver at [facility] 11/25/[address] Lorenzo 11/25/2024 , and as per history 11/26/2024 no more apts with him for 2 years Carpal zain lawanda syndrome 11573180 G56.01 07/09/19: Dr Hall: R CTR Does wellIs to get the L CTR but is not wanting it done yet Screening for malignant neoplasm of colon 083819057 Z12.11 Proteinuria 67146432 R80 [address] Palacios IJ on 12/27/2024 Screening mammography 24 711255 Z12.31 08922930 Postmenopausal state 764 75547 Z78.0 140676 Screening for cardiovascular system disease 032524847 Z13.6 078855 Health Concerns Section Related Observation LastModified by Organization Detai ls LastModified Time None Recorded Concern Status LastModified by Organization Details LastModified Time None Recorded Advance Directives Directive N: Payers Insurance Date Sequence Insurance Name Policy Number Policy Gomez Covered Member ID Gomez Member ID Guarantor Name 04/13/2025 1 [place] [id number] Flaquito Cortez [id number] Nathaly Cortez 03/29/2025 2 [place] Nathaly Cortez [id number] Nathaly Cortez Notes Date Note Type Note Provider Name and Address Organization Details Recorded Time 06/16/2024 text/html 04/04/17Past Hx:MSDMIILS Spine surgeryReviewed his past social, surgical and family historyShe states that she has a UTI, feels that has the sx of 2 days, and has noted some blood in the urine, she states that she did see her neurologist and could be a 'cyst on the spine'.No fevers chills or nausea or vomiting, some hot flashes, mild dysuria, hesitancy.05/03/17Pas t Hx:MSDMIILS Spine surgeryReviewed his past social, surgical and family historyShe is here to discuss his diabetes was told that her sugars were very high, here with her daughter RenettaOV 08/15/17:Here for her routine 3 month visit, she feels good and did do labs with the endocrine MD, doing very wellOV 11/21/17:Here for her routine apt, feels that she is doing wellDid not take the metformin as it causes dairrhea, also has stopped the chol medicationsOV 05/08/18:Here s/p ER follow up twiceTessa was seen in the ER for a foot infection and is now treated by a paper maker and is on clindamycinShe was also ER for chest/stomach pain, and was treated with famotidine, she states that there is still abd pain, this is not helped with the famotidineShe states that the pain is in the epigastric and does not radiate, she denies any mid sternal chest pain, no N/VNo palpitations, no SOB, no DOENo diarrhea, no blood in urine or in the stoolOV 08/14/18:Here for her routine aptShe states that she is doing well at this timeShe is to get R eye surgeryShe states that she is doing very well and does not need surgery clearanceOV 06/25/19:Here for her routine aptS/p foot surgeryIs doing wellDid see Dr Tejada on 06/10/19OV 08/25/19:ACV:Here with URI sxC/o sinus and nasal congestionNo fevers or chillsNo N/V or vomitingNo blood in the sputumNo coughNo chest pain or SOBNo rashOV 03/22/2020:Here for her routine aptShe is doing wellShe states that she stopped her DM pills and now only takes her insulinShe is seeing Dr Tejada and has seen Dr Ochoa alsoOV 06/21/2020:Here for her routine aptShe did do the labsShe is doing wellShe is to see Dr Tejada tomorrow for her insulin pumpShe has also seen Dr Corado and has had a MRIOV 11/08/2020:Here for her routine aptShe feels well todayShe did do the labsShe did see Dr TejadaOV 03/07/2021:Here for her routine aptShe feels that her energy is low and she feels bloated, and feels that she has put on weightShe did do the labs OV 06/06/2021:Tele visitShe is agreeable to do the visitShe is doing wellShe did see Nancy Blackwell for a breast lump and now feels that this too is betterHer last apt with Dr Tejada was on 04/26/2021he did do the labs on 04/25/2021OV 10/26/2021:Here for her routine aptShe is doing wellShe did do the labs on 10/17/2021V 03/13/2022:Here for her routine aptShe is doing wellShe did do the labs on 03/08/2022 OV 07/12/2022:Here for her f/u apt, she states that she is doing much better, now she has adjusted her diet and is also trying to exercise, she did the labs on 2OV 10/18/2022:Here for her f/u apt, she is doing well, she did do the labs on 09/29/2022 OV 02/19/2023:Here for her f/u apt, has noted some LLQ abd pain, no N/V or diarrhea or constipation, no blood in urine or stool, no fevers or chills, she did do the labs OV 06/18/2023: Here for her f/u apt, she is doing well today, she did do the labs OV 07/26/2023: ACV: See case from today, has noted a red raised warm lesion under L breast, states that she was outdoors and could have been 'bit', no fevers or chills, d/c from the lesion OV 02/13/2024: Here for her f/u apt, she feels well today, labs done on 11/28/2023 OV 06/16/2024: Here for her f/u apt, she is doing well, wants to discuss if she can increase her Mounjaro as she has not lost much weight, she did do the labs today, not yet reported Geno Kiran MD [address], [place], [address], [facility] 06/16/2024 17:50:09 08/27/2024 text/html 04/04/17Past Hx:MSDMIILS Spine surgeryReviewed his past social, surgical and family historyShe states that she has a UTI, feels that has the sx of 2 days, and has noted some blood in the urine, she states that she did see her neurologist and could be a 'cyst on the spine'.No fevers chills or nausea or vomiting, some hot flashes, mild dysuria, hesitancy.05/03/17Pas t Hx:MSDMIILS Spine surgeryReviewed his past social, surgical and family historyShe is here to discuss his diabetes was told that her sugars were very high, here with her daughter RenettaOV 08/15/17:Here for her routine 3 month visit, she feels good and did do labs with the endocrine MD, doing very wellOV 11/21/17:Here for her routine apt, feels that she is doing wellDid not take the metformin as it causes dairrhea, also has stopped the chol medicationsOV 05/08/18:Here s/p ER follow up twiceShrodger was seen in the ER for a foot infection and is now treated by a paper maker and is on clindamycinShe was also ER for chest/stomach pain, and was treated with famotidine, she states that there is still abd pain, this is not helped with the famotidineShe states that the pain is in the epigastric and does not radiate, she denies any mid sternal chest pain, no N/VNo palpitations, no SOB, no DOENo diarrhea, no blood in urine or in the stoolOV 08/14/18:Here for her routine aptShe states that she is doing well at this timeShe is to get R eye surgeryShe states that she is doing very well and does not need surgery clearanceOV 06/25/19:Here for her routine aptS/p foot surgeryIs doing wellDid see Dr Tejada on 06/10/19OV 08/25/19:ACV:Here with URI sxC/o sinus and nasal congestionNo fevers or chillsNo N/V or vomitingNo blood in the sputumNo coughNo chest pain or SOBNo rashOV 03/22/2020:Here for her routine aptShe is doing wellShe states that she stopped her DM pills and now only takes her insulinShe is seeing Dr Tejada and has seen Dr Ochoa alsoOV 06/21/2020:Here for her routine aptShe did do the labsShe is doing wellShe is to see Dr Tejada tomorrow for her insulin pumpShe has also seen Dr Corado and has had a MRIOV 11/08/2020:Here for her routine aptShe feels well todayShe did do the labsShe did see Dr TejadaOV 03/07/2021:Here for her routine aptShe feels that her energy is low and she feels bloated, and feels that she has put on weightShe did do the labs OV 06/06/2021:Tele visitShe is agreeable to do the visitShe is doing wellShe did see Nancy Blackwell for a breast lump and now feels that this too is betterHer last apt with Dr Tejada was on 04/26/2021he did do the labs on 04/25/2021OV 10/26/2021:Here for her routine aptShe is doing wellShe did do the labs on 2OV 03/13/2022:Here for her routine aptShe is doing wellSalba did do the labs on 03/08/2022 OV 07/12/2022:Here for her f/u apt, she states that she is doing much better, now she has adjusted her diet and is also trying to exercise, she did the labs on 2OV 10/18/2022:Here for her f/u apt, she is doing well, she did do the labs on 09/29/2022 OV 02/19/2023:Here for her f/u apt, has noted some LLQ abd pain, no N/V or diarrhea or constipation, no blood in urine or stool, no fevers or chills, she did do the labs OV 06/18/2023: Here for her f/u apt, she is doing well today, she did do the labs OV 07/26/2023: ACV: See case from today, has noted a red raised warm lesion under L breast, states that she was outdoors and could have been 'bit', no fevers or chills, d/c from the lesion OV 02/13/2024: Here for her f/u apt, she feels well today, labs done on 11/28/2023 OV 06/16/2024: Here for her f/u apt, she is doing well, wants to discuss if she can increase her Mounjaro as she has not lost much weight, she did do the labs today, not yet reported OV 08/27/2024: Here for her f/u apt, she feels well today, upset that her daughter has sustained a skull injury d/t an accident Geno Kiran MD [address] [facility], [address], [place], [address], [facility] [employer] [facility] 09/07/2024 15:16:08 11/26/2024 text/html 04/04/17Past Hx:MSDMIILS Spine surgeryReviewed his past social, surgical and family historyShe states that she has a UTI, feels that has the sx of 2 days, and has noted some blood in the urine, she states that she did see her neurologist and could be a 'cyst on the spine'.No fevers chills or nausea or vomiting, some hot flashes, mild dysuria, hesitancy.05/03/17Pas t Hx:MSDMIILS Spine surgeryReviewed his past social, surgical and family historyShe is here to discuss his diabetes was told that her sugars were very high, here with her daughter RenettaOV 08/15/17:Here for her routine 3 month visit, she feels good and did do labs with the endocrine MD, doing very wellOV 11/21/17:Here for her routine apt, feels that she is doing wellDid not take the metformin as it causes dairrhea, also has stopped the chol medicationsOV 05/08/18:Here s/p ER follow up twiceShrodger was seen in the ER for a foot infection and is now treated by a paper maker and is on clindamycinShe was also ER for chest/stomach pain, and was treated with famotidine, she states that there is still abd pain, this is not helped with the famotidineShe states that the pain is in the epigastric and does not radiate, she denies any mid sternal chest pain, no N/VNo palpitations, no SOB, no DOENo diarrhea, no blood in urine or in the stoolOV 08/14/18:Here for her routine aptShe states that she is doing well at this timeShe is to get R eye surgeryShe states that she is doing very well and does not need surgery clearanceOV 06/25/19:Here for her routine aptS/p foot surgeryIs doing wellDid see Dr Tejada on 06/10/19OV 08/25/19:ACV:Here with URI sxC/o sinus and nasal congestionNo fevers or chillsNo N/V or vomitingNo blood in the sputumNo coughNo chest pain or SOBNo rashOV 03/22/2020:Here for her routine aptShe is doing wellShe states that she stopped her DM pills and now only takes her insulinShe is seeing Dr Tejada and has seen Dr Ochoa alsoOV 06/21/2020:Here for her routine aptShe did do the labsShe is doing wellShe is to see Dr Tejada tomorrow for her insulin pumpShe has also seen Dr Corado and has had a MRIOV 11/08/2020:Here for her routine aptShe feels well todayShe did do the labsShe did see Dr TejadaOV 03/07/2021:Here for her routine aptShe feels that her energy is low and she feels bloated, and feels that she has put on weightShe did do the labs OV 06/06/2021:Tele visitShe is agreeable to do the visitShe is doing wellShe did see Nancy Blackwell for a breast lump and now feels that this too is betterHer last apt with Dr Tejada was on 04/26/2021he did do the labs on 04/25/2021OV 10/26/2021:Here for her routine aptShe is doing wellShe did do the labs on 2OV 03/13/2022:Here for her routine aptShe is doing wellShe did do the labs on 03/08/2022 OV 07/12/2022:Here for her f/u apt, she states that she is doing much better, now she has adjusted her diet and is also trying to exercise, she did the labs on 06/20/2022V 10/18/2022:Here for her f/u apt, she is doing well, she did do the labs on 09/29/2022 OV 02/19/2023:Here for her f/u apt, has noted some LLQ abd pain, no N/V or diarrhea or constipation, no blood in urine or stool, no fevers or chills, she did do the labs OV 06/18/2023: Here for her f/u apt, she is doing well today, she did do the labs OV 07/26/2023: ACV: See case from today, has noted a red raised warm lesion under L breast, states that she was outdoors and could have been 'bit', no fevers or chills, d/c from the lesion OV 02/13/2024: Here for her f/u apt, she feels well today, labs done on 11/28/2023 OV 06/16/2024: Here for her f/u apt, she is doing well, wants to discuss if she can increase her Mounjaro as she has not lost much weight, she did do the labs today, not yet reported OV 08/27/2024: Here for her f/u apt, she feels well today, upset that her daughter has sustained a skull injury d/t an accident OV 11/26/2024: Here for her f/u apt, she is doing very well, she wants a refill for her Mounjaro, she did do the labs Geno Kiran MD [address] [facility], [facility] [address], [place], [address], [place] [facility] [employer] 11/26/2024 12:44:50 04/01/2025 text/html 04/04/17Past Hx:MSDMIILS Spine surgeryReviewed his past social, surgical and family historyShe states that she has a UTI, feels that has the sx of 2 days, and has noted some blood in the urine, she states that she did see her neurologist and could be a 'cyst on the spine'.No fevers chills or nausea or vomiting, some hot flashes, mild dysuria, hesitancy.05/03/17Pas t Hx:MSDMIILS Spine surgeryReviewed his past social, surgical and family historyShe is here to discuss his diabetes was told that her sugars were very high, here with her daughter RenettaOV 08/15/17:Here for her routine 3 month visit, she feels good and did do labs with the endocrine MD, doing very wellOV 11/21/17:Here for her routine apt, feels that she is doing wellDid not take the metformin as it causes dairrhea, also has stopped the chol medicationsOV 05/08/18:Here s/p ER follow up twiceTessa was seen in the ER for a foot infection and is now treated by a paper maker and is on clindamycinShe was also ER for chest/stomach pain, and was treated with famotidine, she states that there is still abd pain, this is not helped with the famotidineShe states that the pain is in the epigastric and does not radiate, she denies any mid sternal chest pain, no N/VNo palpitations, no SOB, no DOENo diarrhea, no blood in urine or in the stoolOV 08/14/18:Here for her routine aptShe states that she is doing well at this timeShe is to get R eye surgeryShe states that she is doing very well and does not need surgery clearanceOV 06/25/19:Here for her routine aptS/p foot surgeryIs doing wellDid see Dr Tejada on 06/10/19OV 08/25/19:ACV:Here with URI sxC/o sinus and nasal congestionNo fevers or chillsNo N/V or vomitingNo blood in the sputumNo coughNo chest pain or SOBNo rashOV 03/22/2020:Here for her routine aptShe is doing wellShe states that she stopped her DM pills and now only takes her insulinShe is seeing Dr Tejada and has seen Dr Ochoa alsoOV 06/21/2020:Here for her routine aptShe did do the labsShe is doing wellShe is to see Dr Tejada tomorrow for her insulin pumpShe has also seen Dr Corado and has had a MRIOV 11/08/2020:Here for her routine aptShe feels well todayShe did do the labsShe did see Dr TejadaOV 03/07/2021:Here for her routine aptShe feels that her energy is low and she feels bloated, and feels that she has put on weightShe did do the labs OV 06/06/2021:Tele visitShe is agreeable to do the visitShe is doing wellShe did see Nancy Blackwell for a breast lump and now feels that this too is betterHer last apt with Dr Tejada was on 04/26/2021he did do the labs on 04/25/2021OV 10/26/2021:Here for her routine aptShe is doing wellShe did do the labs on 10/17/2021V 03/13/2022:Here for her routine aptShe is doing wellShe did do the labs on 03/08/2022 OV 07/12/2022:Here for her f/u apt, she states that she is doing much better, now she has adjusted her diet and is also trying to exercise, she did the labs on 2OV 10/18/2022:Here for her f/u apt, she is doing well, she did do the labs on 09/29/2022 OV 02/19/2023:Here for her f/u apt, has noted some LLQ abd pain, no N/V or diarrhea or constipation, no blood in urine or stool, no fevers or chills, she did do the labs OV 06/18/2023: Here for her f/u apt, she is doing well today, she did do the labs OV 07/26/2023: ACV: See case from today, has noted a red raised warm lesion under L breast, states that she was outdoors and could have been 'bit', no fevers or chills, d/c from the lesion OV 02/13/2024: Here for her f/u apt, she feels well today, labs done on 11/28/2023 OV 06/16/2024: Here for her f/u apt, she is doing well, wants to discuss if she can increase her Mounjaro as she has not lost much weight, she did do the labs today, not yet reported OV 08/27/2024: Here for her f/u apt, she feels well today, upset that her daughter has sustained a skull injury d/t an accident OV 11/26/2024: Here for her f/u apt, she is doing very well, she wants a refill for her Mounjaro, she did do the labs OV 04/01/2025: Here for her f/u apt, she is here with her , is doing very well today Geno Kiran MD [address] [place] [address], [facility] [address], [place], [address], [place] [facility] 04/09/2025 20:08:44 OBGyn Episode No OBEpisode recorded.
--- OUTSIDE RECORDS SUMMARY | 2025-07-28 14:59 | XMS_ITS | Encounter Summary ---
Author Organization [facility] Address [address] [place] [address] Care Team Providers Care Talent Development Consultant Name Role Phone Michael Rivas MD Primary Care Provider [phone] Encounter Details Date Type Department Care Team (Latest Contact Info) Description 10/04/2005 Outpatient Historical [facility] Annel Michael MD [address] [facility] [address] [address] MULTIPLE SCLEROSIS (CMS/FORMERLY [facility]) (Primary Dx) Social History Tobacco Use Types Packs/Day Years Used Date Smoking Tobacco: Never Assessed Comments Unknown Sex and Gender Information Value Date Recorded Sex Assigned at Not on file Legal Sex Female 2:39 AM [employer] Gender Identity Not on file Sexual Orientation Not on file documented as of this encounter Plan of Treatment Not on file documented as of this encounter Procedures Procedure Name Priority Date/Time Associated Diagnosis Comments CBC WITH DIFFERENTIAL Routine 10/04/2005 1:43 PM [employer] CBC WITH DIFFERENTIAL Routine 10/04/2005 1:43 PM [employer] COMPREHENSIVE METABOLIC PANEL Routine 10/04/2005 1:43 PM [employer] documented in this encounter Results * (ABNORMAL) CBC WITH DIFFERENTIAL (10/04/2005 1:43 PM [employer]) NEUTROPHILS 69 45 - 70 % INTERFAC [...] 0.20 K/uL INTERFACE SYSTEM 10/04/2005 1:43 PM [employer] Annel [place] MD HEMATOLOGY ORDERABLES Final Result Performing Organization Address City/[facility] de Phone Number INTERFACE SYSTEM Refer to clinic/hospital department * (ABNORMAL) CBC WITH DIFFERENTIAL (10/04/2005 1:43 PM [employer]) WBC 10.2(H) 4.0 - 9.8 K/uL INTERFACE [...] 12.4 fL INTERFACE SYSTEM 10/04/2005 1:43 PM [employer] Annel [place] MD HEMATOLOGY ORDERABLES Final Result Performing Organization Address City/[facility] de Phone Number INTERFACE SYSTEM Refer to clinic/hospital department * (ABNORMAL) COMPREHENSIVE METABOLIC PANEL (10/04/2005 1:43 PM [employer]) GLUCOSE 183(H) 65 - 109 mg/dL INTERFACE [...] 22 - 30 mmol/L INTERFACE SYSTEM 10/04/2005 1:43 PM [employer] Annel [place] MD CHEMISTRY ORDERABLES Final Result INTERFACE SYSTEM Refer to clinic/hospital department documented in this encounter Visit Diagnoses Diagnosis Multiple sclerosis- Primary documented in this encounter Care Teams Talent Development Consultant Relationship Specialty Start Date End Date Michael Rivas MD PCP - General 09/03/15 documented as of this encounter
--- OUTSIDE RECORDS SUMMARY | 2025-07-28 14:59 | XMS_ITS | Encounter Summary ---
Author Organization [facility] Address [address] [place] [address] Care Team Providers Care Land Surveyor Assistant Name Role Phone Michael Rivas MD Primary Care Provider [phone] Encounter Details Date Type Department Care Team (Latest Contact Info) Description 04/12/2005 Outpatient Historical HIS [facility] Annel Michael MD [address] [facility] [address] [address] MULTIPLE SCLEROSIS (CMS/HCC) (Primary Dx) Social History Tobacco Use Types Packs/Day Years Used Date Smoking Tobacco: Never Assessed Comments Unknown Sex and Gender Information Value Date Recorded Sex Assigned at Not on file 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 Gender Identity Not on file Sexual [...] ANGIOTENSIN CONVERTING ENZYME (04/12/2005 1:57 PM CDT) Pathologist [facility] ANGIOTENSIN CONVERTING ENZYME 28 9 - 67 U/L INTERFACE SYSTEM Comment: Lab test performed by: [facility] [id number] [place] [id number] ÁLVARO MCCRAY MD 04/12/2005 1:57 PM CDT Annel Butler MD CHEMISTRY ORDERABLES Final Result Performing Organization Address [facility] Phone Number INTERFACE SYSTEM Refer to clinic/hospital department * (ABNORMAL) PROTEIN ELECTROPHORESIS, SERUM (04/12/2005 1:57 PM CDT) [facility] PROTEIN TOTAL, SPE 7.6 6.0 - 8.3 [...] CHEMISTRY ORDERABLES Final Result Performing Organization Address [facility] de Phone Number INTERFACE SYSTEM Refer to clinic/hospital department * BRANDT (04/12/2005 1:57 PM CDT) [facility] BRANDT SCREEN NEGATIVE NEGATIVE INTERFACE SYSTEM Comment: Lab test performed by: [facility] [id number] [place] [address] ÁLVARO MCCRAY MD 04/12/2005 1:57 PM CDT Annel Butler MD CHEMISTRY ORDERABLES Final Result Performing Organization Address [facility] Phone Number INTERFACE SYSTEM Refer to clinic/hospital [...] STOOLS [place]omen[place] l Result Performing Organization Address [facility] Phone [facility] INTERFACE SYSTEM Refer to clinic/hospital department * (ABNORMAL) TOTAL PROTEIN, CSF (04/12/2005 1:44 PM CDT) PROTEIN, CSF 78(H) 15 - 60 mg/dL INTERFACE SYSTEM 04/12/2005 1:44 PM CDT Annel Butler MD BODY FLUIDS AND STOOLS [place] Result Performing Organization Address [facility] Phone Number INTERFACE SYSTEM Refer to clinic/hospital department * (ABNORMAL) GLUCOSE, CSF (04/12/2005 1:44 PM CDT) GLUCOSE, CSF 83(H) 41 - 75 mg/dL INTERFACE SYSTEM 04/12/2005 1:44 PM CDT Annel Butler MD BODY FLUIDS AND STOOLS [place] Result Performing Organization Address [facility] Phone Number INTERFACE SYSTEM Refer to clinic/hospital [...] STOOLS [place] l Result Performing Organization Address [facility] Co de Phone Number INTERFACE SYSTEM [...] BODY FLUIDS AND STOOLS [place] l Result INTERFACE SYSTEM Refer to clinic/hospital department documented in this encounter Visit Diagnoses Diagnosis Multiple sclerosis- Primary documented in this encounter Care Teams Land Surveyor Assistant Relationship Specialty Start Date End Date Michael Rivas MD PCP - General 09/03/15 documented as of this encounter
--- NOTE | 2025-07-28 15:14 | ED.UPPEXIN ---
HPI - Extremity Injury (Upper) General Chief Complaint: Extremity Injury, Upper Stated Complaint: right arm injury Time Seen by Provider: 07/28/25 15:08 History of Present Illness HPI narrative: Pt has MS and a history of stress fractures. Pt was lifting right arm and felt pop like a pencil snap in her right upper arm. Pt denies other injury. Pt on antibiotics for phlebitis in same arm. Related Data Home Medications ?Medication ?Instructions ?Recorded ?Confirmed ?Last Taken ?Type Dialyvite Vitamin D 500,000 mg PO WEEKLY 05/13/21 02/04/25 01/22/25 History Novolog U-100 Insulin aspart 05/13/21 02/04/25 01/25/25 History clonazepam 0.5 mg PO PRN PRN Anxiety 05/13/21 02/04/25 Unknown History levothyroxine 75 mcg tablet 75 mcg PO DAILY 05/13/21 02/04/25 01/25/25 History (Synthroid) rosuvastatin 40 mg tablet (Crestor) 40 mg PO DAILY 05/13/21 02/04/25 01/25/25 History aspirin 81 mg tablet,delayed 81 mg PO DAILY 01/01/23 02/04/25 01/16/25 History release (Adult Low Dose Aspirin) blood-glucose,bridge construction inspector,cont 01/01/23 02/04/25 Unknown History (Dexcom G6 Personal Health Coach) tirzepatide 10 mg/0.5 mL 10 mg subcut WEEKLY 01/19/25 02/04/25 12/24/24 History subcutaneous pen injector (Mounjaro) sertraline 25 mg tablet 25 mg PO DAILY 02/04/25 02/04/25 Unknown History Allergies Allergy/AdvReac Type Severity Reaction Status Date / Time latex Allergy Severe Swelling Verified 07/28/25 15:04 of Lip/Tongue/Throat morphine Allergy Severe Anaphylaxis Verified 07/28/25 15:04 Review of Systems Review of Systems: All systems reviewed & are unremarkable except as noted in HPI and below PMFSH Past Medical History Medical History Screening mammogram, encounter for Cataract of right eye CTS (carpal tunnel syndrome) (~10/18/18) High cholesterol Cataract Arthritis ROSENBERG (nonalcoholic steatohepatitis) Diabetes mellitus Multiple sclerosis Surgical History Surgical History History of orthopedic surgery left double buckle fracture angelique and screws inserted History of back surgery (02/08/15) back surgery--spine stabilization History of orthopedic surgery Left big toe and 2nd toe 2019 History of gynecological procedure torn grace area during H/O: hysterectomy History of tonsillectomy Hx of cholecystectomy (05/13/18) Family History Family History Other Breast cancer paternal side Daughter Multiple sclerosis Father Heart disease Diabetes mellitus Mother Diabetes mellitus Other Cerebrovascular accident Depression Family history of arthritis Family history of attention deficit hyperactivity disorder (ADHD) Family history of cardiovascular disease Family history of coronary artery disease Hypertension Social History Social History Second hand tobacco smoke exposure: No Alcohol intake: never Substance use: never Substance use type: does not use Do You Feel Safe in your Home?: Yes Lack of Transportation: No Lack of Food: Never True Current Housing: I Have Housing Concerned About Future Housing: No Difficulty Paying Gas/Electric Bills: No Difficulty Paying for Meds: No Currently Unemployed: No Education: Associate Degree Difficulty w/ Childcare or Family Care: No Living arrangements: with family Additional living arrangements comments: Occupation/Education: retired Gender identity (if verbalized by the patient): Female Sexual Orientation (if Verbalized by the Patient): Straight or Heterosexual Exam Const: General: healthy appearing and no acute distress Nutritional Appearance: well nourished Orientation/consciousness: patient oriented x3 Limitations: no limitations Chest: Chest palpation & inspection: normal inspection of the chest Resp: Effort & Inspection: normal respiratory effort Auscultation: clear to auscultation bilaterally Cardio: Rate: regular rate Rhythm: regular rhythm GI: GI Palp: Yes Soft to palpation Skin: General skin exam: normal color Other: small area of healing wound to right upper arm Neuro: General: patient oriented x3, moves all extremities and CN's II-XI intact bilaterally Cranial nerves: Yes Nystagmus not present Speech: normal speech Extrem: Other: tender with small tender knot in right upper humerus near deltoid Psych: Mental Status: mental status grossly normal Affect: normal affect Attitude: cooperative Course Vital Signs Vital signs: Vital Signs Temperature 97.3 F L 07/28/25 14:55 Pulse Rate 89 07/28/25 14:55 Respiratory Rate 20 07/28/25 14:55 Blood Pressure 148/63 H 07/28/25 14:55 Pulse Oximetry 99 07/28/25 14:55 Oxygen Delivery Room Air 07/28/25 14:55 Temperature 97.3 F L 07/28/25 14:55 Pulse Rate 89 07/28/25 14:55 Respiratory Rate 20 07/28/25 14:55 Blood Pressure 148/63 H 07/28/25 14:55 Pulse Oximetry 99 07/28/25 14:55 Oxygen Delivery Room Air 07/28/25 14:55 MDM - Extremity Injury (Upper) MDM Narrative Medical decision making narrative: will get x ray to rule out fx. no fx on x ray. Differential Diagnosis Differential diagnosis: Likely dislocation of shoulder, fracture of humerus and other (strain) Imaging Data My impression: no fx noted Radiologist's impression: no fx Discharge Plan Discharge Clinical Impression: Muscle strain of right shoulder Patient Disposition: Home Condition: Stable Instructions: Antibiotic Form, Muscle Strain (DC) Patient Language: Greek Prescriptions: No Action aspirin [Adult Low Dose Aspirin] 81 mg tablet,delayed release (DR/EC) 81 mg PO DAILY (DME) Dexcom G6 Personal Health Coach Misc See Rx Instructions .Route Rx Instructions: As directed sertraline 25 mg tablet 25 mg PO DAILY levothyroxine [Synthroid] 75 mcg Tablet 75 mcg PO DAILY rosuvastatin [Crestor] 40 mg Tablet 40 mg PO DAILY Dialyvite Vitamin D 500,000 mg PO WEEKLY Novolog U-100 Insulin aspart clonazepam 0.5 mg PO PRN PRN (Reason: Anxiety) Mounjaro 10 mg/0.5 mL pen injector 10 mg SUBCUT WEEKLY Follow-up/Referrals: Magno,MD Xiomy [Primary Care Provider, Unknown]
--- OUTSIDE RECORDS SUMMARY | 2025-07-28 15:32 | XMS_ITS | Encounter Summary ---
Author Organization [facility] Address [address] [place] [address] Care Team Providers Care State Comptroller Name Role Phone Michael Rivas MD Primary Care Provider [phone] Encounter Details Date Type Department Care Team (Late st Contact Info) Description 02/09/2005 Outpatient Historical [facility] Annel Butler MD [address] [facility] [address] [address] NEURALGIA/NEURITIS NOS (Primary Dx) Social History Tobacco Use Types Packs/Day Years Used Date Smoking Tobacco: Never Assessed Comments Unknown Sex and Gender Information Value Date Recorded Sex Assigned at Not on file Legal Sex Female 2:39 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
--- OUTSIDE RECORDS SUMMARY | 2025-07-28 15:32 | XMS_ITS | Encounter Summary ---
Author Organization [facility] Address [address] [place] [address] Care Team Providers Care Heavy Truck Technician Name Role Phone Michael Rivas MD Primary Care Provider [phone] Encounter Details Date Type Department Care Team (Latest Contact Info) Description 08/05/2004 Outpatient Historical HIS [facility] Jean Dugan MD [address] [facility] [address] [place] [address] SCREENING MAMM-MAILG NEOPL-OTHER (Primary Dx) Social History Tobacco Use Types Packs/Day Years Used Date Smoking Tobacco: Never Assessed Comments Unknown Sex and Gender Information Value Date Recorded Sex Assigned at Not on file Legal Sex Female 2:39 AM 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
--- OUTSIDE RECORDS SUMMARY | 2025-07-28 15:32 | XMS_ITS | Encounter Summary ---
Author Organization [facility] Address [address] [place] [address] Care Team Providers Care Home Service Advisor Name Role Phone Michael Rivas MD Primary Care Provider [phone] Encounter Details Date Type Department Care Team (Late st Contact Info) Description 02/22/2005 Outpatient Historical Division of Neurology [address] [place] [address]., [address] [place] [address] Annel Butler MD [address] [facility] [address] [place] [address] Social History Tobacco Use Types Packs/Day Years Used Date Smoking Tobacco: Never Assessed Comments Unknown Sex and Gender Information Value Date Recorded Sex Assigned at Not on file Legal Sex Female 2:39 AM MULTIPLE SPINDLE SCREW MACHINE OPERATOR Gender Identity Not on file Sexual Orientation Not on file documented as of this encounter Plan of Treatment Not on file documented as of this encounter Visit Diagnoses Not on filedocumented in this encounter Care Teams Home Service Advisor Relationship Specialty Start Date End Date Michael Rivas MD PCP - General 09/03/15 documented as of this encounter
--- OUTSIDE RECORDS SUMMARY | 2025-07-28 15:32 | XMS_ITS | Clinical Summary ---
Author Organization [facility] Address [address] [address] Phone Care Team Providers Care Physical Therapist Aide Name Role Phone Xiomy Kirna MD Primary Care Provider [phone] Medications Dapagliflozin Propanediol (Farxiga) 5 MG tablet Take 5 mg by mouth 1 (one) time each day in the morning 30 tablet 5 07/07/20 25 Discontinu ed(Alterna te therapy) Encounters Date Type Department Care Team Description 07/07/2025 2:00 PM CDT Office Visit [place] [address] [place] [address] Barney Capps DO Chronic kidney disease, stage 2 (mild) (Primary Dx); Persistent proteinuria; Type 2 diabetes mellitus with diabetic chronic kidney disease, with long-term use of insulin (HCC); Pure hypercholesterolemia, not otherwise specified; Other specified hypothyroidism 07/07/2025 Refill [place] [place] [facility] [address] [address] Meenakshi Gilliland CMA 07/03/2025 Documentation Only [address] [address] Barney Capps DO 07/02/2025 Documentation Only [facility] [address] [address] Barney Capps DO 07/02/2025 Documentation Only [facility], [address] [phone] Barney Capps, 07/01/2025 Documentation Only [facility], [address] [phone] Barney Capps, 07/01/2025 Documentation Only [facility], [address] [address] Barney Capps, 07/01/2025 Documentation Only [facility], [address] [address] Barney Capps DO 07/01/2025 Documentation Only [facility], [address] [address] Barney Capps, from Last 3 [...] Description 01/05/2026 12:30 PM CDT Office Visit [facility], [facility] [address] [facility] [address] [place] [address] Barney Capps DO [address] [place] [address] Health Maintenance Due Date Last Done Comments [...] (6 to 49 Years) Discontinued 03/22/2020 [place] [address] [facility] Medicare Advance Directives Documents on File Type Date Recorded Patient Oral Surgery Physician Expl anation Advance Care Planning 04/24/2025 12:13 PM Care Teams Physical Therapist Aide Relationship Specialty Start Date End Date Xiomy Kiran MD [address] [facility], [address] [place] [address] PCP - General Internal Medicine 11/13/23
--- OUTSIDE RECORDS SUMMARY | 2025-07-28 15:32 | XMS_ITS | Encounter Summary ---
Author Organization [facility] Address [address] [place] [address] Care Team Providers Care Wheat Inspector Name Role Phone Michael Rivas MD Primary Care Provider [phone] Encounter Details Date Type Department Care Team (Late st Contact Info) Description 01/11/2005 Outpatient Historical Division of Neurology [address] [place] [address]., [address] [place] [address] Annel Butler MD [address] [facility] [address] [place] [address] Social History Tobacco Use Types Packs/Day Years Used Date Smoking Tobacco: Never Assessed Comments Unknown Sex and Gender Information Value Date Recorded Sex Assigned at Not on file Legal Sex Female 2:39 AM 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
--- OUTSIDE RECORDS SUMMARY | 2025-07-28 15:32 | XMS_ITS | Encounter Summary ---
Author Organization [facility] Address [address] [place] [address] Care Team Providers Care Hand Packer Name Role Phone Michael Rivas MD Primary Care Provider [phone] Encounter Details Date Type Department Care Team (Late st Contact Info) Description 02/09/2005 Outpatient Historical [facility] [place] Internal Medicine Medical [facility] [address] [facility] [address] [address] Ada Mojica MD Social History Tobacco Use Types Packs/Day Years Used Date Smoking Tobacco: Never Assessed Comments Unknown Sex and Gender Information Value Date Recorded Sex Assigned at Not on file Legal Sex Female 2:39 AM SHIP PROPELLER FINISHER Gender Identity Not on file Sexual [...] on filedocumented in this encounter Care Teams Hand Packer Relationship Specialty Start Date End Date Michael Rivas MD PCP - General 09/03/15 documented as of this encounter
--- OUTSIDE RECORDS SUMMARY | 2025-07-28 15:32 | XMS_ITS | Encounter Summary ---
Author Organization [facility] Address [address] [place] [address] Phone Care Team Providers Care Bookbinder Apprentice Name Role Phone Mahad Corado MD Unavailable [phone] Xiomy Kiran MD Primary Care Provider Kaylyn Ellison MD Unavailable [phone] Zayda Hanson APRN, RIB BENDER Unavailable [phone] Reason for Visit * Reason Comments Medication Refill Encounter Details Date Type Department Care Team (Late st Contact Info) Description 03/15/2022 Refill [facility] - Neurology [facility] [address] [place] [address] Mahad Corado MD [address] [place] [address] Medication Refill Social History Tobacco Use Types [...] Dept 01/31/22 Office Visit Mahad Corado MD [facility] Neurology [facility] 11/10/21 Telemedicine Mahad Corado MD [facility] Neurology [facility] 06/23/21 Telemedicine Mahad Corado MD [facility] Neurology [facility] 03/18/21 Office Visit Mahad Corado MD [facility] Showing recent visits within past 365 days and meeting all other requirements Future Appointments Date Type Provider Dept 05/04/22 Appointment Mahad Corado MD [facility] Showing future appointments within next 90 days and meeting all other requirements documented in this encounter Plan of Treatment Upcoming Encounters Date Type Department Care Team (Late st Contact Info) Description 08/20/2025 4:00 PM RETAIL PERFORMANCE COACH [facility] [address] [place] [address] Zayda Hanson, TOUR CONDUCTOR, RIB BENDER [address] [address] Discharge Disposition: Discharged to home or Selfcare 11/26/2025 11:15 AM CDT [facility] [place] [address] [place] [address] Mahad Corado MD [address] [place] [address] 05/06/2026 11:00 AM CDT Office Visit [facility] Cardiology - [place] [address] [place] [phone] Zayda Hanson APRN, RIB BENDER [address] [address] documented as of this encounter Visit Diagnoses Diagnosis Anxiety Anxiety state, unspecified documented in this encounter Care Teams Bookbinder Apprentice Relationship Specialty Start Date End Date Xiomy Kiran MD [address] [facility] [place] [address] PCP - General Internal Medicine 12/05/17 Mahad Corado MD [address] [place] [phone] Consulting Physician Neurology 08/02/15 Kaylyn Ellison MD [address] [phone] Consulting Physician Otolaryngology 03/19/25 Zayda Hanson APRN, RIB BENDER [address] [id number] Nurse Practitioner Cardiology 05/04/25 documented as of this encounter
--- OUTSIDE RECORDS SUMMARY | 2025-07-28 15:32 | XMS_ITS | Encounter Summary ---
Author Organization [facility] Address [address] [place] [address] Care Team Providers Care Instructor Of Nursing Name Role Phone Michael Rivas MD Primary Care Provider [phone] Encounter Details Date Type Department Care Team (Late st Contact Info) Description 08/24/2003 Outpatient Historical [place] [address] [place] [address] CERVICALGIA (Primary Dx) Social History Tobacco Use Types Packs/Day Years Used Date Smoking Tobacco: Never Assessed Comments Unknown Sex and Gender Information Value Date Recorded Sex Assigned at Not on file Legal Sex Female 2:39 AM BOARD LAYER Gender Identity Not on file Sexual Orientation Not on file documented as of this encounter Plan of Treatment Not on file documented as of this encounter Visit Diagnoses Diagnosis Cervicalgia- Primary documented in this encounter Care Teams Instructor Of Nursing Relationship Specialty Start Date End Date Michael Rivas MD PCP - General 09/03/15 documented as of this encounter
--- OUTSIDE RECORDS SUMMARY | 2025-07-28 15:32 | XMS_ITS | Encounter Summary ---
Author Organization [facility] Address 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
--- OUTSIDE RECORDS SUMMARY | 2025-07-28 15:32 | XMS_ITS | Encounter Summary ---
Author Organization [facility] Address [address] [place] [address] Care Team Providers Care Pattern Grader Cutter Name Role Phone Michael Rivas MD Primary Care Provider [phone] Encounter Details Date Type Department Care Team (Latest Contact Info) Description 01/25/2005 Outpatient Historical [facility] Annel Butler MD [address] [facility] [address] [address] CARPAL TUNNEL SYNDROME (Primary Dx) Social History Tobacco Use Types Packs/Day Years Used Date Smoking Tobacco: Never Assessed Comments Unknown Sex and Gender Information Value Date Recorded Sex Assigned at Not on file Legal Sex Female 2:39 AM OPTO MECHANICAL ENGINEER Gender Identity Not on file Sexual Orientation Not on file documented as of this encounter Plan of Treatment Not on file documented as of this encounter Visit Diagnoses Diagnosis Carpal tunnel syndrome- Primary documented in this encounter Care Teams Pattern Grader Cutter Relationship Specialty Start Date End Date Michael Rivas MD PCP - General 09/03/15 documented as of this encounter
--- OUTSIDE RECORDS SUMMARY | 2025-07-28 15:32 | XMS_ITS | Encounter Summary ---
Author Organization [facility] Address [address] [place] [address] Phone Care Team Providers Care Agile Coach Name Role Phone Mahad Corado MD Unavailable [phone] Xiomy Kiran MD Primary Care Provider Kaylyn Ellison MD Unavailable [phone] Zayda Hanson APRN, PEDIATRIC NEUROLOGIST Unavailable [phone] Reason for Visit * Reason Comments Medication Refill Encounter Details Date Type Department Care Team (Late st Contact Info) Description 10/26/2021 Refill [facility] - Neurology [facility] [address] [place] [address] Mahad Corado MD [address] [place] [address] Medication Refill Social History Tobacco Use Types [...] RN - 10/27/2021 3:43 PM CST . [place] LEAD[place] documented in this encounter Plan of Treatment Upcoming Encounters Date Type Department Care Team (Late st Contact Info) Description 08/20/2025 4:00 PM RETAIL LEADER [facility]ment [facility] [address] [place] [address] Zayda Hanson, LEARNING PROGRAM MANAGER, PEDIATRIC NEUROLOGIST [address] [address] Discharge Disposition: Discharged to home or Selfcare 11/26/2025 11:15 AM CDT Office Visit [facility] - Neurology - [place] [address] [place] [address] Mahad Corado MD [address] [place] [address] 05/06/2026 11:00 AM CDT Office Visit [facility] - Cardiology - [place] [address] [place] [address] Zayda Hanson, LEARNING PROGRAM MANAGER, PEDIATRIC NEUROLOGIST [address] [address] documented as of this encounter Visit Diagnoses Diagnosis Anxiety Anxiety state, unspecified documented in this encounter Care Teams Agile Coach Relationship Specialty Start Date End Date Xiomy Kiran MD [address] [facility] [place] [address] PCP - General Internal Medicine 12/05/17 Mahad Corado MD [address] [place] [address] Consulting Physician Neurology 08/02/15 Kaylyn Ellison MD [address] [place] [address] [address] Consulting Physician Otolaryngology 03/19/25 Zayda Hanson APRN, PEDIATRIC NEUROLOGIST [address] [address] Nurse Practitioner Cardiology 05/04/25 documented as of this encounter
--- OUTSIDE RECORDS SUMMARY | 2025-07-28 15:32 | XMS_ITS | Encounter Summary ---
Author Organization [facility] Address [address] [place] [address] Care Team Providers Care Cotton Tipper Name Role Phone Michael Rivas MD Primary Care Provider [phone] Encounter Details Date Type Department Care Team (Late st Contact Info) Description 10/09/2003 Outpatient Historical [facility] MRI DEPT Sebastian Mccrary MD [address] [place] [address] CERVICAL DISC DISPLACMNT (Primary Dx) Social History Tobacco Use Types Packs/Day Years Used Date Smoking Tobacco: Never Assessed Comments Unknown Sex and Gender Information Value Date Recorded Sex Assigned at Not on file Legal Sex Female 2:39 AM SECOND COOK AND BAKER Gender Identity Not on file Sexual Orientation Not on file documented as of this encounter Plan of Treatment Not on file documented as of this encounter Visit Diagnoses Diagnosis Displacement of cervical intervertebral disc without myelopathy- Primary documented in this encounter Care Teams Cotton Tipper Relationship Specialty Start Date End Date Michael Rivas MD PCP - General 09/03/15 documented as of this encounter
--- OUTSIDE RECORDS SUMMARY | 2025-07-28 15:32 | XMS_ITS | Encounter Summary ---
Author Organization [facility] Address [address] [place] [address] Care Team Providers Care Career Specialist Name Role Phone Michael Rivas MD Primary Care Provider [phone] Encounter Details Date Type Department Care Team (Late st Contact Info) Description 04/05/2001 Outpatient Historical [facility] AUDIOLOGY Ernesto Savage MD [address] [place] [address] Disturbance of skin sensation (Primary Dx) Social History Tobacco Use Types Packs/Day Years Used Date Smoking Tobacco: Never Assessed Comments Unknown Sex and Gender Information Value Date Recorded Sex Assigned at Not on file Legal Sex Female 2:39 AM HISTOPATHOLOGY TECHNICIAN Gender Identity Not on file Sexual Orientation Not on file documented as of this encounter Plan of Treatment Not on file documented as of this encounter Visit Diagnoses Diagnosis Disturbance of skin sensation- Primary documented in this encounter Care Teams Career Specialist Relationship Specialty Start Date End Date Michael Rivas MD PCP - General 09/03/15 documented as of this encounter
--- OUTSIDE RECORDS SUMMARY | 2025-07-28 15:32 | XMS_ITS | Encounter Summary ---
Author Organization [facility] Address 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
--- OUTSIDE RECORDS SUMMARY | 2025-07-28 15:32 | XMS_ITS | Encounter Summary ---
Author Organization [facility] Address 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 No change in methodology. GLUCOSE, MEAN BLOOD 157 mg/dL INTERFACE SYSTEM 01/11/2005 2:10 PM CDT Annel Butler MD CHEMISTRY ORDERABLES Final Result INTERFACE SYSTEM Refer to clinic/hospital department documented in this encounter Visit Diagnoses Diagnosis Type II or unspecified type diabetes mellitus with neurological manifestations, not stated as uncontrolled(250.60) (CMS/[facility])- Primary Type II or unspecified type diabetes mellitus with neurological manifestations, not stated as uncontrolled documented in this encounter Care Teams Gasoline Pump Installer Relationship Specialty Start Date End Date Michael Rivas MD PCP - General 09/03/15 documented as of this encounter
--- OUTSIDE RECORDS SUMMARY | 2025-07-28 15:32 | XMS_ITS | Encounter Summary ---
Author Organization [facility] Address [address] [place] [address] Phone Care Team Providers Care Performance Test Architect Name Role Phone Mahad Corado MD Unavailable [phone] Xiomy Kirna MD Primary Care Provider Kaylyn Ellison MD Unavailable Zayda Hanson APRN, FACILITY COORDINATOR Unavailable [phone] Reason for Visit * Reason Comments Medication Refill Encounter Details Date Type Department Care Team (Late st Contact Info) Description 05/23/2022 Refill [facility] - Neurology [facility] [address] [place] [address] Mahad Corado MD [address] [place] [address] Medication Refill Social History Tobacco Use Types [...] st Contact Info) Description 08/20/2025 4:00 PM CURRENCY EXAMINER Appointment [facility]iology Services 1 [place] [address] Zayda Hanson, ECOTHERAPIST, FACILITY COORDINATOR [address] [address] Discharge Disposition: Discharged to home or Selfcare 11/26/2025 11:15 AM CDT Office Visit [facility] - Neurology - [place] [address] [place] [address] Mahad Corado MD [address] [place] [address] 05/06/2026 11:00 AM CDT Office Visit [facility] - Cardiology - [place] [address] [place] [address] Zayda Hanson, ECOTHERAPIST, FACILITY COORDINATOR [address] [address] documented as of this encounter Visit Diagnoses Diagnosis Anxiety Anxiety state, unspecified documented in this encounter Care Teams Performance Test Architect Relationship Specialty Start Date End Date Xiomy Kiran MD [address] [place] [address] PCP - General Internal Medicine 12/05/17 Mahad Corado MD [address] [place] [address] Consulting Physician Neurology 08/02/15 Kaylyn Ellison MD [address] [place] [address] [address] Consulting Physician Otolaryngology 03/19/25 Zayda Hanson APRN, FACILITY COORDINATOR [address] [place] [address] [address] Nurse Practitioner Cardiology 05/04/25 documented as of this encounter
--- OUTSIDE RECORDS SUMMARY | 2025-07-28 15:32 | XMS_ITS | Encounter Summary ---
Author Organization [facility] Address [address] [place] [address] Care Team Providers Care Cushion Sewer Name Role Phone Michael Rivas MD Primary Care Provider [phone] Encounter Details Date Type Department Care Team (Late st Contact Info) Description 01/25/2005 Outpatient Historical [facility] [place] [address] [place] [address] Annel Butler MD [address] [address] Social History Tobacco Use Types Packs/Day Years Used Date Smoking Tobacco: Never Assessed Comments Unknown Sex and Gender Information Value Date Recorded Sex Assigned at Not on file Legal Sex Female 2:39 AM TEACHING SUPERVISOR Gender Identity Not on file Sexual Orientation Not on file documented as of this encounter Plan of Treatment Not on file documented as of this encounter Visit Diagnoses Not on filedocumented in this encounter Care Teams Cushion Sewer Relationship Specialty Start Date End Date Michael Rivas MD PCP - General 09/03/15 documented as of this encounter
--- OUTSIDE RECORDS SUMMARY | 2025-07-28 15:32 | XMS_ITS | Encounter Summary ---
Author Organization [facility] Address [address] [place] [address] Care Team Providers Care Forms Analyst Name Role Phone Michael Rivas MD Primary Care Provider [phone] Encounter Details Date Type Department Care Team (Late st Contact Info) Description 01/07/2004 Outpatient Historical [facility] Services [facility] [place] [address] [place] [address] [place] [address] [place] [address] Social History Tobacco Use Types Packs/Day Years Used Date Smoking Tobacco: Never Assessed Comments Unknown Sex and Gender Information Value Date Recorded Sex Assigned at Not on file 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
--- OUTSIDE RECORDS SUMMARY | 2025-07-28 15:33 | XMS_ITS | Encounter Summary ---
Author Organization [facility] Address [address] [place] [address] Phone Care Team Providers Care Remedial Masseur Name Role Phone Mahad Corado MD Unavailable [phone] Xiomy Kiran MD Primary Care Provider Kaylyn Ellison MD Unavailable [phone] Zayda Hanson APRN, SOLID WASTE DIVISION SUPERVISOR Unavailable [phone] Reason for Visit * Reason Comments Medication Refill Encounter Details Date Type Department Care Team (Late st Contact Info) Description 09/28/2022 Refill [facility] - Neurology [facility] [address] [place] [address] Mahad Corado MD [address] [place] [address] Medication Refill Social History Tobacco Use Types [...] st Contact Info) Description 08/20/2025 4:00 PM GUEST SERVICES ATTENDANT [facility]ointment [facility] 1 [place] [address] Zayda Hanson, POLICE SURGEON, SOLID WASTE DIVISION SUPERVISOR [address] [address] Discharge Disposition: Discharged to home or Selfcare 11/26/2025 11:15 AM CDT Office Visit [facility] - Neurology - [place] [address] [place] [address] Mahad Corado MD [address] [place] [address] 05/06/2026 11:00 AM CDT Office Visit [facility] Cardiology - [place] [address] [place] [address] Zayda Hanson, POLICE SURGEON, SOLID WASTE DIVISION SUPERVISOR [address] [address] documented as of this encounter Visit Diagnoses Diagnosis Anxiety Anxiety state, unspecified documented in this encounter Care Teams Remedial Masseur Relationship Specialty Start Date End Date Xiomy Kiran MD [address] [place] [address] PCP - General Internal Medicine 12/05/17 Mahad Corado MD [address] [place] [address] Consulting Physician Neurology 08/02/15 Kaylyn Ellison MD #[address] [address] Consulting Physician Otolaryngology 03/19/25 Zayda Hanson APRN, SOLID WASTE DIVISION SUPERVISOR [address] [address] Nurse Practitioner Cardiology 05/04/25 documented as of this encounter
--- OUTSIDE RECORDS SUMMARY | 2025-07-28 15:33 | XMS_ITS | Encounter Summary ---
Author Organization [facility] Address [address] [place] [address] Care Team Providers Care Physician Office Assistant Name Role Phone Michael Rivas MD Primary Care Provider [phone] Encounter Details Date Type Department Care Team (Late st Contact Info) Description 05/07/2006 Outpatient Historical [facility] MRI DEPT Annel Butler MD [address] [address] Multiple Sclerosis (CMS/HCC) (Primary Dx) Social History Tobacco Use Types Packs/Day Years Used Date Smoking Tobacco: Never Assessed Comments Unknown Sex and Gender Information Value Date Recorded Sex Assigned at Not on file Legal Sex Female 2:39 AM DIE TROUBLE SHOOTER Gender Identity Not on file Sexual Orientation Not on file documented as of this encounter Plan of Treatment Not on file documented as of this encounter Visit Diagnoses Diagnosis Multiple sclerosis- Primary documented in this encounter Care Teams Physician Office Assistant Relationship Specialty Start Date End Date Michael Rivas MD PCP - General 09/03/15 documented as of this encounter
--- OUTSIDE RECORDS SUMMARY | 2025-07-28 15:33 | XMS_ITS | Encounter Summary ---
Author Organization [facility] Address [address] 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
--- OUTSIDE RECORDS SUMMARY | 2025-07-28 15:33 | XMS_ITS | Encounter Summary ---
Author Organization [facility] Address [address] [place] [address] Care Team Providers Care Chemistry Tutor Name Role Phone Michael Rivas MD Primary Care Provider [phone] Encounter Details Date Type Department Care Team (Latest Contact Info) Description 12/20/2005 Outpatient Historical [facility] Internal Medicine [facility] [address] [place] [address] Ivan Reed MD [address] 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
--- OUTSIDE RECORDS SUMMARY | 2025-07-28 15:33 | XMS_ITS | Encounter Summary ---
Author Organization [facility] Address [address] [place] [address] Care Team Providers Care Corduroy Cutter Operator Name Role Phone Michael Rivas MD Primary Care Provider [phone] Encounter Details Date Type Department Care Team (Late st Contact Info) Description 03/13/2005 Outpatient Historical [facility] Support Serv. (Adt Cardiology-[place]) [address] 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
--- OUTSIDE RECORDS SUMMARY | 2025-07-28 15:33 | XMS_ITS | Encounter Summary ---
Author Organization [facility] Address [address] [place] [address] Care Team Providers Care Mechanism Inspector Name Role Phone Michael Rivas MD Primary Care Provider [phone] Encounter Details Date Type Department Care Team (Late st Contact Info) Description 03/22/2005 Outpatient Historical [facility] MRI DEPT Annel Butler MD [address] [facility] [address] [address] THORACIC DISC DISPLACMNT (Primary Dx) Social History Tobacco Use Types Packs/Day Years Used Date Smoking Tobacco: Never Assessed Comments Unknown Sex and Gender Information Value Date Recorded Sex Assigned at Not on file Legal Sex Female 2:39 AM SKIVER BLOCKERS Gender Identity Not on file Sexual Orientation Not on file documented as of this encounter Plan of Treatment Not on file documented as of this encounter Visit Diagnoses Diagnosis Displacement of thoracic intervertebral disc without myelopathy- Primary documented in this encounter Care Teams Mechanism Inspector Relationship Specialty Start Date End Date Michael Rivas MD PCP - General 09/03/15 documented as of this encounter
--- OUTSIDE RECORDS SUMMARY | 2025-07-28 15:33 | XMS_ITS | Clinical Summary ---
Author Organization [facility] Address [address] [place] [address] Phone Care Team Providers Care Reading Tutor Name Role Phone Michael Rivas MD Primary Care Provider [phone] Allergies Active Allergy Reactions Criticality Noted Date [...] on file Legal Sex Female 2:39 AM CLINICAL RN LIAISON Gender Identity Not on file Sexual Orientation [...] (#1) 2025 Medical Devices Implanted Type Area Architectural Technologist Device Identifier Shelf Expiration Date Model / Serial / Lot Paste Bone Dbm Plus 5ml [id number] - [id number] Implanted:Qty: 1 on 01/26/2015 by Angel Luis Carrillo MD at [facility] Putty N/A: Spine Lumbar [employer] 07/20/2016 [id number] / [id number] / Ramos Solera Ccm Crv [id number] - Ssterilized Implanted:Qty: 2 on 01/26/2015 by Angel Luis Carrillo MD at [facility] Ramos N/A: Spine Lumbar [employer]- SOFAMOR DANEK 01/22/2015 [id number] / STERILIZED / [id number] Screw Solera Ma 6.5x45mm [id number] - Ssterilized Implanted:Qty: 4 on 01/26/2015 by Angel Luis Carrillo MD at [facility] Screw N/A: Spine Lumbar [employer]- SOFAMOR DANEK [id number] / STERILIZED / [id number] Set Screw Solera Breakoff [id number] - Ssterilized Implanted:Qty: 4 on 01/26/2015 by Angel Luis Carrillo MD at [facility] Screw N/A: Spine Lumbar [employer]- SOFAMOR DANEK [id number] / STERILIZED / [id number] Sealant Floseal W/ Adptr 10ml [id number] - [id number] Implanted:Qty: 1 on 01/26/2015 by Angel Luis Carrillo MD at [facility] Sealant N/A: Spine Lumbar WEIN[employer]- [employer] Payroll 04/16/2016 [id number] / / [id number] Spacer Capstn Peek [id number] - [id number] Implanted:Qty: 1 on 01/26/2015 by Angel Luis Carrillo MD at [facility] Spacer N/A: Spine Lumbar [employer]- SOFAMOR DANEK 03/31/2022 [id number] / / [id number] Procedures Procedure Name Priority Date/Time Associated Diagnosis [...] CHEMISTRY ORDERABLES Final Result Performing Organization Address City/State/[facility] Co de Phone Number INTERFACE SYSTEM Refer to clinic/hospital department from Last 3 Months or Most Recently Relevant to Health Maintenance Insurance [email or web address] PPO [email or web address] PPO Advance Directives For more information, please contact: [phone] * Full Code (Latest Code Status on File) Date Activated Date Inactivated Comments 01/26/2015 3:50 PM 01/29/2015 4:24 PM * Full Code Date Activated Date Inactivated Comments 01/26/2015 3:50 PM 01/26/2015 3:50 PM * Full Code Date Activated Date Inactivated Comments 01/26/2015 10:36 AM 01/26/2015 3:50 PM Care Teams Reading Tutor Relationship Specialty Start Date End Date Michael Rivas MD PCP - General 09/03/15
--- OUTSIDE RECORDS SUMMARY | 2025-07-28 15:33 | XMS_ITS | Encounter Summary ---
Author Organization [facility] Address [address] [place] [address] Care Team Providers Care Community Service Organization Director Name Role Phone Michael Rivas MD Primary Care Provider [phone] Encounter Details Date Type Department Care Team (Late st Contact Info) Description 04/10/2006 Outpatient Historical [facility] MRI DEPT Annel Butler MD [address] [facility] [address] [address] Multiple Sclerosis (CMS/HCC) (Primary Dx) Social History Tobacco Use Types Packs/Day Years Used Date Smoking Tobacco: Never Assessed Comments Unknown Sex and Gender Information Value Date Recorded Sex Assigned at Not on file 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
--- OUTSIDE RECORDS SUMMARY | 2025-07-28 15:33 | XMS_ITS | Encounter Summary ---
Author Organization [facility] Address [address] [place] [address] Care Team Providers Care Icu Tech Name Role Phone Michael Rivas MD Primary Care Provider [phone] Encounter Details Date Type Department Care Team (Latest Contact Info) Description 03/23/2006 Outpatient Historical HIS [facility] Jia Jorge MD [facility] [address] Pain in Joint, Upper Arm (Primary Dx) Social History Tobacco Use Types Packs/Day Years Used Date Smoking Tobacco: Never Assessed Comments Unknown Sex and Gender Information Value Date Recorded Sex Assigned at Not on file Legal Sex Female 2:39 AM FORMULATION CHEMIST Gender Identity Not on file Sexual Orientation Not on file documented as of this encounter Plan of Treatment Not on file documented as of this encounter Visit Diagnoses Diagnosis Pain in joint, upper arm- Primary documented in this encounter Care Teams Icu Tech Relationship Specialty Start Date End Date Michael Rivas MD PCP - General 09/03/15 documented as of this encounter
--- OUTSIDE RECORDS SUMMARY | 2025-07-28 15:33 | XMS_ITS | Encounter Summary ---
Author Organization [facility] Address 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
--- OUTSIDE RECORDS SUMMARY | 2025-07-28 15:33 | XMS_ITS | Encounter Summary ---
Author Organization [facility] Address [address] [place]: Epic Prelude ADT [place] [address] Care Team Providers Care Air Sealing Technician Name Role Phone Michael Rivas MD Primary Care Provider [phone] Encounter Details Date Type Department Care Team (Latest Contact Info) Description 04/13/2006 Orders Only Ada Mojica MD Social History Tobacco Use Types Packs/Day Years Used Date Smoking Tobacco: Never Assessed Comments Unknown Sex and Gender Information Value Date Recorded Sex Assigned at Not on file Legal Sex Female 2:39 AM SNUFF GRINDER AND SCREENER Gender Identity Not on file Sexual Orientation Not on file documented as of this encounter Plan of Treatment Not on file documented as of this encounter Visit Diagnoses Not on filedocumented in this encounter Care Teams Air Sealing Technician Relationship Specialty Start Date End Date Michael Rivas MD PCP - General 09/03/15 documented as of this encounter
--- OUTSIDE RECORDS SUMMARY | 2025-07-28 15:33 | XMS_ITS | Encounter Summary ---
Author Organization [facility] Address [address] [place] [address] Care Team Providers Care Supervisor Spinning Name Role Phone Michael Rivas MD Primary Care Provider [phone] Encounter Details Date Type Department Care Team (Late st Contact Info) Description 04/27/2006 Outpatient Historical Division of Neurology [address] [place] [address]., [address] [place] [address] Annel Butler MD [address] [facility] [address] [place] [address] Social History Tobacco Use Types Packs/Day Years Used Date Smoking Tobacco: Never Assessed Comments Unknown Sex and Gender Information Value Date Recorded Sex Assigned at Not on file Legal Sex Female 2:39 AM LOAN DOCUMENTATION SPECIALIST Gender Identity Not on file Sexual Orientation Not on file documented as of this encounter Plan of Treatment Not on file documented as of this encounter Visit Diagnoses Not on filedocumented in this encounter Care Teams Supervisor Spinning Relationship Specialty Start Date End Date Michael Rivas MD PCP - General 09/03/15 documented as of this encounter
--- OUTSIDE RECORDS SUMMARY | 2025-07-28 15:33 | XMS_ITS | Encounter Summary ---
Author Organization [facility] Address [address] [place] [address] Care Team Providers Care Preschool Adviser Name Role Phone Michael Rivas MD Primary Care Provider [phone] Encounter Details Date Type Department Care Team (Late st Contact Info) Description 06/14/2005 Outpatient Historical Division of Neurology [address] [place] [address]., [address] [place] [address] Annel Butler MD [address] [facility] [address] [place] [address] Social History Tobacco Use Types Packs/Day Years Used Date Smoking Tobacco: Never Assessed Comments Unknown Sex and Gender Information Value Date Recorded Sex Assigned at Not on file Legal Sex Female 2:39 AM T RAIL TURNER Gender Identity Not on file Sexual Orientation Not on file documented as of this encounter Plan of Treatment Not on file documented as of this encounter Visit Diagnoses Not on filedocumented in this encounter Care Teams Preschool Adviser Relationship Specialty Start Date End Date Michael Rivas MD PCP - General 09/03/15 documented as of this encounter
--- OUTSIDE RECORDS SUMMARY | 2025-07-28 15:33 | XMS_ITS | Encounter Summary ---
Author Organization [facility] Address [address] 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
--- OUTSIDE RECORDS SUMMARY | 2025-07-28 15:33 | XMS_ITS | Clinical Summary ---
Author Organization [facility] Address [address] [facility] [place] [address] Care Team Providers Care Armature Coil Winder Name Role Phone Mahad Corado MD Unavailable [phone] Shell Paulino RN Unavailable Unavailable Sherry Tejada MD Unavailable [phone] Xiomy Kiran MD Primary Care Provider Source Comments [facility],non-owned Affiliates and Associated Physician Practices is amultiple site organization consisting of ambulatory clinics and hospital sitesin [place], [place], [place] and [place]. This disclosure is being madepursuant to the Care Everywhere program and may not contain all information available regarding this patient. Last updated 18.[facility] Allergies Active Allergy Reactions Criticality Noted Date Comments Latex Swelling 05/15/2021 Morphine Other Low 04/27/2009 Pt reports hypotension 2/2 to morphine CORPORATE STRATEGY INTERN. Medications * Be aware that medications may [...] Active Cholecalcifero l (vitamin D3) 1.25 MG (63206 UT) capsule Take 1 (one) capsule by [...] Nondisplaced lateral malleolar fracture Followed by Dr Agustin/Silver Cleaner; LV 03/09/2009 Screening for breast cancer 02/07/2010 [...] on file Legal Sex Female 4:25 AM E LEARNING MANAGER Gender Identity Not on file Sexual [...] last dose Medical Devices Implanted Type Area Fleet Technician Device Identifier Shelf Expiration Date Model / Serial / Lot Nail Im 10mm 30cm Versanail Tib Tmx Strl Implanted:Qty: 1 on 05/15/2021 by Selwyn Galicia MD at [facility] Nail Left: Leg [employer] 04/17/2023 [id number] / / [id number] Cap End Unv Tib Im Nail Ti Strl Implanted:Qty: 1 on 05/15/2021 by Selwyn Galicia MD at [facility] Other (Type not listed) Left: Leg [employer] 05/26/2030 [id number] / / [id number] D Screw 4.5mm 34mm Oblq Ft Slf-Tap Sld 2 Implanted:Qty: 1 on 05/15/2021 by Selwyn Galicia MD at [facility] Screw Left: Leg [employer] [id number] / / Procedures Procedure Name Priority Date/Time Associated Diagnosis Comments COMPREHENSIVE METABOLIC PANEL STAT 12/06/2023 11:15 AM CDT HEMOGLOBIN A1C ROLANDO 05/14/2021 5:18 PM CDT MICROALB/CREAT RATIO URINE RANDOM PANEL Routine 11/16/2010 9:47 AM E LEARNING MANAGER DM w/o complication type II Hyperlipidemia LDL goal < 100 MAMMO BILAT DIAGNOSTIC Routine 07/12/2009 11:10 AM CDT Lump or Mass in Breast from Last 3 Months or Most Recently Relevant to Health Maintenance Results * (ABNORMAL) COMPREHENSIVE METABOLIC PANEL (12/06/2023 11:15 AM CDT) BUN 17 7 - 26 mg/dL 12/06/2023 11:51 AM [facility] Creatinine 0.77 0.56 - 0.96 mg/dL 12/06/2023 11:51 AM [facility] Sodium 141 136 - 145 mmol/L 12/06/2023 11:51 AM [facility] Potassium 4.0 3.5 - 4.5 mmol/L 12/06/2023 11:51 AM [facility] Chloride 105 98 - 107 mmol/L 12/06/2023 11:51 AM [facility] CO2 25 22 - 29 mmol/L 12/06/2023 11:51 AM [facility] Glucose 156(H) 70 - 115 mg/dL 12/06/2023 11:51 AM [facility] Calcium 9.6 8.4 - 10.2 mg/dL 12/06/2023 11:51 AM [facility] Protein Total 7.4 6.0 - 8.3 g/dL 12/06/2023 11:51 AM [facility] Albumin 3.6 3.4 - 5.0 g/dL 12/06/2023 11:51 AM [facility] Bilirubin Total 0.3 0.2 - 1.2 mg/dL 12/06/2023 11:51 AM [facility] Alkaline Phosphatase 136 40 - 150 U/L 12/06/2023 11:51 AM [facility] ALT 9 5 - 55 U/L 12/06/2023 11:51 AM [facility] AST 14 5 - 34 U/L 12/06/2023 11:51 AM [facility] Anion Gap 11 6 - 16 12/06/2023 11:51 AM [facility] BUN/Creatinine Ratio 22 7 - 23 12/06/2023 11:51 AM [facility] Osmolality Calculated 297(H) 275 - 295 mOsm/kg 12/06/2023 11:51 AM [facility] Albumin/Globulin Ratio 0.9(L) 1.1 - 2.3 12/06/2023 11:51 AM [facility] eGFR by CKD-EPI 88(L) >=90 mL/min/1.7 3 m2 12/06/2023 11:51 AM [facility] Blood BLOOD SPECIMEN / Unknown Venipuncture / Unknown 12/06/2023 11:15 AM CDT 12/06/2023 11:23 AM [facility] us Kirill Brady MD LAB - CHEMISTRY ORDERABLES Fi nal Result [facility] [address] [place] [address], [facility] [phone] * (ABNORMAL) HEMOGLOBIN A1C (05/14/2021 5:18 PM [facility]) Hemoglobin A1c 10.8(H) 4.4 - 6.3 % 05/15/2021 11:09 AM [facility] Estimated Average Glucose 263 mg/dL 05/15/2021 11:09 AM [facility] Comment: HbA1c Interpretation: Treatment target values recommended by ADA and other clinical organizations should be used to evaluate metabolic control in patients. Treatment Target Values: Normal : < 5.7% Pre-diabetes: 5.7-6.4% Diabetes: Equal to or greater than 6.5% Reference: [place] Diabetes Association Standards of Care in Diabetes -2014 In patients 70 years and older consider HbA1c target range of 7.0-7.5% Reference: Diabetes Mellitus in Older People: Position Statement on behalf of the International Association of Gerontology and Geriatrics (IAGG), the Diabetes Working Democrat for Older People (EDWPOP), and the International Task Force of Experts in Diabetes. Harsha Nam et al. J [place] Medical Directors Association. 2012 Test results diagnostic of diabetes should be repeated for confirmation. The Sebia Capillary 2 assay for the measurement of HbA1c is a National Glycohemoglobin Standardization Program (NGSP)certified method. Blood BLOOD SPECIMEN / Unknown Venipuncture / Unknown 05/14/2021 5:18 PM CDT 05/14/2021 5:24 PM CDT us Jameel Capps DO LAB - CHEMISTRY ORDERABLES Fin al Result [address] [address], [facility] [phone] * (ABNORMAL) MICROALB/CREAT RATIO URINE RANDOM PANEL (11/16/2010 9:47 AM E LEARNING MANAGER) Creatinine 24 Hour Urine 211.4 15.0 - 278.0 mg/dL [facility] ACCOUNT BILL Microalbumin Urine 26.4(H) 0.0 - 17.0 ug/mL [facility] ACCOUNT BILL Microalbumin/Crea tinine Ratio 12.5 0.0 - 30.0 mg/g creat [facility] ACCOUNT BILL URINE / Unknown 11/16/2010 9 :47 AM E LEARNING MANAGER 11/16/2010 6:24 PM E LEARNING MANAGER Narrative Resulting Agency Comment [facility] [address] [facility] [id number] us Ligia Hawkins DO LAB - URINE STATION USHER RY ORDERABLES Final Result [facility] ACCOUNT BILL [address] [place] [address] * MAMMO DIAG DIRECT DIGITAL IMAGE BILA [...] Recently Relevant to Health Maintenance Insurance MEDICARE [facility] MEDICARE ANTHEM Advance Directives * Full Code (Latest Code Status on File) Date Activated Date Inactivated Comments 05/14/2021 11:28 AM 05/17/2021 2:59 PM Care Teams Armature Coil Winder Relationship Specialty Start Date End Date Xiomy Kiran MD [address] [facility] [address] [place] [address] PCP - General Internal Medicine 05/14/21 Mahad Corado MD Neurology 10/31/19 Shell Paulino, LOU Registered Nurse 10/31/19 Sherry Tejada MD [address] [place] [address] Endocrinology 10/31/19
--- OUTSIDE RECORDS SUMMARY | 2025-07-28 15:33 | XMS_ITS | Clinical Summary ---
Author Organization [facility] Address [address] [facility] [place] [address] Phone Care Team Providers Care Vice President Of Business Development Name Role Phone Mahad Corado MD Unavailable [phone] Xiomy Kiran MD Primary Care Provider Kaylyn Ellison MD Unavailable Zayda Hanson APRN, SLAB GRINDER Unavailable [phone] Allergies Active Allergy Reactions Criticality Noted Date [...] by mouth daily. Active Vitamin D, Ergocalciferol, 43286 units Capsule Take by mouth. Activ e sertraline (ZOLOFT) 50 MG Tablet Take 1 Tablet by mouth daily. 90 Tablet 1 11/15/202 3 Active Additional Information Patient taking differently: 25 mgOral DAILY, Reported on 06/25/2025 glatiramer (COPAXONE) 40 MG/ML Solution Prefilled SyringeIndicati ons:Multiple sclerosis INJECT 1 SYRINGE (40MG) UNDER THE SKIN 3 TIMES A WEEK 12 mL 11 5 Active Continuous Glucose Manager Personal (Dexcom G6 Manager Personal) Device USE TO CHECK GLUCOSE DAILY Active [...] Type Department Care Team Description 07/21/2025 Telephone [facility] [address] [place] [address] Kaylyn Ellison MD 06/25/2025 11:00 AM CDT Office Visit [facility] Neurology [facility] [address] [place] [address] Mahad Corado MD Seizure Discharge Disposition: Discharged to home or Selfcare 06/25/2025 Travel 06/04/2025 Refill [facility] Neurology [facility] [address] [place] [address] Mahad Corado MD Medication Refill 05/26/2025 2:45 PM CDT Office Visit [facility] - [facility] - [place] [address] [facility] [place] [address] Kaylyn Ellison MD Eustachian tube dysfunction, right (Primary Dx); Right temporomandibular joint disorder, unspecified; Allergic rhinitis, unspecified seasonality, unspecified trigger; Sensorineural hearing loss of both ears Discharge Disposition: Discharged to home or Selfcare 05/26/2025 Travel 05/01/2025 11:00 AM CDT Office Visit [facility] - Cardiology - [place] [address] [place] [address] Zayda Hanson APRN, SLAB GRINDER Encounter for screening for cardiovascular disorders (Primary [...] st Contact Info) Description 08/20/2025 4:00 PM CHEMIC MANGLER [facility] [address] [place] [address] Zayda Hanson, TRI, SLAB GRINDER [address] [address] Discharge Disposition: Discharged to home or Selfcare 11/26/2025 11:15 AM CDT [facility] [place] [address] [place] [address] Mahad Corado MD [address] [place] [address] 05/06/2026 11:00 AM CDT Office Visit [facility] - Cardiology - [place] [address] [place] [address] Zayda Hanson, BEND SORTER, SLAB GRINDER [address] [address] Health Maintenance Due Date Last Done Comments [...] W/ ESTIMATED GLUCOSE Routine 10/11/2020 11:03 AM CHEMIC MANGLER Preoperative examination HM DILATED EYE EXAM Routine [...] QTC CALCULATION 425 ms EXTERNAL EKG P [place] 17 degrees EXTERNAL EKG R [place] 16 degrees EXTERNAL EKG T [place] 47 degrees EXTERNAL EKG 05/01/2025 10:4 5 AM CDT Impressions EXTERNAL EKG - 06/19/2025 10:03 AM CDT Normal sinus rhythm Normal ECG ~ Confirmed by Luke Gordon ([id number]) on 06/19/2025 10:03:14 AM Narrative Procedure Note Luke Gordon MD - 06/19/2025 IMPRESSION: Normal sinus rhythm Normal ECG ~ Confirmed by Luke Gordon ([id number]) on 06/19/2025 10:03:14 AM us Zayda Hanson APRN, CNP IMG ECG ORDERABLES F inal Result EXTERNAL EKG * (ABNORMAL) CMP (COMPREHENSIVE METABOLIC PANEL) (06/20/2022 4:20 PM CDT) Pathologist [facility] SODIUM 138 136 - 144 mmol/L 06/20/2022 6:14 PM CDT [facility] POTASSIUM 4.0 3.5 - 5.1 mmol/L 06/20/2022 6:14 PM CDT [facility] CHLORIDE 99(L) 100 - 110 mmol/L 06/20/2022 6:14 PM CDT [facility] CO2, VENOUS 26 22 - 32 mmol/L 06/20/2022 6:14 PM CDT [facility] ANION GAP 17.0 8.0 - 20.0 mmol/L 06/20/2022 6:14 PM CDT [facility] GLUCOSE 225(H) 70 - 99 mg/dL 06/20/2022 6:14 PM CDT [facility] BUN 10 6 - 20 mg/dL 06/20/2022 6:14 PM CDT [facility] CREATININE, BLOOD 0.85 0.60 - 1.10 mg/dL 06/20/2022 6:14 PM CDT [facility] BUN/CREATININE RATIO 12 12 - 20 ratio 06/20/2022 6:14 PM CDT [facility] TOTAL PROTEIN 7.1 6.0 - 8.3 g/dL 06/20/2022 6:14 PM CDT [facility] ALBUMIN 4.0 3.5 - 5.2 g/dL 06/20/2022 6:14 PM CDT [facility] Comment: The colormetric methods used for the determination of Albumin may lead to falsely elevated test results in patients suffering from renal failure or insufficiency due to interference with other proteins. A/G RATIO 1.3 1.0 - 2.0 06/20/2022 6:14 PM CDT [facility] CALCIUM 9.6 8.9 - 10.3 mg/dL 06/20/2022 6:14 PM CDT [facility] T BILI <0.3 <=1.2 mg/dL 06/20/2022 6:14 PM CDT [facility] SGOT (AST) 12 <=32 U/L 06/20/2022 6:14 PM CDT [facility] SGPT (ALT) 10 <=41 U/L 06/20/2022 6:14 PM CDT [facility] ALKALINE PHOSPHATASE 152(H) 35 - 105 U/L 06/20/2022 6:14 PM CDT [facility] IS THE PATIENT REQUIRED TO BE FASTING? No 06/20/2022 6:14 PM CDT [facility] GFR, ESTIMATED >60 >=60 06/20/2022 6:14 PM CDT [facility] Comment: Creatinine Clearance is the preferred criteria for selecting drug dose adjustments in renally impaired patients. The GFR is provided as additional pertinent clinical information. GFR is reported in mL/min/1.73 sq m. Calculation based on the Chronic Kidney Disease Epidemiology Collaboration (CKD- EPI) equation refit without adjustment for race. GFR, EST. >60 >=60 022 6:14 PM CDT [facility] GFR, EST. NONAFRICAN >60 >=60 06/20/2022 6:14 PM CDT [facility] Blood Venipuncture / Unknown 06/20/2022 4:20 PM CDT 06/20/2022 5:28 PM CDT us Mahad Corado MD CHEMISTRY ORDERABLES Final R esult [facility] [address] [place] [address] * HEPATITIS C ANTIBODY (02/20/2022 8:21 AM CDT) Pathologist [facility] hepatitis C antibody 0.18 <1 S/CO [facility] ARCH [id number] B 02/20/2022 2:39 PM CDT [facility] Comment: Signal/Cutoff ratio < 0.79 is Nondetected Signal/Cutoff ratio 0.80-0.99 is Grayzone Signal/Cutoff ratio > 0.99 is Detected Supplemental assays are recommended if signal/cutoff ratio is >/=1.00. Signal/cutoff ratio result >/= 5.00 is 97% predictive of positivity for recombinant immunoblot assay (RIBA) and will be reported to the [place] Department of Public Health as required. Blood Venipuncture / Unknown 02/20/2022 8:21 AM CDT 02/20/2022 9:13 AM CDT us Mahad Corado MD CHEMISTRY ORDERABLES Final R esult Performing Organization Address City/[facility] Co de Phone Number [facility] [address] [place] [address], * (ABNORMAL) HEMOGLOBIN A1C W/ ESTIMATED GLUCOSE (10/11/2020 11:03 AM CHEMIC MANGLER) [facility] HGB-A1C 10.5(H) 4.0 - 6.0 % 10/11/2020 12:48 PM CHEMIC MANGLER [facility] Est Average Glucose 254.7 mg/dL 10/11/2020 12:48 PM CHEMIC MANGLER [facility] Blood Venipuncture / Unknown 10/11/2020 11:03 AM CHEMIC MANGLER 10/11/2020 12:17 PM CHEMIC MANGLER Narrative [facility] - 10/11/2020 12:48 PM CHEMIC MANGLER HEMOGLOBIN A1C: DIABETIC PATIENTS: WELL-CONTROLLED: 6.2 - 7.0 INTERMEDIATE WELL-CONTROLLED: 7.0 - 9.0 POORLY-CONTROLLED: >9.0 us Wolf Hall MD CHEMISTRY ORDERABLES Final Resul t Performing Organization Address City/[facility]/ZIP Co de Phone Number [facility] [address] [place] [address] * DILATED EYE EXAM (07/10/2018) Ernesto Santiago MD PROCEDURE/MINOR SURGICAL JAMIE MITCHELL Final Result from Last 3 Months or Most Recently Relevant to Health Maintenance [place] [address] MEDICARE [facility] [employer] Care Teams Vice President Of Business Development Relationship Specialty Start Date End Date Xiomy Kiran MD [address] [place] [address] PCP - General Internal Medicine 12/05/17 Mahad Corado MD [address] [place] [address] Consulting Physician Neurology 08/02/15 Kaylyn [place] MD [address] [facility] [address] [address] Consulting Physician Otolaryngology 03/19/25 Zayda Hanson APRN, SLAB GRINDER [address] [facility] [address] [address] Nurse Practitioner Cardiology 05/04/25
--- OUTSIDE RECORDS SUMMARY | 2025-07-28 15:33 | XMS_ITS | Encounter Summary ---
Author Organization [facility] Address [address] [place] [address] Care Team Providers Care Fuse Coiler Name Role Phone Michael Rivas MD Primary Care Provider [phone] Encounter Details Date Type Department Care Team (Latest Contact Info) Description 10/04/2005 Outpatient Historical HIS [facility] Annel Michael MD [address] [address] MULTIPLE SCLEROSIS (CMS/[facility]) (Primary Dx) Social History Tobacco Use Types Packs/Day Years Used Date Smoking Tobacco: Never Assessed Comments Unknown Sex and Gender Information Value Date Recorded Sex Assigned at Not on file Legal Sex Female 2:39 AM DATA INTEGRATION DEVELOPER Gender Identity Not on file Sexual Orientation Not on file documented as of this encounter Plan of Treatment Not on file documented as of this encounter Procedures Procedure Name Priority Date/Time Associated Diagnosis Comments CBC WITH DIFFERENTIAL Routine 10/04/2005 1:43 PM DATA INTEGRATION DEVELOPER CBC WITH DIFFERENTIAL Routine 10/04/2005 1:43 PM DATA INTEGRATION DEVELOPER COMPREHENSIVE METABOLIC PANEL Routine 10/04/2005 1:43 PM DATA INTEGRATION DEVELOPER documented in this encounter Results * (ABNORMAL) CBC WITH DIFFERENTIAL (10/04/2005 1:43 PM DATA INTEGRATION DEVELOPER) NEUTROPHILS 69 45 - 70 % INTERFAC [...] 0.20 K/uL INTERFACE SYSTEM 10/04/2005 1:43 PM DATA INTEGRATION DEVELOPER Annel Butler MD HEMATOLOGY ORDERABLES Final Result Performing Organization Address City/[facility] de Phone Number INTERFACE SYSTEM Refer to clinic/hospital department * (ABNORMAL) CBC WITH DIFFERENTIAL (10/04/2005 1:43 PM DATA INTEGRATION DEVELOPER) WBC 10.2(H) 4.0 - 9.8 K/uL INTERFACE [...] 12.4 fL INTERFACE SYSTEM 10/04/2005 1:43 PM DATA INTEGRATION DEVELOPER Annel Butler MD HEMATOLOGY ORDERABLES Final Result Performing Organization Address City/[facility] de Phone Number INTERFACE SYSTEM Refer to clinic/hospital department * (ABNORMAL) COMPREHENSIVE METABOLIC PANEL (10/04/2005 1:43 PM DATA INTEGRATION DEVELOPER) GLUCOSE 183(H) 65 - 109 mg/dL INTERFACE [...] 30 mmol/L INTERFACE SYSTEM 10/04/2005 1:43 PM DATA INTEGRATION DEVELOPER Annel Butler MD CHEMISTRY ORDERABLES Final Result INTERFACE SYSTEM Refer to clinic/hospital department documented in this encounter Visit Diagnoses Diagnosis Multiple sclerosis- Primary documented in this encounter Care Teams Fuse Coiler Relationship Specialty Start Date End Date Michael Rivas MD PCP - General 09/03/15 documented as of this encounter
--- OUTSIDE RECORDS SUMMARY | 2025-07-28 15:33 | XMS_ITS | Encounter Summary ---
Author Organization [facility] Address [address] 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
--- OUTSIDE RECORDS SUMMARY | 2025-07-28 15:33 | XMS_ITS | Encounter Summary ---
Author Organization [facility] Address [address] [place] [address] Care Team Providers Care Turnstile Collector Name Role Phone Michael Rivas MD Primary Care Provider [phone] Encounter Details Date Type Department Care Team (Latest Contact Info) Description 03/12/2005 Outpatient Historical HIS PATIENT IN A BED Ada Mojica MD CHEST PAIN NEC (Primary Dx) Social History Tobacco Use Types Packs/Day Years Used Date Smoking Tobacco: Never Assessed Comments Unknown Sex and Gender Information Value Date Recorded Sex Assigned at Not on file Legal Sex Female 2:39 AM HAZARDOUS WASTE REMOVER Gender Identity Not on file Sexual Orientation [...] HEMATOLOGY ORDERABLES Final Result Performing Organization Address City/[facility] Phone Number INTERFACE SYSTEM Refer to clinic/hospital department * PHOSPHORUS (03/13/2005 5:00 AM CDT) PHOSPHORUS 4.0 2.5 - 4.5 mg/dL INTERFACE SYSTEM 03/13/2005 5:00 AM CDT Harman Bone MD CHEMISTRY ORDERABLES Final R esult Performing Organization Address City/[facility] Phone Number INTERFACE SYSTEM Refer to clinic/hospital department * MAGNESIUM LEVEL (03/13/2005 5:00 AM CDT) MAGNESIUM 2.0 1.5 - 2.5 mg/dL INTERFACE SYSTEM 03/13/2005 5:00 AM CDT Harman Bone MD CHEMISTRY ORDERABLES Final R esult Performing Organization Address [facility] de Phone Number INTERFACE SYSTEM Refer to [...] ORDERABLES Final R esult Performing Organization Address [facility] Phone Number INTERFACE SYSTEM Refer to clinic/hospital department * TROPONIN (W/REFLEX CKMB/CK) (03/12/2005 9:30 PM CDT) TROPONIN T <0.01 <=0.03 ng/mL INTERFACE SYSTEM TROPONIN T INTERP Negative INTERFACE SYSTEM 03/12/2005 9:30 PM CDT Harman Bone MD CHEMISTRY ORDERABLES Final R esult Performing Organization Address [facility] Phone Number INTERFACE SYSTEM Refer [...] HEMATOLOGY ORDERABLES Final Result Performing Organization Address [facility] Phone Number INTERFACE SYSTEM Refer to clinic/hospital department * TROPONIN (W/REFLEX CKMB/CK) (03/12/2005 1:20 PM CDT) TROPONIN T <0.01 <=0.03 ng/mL INTERFACE SYSTEM TROPONIN T INTERP Negative INTERFACE SYSTEM 03/12/2005 1:20 PM CDT us Harman Bone MD CHEMISTRY ORDERABLES Final R esult Performing Organization Address [facility] de Phone Number INTERFACE SYSTEM Refer to [...] HEMATOLOGY ORDERABLES Final Result Performing Organization Address [facility] Phone Number INTERFACE SYSTEM Refer to [...] HEMATOLOGY ORDERABLES Final Result Performing Organization Address City/[facility] Phone Number INTERFACE SYSTEM Refer to clinic/hospital department * TROPONIN (W/REFLEX CKMB/CK) (03/12/2005 5:14 AM CDT) TROPONIN T <0.01 <=0.03 ng/mL INTERFACE SYSTEM TROPONIN T INTERP Negative INTERFACE SYSTEM 03/12/2005 5:14 AM CDT us Giulia Bernardo MD CHEMISTRY ORDERABLES Final R esult Performing Organization Address [facility] Phone Number INTERFACE SYSTEM Refer to clinic/hospital department documented in this encounter Visit Diagnoses Diagnosis Other chest pain- Primary documented in this encounter Care Teams Turnstile Collector Relationship Specialty Start Date End Date Michael Rivas MD PCP - General 09/03/15 documented as of this encounter
--- OUTSIDE RECORDS SUMMARY | 2025-07-28 15:33 | XMS_ITS | Encounter Summary ---
Author Organization [facility] Address [address] [place] [address] Care Team Providers Care Lumber Sorter Name Role Phone Michael Rivas MD Primary Care Provider [phone] Encounter Details Date Type Department Care Team (Late st Contact Info) Description 06/14/2005 Outpatient Historical [facility] Internal Medicine Medical [facility] [address] [place] [address] Ivan Reed MD [facility] [address] [place] [address] Social History Tobacco Use Types Packs/Day Years Used Date Smoking Tobacco: Never Assessed Comments Unknown Sex and Gender Information Value Date Recorded Sex Assigned at Not on file Legal Sex Female 2:[address]VISOR Gender Identity Not on file Sexual Orientation Not on file documented as of this encounter Plan of Treatment Not on file documented as of this encounter Visit Diagnoses Not on filedocumented in this encounter Care Teams Lumber Sorter Relationship Specialty Start Date End Date Michael Rivas MD PCP - General 09/03/15 documented as of this encounter
--- OUTSIDE RECORDS SUMMARY | 2025-07-28 15:33 | XMS_ITS | Encounter Summary ---
Author Organization [facility] Address [address] [place] [address] Care Team Providers Care Ticket Scheduler Name Role Phone Michael Rivas MD Primary Care Provider [phone] Encounter Details Date Type Department Care Team (Late st Contact Info) Description 10/13/2005 Outpatient Historical Division of Neurology [address] [place] [address]., [address] [place] [address] Annel Butler MD [address] [place] [address] Social History Tobacco Use Types Packs/Day Years Used Date Smoking Tobacco: Never Assessed Comments Unknown Sex and Gender Information Value Date Recorded Sex Assigned at Not on file Legal Sex Female 2:39 AM ELL TUTOR Gender Identity Not on file Sexual Orientation Not on file documented as of this encounter Plan of Treatment Not on file documented as of this encounter Visit Diagnoses Not on filedocumented in this encounter Care Teams Ticket Scheduler Relationship Specialty Start Date End Date Michael Rivas MD PCP - General 09/03/15 documented as of this encounter
--- OUTSIDE RECORDS SUMMARY | 2025-07-28 15:33 | XMS_ITS | Encounter Summary ---
Author Organization [facility] Address [address] [place] [address] Care Team Providers Care First Assist Name Role Phone Michael Rivas MD Primary Care Provider [phone] Encounter Details Date Type Department Care Team (Late st Contact Info) Description 05/29/2005 Outpatient Historical [facility] Internal Medicine Medical [address] [place] [address] Ivan Reed MD [address] [place] [address] [address] [place], [place] [id number] Social History Tobacco Use Types Packs/Day Years Used Date Smoking Tobacco: Never Assessed Comments Unknown Sex and Gender Information Value Date Recorded Sex Assigned at Not on file Legal Sex Female 2:39 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
--- OUTSIDE RECORDS SUMMARY | 2025-07-28 15:33 | XMS_ITS | Encounter Summary ---
Author Organization [facility] Address [address] [place] [address] Care Team Providers Care Operating Room Scheduler Name Role Phone Michael Rivas MD Primary Care Provider [phone] Encounter Details Date Type Department Care Team (Late st Contact Info) Description 03/23/2006 Outpatient Historical [facility] Internal Medicine Medical [place] [facility] [address] [facility] [address] [address] Jia Fuentes MD [address] [place] [address] [address] [place] [phone] Social History Tobacco Use Types Packs/Day Years Used Date Smoking Tobacco: Never Assessed Comments Unknown Sex and Gender Information Value Date Recorded Sex Assigned at Not on file 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
--- OUTSIDE RECORDS SUMMARY | 2025-07-28 15:33 | XMS_ITS | Encounter Summary ---
Author Organization [facility] Address [address] [place] [address] Care Team Providers Care Functional Consultant Name Role Phone Michael Rivas MD Primary Care Provider [phone] Encounter Details Date Type Department Care Team (Late st Contact Info) Description 12/20/2005 Outpatient Historical [facility] Internal Medicine Medical [facility] [address] [address] Ada Mojica MD Social History Tobacco Use Types Packs/Day Years Used Date Smoking Tobacco: Never Assessed Comments Unknown Sex and Gender Information Value Date Recorded Sex Assigned at Not on file 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
--- OUTSIDE RECORDS SUMMARY | 2025-07-28 15:33 | XMS_ITS | Encounter Summary ---
Author Organization [facility] Address [address] [place] [address] Care Team Providers Care Fish Conservationist Name Role Phone Michael Rivas MD Primary Care Provider [phone] Encounter Details Date Type Department Care Team (Latest Contact Info) Description 04/12/2005 Outpatient Historical HIS [facility] Annel Michael MD [address] [address] MULTIPLE SCLEROSIS (CMS/HCC) (Primary Dx) Social History Tobacco Use Types Packs/Day Years Used Date Smoking Tobacco: Never Assessed Comments Unknown Sex and Gender Information Value Date Recorded Sex Assigned at Not on file 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 Phone Number INTERFACE SYSTEM Refer to clinic/hospital department * (ABNORMAL) PROTEIN ELECTROPHORESIS, SERUM (04/12/2005 1:57 PM CDT) [facility] PROTEIN TOTAL, SPE 7.6 6.0 - 8.3 [...] CHEMISTRY ORDERABLES Final Result Performing Organization Address [facility] de Phone Number INTERFACE SYSTEM Refer to clinic/hospital department * BRANDT (04/12/2005 1:57 PM CDT) [facility] BRANDT SCREEN NEGATIVE NEGATIVE INTERFACE SYSTEM Comment: Lab test performed by: [facility] [address] [place] [address] ÁLVARO MCCRAY MD 04/12/2005 1:57 PM CDT Annel Butler MD CHEMISTRY ORDERABLES Final Result Performing Organization Address [facility] Phone Number INTERFACE SYSTEM Refer to clinic/hospital [...] STOOLS [place] l Result Performing Organization Address [facility] Phone [facility] INTERFACE SYSTEM Refer to clinic/hospital department * (ABNORMAL) TOTAL PROTEIN, CSF (04/12/2005 1:44 PM CDT) PROTEIN, CSF 78(H) 15 - 60 mg/dL INTERFACE SYSTEM 04/12/2005 1:44 PM CDT Annel Butler MD BODY FLUIDS AND STOOLS [place] Result Performing Organization Address [facility] Phone Number INTERFACE SYSTEM Refer to clinic/hospital department * (ABNORMAL) GLUCOSE, CSF (04/12/2005 1:44 PM CDT) GLUCOSE, CSF 83(H) 41 - 75 mg/dL INTERFACE SYSTEM 04/12/2005 1:44 PM CDT Annel Butler MD BODY FLUIDS AND STOOLS [place] Result Performing Organization Address [facility] Phone Number INTERFACE SYSTEM Refer to clinic/hospital [...] STOOLS [place] Result Performing Organization Address City/[facility] Co de Phone Number INTERFACE SYSTEM Refer [...] Primary documented in this encounter Care Teams Fish Conservationist Relationship Specialty Start Date End Date Michael Rivas MD PCP - General 09/03/15 documented as of this encounter
--- OUTSIDE RECORDS SUMMARY | 2025-07-28 15:33 | XMS_ITS | Encounter Summary ---
Author Organization [facility] Address [address] [place] [address] Care Team Providers Care Alterations Sewer Name Role Phone Michael Rivas MD Primary Care Provider [phone] Encounter Details Date Type Department Care Team (Late st Contact Info) Description 03/12/[address] 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
--- OUTSIDE RECORDS SUMMARY | 2025-07-28 15:33 | XMS_ITS | Encounter Summary ---
Author Organization [facility] Address [address] 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
--- OUTSIDE RECORDS SUMMARY | 2025-07-28 15:33 | XMS_ITS | Encounter Summary ---
Author Organization [facility] Address [address] [place] [address] Phone Care Team Providers Care Indian Trader Name Role Phone Mahad Corado MD Unavailable [phone] Xiomy Kiran MD Primary Care Provider Kaylyn Ellison MD Unavailable [phone] Zayda Hanson APRN, SOFTWARE CONFIGURATION ENGINEER Unavailable [phone] Reason for Visit * Reason Comments Medication Refill Encounter Details Date Type Department Care Team (Late st Contact Info) Description 07/24/2022 Refill [facility] - Neurology [facility] [address] [place] [address] Mahad Corado MD [address] [place] [phone] Medication Refill Social History Tobacco Use Types [...] st Contact Info) Description 08/20/2025 4:00 PM PANEL ASSEMBLER [facility]ment [facility] [address] [place] [phone] Zayda Hanson, SLIVER CUTTER, SOFTWARE CONFIGURATION ENGINEER [address] [address] Discharge Disposition: Discharged to home or Selfcare 11/26/2025 11:15 AM CDT Office Visit [facility] - Neurology - [place] [address] [place] [phone] Mahad Corado MD [address] [place] [phone] 05/06/2026 11:00 AM CDT Office Visit [facility] Cardiology - [place] [address] [place] [phone] Zayda Hanson, SLIVER CUTTER, SOFTWARE CONFIGURATION ENGINEER [address] [address] documented as of this encounter Visit Diagnoses Diagnosis Anxiety Anxiety state, unspecified documented in this encounter Care Teams Indian Trader Relationship Specialty Start Date End Date Xiomy Kiran MD [address] [place] [address] PCP - General Internal Medicine 12/05/17 Mahad Corado MD [address] [place] [phone] Consulting Physician Neurology 08/02/15 Kaylyn Ell[place] MD [address] [phone] Consulting Physician Otolaryngology 03/19/25 Zayda Hanson APRN, SOFTWARE CONFIGURATION ENGINEER [address] [address] Nurse Practitioner Cardiology 05/04/25 documented as of this encounter
--- OUTSIDE RECORDS SUMMARY | 2025-07-28 15:33 | XMS_ITS | Clinical Summary ---
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 Medications aspirin 81 mg enteric coated tablet [...] 1 tablet (75 mcg total) by mouth motorcycle deliverer before breakfast 90 tablet 3 08/11/20 24 [...] 30 each 3 11/13/19 25 Active insulin hydrometeorological technician cart,aut,G6/7,cntr (Omnipod 5 G6-G7 Intro Kt,Gen5,) cartridgeIndicatio [...] 11/30/2023 Assessment & Plan (08/11/2024 11:31 AM WAREHOUSE AND RECEIVING SUPERVISOR): No changes today Have long acting , [...] 08/26/2023 Assessment & Plan (08/11/2024 11:32 AM WAREHOUSE AND RECEIVING SUPERVISOR): Chronic, improving control Hemoglobin A1c 7.1%, at [...] above 150 DM eye exam [facility] q3mos; last appt 08/2023. Letter sent to [...] infection. Assessment & Plan (08/26/2023 10:02 AM WAREHOUSE AND RECEIVING SUPERVISOR): Chronic , uncontrolled, worsening A1c 7.5 % Reviewed dexcom download - noted post prandial hyperglycemia Plan to stop bydureon, Start Mounjaro 5 mg SQ weekly Continue current Omnipod insulin pump settings , plan to upgrade omnipod dash to omnipod 5 Counseled on diet and exercise Hyperlipidemia associated with type 2 diabetes anthony felder 08/26/2023 Assessment & Plan (08/11/2024 11:31 AM WAREHOUSE AND RECEIVING SUPERVISOR): Continue Rosuvastatin 40mg & vascepa 2gm bid. Try to obtain patient recent lab results from PCP office Assessment & Plan (12/04/2023 10:53 AM CDT): Chronic problem. Currently taking Rosuvastatin 40mg & vascepa 2gm bid. Last lipid panel: 11/09/23 LDL=67, HA=037. Assessment & Plan (08/26/2023 10:01 AM WAREHOUSE AND RECEIVING SUPERVISOR): Continue Statin therapy Acquired hypothyroidism 08/26/2023 Assessment & Plan (08/11/2024 11:30 AM WAREHOUSE AND RECEIVING SUPERVISOR): Chronic, unknown status No recent thyroid labs available to review We will obtain patient's last thyroid lab results from PCP office Continue current dose of levothyroxine Assessment & Plan (12/04/2023 10:54 AM CDT): Chronic problem. Clinically euthyroid. Last TFTs on record 04/2021. Currently taking levothyroxine 75 mcg daily. Rec'd copy of labs during time of appt. Assessment & Plan (08/26/2023 10:01 AM WAREHOUSE AND RECEIVING SUPERVISOR): Chronic, stable Continue current Levothyroxine dose Resolved Problems Problem Noted Date Diagnosed Date Resolved Date Class 1 obesity due to exces s calories with serious comorbidity and body mass index (BMI) of 32.0 to 32.9 in adult 08/26/2023 03/09/2025 Assessment & Plan (08/11/2024 11:30 AM WAREHOUSE AND RECEIVING SUPERVISOR): Chronic, slowly improving but still above goal Counseled on diet and exercise advised to stay consistent with her eating habits and exercise regimen Assessment & Plan (08/26/2023 10:02 AM WAREHOUSE AND RECEIVING SUPERVISOR): Counseled on diet and exercise Encounters Date Type Department Care Team Description 06/12/2025 Orders Only [facility] Diabetes and Endocrinology [address] [place] [id number] Provider, MD Alexa from Last 3 [...] on file Legal Sex Female 2:54 AM WAREHOUSE AND RECEIVING SUPERVISOR Gender Identity Not on file Sexual [...] DIABETES EYE EXAM (06/08/2025 7:32 AM CDT) [facility] Provider HEALTH MAINTENANCE Final Result * eGFR [...] ORDERABLE S Final Result Performing Organization Address [facility] Co de Phone Number [facility] [address] Department [place] [address] * (ABNORMAL) Albumin Creatinine Ratio, Urine (03/09/2025 [...] PM CDT 03/09/2025 8:08 PM CDT [facility] LAB URINE ORDERABLE S Final Result Performing Organization Address [facility] de Phone Number [facility] [address] Department [place] [address] * (ABNORMAL) Lipid panel (03/09/2025 1:45 PM [...] BLOOD ORDERABLE S Final Result [facility] [address] Department [place] [address] * (ABNORMAL) POCT hemoglobin A1c (03/09/2025 1:08 PM CDT) Hemoglobin A1C, POC 6.7(A) 4.0 - 5.6 % Blood 03/09/2025 1:08 PM CDT us Neri Esteban MD POINT OF CARE TEST ORDERABLES Final Result from Last 3 Months or Most Recently Relevant to [place] [address] [facility] MEDICARE Care Teams Taxation Agent Relationship Specialty Start Date End Date Maude Kiran MD [address] [place] [address] PCP - General Internal Medicine 07/05/23
--- OUTSIDE RECORDS SUMMARY | 2025-07-28 15:33 | XMS_ITS | Encounter Summary ---
Author Organization [facility] Address [address] [place] [address] Care Team Providers Care Deposit Clerk Name Role Phone Michael Rivas MD Primary Care Provider [phone] Encounter Details Date Type Department Care Team (Late st Contact Info) Description 04/12/2005 Outpatient Historical Division of Neurology [address] [place] [address]., [address] [place] [address] Annel Butler MD [address] [facility] [address] [place] [id number] Social History Tobacco Use Types Packs/Day Years Used Date Smoking Tobacco: Never Assessed Comments Unknown Sex and Gender Information Value Date Recorded Sex Assigned at Not on file 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
--- OUTSIDE RECORDS SUMMARY | 2025-07-28 15:33 | XMS_ITS | Encounter Summary ---
Author Organization [facility] Address [address] [place] [address] Care Team Providers Care Resident Care Manager Name Role Phone Michael Rivas MD Primary Care Provider [phone] Encounter Details Date Type Department Care Team (Late st Contact Info) Description 03/12/2005 Outpatient Historical [facility] Support [facility]. ([facility]) [address] 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
== END 2025-07-28 16:06 | disposition home or self-care (01) ==
PROVIDERS: Emergency Provider Emergency Medicine; PCP Internal Medicine
DX: S46.911A Strain of unspecified muscle, fascia and tendon at shoulder and upper arm level, right arm, initial encounter (principal); I80.8 Phlebitis and thrombophlebitis of other sites; G35.D Multiple sclerosis, unspecified; E78.00 Pure hypercholesterolemia, unspecified; E11.9 Type 2 diabetes mellitus without complications; M19.90 Unspecified osteoarthritis, unspecified site; K75.81 Nonalcoholic steatohepatitis (NASH); Z90.710 Acquired absence of both cervix and uterus; Z90.49 Acquired absence of other specified parts of digestive tract; Z79.82 Long term (current) use of aspirin; Z79.4 Long term (current) use of insulin; Z79.85 Long-term (current) use of injectable non-insulin antidiabetic drugs; Z79.899 Other long term (current) drug therapy; X58.XXXA Exposure to other specified factors, initial encounter
CPT/HCPCS: 73060; 99283; A4565